=== PATIENT | male | born 1940 | race Caucasian/White ===

== ENCOUNTER 2017-02-03 12:05 | Outpatient (CLI) | payer OTHER, MEDICARE ==
[2017-02-03] MEDS ORDERED: ACETAMINOPHEN 325 MG TAB PO ONE (12:45)
[2017-02-03 13:01] VITALS: BP 142/67; PULSE 83; RESP 16; TEMP 98.6; O2SAT 96
== END 2017-02-03 18:05 | disposition home or self-care (01) ==
LOC: FOBOP 12:05
PROVIDERS: ATTEND Surgery
PROC: 30233N1 Transfusion of Nonautologous Red Blood Cells into Peripheral Vein, Percutaneous Approach (ICD-10-PCS; principal; 2017-02-03)
DX: D50.9 Iron deficiency anemia, unspecified (principal)

== ENCOUNTER → 2017-02-06 | Outpatient (CLI) | payer OTHER, MEDICARE ==
[~2017-02-06] MED LIST: IOPAMIDOL (ISOVUE-300) 100 ML BTL ONE
== END ==
LOC: CIMAGING 07:17
PROVIDERS: ATTEND Internal Medicine Gastroenterology
DX: C18.2 Malignant neoplasm of ascending colon (principal); I70.0 Atherosclerosis of aorta; R91.1 Solitary pulmonary nodule; K57.30 Diverticulosis of large intestine without perforation or abscess without bleeding; R91.8 Other nonspecific abnormal finding of lung field; M48.04 Spinal stenosis, thoracic region
CPT/HCPCS: 71260; 74177; Q9967

== ENCOUNTER 2017-02-07 06:56 | Inpatient (IN) | payer OTHER, MEDICARE ==
--- NOTE | 2017-02-05 15:44 | GHP ---
[f rep st] PREOP HISTORY AND PHYSICAL DATE OF SURGERY: Surgery scheduled 02/07/2017. REASON FOR ADMISSION: Colon cancer. HISTORY OF PRESENT ILLNESS: The patient is a 76-year-old man who presented with anemia. He had a colonoscopy on 01/30/2017, which showed a fungating, infiltrative, and ulcerated partially obstructing mass in the proximal ascending colon. The mass is circumferential. Pathology revealed adenocarcinoma. He is fatigued. He has some pain and discomfort on the right side of his abdomen that does not radiate. He presents at this time for surgical intervention. PAST MEDICAL HISTORY: Anxiety, aortic insufficiency, bacteremia, bundle branch block, cellulitis, history of DVT, bilateral lower extremity edema, hypertension , sleep apnea, spontaneous PE in 1991. PAST SURGICAL HISTORY: Tonsillectomy, appendectomy. ALLERGIES: Ciprofloxacin, sulfa. FAMILY HISTORY: No significant family medical history. SOCIAL HISTORY: He denies alcohol or recreational drug use. He is a former smoker and quit in 1981. He is , with children. His step son-in-law is Dr. Pancho Herrera here at the hospital. REVIEW OF SYSTEMS: Ten-point review of systems negative, aside from HPI. PHYSICAL EXAM: GENERAL: Well-developed, well-nourished man, in no acute distress. HEENT: Normocephalic, atraumatic. No hearing deficits. Pupils equal and round. No scleral icterus. Mucous membranes moist. Pale conjunctiva. NECK: Trachea midline. LUNGS: Clear to auscultation bilaterally. No increased work of breathing. CARDIOVASCULAR: Regular rate. No peripheral edema. ABDOMEN: Bowel sounds present. Soft, mild tenderness to palpation of right lateral abdomen. SKIN: Warm and dry. PSYCH: Mood and affect normal. NEURO: Grossly intact. IMPRESSION AND PLAN: The patient is a 76-year-old man with a new diagnosis of right ascending colon cancer, with anemia, on chronic anticoagulation. He will be taken to the operating room for laparoscopic, possible open right hemicolectomy. He will receive 2 units of blood preop as an outpatient. We will repeat labs on the day prior to surgery and will admit him for another transfusion if needed. We discussed the risks of surgery, including, but not limited to, heart attack, stroke, blood clots or . We discussed infection , bleeding, needing to convert to open procedure, damage to surrounding structures, or anastomotic leak. He understands the risks and would like to proceed. The patient was additionally seen by Dr. Karrie Sepulveda, who agrees with the above impression and plan. /[id number]/MODL MTDD
[2017-02-07] MEDS ORDERED: BUPIVACAINE 0.5% 30 ML SDV ONE (06:59)
[2017-02-07] MEDS ORDERED: LIDOCAINE 1% 2 ML INJ ID PRN (07:20)
[2017-02-07] MEDS ORDERED: LR 1,000 ML IV ONE (07:20)
[2017-02-07] MEDS ORDERED: LIDOCAINE 1% 2 ML INJ ONE (07:24)
--- NOTE | 2017-02-07 08:13 | PDHPUP ---
History & Physical Update H&P update statement: This history and physical update is based on an assessment of the patient which was completed after admission or registration (within 24 hours), but prior to the surgery/procedure. H&P update: H&P reviewed & patient examined H&P changes: received 2 units PRBC and responded appropriately. CT scan with no liver mets. small indeterminate lung nodules
[2017-02-07 08:20] LABS: INR 1.15 (0.83-1.16); PROTIME(PATIENT) 14.6 SEC (12.0-15.0)
[2017-02-07] MEDS ORDERED: fentaNYL 100 MCG/2 ML INJ ONE ×2 (08:38→08:39)
[2017-02-07] MEDS ORDERED: MIDAZOLAM 2 MG/2 ML VIAL ONE (08:39)
[2017-02-07] MEDS ORDERED: PROPOFOL/EMULSION 500 MG/50 ML BOTTLE IV ONE (08:40)
[2017-02-07] MEDS ORDERED: cefOXitin SODIUM 2 GM in D5W 100 ML IV ONE (08:45)
[2017-02-07] MEDS ORDERED: SUCCINYLCHOLINE CHLORIDE*ANESTHESIA ONLY*200 MG/10 ML SYR IVP ONE (09:01)
[2017-02-07] MEDS ORDERED: ROCURONIUM 50 MG/5 ML VIAL ONE ×2 (09:01→10:05)
[2017-02-07] MEDS ORDERED: HYDROmorphONE/DILAUDID 2 MG/ML INJ ONE (09:13)
[2017-02-07] MEDS ORDERED: ONDANSETRON 4 MG/2 ML VIAL ONE (09:14)
[2017-02-07] MEDS ORDERED: NALOXONE HCL 0.4 MG/ML INJ IVP PRN (09:43)
[2017-02-07] MEDS ORDERED: MEPERIDINE 25 MG/ML SYR IVP PRN (09:43)
[2017-02-07] MEDS ORDERED: HYDROmorphONE/DILAUDID 1 MG/ML SYR IVP PRN (09:43)
[2017-02-07] MEDS ORDERED: fentaNYL 100 MCG/2 ML INJ IVP PRN (09:43)
[2017-02-07] MEDS ORDERED: ONDANSETRON 4 MG/2 ML VIAL IVP PRN ×2 (09:43→11:15)
--- NOTE | 2017-02-07 09:53 | PDANEPAE ---
ANE Past Medical History - Cardiovascular History Hx Hypertension: Yes Hx CHF / Valvular Disease: Yes - Pulmonary History Hx Asthma/Reactive Airway Disease: Yes Hx Oxygen in Use at Home: No - Endocrine History Hx Diabetes: No - Cancer History Hx Cancer: Yes - Chronic Pain History Chronic Pain: No ANE Patient History - Allergies Allergies/Adverse Reactions: ciprofloxacin Allergy (Verified 02/06/17 17:49) Sulfa (Sulfonamide Antibiotics) Allergy (Verified 02/05/17 09:34) Rash - Home Medications Home medications: home medication list seen and reviewed Home Medications: Pravastatin Sodium [Pravachol] 40 mg PO HS 09/08/15 [Last Taken 01/26/17] Escitalopram Oxalate [Lexapro] 20 mg PO DAILY 02/05/17 [Last Taken 02/06/17] Warfarin Sodium [Coumadin 2MG (*)] 11 mg PO SUTUWEFRSA@16 02/05/17 [Last Taken 01/26/17] Warfarin Sodium [Coumadin 3MG (*)] 6 mg PO MOTH@02/05/17 [Last Taken 01/26/17 ] - NPO status NPO Since - Liquids (Date): 02/06/17 NPO Since - Liquids (Time): 22:00 NPO Since - Solids (Date): 02/06/17 NPO Since - Solids (Time): 22:00 - Anes Hx Anes Hx: no prior problems - Smoking Hx Smoking Status: Former smoker ANE Labs/Vital Signs - Labs - CBC HCT: 29 - Vital Signs Blood Pressure: 131/71 Heart Rate: 82 Respiratory Rate: 12 O2 Sat (%): 93 Height: 177.8 cm Weight: 93.44 kg ANE Physical Exam - Airway Neck exam: decreased ROM Mallampati Score: Class 2 Mouth exam: normal dental/mouth exam - Pulmonary Pulmonary: no respiratory distress, clear to auscultation - Cardiovascular Cardiovascular: regular rate and rhythym - ASA Status ASA Status: III
--- NOTE | 2017-02-07 11:13 | POSTOPPROG ---
Post Op Note Date of Operation: 02/07/17 Surgeon: Karrie Sepulveda Residence Manager: gail Anesthesiologist: erik Anesthesia: GET(General Endotracheal) Pre-op Diagnosis: right colon cancer Post-op Diagnosis: same Indication: 76 yo with anemia and ascending colon cancer Procedure: lap assisted right hemicolectomy with resection of abdominal wall Findings: tumor adhered to abdominal wall Inf/Abcess present in the surg proc area at time of surgery?: No EBL: Minimal Specimen(s): right colon
[2017-02-07] MEDS ORDERED: NEOSTIGMINE METHYLSULFATE 5 MG/5 ML SYR ONE (11:15)
[2017-02-07] MEDS ORDERED: GLYCOPYRROLATE 0.2 MG/1 ML VIAL ONE (11:15)
--- NOTE | 2017-02-07 11:38 | POSTANESTH ---
Post Anesthetic Evaluation Cardiovascular Status: Normal, Stable Respiratory Status: Normal, Stable Level of Consciousness/Mental Status: Can Participate in Eval Pain Control: Adequate, Prn Tx Ordered Nausea/Vomiting Control: Adequate, Prn Tx Ordered Complications Possibly Related to Anesthesia: None Noted
--- NOTE | 2017-02-07 12:09 | GOP ---
[f rep st] OPERATIVE REPORT DATE OF OPERATION: 02/07/2017 SURGEON: Karrie Sepulveda MD EXECUTIVE COMMUNITY PLANNING: Qian Bennett PA-C ANESTHESIA: General. ANESTHESIOLOGIST: Jess Lam MD PREOPERATIVE DIAGNOSIS: Adenocarcinoma of the ascending colon. POSTOPERATIVE DIAGNOSIS: Adenocarcinoma of the ascending colon. PROCEDURE PERFORMED: Laparoscopic-assisted right hemicolectomy with resection of abdominal wall. FINDINGS: colon adhered to right abdominal sidewall SPECIMENS: Colon with the abdominal wall en bloc and anastomosis. ESTIMATED BLOOD LOSS: 25 cc. INDICATIONS: The patient is a 76-year-old man who had profound anemia. Colonoscopy revealed a colon cancer. DESCRIPTION OF PROCEDURE: The patient was brought into the operating room, placed supine on the table, and general anesthesia was administered. His abdomen was prepped and draped in the usual sterile fashion. I infiltrated all sites with 0.5% Marcaine prior to making incisions. I made an incision at his umbilicus. I elevated it and I inserted the Veress needle. It passed the hanging drop test. I placed a 5 mm trocar with a camera at this site. There were no injuries from Veress needle placement. Under direct vision, I placed a 5 mm trocar in the upper abdomen, as well as in the lower abdomen. I explored his abdomen. There were no liver metastasis, there was no evidence of carcinomatosis. The right colon was affixed to the right abdominal wall. I examined the transverse colon and it appeared soft. I divide the ligament between the liver and the colon. I then identified the terminal ilium and the appendix and I divided these attachments. I continued a [id number] approach and I resected part of the abdominal wall in order to bring the tumor en bloc off the abdominal wall. I was then able to carry my dissection down to the white line of Toldt and meet up with my dissection by the hepatic flexure. The structures of the retroperitoneum were visualized and protected. I elevated the colon and identified the right colic vessels. These were skeletonized. They were doubly clipped and then divided with the Harmonic. I continued my mesenteric dissection. Once the colon was completely mobile, I made an incision in his midline. I inserted the Ned wound protector and I extracorporalized the colon. I had to enlarge the incision in order to get the tumor out of the abdomen. I selected points of transection on the terminal ilium, as well as on the transverse colon. I divided each of the limbs with a DOMINIQUE 75 and I passed the specimen off the field. I aligned the bowel on the antimesenteric border and I sutured it with 3-0 Vicryl. I then made an enterotomy in each limb and inserted a DOMINIQUE 75, creating a [id number] functional end-to-end anastomosis. I closed the enterotomy with a DOMINIQUE 75. I changed gloves and removed the dirty instruments. I reinforced the staple line with 3-0 Vicryl pop-offs. The anastomosis was widely patent. There was no twisting, no torsion, and the bowel was pink. I returned the bowel to the abdominal cavity. I re-insufflated. I marked the area on his lateral wall where the tumor was attached with clips. Hemostasis was achieved. Again, I inspected the anastomosis. It was floppy and there was no compromise. Trocars and Ned wound protector were removed. Fascia closed with 0 Vicryl. Wound irrigated. Skin closed with 3-0 Vicryl, followed by 4-0 Monocryl. Aquacel Ag surgical dressing was applied. Dermabond applied to the inferior incision. He was awakened in the operating room, extubated, transferred to PACU in stable condition. /[id number]/MODL MTDD
[2017-02-07] MEDS: NS 1,000 ML IV SCH (12:41)
[2017-02-07] MEDS: ACETAMINOPHEN 500 MG TAB PO SCH ×2 (14:04→21:31)
[2017-02-07 15:51] LABS: HEMATOCRIT 29.5 % (40.0-51.0); HEMOGLOBIN 8.5 g/dL (13.7-17.5); MEAN CELL HEMOGLOBIN 19.3 pg (27.9-34.1); RED BLOOD CELL COUNT 4.4 10^6/uL (4.40-6.38)
[2017-02-07 15:54] LABS: MEAN CELL HEMOGLOBIN CONCENTR. 28.8 g/dL (32.4-36.7); RED CELL DISTRIBUTION WIDTH 25.6 % (11.5-15.2)
[2017-02-07 16:08] LABS: ANION GAP 8 mEq/L (8-16); CALCIUM 8.5 mg/dL (8.5-10.4); CARBON DIOXIDE 22 mEq/l (22-31); CHLORIDE 102 mEq/L (97-110); CREATININE 0.9 mg/dL (0.7-1.3); GLOMERULAR FILTRATION RATE > 60; GLUCOSE 113 mg/dL (70-100); POTASSIUM 4.7 mEq/L (3.5-5.2); SODIUM 132 mEq/L (134-144)
[2017-02-07] MEDS: WARFARIN SODIUM 2 MG TAB PO SCH (17:27)
[2017-02-07] MEDS: PRAVASTATIN SODIUM 40 MG TAB PO SCH (21:32)
[2017-02-07] MEDS: oxyCODONE IR 5 MG TAB PO PRN (21:32)
[2017-02-08] MEDS: NS 1,000 ML IV SCH ×2 (01:30→16:32)
--- NOTE | 2017-02-08 03:48 | GCON ---
[f rep st] CONSULTATION DATE OF CONSULTATION: 02/07/2017 HISTORY OF PRESENT ILLNESS: The patient is a 76-year-old gentleman with a history of DVT x2 in the , on warfarin, as well as aortic insufficiency, who is postop day 0, following a right hemicole ctomy by Dr. Karrie Sepulveda, for adenocarcinoma of the ascending colon. In discussing the case with he r, she mentioned that the tumor was adherent to the abdominal wall, so it was a bit of an extensive surgery. I am asked to follow along, given his preoperative anemia and medical comorbidities. When I speak with the patient, he complains of abdominal pain, but otherwise feels well. He is not short of breath. He is wearing oxygen, but does not routinely wear it at home. He has really only been out of the postanesthesia care unit for about 2 hours. He has a Rodriguez catheter in place. He i s not having nausea or vomiting, fever, or chills. The patient had anemia prior to coming into the hospital, and an outpatient colonoscopy demonstrated the adenocarcinoma. He received 2 units of packed cells during this surgery. On January 26, his hemo globin was 6.2 with a hematocrit of 22.2. He was transfused and then it was 8.3 and 29.7 on preop d ay 1. REVIEW OF SYSTEMS: Complete 10-point review of systems conducted and negative, except as noted in t he HPI. PAST MEDICAL HISTORY: 1. Aortic insufficiency. 2. 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 3. Hyperlipidemia. 4. Rash. 5. Left lower extremity edema. 6. Obstructive sleep apnea. 7. He had an admission for left lower extremity cellulitis that was streptococcus bacteremia in 201 6. ALLERGIES: Cipro and sulfa. MEDICATIONS: Warfarin, pravastatin, escitalopram. SOCIAL HISTORY: No tobacco. No alcohol. He is Pancho Javier's [id number]. FAMILY HISTORY: Parents . PHYSICAL EXAMINATION: VITAL SIGNS: Blood pressure 160/79, pulse 110, breathing 20 times a minute, 94% on 2 L, temperature 34. At 12:30 p.m. today, so a couple of hours prior, his pulse was 78, and he was afebrile. GENERAL: No acute distress. Sclerae anicteric. Oropharynx clear. Mucous membra shelli are moist. NECK: Supple without lymphadenopathy or JVD. LUNGS: Clear to auscultation bilaterally. HEART: S1, S2. A diastolic murmur is heard. He is tac hycardic. Abdomen is soft. It is tender. There are hypoactive bowel sounds. Midline incision is clean, dry, and intact. Lower extremities show left lower extremity edema that is 1+. Calves are n ontender. SKIN: Without rash. Neurologic exam is nonfocal. LABORATORY DATA: I had mentioned his labs from yesterday. He has a microcytic anemia with an MCV o f 67. Labs at this point in time are pending. INR this morning was 1.15. There is no imaging. I have discussed the case with Dr. Karrie Sepulveda. ASSESSMENT/PLAN: This is a 76-year-old gentleman with multiple comorbidities, postoperative day 0, from a right hemicolectomy for cancer. 1. Fever. This is likely a routine postop fever. I think we will follow it. I think a fever work up is not indicated at this point in time. 2. Preoperative anemia. Labs just returned during the course of this dictation, and his current he moglobin and hematocrit are 8.5 and 29.5, so we will follow. He remains microcytic. 3. Aortic insufficiency. Follow. This is not a contraindication to fluids or volume. 4. Tachycardia. This is secondary to fever. We will follow. He is anemic, but mildly so. 5. Prophylaxis. Pharmacologic prophylaxis is indicated. Dr. Sepulveda plans to restart his warfarin, which I think is a reasonable plan. His last event was almost 20 years ago. 6. Code status. Full. DISPOSITION: Inpatient. Thank you for the consult. [facility] will follow. /[id number]/MODL
[2017-02-08] MEDS: oxyCODONE IR 5 MG TAB PO PRN ×3 (05:58→21:06)
[2017-02-08] MEDS: ACETAMINOPHEN 500 MG TAB PO SCH ×3 (05:58→21:06)
[2017-02-08 06:17] LABS: % IMMATURE GRANULYOCYTES 0.4 % (0.0-1.1); ABSOLUTE IMMATURE GRANULOCYTES 0.05 10^3/uL (0.00-0.10); ADD DIFF? NO; ADD MORPH? YES; ADD SCAN? NO; ATYPICAL LYMPHOCYTE FLAG 0 (0-99); FRAGMENT RBC FLAG 40 (0-99); HEMATOCRIT 29.8 % (40.0-51.0); HEMOGLOBIN 8.3 g/dL (13.7-17.5); LEFT SHIFT FLG 70 (0-99); LIPEMIA HEMOLYSIS FLAG 70 (0-99); MEAN CELL HEMOGLOBIN 19.2 pg (27.9-34.1); MEAN PLATELET VOLUME 9.3 fL (8.7-11.7); PLATELET CLUMPS FLAG 10 (0-99); PLATELET COUNT 304 10^3/uL (150-400); RED BLOOD CELL COUNT 4.32 10^6/uL (4.40-6.38)
[2017-02-08 06:19] LABS: MEAN CELL HEMOGLOBIN CONCENTR. 27.9 g/dL (32.4-36.7); RED CELL DISTRIBUTION WIDTH 25.6 % (11.5-15.2)
[2017-02-08 06:32] LABS: ANION GAP 8 mEq/L (8-16); CALCIUM 8.6 mg/dL (8.5-10.4); CARBON DIOXIDE 25 mEq/l (22-31); CHLORIDE 102 mEq/L (97-110); CREATININE 0.9 mg/dL (0.7-1.3); GLOMERULAR FILTRATION RATE > 60; GLUCOSE 97 mg/dL (70-100); SODIUM 135 mEq/L (134-144)
[2017-02-08 06:49] LABS: HYPOCHROMIA 2+; MACROCYTES 1+; POLYCHROMASIA 1+
[2017-02-08 06:50] LABS: ACANTHOCYTES 1+; PLATELET ESTIMATE ADEQUATE (ADEQ); SCHISTOCYTES 1+; TARGET CELLS 1+
[2017-02-08] MEDS: ENOXAPARIN 40 MG/0.4 ML SYR SC SCH (08:11)
[2017-02-08] MEDS: ESCITALOPRAM OXALATE 10 MG TAB PO SCH (08:11)
[2017-02-08] MEDS ORDERED: NON-FORMULARY NEW DRUG (Escitalopram Oxalate [Lexapro] 20 MG) PO SCH (09:00)
--- NOTE | 2017-02-08 13:18 | SOAPPROG ---
SOAP Progress Note Assessment/Plan: Assessment: POD # 1 s/p lap assisted hemicolectomy with partial resection of abdominal wall due to adenocarcinoma Path pending Appreciate hospitalists Neuro - scheduled tylenol and prn morphine and oxy ir Resp - IS Cards - Home meds including warfarin GI - awaiting bowel function to return - remove larson. Good urine output Heme/ID - monitor WBC Proph - Lovenox FEN - Clears Dispo - MS, continue inpatient S: Feeling well. Pain controlled. Vagal with standing early to day but did better later Plan: 02/08/17 13:13 Objective: Vital Signs Temp Pulse Resp BP Pulse Ox 36.7 C 77 16 125/66 H 92 02/08/17 08:00 02/08/17 09:35 02/08/17 09:35 02/08/17 09:35 02/08/17 09:35 Laboratory Results 02/08/17 06:05 02/08/17 06:05 02/07/17 02/08/17 02/09/17 05:59 05:59 05:59 Intake Total 2754 Output Total 1005 Balance 1749 PT 14.6 SEC (12.0-15.0) 02/07/17 07:17 INR 1.15 (0.83-1.16) 02/07/17 07:17 Physical Exam - Physical Exam General Appearance: WD/WN, alert, no apparent distress, other ( at bedside) Respiratory: lungs clear, normal breath sounds Cardiac/Chest: other (regular rate) Abdomen: normal bowel sounds, non-tender, soft, organomegaly, other (dressing dry) Skin: normal color, warm/dry ICD10 Worksheet Patient Problems: Problems Problem Status Onset Cellulitis of left lower extremity Acute Pneumonia Acute
[2017-02-08] MEDS ORDERED: WARFARIN SODIUM 3 MG TAB PO SCH (16:00)
--- NOTE | 2017-02-08 16:53 | HOSPPROG ---
Hospitalist Progress Note Assessment/Plan: 76-year-old male status post a right hemicolectomy on 02/07. He was noted to have a postop fever which has not reoccurred. Patient is new to me today - fever: Patient has been afebrile postoperatively in the last 24 hours and is without complaints of chest pain shortness of breath or cough. He is using an incentive spirometer and has no history of lung disease. - Anemia: Hemoglobin currently 8.3. He is status post 2 units PRBCs during the right hemicolectomy. Hemoglobin is stable there is no signs of blood loss. - AI: No symptoms of chest pain shortness of breath. He appears euvolemic. - Leukocytosis: Patient is afebrile and this may be reactive. We will simply watch. - Hyponatremia at 132, now normal. NO symptoms Plan: Will follow along with you. Watch fever hemoglobin WBC and bowel function. Subjective: No complaints of chest pain shortness of breath cough nausea or vomiting. Objective: Vital Signs Temp Pulse Resp BP Pulse Ox 36.7 C 93 16 135/67 H 94 02/08/17 15:13 02/08/17 15:13 02/08/17 15:13 02/08/17 15:13 02/08/17 15:13 Laboratory Results 02/08/17 06:05 02/08/17 06:05 02/07/17 02/08/17 02/09/17 05:59 05:59 05:59 Intake Total 2754 Output Total 1005 Balance 1749 PT 14.6 SEC (12.0-15.0) 02/07/17 07:17 INR 1.15 (0.83-1.16) 02/07/17 07:17 - Time Spent With Patient Time Spent with Patient: greater than 35 minutes Time Spent with Patient: Greater than 35 minutes spent on this patients care, greater than 50% of time spent counseling, educating, and coordinating care regarding the above mentioned plan. - Pending Discharge Pending Discharge Within 24 Hours: No Pending Discharge Within 48 Hours: No - Physical Exam Constitutional: no apparent distress Eyes: PERRL, anicteric sclera Ears, Nose, Mouth, Throat: moist mucous membranes, hearing normal Cardiovascular: regular rate and rhythym, no murmur, rub, or gallop Respiratory: no respiratory distress, no rales or rhonchi Gastrointestinal: other ( Hypoactive bowel sounds with tenderness about the surgical wound area without have signs of a palpable mass or rebound.) Genitourinary: no bladder fullness Skin: warm Musculoskeletal: full muscle strength Neurologic: AAOx3, CN II-XII Intact Psychiatric: interacting appropriately ICD10 Worksheet Patient Problems: Problems Problem Status Onset Cellulitis of left lower extremity Acute Pneumonia Acute
[2017-02-08] MEDS ORDERED: NS 1,000 ML IV ONE (18:00)
[2017-02-08] MEDS ORDERED: NS 1,000 ML IV SCH (18:00)
[2017-02-08 20:31] LABS: COLOR YELLOW; LEUKOCYTE ESTERASE,URINE 2+ (NEGATIVE); NITRITE,URINE NEGATIVE (NEGATIVE)
[2017-02-08 20:42] LABS: MUCUS 4+ /lpf (NONE-1+); WBC,URINE 25-50 /hpf (0-3)
[2017-02-08 20:43] LABS: RBC,URINE NONE SEEN /hpf (0-3)
[2017-02-08] MEDS: PRAVASTATIN SODIUM 40 MG TAB PO SCH (21:06)
[2017-02-09 05:34] LABS: % IMMATURE GRANULYOCYTES 0.7 % (0.0-1.1); ABSOLUTE IMMATURE GRANULOCYTES 0.08 10^3/uL (0.00-0.10); ADD DIFF? NO; ADD MORPH? YES; ADD SCAN? YES; ATYPICAL LYMPHOCYTE FLAG 0 (0-99); FRAGMENT RBC FLAG 40 (0-99); HEMATOCRIT 27.3 % (40.0-51.0); HEMOGLOBIN 7.6 g/dL (13.7-17.5); LIPEMIA HEMOLYSIS FLAG 70 (0-99); MEAN CELL HEMOGLOBIN 19.3 pg (27.9-34.1); MEAN PLATELET VOLUME 9.2 fL (8.7-11.7); PLATELET CLUMPS FLAG 0 (0-99); PLATELET COUNT 291 10^3/uL (150-400); RED BLOOD CELL COUNT 3.94 10^6/uL (4.40-6.38)
[2017-02-09 05:37] LABS: LEFT SHIFT FLG 110 (0-99); MEAN CELL HEMOGLOBIN CONCENTR. 27.8 g/dL (32.4-36.7); MEAN CELL VOLUME 69.3 fL (81.5-99.8); RED CELL DISTRIBUTION WIDTH 25.4 % (11.5-15.2)
[2017-02-09 05:47] LABS: ANION GAP 7 mEq/L (8-16); CALCIUM 8.2 mg/dL (8.5-10.4); CARBON DIOXIDE 22 mEq/l (22-31); CHLORIDE 103 mEq/L (97-110); CREATININE 0.8 mg/dL (0.7-1.3); GLOMERULAR FILTRATION RATE > 60; GLUCOSE 97 mg/dL (70-100); POTASSIUM 4.2 mEq/L (3.5-5.2); SODIUM 132 mEq/L (134-144)
[2017-02-09 05:48] LABS: IRON < 10.1 mcg/dL (49-199)
[2017-02-09 05:55] LABS: % SATURATION 4 % (20-55); TOTAL IRON BINDING CAPACITY 266 ug/dL (260-490)
[2017-02-09 06:19] LABS: SCAN NEGATIVE
[2017-02-09 06:24] LABS: SPHEROCYTES 1+
[2017-02-09 06:26] LABS: HYPOCHROMIA 2+; MICROCYTES 2+; POLYCHROMASIA 1+
[2017-02-09 06:27] LABS: ACANTHOCYTES 1+; PLATELET ESTIMATE ADEQUATE (ADEQ)
[2017-02-09] MEDS: ACETAMINOPHEN 500 MG TAB PO SCH ×3 (07:00→23:35)
[2017-02-09] MEDS: oxyCODONE IR 5 MG TAB PO PRN ×3 (07:49→20:21)
[2017-02-09] MEDS: ENOXAPARIN 40 MG/0.4 ML SYR SC SCH (09:33)
[2017-02-09] MEDS: ESCITALOPRAM OXALATE 10 MG TAB PO SCH (09:33)
--- NOTE | 2017-02-09 11:43 | SOAPPROG ---
SOAP Progress Note Assessment/Plan: Assessment: 76yo M POD #2 s/p lap assisted hemicolectomy with partial resection of abdominal wall due to adenocarcinoma Path pending Appreciate hospitalists Neuro - controlled c tylenol, prn morphine and oxy ir Resp - IS Cards - Home meds including warfarin - check INR tomorrow GI - awaiting bowel function to return - voiding spontaneously following larson removal Heme/ID - monitor WBC. afebrile Proph - Lovenox FEN - Clears - await return of bowel function before advancing Dispo - MS, continue inpatient. PT S: tolerating clears without N/V/D. Pain well-controlled. went for a walk this morning O: sitting up in chair, comfortable, NAD No increased WOB Hypoactive BS, softly distended, relatively nontender. Dressing intact Objective: Vital Signs Temp Pulse Resp BP Pulse Ox 37.0 C 98 18 138/63 H 92 02/09/17 08:40 02/09/17 08:40 02/09/17 08:40 02/09/17 08:40 02/09/17 08:40 Laboratory Results 02/09/17 05:28 02/09/17 05:28 02/08/17 02/09/17 02/10/17 05:59 05:59 05:59 Intake Total 2754 1936 Output Total 1005 450 Balance 1749 1486 PT 14.6 SEC (12.0-15.0) 02/07/17 07:17 INR 1.15 (0.83-1.16) 02/07/17 07:17 ICD10 Worksheet Patient Problems: Problems Problem Status Onset Cellulitis of left lower extremity Acute Pneumonia Acute
[2017-02-09] MEDS: WARFARIN SODIUM 2 MG TAB PO SCH (16:52)
[2017-02-09] MEDS: PRAVASTATIN SODIUM 40 MG TAB PO SCH (20:21)
[2017-02-09] MEDS ORDERED: LORazepam 2 MG/ML INJ IV SCH (23:15)
[2017-02-10] MEDS: oxyCODONE IR 5 MG TAB PO PRN (02:14)
--- NOTE | 2017-02-10 03:29 | SOAPPROG ---
SONEISHA Progress Note Assessment/Plan: Assessment: S/p lap assisted hemicolectomy with partial resection of abdominal wall due to adenocarcinoma [id number] Had worsening distension and pain earlier X ray with ileus Abdomen distended but soft. Appears stable from this am. Supportive care for now Plan: 02/08/17 13:13 02/10/17 03:28 Objective: Vital Signs Temp Pulse Resp BP Pulse Ox 36.5 C 104 H 20 178/98 H 93 02/10/17 00:06 02/10/17 00:06 02/10/17 00:06 02/10/17 00:06 02/10/17 00:06 Laboratory Results 02/09/17 05:28 02/09/17 05:28 02/08/17 02/09/17 02/10/17 05:59 05:59 05:59 Intake Total 2754 1936 250 Output Total 1005 450 400 Balance 1749 1486 -150 PT 14.6 SEC (12.0-15.0) 02/07/17 07:17 INR 1.15 (0.83-1.16) 02/07/17 07:17 ICD10 Worksheet Patient Problems: Problems Problem Status Onset Cellulitis of left lower extremity Acute Pneumonia Acute
[2017-02-10] MEDS: D5W 1/2 NS W/ 20 KCl/L 1,000 ML IV SCH ×2 (03:44→20:29)
[2017-02-10 04:34] LABS: HEMATOCRIT 33.2 % (40.0-51.0); HEMOGLOBIN 9.3 g/dL (13.7-17.5); MEAN CELL HEMOGLOBIN 19.3 pg (27.9-34.1); RED BLOOD CELL COUNT 4.82 10^6/uL (4.40-6.38)
[2017-02-10 04:35] LABS: % IMMATURE GRANULYOCYTES 0.4 % (0.0-1.1); ABSOLUTE IMMATURE GRANULOCYTES 0.05 10^3/uL (0.00-0.10); ADD DIFF? NO; ADD MORPH? YES; ADD SCAN? NO; ATYPICAL LYMPHOCYTE FLAG 0 (0-99); FRAGMENT RBC FLAG 60 (0-99); LEFT SHIFT FLG 30 (0-99); LIPEMIA HEMOLYSIS FLAG 70 (0-99); MEAN PLATELET VOLUME 9.2 fL (8.7-11.7); PLATELET CLUMPS FLAG 10 (0-99); PLATELET COUNT 369 10^3/uL (150-400)
[2017-02-10 04:41] LABS: MEAN CELL VOLUME 68.9 fL (81.5-99.8)
[2017-02-10 04:43] LABS: INR 2.1 (0.83-1.16); PROTIME(PATIENT) 23.7 SEC (12.0-15.0)
[2017-02-10 04:48] LABS: ANION GAP 14 mEq/L (8-16); CALCIUM 8.6 mg/dL (8.5-10.4); CARBON DIOXIDE 20 mEq/l (22-31); CHLORIDE 103 mEq/L (97-110); CREATININE 0.8 mg/dL (0.7-1.3); GLOMERULAR FILTRATION RATE > 60; GLUCOSE 129 mg/dL (70-100); POTASSIUM 4.5 mEq/L (3.5-5.2); SODIUM 137 mEq/L (134-144)
[2017-02-10 05:09] LABS: ACANTHOCYTES 1+; HYPOCHROMIA 2+; MICROCYTES 2+; PLATELET ESTIMATE ADEQUATE (ADEQ); POLYCHROMASIA 1+
[2017-02-10] MEDS: ACETAMINOPHEN 500 MG TAB PO SCH (07:31)
[2017-02-10] MEDS: ESCITALOPRAM OXALATE 10 MG TAB PO SCH (10:18)
[2017-02-10] MEDS: ENOXAPARIN 40 MG/0.4 ML SYR SC SCH (10:19)
--- NOTE | 2017-02-10 12:32 | HOSPPROG ---
Hospitalist Progress Note Assessment/Plan: 76-year-old male status post a right hemicolectomy on 02/07. He was noted to have a postop fever which has not reoccurred, likely atelectatic. Patient is new to me today - fever: Patient has been afebrile postoperatively >72 hrs and is without complaints of chest pain shortness of breath or cough. He is using an incentive spirometer and has no history of lung disease. - Anemia: Hemoglobin currently 9.3. He is status post 2 units PRBCs during the right hemicolectomy. Hemoglobin is stable there is no sign of blood loss. - AI: No symptoms of chest pain shortness of breath. He appears euvolemic. - Leukocytosis: Patient is afebrile and this may be reactive. Cont to monitor. - Hyponatremia at 132, now normal. NO symptoms - H/O DVT - on coumadin, INR now therapeutic. - UE swelling - reported by RN. Surgery to evaluate and order u/s if indicated. Dispo - cont inpt Full code Subjective: Pt feels ok. Denies flatus or BM. Still distended. Had increased pain overnight. no more fevers. tolerating clears. No N/V. Objective: Vital Signs Temp Pulse Resp BP Pulse Ox 36.5 C 89 16 158/90 H 95 02/10/17 08:00 02/10/17 08:00 02/10/17 08:00 02/10/17 08:00 02/10/17 08:00 Laboratory Results 02/10/17 04:05 02/10/17 04:05 02/09/17 02/10/17 02/11/17 05:59 05:59 05:59 Intake Total 1936 707 Output Total 450 400 Balance 1486 307 PT 23.7 SEC (12.0-15.0) H D 02/10/17 04:05 INR 2.10 (0.83-1.16) H 02/10/17 04:05 - Physical Exam Constitutional: no apparent distress Eyes: PERRL Ears, Nose, Mouth, Throat: moist mucous membranes Cardiovascular: regular rate and rhythym Respiratory: no respiratory distress, clear to auscultation Gastrointestinal: other (absent bowel tones, mild-moderate distention, no r/r/g) Skin: warm Musculoskeletal: full muscle strength Neurologic: AAOx3 Psychiatric: interacting appropriately ICD10 Worksheet Patient Problems: Problems Problem Status Onset Cellulitis of left lower extremity Acute Pneumonia Acute
--- NOTE | 2017-02-10 16:15 | SOAPPROG ---
SOAP Progress Note Assessment/Plan: Assessment: DISTENDED, SOFT, WOUND OK/ AFEBRILE SOME SWELLING RT ARM IMPR: ILEUS Plan:AMBULATE 02/10/17 16:13 Objective: Vital Signs Temp Pulse Resp BP Pulse Ox 36.4 C 90 18 162/94 H 94 02/10/17 16:00 02/10/17 16:00 02/10/17 16:00 02/10/17 16:00 02/10/17 16:00 Laboratory Results 02/10/17 04:05 02/10/17 04:05 02/09/17 02/10/17 02/11/17 05:59 05:59 05:59 Intake Total 1936 707 Output Total 450 400 Balance 1486 307 PT 23.7 SEC (12.0-15.0) H D 02/10/17 04:05 INR 2.10 (0.83-1.16) H 02/10/17 04:05 ICD10 Worksheet Patient Problems: Problems Problem Status Onset Cellulitis of left lower extremity Acute Pneumonia Acute
[2017-02-10] MEDS: WARFARIN SODIUM 2 MG TAB PO SCH (16:53)
[2017-02-11] MEDS: PRAVASTATIN SODIUM 40 MG TAB PO SCH ×2 (00:42→21:12)
[2017-02-11 04:37] LABS: % IMMATURE GRANULYOCYTES 0.3 % (0.0-1.1); ABSOLUTE IMMATURE GRANULOCYTES 0.03 10^3/uL (0.00-0.10); ADD DIFF? NO; ADD MORPH? YES; ADD SCAN? NO; ATYPICAL LYMPHOCYTE FLAG 0 (0-99); FRAGMENT RBC FLAG 80 (0-99); HEMOGLOBIN 8.4 g/dL (13.7-17.5); LEFT SHIFT FLG 40 (0-99); LIPEMIA HEMOLYSIS FLAG 70 (0-99); MEAN CELL HEMOGLOBIN 19.8 pg (27.9-34.1); MEAN PLATELET VOLUME 9.1 fL (8.7-11.7); PLATELET CLUMPS FLAG 10 (0-99); PLATELET COUNT 398 10^3/uL (150-400); RED BLOOD CELL COUNT 4.25 10^6/uL (4.40-6.38)
[2017-02-11 04:40] LABS: MEAN CELL VOLUME 68.2 fL (81.5-99.8); RED CELL DISTRIBUTION WIDTH 25.4 % (11.5-15.2)
[2017-02-11 04:50] LABS: ANION GAP 7 mEq/L (8-16); CALCIUM 8.4 mg/dL (8.5-10.4); CARBON DIOXIDE 23 mEq/l (22-31); CHLORIDE 105 mEq/L (97-110); CREATININE 0.7 mg/dL (0.7-1.3); GLOMERULAR FILTRATION RATE > 60; GLUCOSE 121 mg/dL (70-100); POTASSIUM 4.6 mEq/L (3.5-5.2); SODIUM 135 mEq/L (134-144)
[2017-02-11 05:00] LABS: MICROCYTES 2+
[2017-02-11 05:01] LABS: HYPOCHROMIA 3+; PLATELET ESTIMATE ADEQUATE (ADEQ)
[2017-02-11] MEDS ORDERED: LISINOPRIL 2.5 MG TAB PO SCH (09:00)
[2017-02-11] MEDS: ESCITALOPRAM OXALATE 10 MG TAB PO SCH (09:11)
--- NOTE | 2017-02-11 11:12 | HOSPPROG ---
Hospitalist Progress Note Assessment/Plan: 76-year-old male status post a right hemicolectomy on 02/07. He was noted to have a postop fever which has not reoccurred, likely atelectatic. - Post-op ileus - persists, now with hiccups, no flatus, managed per surg -encouraged ambulation -he declined thorazine for hiccups -?ng tube, will discuss with surg - Fever: Isolated post-op event, resolved. Afebrile >72 hrs and without complaints of chest pain shortness of breath or cough. He is using an incentive spirometer and has no history of lung disease. - Hypoxemia: likely atelectatic and poor diaphragmatic excursion with ileus and abdominal distention -3 LPM O2, wean as able - Anemia: Hemoglobin stable. He is status post 2 units PRBCs during the right hemicolectomy. No signs of active bleeding. Monitor. - AI: No symptoms of chest pain shortness of breath. He appears euvolemic. - Leukocytosis: Likely post-op stress, resolved - Hyponatremia - Na now normal. No symptoms - Hypertension - poorly controlled, query if post-op pain / stress contributing. He is not on anti-hypertensives as outpt. -improved low dose lisinopril - H/O DVT - on coumadin, INR now therapeutic. - UE swelling - check RUE u/s Dispo - cont inpt Full code Subjective: Pt c/o hiccups. Denies abdominal pain. No flatus or BM. No more fevers. Tolerating clears. Not ambulating much. Objective: Vital Signs Temp Pulse Resp BP Pulse Ox 36.6 C 97 18 160/90 H 94 02/11/17 07:04 02/11/17 07:04 02/11/17 07:04 02/11/17 07:04 02/11/17 07:04 Laboratory Results 02/11/17 04:14 02/11/17 04:14 02/10/17 02/11/17 02/12/17 05:59 05:59 05:59 Intake Total 707 2250 Output Total 400 220 300 Balance 307 2030 -300 PT 23.7 SEC (12.0-15.0) H D 02/10/17 04:05 INR 2.10 (0.83-1.16) H 02/10/17 04:05 - Physical Exam Constitutional: no apparent distress Eyes: PERRL Ears, Nose, Mouth, Throat: moist mucous membranes Cardiovascular: regular rate and rhythym Respiratory: no respiratory distress, reduced air movement Gastrointestinal: other (hypoactive bowel sounds, soft, +moderate distention, no r/r/g) Skin: warm Musculoskeletal: other (RUE swelling) Neurologic: AAOx3 Psychiatric: interacting appropriately ICD10 Worksheet Patient Problems: Problems Problem Status Onset Cellulitis of left lower extremity Acute Pneumonia Acute
[2017-02-11] MEDS ORDERED: BISACODYL 10 MG SUPP PR ONE ×2 (13:45→16:15)
[2017-02-11] MEDS: WARFARIN SODIUM 2 MG TAB PO SCH (16:14)
--- NOTE | 2017-02-11 16:24 | SOAPPROG ---
SOAP Progress Note Assessment/Plan: Assessment: DISTENDED, SOFT, WOUND OK/ AFEBRILE SOME SWELLING RT ARM IMPR: ILEUS Plan:AMBULATE 02/10/17 16:13 02/11/17 16:22 STILL DISTENDED BUT SOFT/ SOME RUMBLINGS BUT NO FLATUS/ 2 WAY PENDING/ WOUNDS OK/ AFEBRILE/ HOPEFULLY ILEUS STARTING TO RESOLVE Objective: Vital Signs Temp Pulse Resp BP Pulse Ox 36.6 C 90 17 163/84 H 94 02/11/17 15:04 02/11/17 15:04 02/11/17 15:04 02/11/17 15:04 02/11/17 15:04 Laboratory Results 02/11/17 04:14 02/11/17 04:14 02/10/17 02/11/17 02/12/17 05:59 05:59 05:59 Intake Total 707 2250 Output Total 400 220 500 Balance 307 2030 -500 PT 23.7 SEC (12.0-15.0) H D 02/10/17 04:05 INR 2.10 (0.83-1.16) H 02/10/17 04:05 ICD10 Worksheet Patient Problems: Problems Problem Status Onset Cellulitis of left lower extremity Acute Pneumonia Acute
[2017-02-11] MEDS: D5W 1/2 NS W/ 20 KCl/L 1,000 ML IV SCH (21:12)
[2017-02-12] MEDS: oxyCODONE IR 5 MG TAB PO PRN (00:10)
[2017-02-12] MEDS ORDERED: LORazepam 2 MG/ML INJ IVP ONE (01:38)
--- NOTE | 2017-02-12 02:10 | CPEKG ---
Heart Rate: 155 RR Interval: 387 P-R Interval: 65 QRSD Interval: 124 QT Interval: 292 QTC Interval: 469 P Kane: 0 QRS Kane: -90 T Wave Kane: 16 EKG Severity - ABNORMAL ECG - EKG Impression: SINUS TACHYCARDIA EKG Impression: RBBB AND LAFB Electronically Signed By: Chauncey Jamison 13-Feb-2017 12:03:36
[2017-02-12] MEDS ORDERED: AMIODARONE HCL 150 MG/100 ML BAG (1.5 MG/ML) IV ONE (03:10)
[2017-02-12] MEDS ORDERED: PROPOFOL/EMULSION 1,000 MG/100 ML BOTTLE IV ONE (03:11)
[2017-02-12] MEDS ORDERED: ADENOSINE 6 MG/2 ML VIAL IVP ONE (03:18)
[2017-02-12] MEDS ORDERED: ADENOSINE 6 MG/2 ML VIAL ONE (03:19)
[2017-02-12] MEDS ORDERED: fentanYL/NACL/100 ML BAG IV ONE (03:20)
[2017-02-12] MEDS ORDERED: NS 1,000 ML IV ONE (03:22)
[2017-02-12 03:30] LABS: ABSOLUTE NRBC COUNT 0.03 10^3/uL (0-0.01); ADD MORPH? YES; ATYPICAL LYMPHOCYTE FLAG 0 (0-99); FRAGMENT RBC FLAG 60 (0-99); HEMOGLOBIN 9.6 g/dL (13.7-17.5); LIPEMIA HEMOLYSIS FLAG 70 (0-99); MEAN CELL HEMOGLOBIN 19.2 pg (27.9-34.1); MEAN PLATELET VOLUME 8.9 fL (8.7-11.7); PLATELET CLUMPS FLAG 10 (0-99); PLATELET COUNT 393 10^3/uL (150-400)
--- NOTE | 2017-02-12 03:32 | EDPHY ---
Inpatient Procedure Narrative: INTUBATION Procedure: Rapid sequence intubation. Indication for the procedure was airway protection for altered mental status and hypoxia. The patient was preoxygenated with 100% oxygen by face mask and high-flow nasal cannula. The patient was given the following IV medications: Etomidate, succinylcholine, . The patient was orally endotracheally intubated using the glide scope with a 8.0 ETT. Tracheal intubation was confirmed with misting on the tube; breath sounds were auscultated equally bilaterally; appropriate color change with [place] CO2 detector. Chest X-ray shows ETT in good position. The procedure was performed by myself.
[2017-02-12 03:33] LABS: ADD DIFF? YES; ADD SCAN? NO; LEFT SHIFT FLG 300 (0-99); MEAN CELL HEMOGLOBIN CONCENTR. 28.2 g/dL (32.4-36.7); RED CELL DISTRIBUTION WIDTH 25.7 % (11.5-15.2)
[2017-02-12] MEDS ORDERED: ETOMIDATE 40 MG/20 ML INJ ONE (03:37)
[2017-02-12] MEDS ORDERED: SUCCINYLCHOLINE CHLORIDE*ANESTHESIA ONLY*200 MG/10 ML SYR IVP ONE (03:37)
[2017-02-12 03:41] LABS: ALANINE AMINOTRANSFERASE 35 IU/L (21-72); ALBUMIN 2.9 g/dL (3.5-5.0); ALKALINE PHOSPHATASE 64 IU/L (38-126); ANION GAP 12 mEq/L (8-16); ASPARTATE AMINOTRANSFERASE 31 IU/L (17-59); BILIRUBIN,TOTAL 0.9 mg/dL (0.1-1.4); CALCIUM 8.1 mg/dL (8.5-10.4); CARBON DIOXIDE 20 mEq/l (22-31); CHLORIDE 106 mEq/L (97-110); CREATININE 1.1 mg/dL (0.7-1.3); GLOMERULAR FILTRATION RATE > 60; GLUCOSE 132 mg/dL (70-100); POTASSIUM 4.2 mEq/L (3.5-5.2); SODIUM 138 mEq/L (134-144); TOTAL PROTEIN 5.4 g/dL (6.3-8.2)
[2017-02-12] MEDS ORDERED: ERTAPENEM 1 GM in NS 100 ML IV SCH (03:43)
[2017-02-12] MEDS ORDERED: ALBUMIN 5% 500 ML IV ONE ×3 (03:45→18:00)
[2017-02-12] MEDS ORDERED: ALBUMIN 5% 500 ML BOTTLE IV ONE ×3 (03:46→17:26)
--- NOTE | 2017-02-12 03:46 | CPEKG ---
Heart Rate: 144 RR Interval: 417 P-R Interval: 372 QRSD Interval: 128 QT Interval: 324 QTC Interval: 502 P [place]: 0 QRS [place]: 145 T Wave [place]: 53 EKG Severity - ABNORMAL ECG - EKG Impression: SINUS TACHYCARDIA EKG Impression: RBBB AND LPFB Electronically Signed By: Chauncey Jamison 13-Feb-2017 12:04:03
[2017-02-12 03:47] LABS: BASE EXCESS -3.1 mEq/L (-2.5-2.5); BICARBONATE 20 mEq/L (22-26); MEASURED OXYGEN SATURATION 91 % (92-95); PCO2 31 mmHg (34-38); PO2 62 mmHg (65-75); TCO2 21 mEq/L (23-27)
[2017-02-12 03:48] LABS: PROTIME(PATIENT) 54.5 SEC (12.0-15.0)
[2017-02-12 03:50] LABS: END TIDAL CO2 30; PATIENT RATE 28; PRESSURE SUPPORT 7
[2017-02-12 03:53] LABS: TROPONIN I 0.149 ng/mL (0-0.034)
[2017-02-12] MEDS ORDERED: DOPamine/DEXTROSE/250 ML BAG IV ONE (03:58)
[2017-02-12 03:59] LABS: INR 5.94 (0.83-1.16)
[2017-02-12] MEDS ORDERED: *PHM DO NOT USE-KCENTRA IV 35 UNITS/KG (INR 4-6) PTD MISC SCH (04:00)
[2017-02-12] MEDS ORDERED: NS 2,800 ML IV ONE (04:07)
[2017-02-12] MEDS ORDERED: HUMAN PROTHROMBIN COMPLX IV ONE (04:30)
--- NOTE | 2017-02-12 04:52 | HOSPPROG ---
Hospitalist Progress Note Assessment/Plan: 105 minutes of total critical care time spent w/ patient, at bedside, addressing the following: - Called by RN around 1:30 a.m. for agitation, anxiety, abdominal discomfort, tachycardia (160s) and tachypnea, fully oriented and not encephalopathic, similar behavior to a prior night when he had been particularly anxious and responded well to ativan PRN - Gave initial trial of ativan 0.5mg IV and ordered EKG - Contacted by RN that patient's o2 requirement increasing to 15L NRB, patient becoming less interactive, and EKG w/ RBBB/LAFB (known) + sinus tach vs. SVT - Evaluated patient, able to give 1-word answers but not consistently following 1-step commands, SpO 79% on 15LPM NRB mask, abdomen very distended w/ guarding and rebound, decision made to transfer to ICU, intubate, and contact Dr. Chamberlain to eval - Stat team called, patient intubated safely in ICU by Dr. Selby, placed on propofol/fentanyl for sedation - He became hypotensive (SBP 70s-90s) w/ ongoing sinus tachycardia on repeat EKG (120-160s) and febrile (39.3) - CXR demonstrated free air under diaphragm w/ hypoventilation, no overt CHF per Dr. Madden, and abdomen x-ray w/ severe distension/ileus from large bowel to stomach - Given 1gm Invanz - Started on septic shock weight-based fluid challenge + 500cc albumin 5% + dopamine, CVL to be placed by Dr. Chamberlain - INR 5.9 so given K-centra for immediate reversal so patient is safe to go to OR - Repeat ABG/lactic and CVP monitoring once central line - Get Echo to ensure normal EF and assess degree of AI, monitor for signs of volume overload/worsening resp status - In summary, Mr. Cordero was suffering from worsening ileus s/p hemicolectomy for Stage II colon adeno, and it is likely that he perforated, potentially causing peritonitis, septic shock, metabolic acidosis, acute encephalopathy, and acute hypoxic respiratory failure. - He will require hemodynamic and hematologic stabilization prior to returning to OR for exploration by Dr. Chamberlain, and he remains high risk for worsening morbidity/mortality. His family has been updated on his condition via Dr. Herrera. Objective: Vital Signs Temp Pulse Resp BP Pulse Ox 36.9 C 155 H 24 H 123/59 H 93 02/12/17 01:30 02/12/17 02:32 02/12/17 02:32 02/12/17 02:32 02/12/17 02:32 Laboratory Results 02/12/17 03:20 02/12/17 03:20 02/10/17 02/11/17 02/12/17 05:59 05:59 05:59 Intake Total 707 2250 1600 Output Total 699 081 1368 Balance 307 2030 350 PT 54.5 SEC (12.0-15.0) H D 02/12/17 03:20 INR 5.94 (0.83-1.16) H* 02/12/17 03:20 ICD10 Worksheet Patient Problems: Problems Problem Status Onset Cellulitis of left lower extremity Acute Pneumonia Acute
[2017-02-12] MEDS: NS 1,000 ML IV SCH (04:56)
[2017-02-12 05:09] LABS: HYPOCHROMIA 2+
[2017-02-12 05:10] LABS: POLYCHROMASIA 1+
[2017-02-12 05:11] LABS: MICROCYTES 2+; PLATELET ESTIMATE ADEQUATE (ADEQ)
[2017-02-12] MEDS ORDERED: SUCCINYLCHOLINE CHLORIDE 200 MG/10 ML VIAL IVP ONE (05:15)
[2017-02-12] MEDS ORDERED: ETOMIDATE 40 MG/20 ML INJ IV ONE (05:15)
[2017-02-12] MEDS ORDERED: PHYTONADIONE 5 MG in NS 50 ML IV ONE (05:30)
[2017-02-12 06:14] LABS: BASE EXCESS -2.3 mEq/L (-2.5-2.5); BICARBONATE 22 mEq/L (22-26); MEASURED OXYGEN SATURATION 96 % (92-95); PCO2 39 mmHg (34-38); PO2 95 mmHg (65-75); TCO2 23 mEq/L (23-27)
[2017-02-12 06:16] LABS: ASSIST CONTROL YES; END TIDAL CO2 31; O2 CONCENTRATIION 100 % (0-100); P/F RATIO 95 RATIO; TOTAL RATE 26
[2017-02-12 06:20] LABS: ABSOLUTE NRBC COUNT 0.03 10^3/uL (0-0.01); ADD MORPH? YES; ATYPICAL LYMPHOCYTE FLAG 0 (0-99); FRAGMENT RBC FLAG 40 (0-99); HEMATOCRIT 25.2 % (40.0-51.0); HEMOGLOBIN 7.2 g/dL (13.7-17.5); LIPEMIA HEMOLYSIS FLAG 70 (0-99); MEAN CELL HEMOGLOBIN 19.5 pg (27.9-34.1); MEAN PLATELET VOLUME 9.4 fL (8.7-11.7); PLATELET CLUMPS FLAG 0 (0-99); PLATELET COUNT 284 10^3/uL (150-400); RED BLOOD CELL COUNT 3.69 10^6/uL (4.40-6.38)
[2017-02-12 06:28] LABS: LEFT SHIFT FLG 300 (0-99); MEAN CELL HEMOGLOBIN CONCENTR. 28.6 g/dL (32.4-36.7); MEAN CELL VOLUME 68.3 fL (81.5-99.8)
[2017-02-12 06:29] LABS: ADD DIFF? YES; ADD SCAN? NO
[2017-02-12 06:30] LABS: INR 1.79 (0.83-1.16); PROTIME(PATIENT) 20.9 SEC (12.0-15.0)
[2017-02-12 06:36] LABS: ANION GAP 6 mEq/L (8-16); CARBON DIOXIDE 17 mEq/l (22-31); CHLORIDE 110 mEq/L (97-110); CREATININE 0.7 mg/dL (0.7-1.3); GLOMERULAR FILTRATION RATE > 60; GLUCOSE 229 mg/dL (70-100); POTASSIUM 3.1 mEq/L (3.5-5.2); SODIUM 133 mEq/L (134-144)
[2017-02-12 06:40] LABS: CALCIUM 5.9 mg/dL (8.5-10.4)
[2017-02-12] MEDS ORDERED: BUPIVACAINE 0.5% 30 ML SDV ONE (06:41)
[2017-02-12] MEDS ORDERED: BACITRACIN 50,000 UNITS/10 ML SYR IRR ONE (06:42)
[2017-02-12] MEDS ORDERED: POLYMYXIN B SULFATE 500,000 UNIT/10 ML SYR IRR ONE (06:42)
[2017-02-12 07:04] LABS: HYPOCHROMIA 3+; MICROCYTES 2+; PLATELET ESTIMATE ADEQUATE (ADEQ); POLYCHROMASIA 1+
[2017-02-12] MEDS ORDERED: ROCURONIUM 100 MG/10 ML VIAL ONE (07:15)
[2017-02-12] MEDS ORDERED: PHENYLEPHRINE 10 MG/ML SDV ONE (07:15)
[2017-02-12] MEDS ORDERED: VASOPRESSIN 20 UNIT/ML VIAL ONE (07:16)
--- NOTE | 2017-02-12 07:16 | SOAPPROG ---
SOAP Progress Note Assessment/Plan: Assessment: DISTENDED, SOFT, WOUND OK/ AFEBRILE SOME SWELLING RT ARM IMPR: ILEUS Plan:AMBULATE 02/10/17 16:13 02/11/17 16:22 STILL DISTENDED BUT SOFT/ SOME RUMBLINGS BUT NO FLATUS/ 2 WAY PENDING/ WOUNDS OK/ AFEBRILE/ HOPEFULLY ILEUS STARTING TO RESOLVE 02/12/17 07:12 PT CRUMPED EARLY THIS AM WITH SEVERE ABD PAIN, PROBABLE INCREASE IN FREE AIR, AND TACHYCARDIA AND MILD HYPOTENSION NEEDS URGENT LAPAROTOMY AFTER 3 HRS OF RESUSCITATION, ABX, PCC FOR COAG REVERSAL {INR >5} RISKS AND OPTIONS FULLY DISCUSSED WITH FAMLY PT INTUBATED/ LACTATE 4 Objective: Vital Signs Temp Pulse Resp BP Pulse Ox 39.3 C H 144 H 25 H 98/52 L 96 02/12/17 06:00 02/12/17 06:00 02/12/17 06:00 02/12/17 06:00 02/12/17 06:00 Laboratory Results 02/12/17 06:10 02/12/17 06:10 02/11/17 02/12/17 02/13/17 05:59 05:59 05:59 Intake Total 2250 2736.7 Output Total 220 1800 Balance 2030 936.7 PT 20.9 SEC (12.0-15.0) H D 02/12/17 06:10 INR 1.79 (0.83-1.16) H 02/12/17 06:10 ICD10 Worksheet Patient Problems: Problems Problem Status Onset Cellulitis of left lower extremity Acute Pneumonia Acute
[2017-02-12] MEDS: PIPERACILLIN/TAZO 4.5 GM/DEX 100 ML IV SCH ×4 (07:27→23:50)
[2017-02-12] MEDS ORDERED: fentaNYL 100 MCG/2 ML INJ ONE ×4 (07:42→08:34)
[2017-02-12] MEDS ORDERED: MIDAZOLAM 2 MG/2 ML VIAL ONE (07:45)
[2017-02-12] MEDS ORDERED: PROTOCOL POTASSIUM 1 DOSE MISC PRN (08:13)
--- NOTE | 2017-02-12 08:22 | HOSPPROG ---
Hospitalist Progress Note Assessment/Plan: 76-year-old male status post a right hemicolectomy on 02/07 for colon cancer. He decompensated overnight with perf'd bowel, emergently intubated, on pressors , atbx and in OR. - Septic shock due to peritonitis secondary to bowel perf s/p iliana-colectomy POD #5. Currently in OR, central line placed. Leukopenic this am. Now with mild leukocytosis and improving bandemia. Problems with hypotension post- operatively. -Change Erta to Zosyn, plus Vanco and Micafungin -ID consulted -Blood cultures sent -Await intra-operative cultures -Wean pressors as able, currently on Levophed, Dopamine, Vasopressin -May require addition of Hydrocortisone if ongoing issues with hypotension, will need to d/w surgery - Acute hypoxemic respiratory failure - secondary to above along with right PTX s/p IJ placement. Intubated, ICU -Fentanyl / Propofol for sedation -PTX improving on f/u CXR this afternoon - Lactic acidosis - post-op ABG shows pH 7.27, metabolic in nature. -1 amp NaHCO3 now and start bicarb drip -repeat ABG 1800 - Anemia: Hemoglobin down to 7.2 this am, s/p 2 units prbc's douglas-operatively and hgb up to 9.2. -Follow closely, transfuse as indicated - Adenocarcinoma of colon - Stage 2. Will need oncology consult once he stabilizes. - Hyponatremia - Na down to 133, follow. - Hypertension - now hypotensive with septic shock, management as above - H/O DVT - on coumadin, INR 5.9 this am, emergently reversed with K-centra prior to surgery. -Will need bridging post-operatively when cleared by surgery - UE swelling - New RUE DVT. This propagated from superficial thrombophlebitis obtained after outpt transfusion last week. - ?AI - No AI noted on echo this am - Elevated troponin - likely demand ischemia issue in setting of septic shock. Echo reviewed, EF 45-50%. -trend trop - PPLX - Holding anti-coagulation until cleared by surgery. SCD's for now. IV PPI. Dispo - cont inpt Full code Subjective: Pt intubated, sedated in ICU Objective: Vital Signs Temp Pulse Resp BP Pulse Ox 39.3 C H 144 H 24 H 76/48 L 96 02/12/17 07:05 02/12/17 07:05 02/12/17 07:05 02/12/17 07:05 02/12/17 07:05 Laboratory Results 02/12/17 06:10 02/12/17 06:10 02/11/17 02/12/17 02/13/17 05:59 05:59 05:59 Intake Total 2250 2736.7 Output Total 220 1800 Balance 2030 936.7 PT 20.9 SEC (12.0-15.0) H D 02/12/17 06:10 INR 1.79 (0.83-1.16) H 02/12/17 06:10 - Physical Exam Cardiovascular: tachycardia Respiratory: no respiratory distress, clear to auscultation Gastrointestinal: other (absent bowel tones, wound vac on, mild distention) Skin: warm ICD10 Worksheet Patient Problems: Problems Problem Status Onset Cellulitis of left lower extremity Acute Pneumonia Acute
[2017-02-12] MEDS ORDERED: CALCIUM CHLORIDE 1 GM/10 ML INJ ONE (08:27)
[2017-02-12] MEDS ORDERED: PHENYLEPHRINE HCL 50 MG in D5W 250 ML IV SCH (08:30)
[2017-02-12] MEDS ORDERED: DOBUTamine/DEXTROSE 250 ML IV SCH (08:30)
[2017-02-12] MEDS ORDERED: ROCURONIUM 50 MG/5 ML VIAL ONE (08:38)
[2017-02-12] MEDS ORDERED: VANCOMYCIN HCL/NORMAL SALINE 250 ML IV ONE ×2 (08:45→11:42)
[2017-02-12] MEDS ORDERED: FLUCONAZOLE/NaCl 100 ML IV ONE (09:00)
[2017-02-12] MEDS ORDERED: MICAFUNGIN NA 100 MG in NS 100 ML IV SCH (09:00)
[2017-02-12] MEDS ORDERED: HYDROmorphONE/DILAUDID 2 MG/ML INJ ONE ×2 (09:07→09:43)
[2017-02-12] MEDS ORDERED: fentaNYL 100 MCG/2 ML INJ IVP PRN ×2 (09:20)
[2017-02-12] MEDS ORDERED: HYDROmorphONE/DILAUDID 1 MG/ML SYR IVP PRN ×2 (09:20)
--- NOTE | 2017-02-12 09:33 | POSTOPPROG ---
Post Op Note Date of Operation: 02/12/17 Surgeon: Baudilio Chamberlain Camp Counselor: Araseli Meade Anesthesiologist: Jakub Jennings Anesthesia: GET(General Endotracheal) Pre-op Diagnosis: peritonitis, septic shock Post-op Diagnosis: same, anastomotic leak Procedure: laparotomy, anastomotic resection and revision, washout Findings: perforation at prior anastomosis with fecal contamination Inf/Abcess present in the surg proc area at time of surgery?: Yes Depth: Organ Space EBL: 50-100 Complications: none Drains: Yonathan Gleason, Wound Vac (abthera)
--- NOTE | 2017-02-12 09:34 | POSTOPPROG ---
Post Op Note Date of Operation: 02/12/17 Surgeon: Baudilio Chamberlain Anesthesiologist: Jakub Hunter Anesthesia: GET(General Endotracheal) Pre-op Diagnosis: peritonitis, septic shock Post-op Diagnosis: same Procedure: R femoral arterial line placement Findings: good position Inf/Abcess present in the surg proc area at time of surgery?: No EBL: Minimal Complications: none
[2017-02-12] MEDS ORDERED: ALBUMIN 25% 50 ML SOLN IV ONE (11:07)
[2017-02-12] MEDS: VASOPRESSIN/DEXTROSE 250 ML IV SCH ×2 (11:14→21:11)
[2017-02-12] MEDS: NOREPINEPHRINE/NS 500 ML IV SCH ×3 (11:14→22:23)
[2017-02-12] MEDS: ESCITALOPRAM OXALATE 10 MG TAB PO SCH (12:02)
[2017-02-12 12:31] LABS: % IMMATURE GRANULYOCYTES 1.7 % (0.0-1.1); ABSOLUTE IMMATURE GRANULOCYTES 0.17 10^3/uL (0.00-0.10); ABSOLUTE NRBC COUNT 0.05 10^3/uL (0-0.01); ADD DIFF? NO; ADD MORPH? YES; ADD SCAN? YES; ATYPICAL LYMPHOCYTE FLAG 0 (0-99); FRAGMENT RBC FLAG 60 (0-99); HEMATOCRIT 31.6 % (40.0-51.0); HEMOGLOBIN 9.2 g/dL (13.7-17.5); LIPEMIA HEMOLYSIS FLAG 70 (0-99); MEAN CELL HEMOGLOBIN CONCENTR. 29.1 g/dL (32.4-36.7); MEAN CELL VOLUME 72.1 fL (81.5-99.8); MEAN PLATELET VOLUME 9.6 fL (8.7-11.7); NRBC-AUTO% 0.5 % (0.0-0.2); PLATELET CLUMPS FLAG 10 (0-99); PLATELET COUNT 294 10^3/uL (150-400); RED BLOOD CELL COUNT 4.38 10^6/uL (4.40-6.38)
[2017-02-12 12:32] LABS: LEFT SHIFT FLG 300 (0-99); RED CELL DISTRIBUTION WIDTH 25.4 % (11.5-15.2)
[2017-02-12] MEDS: POTASSIUM Cl (KCl) 50 ML IV SCH ×2 (13:17→15:09)
[2017-02-12 13:43] LABS: SCAN POSITIVE
[2017-02-12 13:52] LABS: PLATELET ESTIMATE ADEQUATE (ADEQ)
[2017-02-12] MEDS ORDERED: EPINEPHrine 1 MG in NS 250 ML IV ONE (14:03)
[2017-02-12] MEDS ORDERED: PROTOCOL CALCIUM 1 DOSE IV PRN (14:06)
[2017-02-12] MEDS ORDERED: PROTOCOL MAGNESIUM 1 DOSE IV PRN (14:06)
[2017-02-12] MEDS ORDERED: PROTOCOL K PHOSPHATE 1 DOSE IV PRN (14:06)
[2017-02-12 14:09] LABS: HYPOCHROMIA 2+; MACROCYTES 1+; MICROCYTES 1+; POLYCHROMASIA 1+
[2017-02-12 14:10] LABS: ELLIPTOCYTES 1+; GIANT PLATELETS PRESENT
--- NOTE | 2017-02-12 14:25 | ECHO ---
[id number] + + [address] : : [place] [address] : : [phone] + + Adult Echocardiographic Report + -----+ :Name: VINNY SAAB FStudy Date: 02/12/2017 01:10 PM BP: 90/55 mmHg : : Hospital Admission Number: [id number] Location : 246: :: 1940 Gender: Male Height: 70 in : :Age: 76 yrs Race: WH Weight: 206 lb : :Reason For Study: eval EF, AI, RV pressure : : BSA: 2.1 meters2 : :History: septic; post-op surgery : + -----+ MMode/2D Measurements \T\ Calculations IVSd: 0.98 cm RVDd: 3.6 cm FS: 23.2 % Ao root diam: 3.3 cm LVPWd: 1.2 cm LVIDd: 4.0 cm EDV(Teich): 71.8 ml LVIDs: 3.1 cm ESV(Teich): 38.1 ml EF(Teich): 47.0 % Normal Measurement Values: + + :LVIDd (3.5-5.7cm) IVSd (0.6-1.1cm) LVPWd (0.6-1.1cm) Aortic Root (2.0-3.7cm)Left Atrium (1.5-4.0cm): :LV Vol(d) (76-115ml) LV Vol(s) (29-48ml) Ejec Fraction (50-65%)PV Miguel (0.6- 1.2m/s) TV Miguel (0.4-1.0m/s) : :MV E Miguel (0.8-1.0m/s)MV A Miguel (0.3-1.0m/s)LVOT Miguel (0.7-1.2m/s) Asc Ao Miguel ( 0.9-1.8m/s) : + + Doppler Measurements \T\ Calculations MV E max miguel: Ao V2 max: LV V1 max: PA V2 max: 73.1 cm/sec 182.3 cm/sec 83.9 cm/sec 74.7 cm/sec MV A max miguel: Ao max PG: LV V1 max PG: PA max P.5 cm/sec 13.3 mmHg 2.8 mmHg 2.2 mmHg MV E/A: 0.93 MV dec time: 0.12 sec TR max miguel: 271.0 cm/sec TR max P.4 mmHg RAP systole: 5.0 mmHg RVSP(TR): 34.4 mmHg Left Ventricle The left ventricle is normal in size. There is normal left ventricular wall thickness. Left ventricular systolic function is borderline reduced. Ejection Fraction = 45-50%. Abnormal septal motion. Right Ventricle The right ventricle is normal size. There is normal right ventricular wall thickness. The right ventricular systolic function is mildly reduced. Atria The left atrial size is normal. Right atrial size is normal. Mitral Valve The mitral valve is normal in structure and function. There is no mitral valve stenosis. There is no mitral regurgitation noted. Tricuspid Valve The tricuspid valve is normal in structure and function. There is mild tricuspid regurgitation. Right ventricular systolic pressure is 25-30mmHg. Aortic Valve The aortic valve is trileaflet. Mild-Moderate Aortic Valve Calcification. There is no aortic stenosis. There is no aortic insufficiency. Pulmonic Valve The pulmonic valve is not well visualized. Mild pulmonic valvular regurgitation. Great Vessels The aortic root is normal size. Pericardium/Pleural There is no pericardial effusion. Conclusion Patient is tachycardic, supine and post-op abdominal surgery. (1) Left ventricular systolic ejection fraction was mildly reduced (50%) - septal wall motion was dyskinetic (2) No left ventricular hypertrophy (3) Diastoilc dysfunction was present (4) Normal right ventricular size with similar reduction in systolic function noted (5) Normal atrial dimensions (6) Grossly normal mitral valve without appreciable regurgitation (7) Trileaflet aortic valve with mild to moderate sclerosis. No stenosis was noted. No insufficiency (8) Mild tricuspid regurgitation - RVSP was 25-30 mm Hg (9) Poor visualization of the pulmonic valve (10) No comparison echocardiograms Final Reading Physician: Han Narayan signed on 02/12/2017 02:23 PM Ordering Physician: Chauncey Barlow Performed By: Leandra Barragan
[2017-02-12] MEDS ORDERED: EPINEPHrine 1 MG in NS 250 ML IV SCH (14:30)
[2017-02-12 14:59] LABS: BASE EXCESS -7.1 mEq/L (-2.5-2.5); BICARBONATE 19 mEq/L (22-26); IONIZED CALCIUM 1.11 MMOL/L (1.12-1.30); MEASURED OXYGEN SATURATION 94 % (92-95); PCO2 42 mmHg (34-38); PO2 75 mmHg (65-75); TCO2 20 mEq/L (23-27)
--- NOTE | 2017-02-12 15:00 | GCON ---
[f rep st] CONSULTATION DATE OF CONSULTATION: 02/12/2017 HISTORY OF PRESENT ILLNESS: Mr. Cordero is a 76-year-old male, who was admitted on 02/07 after compl aining of generalized fatigue, despite well-treated sleep apnea, and was found to be severely anemic , with a hemoglobin of 6.2. Interestingly, he had been complaining of back pain as far back as Harjit h of this year, and right lower quadrant pain on January 03, 2017. In any case, he underwent colonoscop y, which found a large fungating mass, and underwent laparoscopic-assisted hemicolectomy on 02/07. A t the time, the mass was also adherent to the abdominal wall and that was resected as well, and he h ad an end-to-end anastomosis performed by Dr. Sepulveda at that time. He did receive 2 units of blood d uring that surgery. Postoperatively he seemed to be fairly stable, save for some ileus and abdomina l distention, and on the 1st developed some right upper extremity edema, which was subsequently foun d to be a deep vein thrombosis involving the axillary vein down to the forearm; however, on the late evening of the and bung sewer of the 3rd, he developed increasing abdominal distention and h ad a large change in his hemodynamics, with tachycardia and hypotension, and worsening abdominal dis tention. A chest x-ray revealed free air under the diaphragm. He was urgently intubated and receiv ed K Centra and vitamin K and fresh frozen plasma, for an INR of 5.9, and was taken to the operating room. Dr. Chamberlain was performing the surgery when this occurred, and found that there was spillage o f contents in the right gutter, but not diffuse peritonitis. He found that the anastomosis had dehi sced, with some edema. A portion of colon was again resected and an end-to-end anastomosis was perf ormed again. This was followed by wound VAC placement and he was brought back to the intensive care unit. In the ICU, he was hypotensive, requiring high doses of pressors; including dopamine and Lev ophed to maintain a mean arterial pressure of at least 65. He was making some urine, and his ventil atory status was relatively stable, though he was on 80% FiO2 and 8 of PEEP. REVIEW OF SYSTEMS: Otherwise was not able to be obtained. PAST MEDICAL HISTORY: Includes: 1. Anxiety and depression. 2. Mild aortic insufficiency. 3. Diastolic dysfunction on an echo from 2014. 4. Right bundle branch block. 5. Hyperlipidemia. 6. Benign prostatic hypertrophy. 7. Cellulitis in the past. 8. Hypertension. 9. Obstructive sleep apnea. He is using an ASV device on setting 02/14/10. His sleep study showed a n apnea-hypopnea index of 83, which consisted of both obstructive and central apneas. 10. He had strep bacteremia with cellulitis in 09/13/2015. 11. He has had recurrent venous thromboembolic disease, including a pulmonary embolism in 1991, a d eep vein thrombosis in 1998 and again in June of 2015, and a new DVT diagnosed on this admission . 12. Chronic anticoagulation. PAST SURGICAL HISTORY: Includes: 1. His initial laparoscopic hemicolectomy, followed by today's laparotomy. 2. Remote tonsillectomy. 3. Remote appendectomy. SOCIAL HISTORY: He is a previous smoker, but none recently. No alcohol or recreational drugs. FAMILY HISTORY: Noncontributory at this time. MEDICATIONS: Include: Dopamine, Lexapro, fentanyl, micafungin, norepinephrine, Zofran, Zosyn, prop ofol, vasopressin. I believe he had a single dose of vancomycin. PHYSICAL EXAMINATION: VITAL SIGNS: He is afebrile. Blood pressure is 98/57, with a MAP 70. Heart rate 111, sinus tachycardia. Respirations 18, oxygen saturation 95%. He was sedated, in no appare nt distress, without using accessory muscles for breathing. Pupils are equally round and reactive t o light, nonicteric and noninjected. Mucous membranes appeared to be moist. NECK was supple, witho ut adenopathy. The right internal jugular vein triple lumen catheter was not well sutured, but a si ngle stitch secured it in place. Breath sounds were mildly coarse bilaterally without wheezing. HE ART appeared to have a regular rate and rhythm, without obvious murmur. ABDOMEN: Soft, nondistende d. Wound VAC was in place. There was no erythema or excess drainage. His LOWER EXTREMITIES showed no clubbing, cyanosis, or edema. His right upper extremity was somewhat swollen. Both finger tips were mildly cool but not cyanotic. NEUROLOGIC: Grossly nonfocal. SKIN: Warm and dry, without ev idence of rash. OBJECTIVE DATA: Includes a white count postoperatively of 10.03, hematocrit of 31.6, platelets of 2 94. Preoperative INR was 1.79. Blood gas preoperatively 737, CO2 39, PO2 95, bicarb 23, sat of 96% on the ventilator. Preoperative sodium was 133, potassium 3.1, chloride 110, bicarb 17, BUN 16, cr eatinine 0.7, glucose 229, calcium 5.9. Albumin was 2.9 yesterday, with a BNP of 1800. Troponin is 0.149. Chest x-ray shows endotracheal tube in decent position. His lungs were hypo-expanded, without obvio us infiltrates, and free air under the diaphragm. ASSESSMENT/PLAN: 1. Peritonitis related to anastomotic dehiscence. He is quite unstable right now, hemodynamically speaking, but surgically he appears to be relatively stable. A colostomy was not performed today, b ut Dr. Chamberlain is planning on taking him back to surgery in the morning and will re-explore the wound at that time. He is getting broad-spectrum antibiotics including Zosyn, vancomycin and fluconazole; as it looks like micafungin was just added. Blood cultures are pending at this time. 2. Hypotension. This is presumably due to the peritonitis, his recent surgery, and likely large fl uid losses. He is now on Levophed, vasopressin. Epinephrine may soon be coming. He has gotten candido e albumin so far, with some positive benefit. A NICOM is being set up and we will monitor that very closely. He already received his 30 mL/kg of septic shock. If his blood pressure continues to bec ome a problem, we may need to consider steroids, though I would like to clear that with surgery firs t. 3. Respiratory failure with hypoxemia and requirement for ventilator. His vent seems to be set up reasonably well. A postoperative blood gas should be pending at this time, and a repeat chest x-ray in the morning. 4. Deep vein thrombosis. I would like to anticoagulate this soon as possible, but would certainly need surgical clearance for this in a patient with an active cancer, multiple venous thromboembolic episodes in the past. At the very least, he will have SCDs. 5. Anemia. He has gotten some blood preoperatively, I believe was 2 units today; and his hematocri t is up to 30. We will have to follow this very closely. 6. Hyponatremia, at 132 is not bad. He is getting normal saline infused now. We will follow this closely. 7. Hypocalcemia. We started an electrolyte protocol, which should replace this, which may help hem odynamically with him. A total of 90 minutes at least of critical care time was required at the bedside evaluation of this patient with multiorgan dysfunction. /[id number]/MODL
[2017-02-12] MEDS ORDERED: SODIUM BICARBONATE 150 MEQ in D5W 1,000 ML IV SCH (15:15)
[2017-02-12] MEDS ORDERED: SODIUM BICARBONATE 50 MEQ/50 ML SYR IVP ONE (15:20)
[2017-02-12] MEDS ORDERED: SODIUM BICARBONATE 50 MEQ/50 ML SYR ONE (15:22)
[2017-02-12] MEDS ORDERED: CALCIUM GLUCONATE 50 ML IV ONE (15:49)
[2017-02-12 15:53] LABS: ANION GAP 11 mEq/L (8-16); CALCIUM 7.3 mg/dL (8.5-10.4); CARBON DIOXIDE 22 mEq/l (22-31); CHLORIDE 109 mEq/L (97-110); CREATININE 1.6 mg/dL (0.7-1.3); GLOMERULAR FILTRATION RATE 42; GLUCOSE 89 mg/dL (70-100); SODIUM 142 mEq/L (134-144)
[2017-02-12 16:03] LABS: TROPONIN I 0.134 ng/mL (0-0.034)
[2017-02-12] MEDS: PANTOPRAZOLE SODIUM 40 MG in NS 100 ML IV SCH (16:31)
[2017-02-12 17:35] LABS: BICARBONATE 20 mEq/L (22-26); END TIDAL CO2 35; MEASURED OXYGEN SATURATION 98 % (92-95); O2 CONCENTRATIION 80 % (0-100); P/F RATIO 131 RATIO; PCO2 41 mmHg (34-38); PO2 105 mmHg (65-75); TCO2 21 mEq/L (23-27); TOTAL RATE 24
[2017-02-12] MEDS: HYDROCORTISONE 100 MG/2 ML VIAL IVP SCH (18:24)
[2017-02-12] MEDS: PROPOFOL/EMULSION 100 ML IV SCH (23:15)
[2017-02-13] MEDS: NOREPINEPHRINE/NS 500 ML IV SCH ×5 (01:08→20:50)
[2017-02-13 01:22] LABS: POTASSIUM 5.3 mEq/L (3.5-5.2)
[2017-02-13] MEDS ORDERED: ACETAMINOPHEN 650 MG SUPP PR ONE (02:04)
[2017-02-13] MEDS: ACETAMINOPHEN 650 MG SUPP PR PRN (02:10)
--- NOTE | 2017-02-13 03:39 | SOAPPROG ---
SOAP Progress Note Assessment/Plan: Assessment: DISTENDED, SOFT, WOUND OK/ AFEBRILE SOME SWELLING RT ARM IMPR: ILEUS Plan:AMBULATE 02/10/17 16:13 02/11/17 16:22 STILL DISTENDED BUT SOFT/ SOME RUMBLINGS BUT NO FLATUS/ 2 WAY PENDING/ WOUNDS OK/ AFEBRILE/ HOPEFULLY ILEUS STARTING TO RESOLVE 02/12/17 07:12 PT CRUMPED EARLY THIS AM WITH SEVERE ABD PAIN, PROBABLE INCREASE IN FREE AIR, AND TACHYCARDIA AND MILD HYPOTENSION NEEDS URGENT LAPAROTOMY AFTER 3 HRS OF RESUSCITATION, ABX, PCC FOR COAG REVERSAL {INR >5} RISKS AND OPTIONS FULLY DISCUSSED WITH FAMLY PT INTUBATED/ LACTATE 4 02/13/17 03:36 VITAL SIGNS STABLE BUT STILL ON 3 PRESSORS/URINE OUTPUT IS MARKEDLY IMPROVED/ WOUND VAC DRAINAGE IS PRIMARILY SEROUS/FEBRILE TO 385/ CONSIDER A LAPAROTOMY TODAY WITH WASHOUT AND POSSIBLE WOUND CLOSURE. Objective: Vital Signs Temp Pulse Resp BP Pulse Ox 38.7 C H 124 H 19 111/51 L 93 02/13/17 03:00 02/13/17 03:00 02/13/17 03:00 02/13/17 03:00 02/13/17 03:00 Microbiology 02/12/17 08:38 Gram Stain - Final Peritoneal Fluid - Aspirate 02/12/17 08:38 Mycobacterial Smear (ENMA) - Final Peritoneal Fluid - Aspirate Laboratory Results 02/12/17 12:15 02/13/17 00:10 02/11/17 02/12/17 02/13/17 05:59 05:59 05:59 Intake Total 2250 2736.7 6178 Output Total 220 1800 1275 Balance 2030 936.7 4903 PT 20.9 SEC (12.0-15.0) H D 02/12/17 06:10 INR 1.79 (0.83-1.16) H 02/12/17 06:10 ICD10 Worksheet Patient Problems: Problems Problem Status Onset Cellulitis of left lower extremity Acute Pneumonia Acute
[2017-02-13] MEDS: fentaNYL/NACL 100 ML IV SCH ×2 (03:44→21:34)
[2017-02-13 05:31] LABS: ABSOLUTE NRBC COUNT 0.03 10^3/uL (0-0.01); ADD DIFF? YES; ADD MORPH? YES; ADD SCAN? YES; ATYPICAL LYMPHOCYTE FLAG 0 (0-99); FRAGMENT RBC FLAG 60 (0-99); HEMATOCRIT 31.1 % (40.0-51.0); HEMOGLOBIN 9.2 g/dL (13.7-17.5); LIPEMIA HEMOLYSIS FLAG 70 (0-99); MEAN CELL HEMOGLOBIN CONCENTR. 29.6 g/dL (32.4-36.7); MEAN PLATELET VOLUME 9.2 fL (8.7-11.7); NRBC-AUTO% 0.1 % (0.0-0.2); PLATELET CLUMPS FLAG 10 (0-99); PLATELET COUNT 304 10^3/uL (150-400); RED BLOOD CELL COUNT 4.38 10^6/uL (4.40-6.38)
[2017-02-13 05:32] LABS: BASE EXCESS -3.6 mEq/L (-2.5-2.5); BICARBONATE 23 mEq/L (22-26); IONIZED CALCIUM 1.05 MMOL/L (1.12-1.30); MEASURED OXYGEN SATURATION 96 % (92-95); PCO2 53 mmHg (34-38); PO2 93 mmHg (65-75); TCO2 24 mEq/L (23-27)
[2017-02-13 05:34] LABS: O2 CONCENTRATIION 60 % (0-100); P/F RATIO 155 RATIO; PATIENT RATE 17; PRESSURE SUPPORT 7; SIMV YES
[2017-02-13 05:35] LABS: LEFT SHIFT FLG 300 (0-99); PIP 21.3; RED CELL DISTRIBUTION WIDTH 25.3 % (11.5-15.2)
[2017-02-13 05:42] LABS: INR 1.84 (0.83-1.16); PROTIME(PATIENT) 21.3 SEC (12.0-15.0)
[2017-02-13] MEDS: PIPERACILLIN/TAZO 4.5 GM/DEX 100 ML IV SCH ×3 (05:49→18:19)
[2017-02-13] MEDS: HYDROCORTISONE 100 MG/2 ML VIAL IVP SCH ×2 (05:50→18:21)
[2017-02-13 05:53] LABS: ALANINE AMINOTRANSFERASE 30 IU/L (21-72); ALBUMIN 2.4 g/dL (3.5-5.0); ALKALINE PHOSPHATASE 44 IU/L (38-126); ANION GAP 10 mEq/L (8-16); ASPARTATE AMINOTRANSFERASE 33 IU/L (17-59); BILIRUBIN,TOTAL 1.8 mg/dL (0.1-1.4); CALCIUM 6.9 mg/dL (8.5-10.4); CARBON DIOXIDE 22 mEq/l (22-31); CHLORIDE 109 mEq/L (97-110); CREATININE 1.2 mg/dL (0.7-1.3); GLOMERULAR FILTRATION RATE 59; GLUCOSE 106 mg/dL (70-100); MAGNESIUM 1.5 mg/dL (1.6-2.3); POTASSIUM 4.9 mEq/L (3.5-5.2); SODIUM 141 mEq/L (134-144); TOTAL PROTEIN 4.3 g/dL (6.3-8.2)
[2017-02-13] MEDS ORDERED: MAGNESIUM SULF 1 GM/DEXTROSE 100 ML IV ONE (06:04)
[2017-02-13] MEDS ORDERED: CALCIUM GLUCONATE 50 ML IV ONE (06:04)
[2017-02-13 06:32] LABS: ECHINOCYTES 1+; HYPOCHROMIA 2+; MICROCYTES 2+; POLYCHROMASIA 1+
[2017-02-13 06:33] LABS: PLATELET ESTIMATE ADEQUATE (ADEQ); SCHISTOCYTES 1+
[2017-02-13] MEDS ORDERED: BUPIVACAINE 0.5% 30 ML SDV ONE (07:44)
[2017-02-13] MEDS ORDERED: POLYMYXIN B SULFATE 500,000 UNIT/10 ML SYR IRR ONE (07:44)
[2017-02-13] MEDS: VASOPRESSIN/DEXTROSE 250 ML IV SCH (08:24)
[2017-02-13] MEDS: PANTOPRAZOLE SODIUM 40 MG in NS 100 ML IV SCH (09:12)
[2017-02-13] MEDS: MICAFUNGIN NA 100 MG in NS 100 ML IV SCH (09:32)
[2017-02-13] MEDS ORDERED: fentaNYL 100 MCG/2 ML INJ ONE (09:40)
[2017-02-13] MEDS ORDERED: PROPOFOL 200 MG/20 ML VIAL ONE (09:41)
--- NOTE | 2017-02-13 09:42 | SOAPPROG ---
SOAP Progress Note Assessment/Plan: Assessment: DISTENDED, SOFT, WOUND OK/ AFEBRILE SOME SWELLING RT ARM IMPR: ILEUS Plan:AMBULATE 02/10/17 16:13 02/11/17 16:22 STILL DISTENDED BUT SOFT/ SOME RUMBLINGS BUT NO FLATUS/ 2 WAY PENDING/ WOUNDS OK/ AFEBRILE/ HOPEFULLY ILEUS STARTING TO RESOLVE 02/12/17 07:12 PT CRUMPED EARLY THIS AM WITH SEVERE ABD PAIN, PROBABLE INCREASE IN FREE AIR, AND TACHYCARDIA AND MILD HYPOTENSION NEEDS URGENT LAPAROTOMY AFTER 3 HRS OF RESUSCITATION, ABX, PCC FOR COAG REVERSAL {INR >5} RISKS AND OPTIONS FULLY DISCUSSED WITH FAMLY PT INTUBATED/ LACTATE 4 02/13/17 03:36 VITAL SIGNS STABLE BUT STILL ON 3 PRESSORS/URINE OUTPUT IS MARKEDLY IMPROVED/ WOUND VAC DRAINAGE IS PRIMARILY SEROUS/FEBRILE TO 385/ CONSIDER A LAPAROTOMY TODAY WITH WASHOUT AND POSSIBLE WOUND CLOSURE. 02/13/17 09:40 LOOKS IMPROVED OVERALL/STILL ON PRESSORS BUT WEANING DOWN/CLARE DRAINAGE AND WOUND VAC DRAINAGE SEROUS/TEMP DOWN TO THE OR TODAY FOR WASHOUT AND WOUND CLOSURE HOPEFULLY/CHEST X-RAY WITH TINY PNEUMOTHORAX BUT ENLARGING PLEURAL EFFUSION/WILL PLACE SMALL CHEST TUBE IT SURGERY WELL Objective: Vital Signs Temp Pulse Resp BP Pulse Ox 37.7 C 115 H 20 115/60 96 02/13/17 09:00 02/13/17 09:00 02/13/17 09:00 02/13/17 09:00 02/13/17 09:00 Microbiology 02/12/17 08:38 Gram Stain - Final Peritoneal Fluid - Aspirate 02/12/17 08:38 Mycobacterial Smear (ENMA) - Final Peritoneal Fluid - Aspirate Laboratory Results 02/13/17 05:17 02/13/17 05:17 02/12/17 02/13/17 02/14/17 05:59 05:59 05:59 Intake Total 2736.7 28978 Output Total 1800 2485 125 Balance 936.7 7921 -125 PT 21.3 SEC (12.0-15.0) H 02/13/17 05:17 INR 1.84 (0.83-1.16) H 02/13/17 05:17 ICD10 Worksheet Patient Problems: Problems Problem Status Onset Cellulitis of left lower extremity Acute Pneumonia Acute
--- NOTE | 2017-02-13 11:52 | POSTOPPROG ---
Post Op Note Date of Operation: 02/13/17 Surgeon: Baudilio Chamberlain Anesthesiologist: RACHEL Anesthesia: GET(General Endotracheal) Pre-op Diagnosis: PLEURAL EFFUSION AND PNEUMOTHORAX Post-op Diagnosis: SAME Indication: VENTILATOR DEPENDENT Procedure: RIGHT TUBE THORACOSTOMY Findings: 1 L SEROUS EFFUSION/SMALL PNEUMOTHORAX Inf/Abcess present in the surg proc area at time of surgery?: No Depth: Organ Space EBL: Minimal Complications: NONE Drains: Constavac
--- NOTE | 2017-02-13 11:53 | POSTOPPROG ---
Post Op Note Date of Operation: 02/13/17 Surgeon: Baudilio Chamberlain Anesthesiologist: RACHEL Anesthesia: GET(General Endotracheal) Pre-op Diagnosis: OPEN WOUND AND PERITONITIS Post-op Diagnosis: SAME Indication: PERITONITIS Procedure: LAPAROTOMY WITH PERITONEAL LAVAGE AND FASCIAL CLOSURE Findings: SMALL INTERLOOP POCKETS OF FLUID BUT MINIMAL PERSISTENT CONTAMINATION Inf/Abcess present in the surg proc area at time of surgery?: Yes Depth: Organ Space EBL: Minimal Complications: NONE Drains: Wound Vac
--- NOTE | 2017-02-13 11:53 | PDINTPN ---
Passenger Barge Master Progress Note Assessment/Plan: Assessment/plan: 76 M with recent diagnosis of colon cancer s/p laparoscopic assisted right hemicolectomy on 02/07/17 complicated by postop ileus. He was mostly stable until 02/12 when he developed increased abdominal distention and hypotension, was emergently intubated and taken to the OR for primary anastomotic wound dehiscence. He had additional resection, repeat end-end anastomosis, right IJ CVC placement, and a wound vac placed for overnight. He was later found to have a small right pneumothorax though a chest tube was deferred. Postoperatively he had refractory hypotension despite multiple fluid boluses, RBC and FFP transfusions, and negative NICOM evaluation. He required norepi, dopamine, and vasopressin; but improved overnight slightly. He returned to the OR 02/13 for final washout and potential closure. * Peritonitis- 2/2 wound dehiscence at primary anastomosis. More stable today though re-exploration underway at this moment. Fluid culture with GNR, covered with Zosyn, micafungin, and one dose of vanco. Continue to titrate pressors to MAP >65. UOP has been excellent and creatinine normal (was 1.6). Blood culture negative to date. * Acute respiratory failure 2/2 postoperative complication with ventilator dependency- His ventilation required increased RR but O2 requirements have decreased. His moderate pleural effusion is likely a contributor as well, but will likely get a chest tube placed in the OR today. Repeat ABG after surgery. Not likely to extubate today. * DVT in RUE axillary vein- he will need anticoagulation given his high risk for propagation (multiple previous VTE and active malignancy). Discussed with surgery and will start in AM as long as he remains stable. * Septic shock 2/ peritonitis- hemodynamics as above; he was given hydrocortisone yesterday for refractory shock. If his pressor requirements continue to fall would favor dc to eliminate wound healing compromise. * Anemia- stable Hct and no further blood products required. Follow. * critical care time 45 minutes preoperatively in patient with MOF Objective: Vital Signs Temp Pulse Resp BP Pulse Ox 37.7 C 115 H 20 115/60 96 02/13/17 09:00 02/13/17 09:00 02/13/17 09:00 02/13/17 09:00 02/13/17 09:00 Microbiology 02/12/17 08:38 Gram Stain - Final Peritoneal Fluid - Aspirate 02/12/17 08:38 Mycobacterial Smear (ENMA) - Final Peritoneal Fluid - Aspirate Laboratory Results 02/13/17 05:17 02/13/17 05:17 02/12/17 02/13/17 02/14/17 05:59 05:59 05:59 Intake Total 2736.7 04765 Output Total 1800 2485 125 Balance 936.7 7921 -125 PT 21.3 SEC (12.0-15.0) H 02/13/17 05:17 INR 1.84 (0.83-1.16) H 02/13/17 05:17 Physical Exam - Physical Exam General Appearance: no apparent distress, other (sedated) EENT: PERRL/EOMI Neck: supple Respiratory: rhonchi, No stridor, No wheezing Cardiac/Chest: regular rate, rhythm, No edema Abdomen: guarding, rebound, No normal bowel sounds, No distended Skin: normal color, warm/dry Lymphatic: no adenopathy Extremities: No pedal edema Neuro/Psych: other (sedated) ICD10 Worksheet Patient Problems: Problems Problem Status Onset Cellulitis of left lower extremity Acute Pneumonia Acute
[2017-02-13 12:55] LABS: POTASSIUM 4.6 mEq/L (3.5-5.2)
[2017-02-13] MEDS: VANCOMYCIN 1.5 GM in D5W 250 ML IV SCH (14:24)
--- NOTE | 2017-02-13 14:57 | GCON ---
[f rep st] CONSULTATION DATE OF CONSULTATION: 02/13/2017 REFERRING PHYSICIAN: Dr. Ana Luisa Welsh. CHIEF COMPLAINT: Sepsis. HISTORY OF PRESENT ILLNESS: This is a 76-year-old male with a past medical history significant for right bundle branch block, mild aortic insufficiency, BRIANA, recurrent DVT/pulmonary emboli, recent di agnosis of stage II colon cancer. He underwent a lap assisted right hemicolectomy on February 07. Th e mass was adherent to the abdominal wall which was resected and anastomosis done at that time. Pos toperatively, he developed ileus. Yesterday morning he was found to have a perforation at the anast omotic site, went into septic shock and was taken to the OR urgently. In the OR the area was resect ed, and he had another end-to-end anastomosis. Fecal spillage was noted, and cultures were taken. Two gram negatives are noted on the cultures at present. The patient was given a dose of vancomycin , Invanz and fluconazole at the time of surgery and continued on Zosyn and micafungin thereafter. L ast night, he was febrile most of the night and into this morning. His white blood cell count was 2 8,000. He was taken to the OR again for a washout wherein he was found to have interloop fluid griselda ections but very mild fecal ongoing contamination. He remains in the ICU on the ventilator, partial ly sedated. Family is at bedside. Infectious Disease is now consulted for further evaluation and o bennett regarding the above. REVIEW OF SYSTEMS: Could not be obtained as patient is intubated and partially sedated. PAST MEDICAL HISTORY: Significant for BRIANA, hypertension, BPH, dyslipidemia, right bundle branch blo ck, diastolic dysfunction, mild aortic insufficiency, recurrent PEs and DVTs on chronic anticoagulat ion, history of cellulitis, anxiety and depression. PAST SURGICAL HISTORY: Significant for recent lap assisted right hemicolectomy, tonsillectomy, appe ndectomy. ALLERGIES: To Cipro and sulfa of uncertain reaction. SOCIAL HISTORY: He is a previous smoker. Does not drink alcohol. Does not do illicit drugs. Live s with his here in [place]. His son-in-law is Dr. Pancho Herrera. FAMILY HISTORY: Per the chart is noncontributory. MEDICATIONS: As per OCT. PHYSICAL EXAMINATION: VITAL SIGNS: Temperature current 37.3, pulse is 102, blood pressure 100/51, saturations are 99% on 80% FiO2, respiratory rate is 23. GENERAL: Patient is in the intensive care unit intubated and partially sedated. HEENT: Head is normocephalic, atraumatic. Eyes: Pupils ar e pinpoint. There is no conjunctival injection. Oropharynx is limited exam with ET tube in place. CARDIOVASCULAR: S1, S2. Regular rate and rhythm. No obvious murmurs appreciated. RESPIRATORY: Clear to auscultation anteriorly. Limited exam. ABDOMEN: Bowel sounds are surgical in nature. Ab domen is slightly distended. He has a wound VAC in the anterior abdominal midline position. Drain in place with serosanguineous material noted. EXTREMITIES: He has compression stockings and SCDs i n place. No obvious joint effusions appreciated. He has a Rodriguez catheter in place. He also has a right IJ. LABORATORY DATA: White cell count 28,600, hemoglobin 9.2, platelets are 304. Neutrophil count is 2 2%, bands of 57%. Sodium 141, potassium 4.9, chloride 109, bicarb 22, BUN is 22, creatinine is 1.2. Total bilirubin 1.8, AST 33, ALT 30, alkaline phosphatase 44. Urinalysis with 2+ leuko esterase, 25-58 wbc's, 4+ mucus. Microbiology: Peritoneal fluid with 2 gram negative rods noted, 1 lactose rocket engine component mechanic, 1 nonlactose f ermenter. Gram-negative rods on the Gram stain. Blood cultures x2 sets are pending. Imaging results have all been reviewed by me and are stated. His recent chest x-ray shows right matt st tube without a new pneumothorax. He had a previous small pneumothorax noted. Improved pleural-p arenchymal opacity in the right lung with lower lobe atelectasis. ASSESSMENT: Sepsis secondary to perforation at the anastomosis site and peritonitis with fecal spil reymundo/peritonitis. PLAN: At this point in time, patient remains critical but is improving status post 2 surgeries betw een yesterday and today. Cultures are in progress. Patient is currently on Zosyn and micafungin. Will add back vancomycin for now while cultures still maturing in the event the gram-positive organi sm appears. Expect this to be a polymicrobial process, especially given yesterday's ongoing fevers and bandemia this morning with a white count of 28,000. We will continue to provide broad spectrum antimicrobials for now. Long discussion with the patient's and family at the bedside. Care co ordinated with the nurse. Thank you very much for allowing us for the opportunity to care for your patient in consultation. /[id number]/MODL
--- NOTE | 2017-02-13 14:58 | HOSPPROG ---
Hospitalist Progress Note Assessment/Plan: 76-year-old male status post a right hemicolectomy on 02/07 for colon cancer complicated by anastamotic dehiscence and peritonitis # peritonitis: 2/2 anastamotic breakdown in post op settings, s/p washout and today went back for fascial closure. Started on empiric abx with zosyn, vanc, fluconazole and micafungin. Cultures pending # shock: related both to sepsis and likely HD mediated with open abdomen yesterday, weaning off of pressors today but still on levophed, dopamine, vasopressin. Following NICOM and appears adequately fluid resuscitated. Has been started on hydrocortisone with continued hypotension but will dc given improved bp and recent surgery # acute hypoxic respiratory failure: due largely to intra abdominal process but also noted to have ptx and pleural effusion now s/p chest tube. Still on vent. 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, holding AC given recent surgery # coagulopathy: with INR of nearly 6 prior to surgery, s/p K centra, FFT and vitamin K and trended down # chronic chf: EF of 45-50% as well as diastolic dysfunction, will monitor given need for aggressive resuscitation as above # anemia: 2/2 acute blood loss, tx 2 units, monitoring # hyponatremia: following has resolved # FC # IP status, high risk requiring ICU level care Care plan reviewed with Dr. Dukes and multidisciplinary care team. Patient new to my care. Subjective: patient taken to OR this am for further washout and closure, more stable HD overnight and able to titrate down on pressors Objective: Vital Signs Temp Pulse Resp BP Pulse Ox 37.3 C 103 H 23 H 108/60 98 02/13/17 14:00 02/13/17 14:00 02/13/17 14:00 02/13/17 14:00 02/13/17 14:00 Microbiology 02/12/17 08:38 Gram Stain - Final Peritoneal Fluid - Aspirate 02/12/17 08:38 Mycobacterial Smear (ENMA) - Final Peritoneal Fluid - Aspirate Laboratory Results 02/13/17 05:17 02/13/17 12:35 02/12/17 02/13/17 02/14/17 05:59 05:59 05:59 Intake Total 2736.7 64027 Output Total 1800 2485 550 Balance 936.7 7921 -550 PT 21.3 SEC (12.0-15.0) H 02/13/17 05:17 INR 1.84 (0.83-1.16) H 02/13/17 05:17 intubated sedated rrr systolic murmur coarse bs abdominal incision no cce warm dry well perfused oriented appropriate ICD10 Worksheet Patient Problems: Problems Problem Status Onset Cellulitis of left lower extremity Acute Pneumonia Acute
[2017-02-13] MEDS: PROPOFOL/EMULSION 100 ML IV SCH (16:36)
[2017-02-13] MEDS: NS 1,000 ML IV SCH (18:20)
[2017-02-13 18:57] LABS: POTASSIUM 4.3 mEq/L (3.5-5.2)
[2017-02-14] MEDS: PIPERACILLIN/TAZO 4.5 GM/DEX 100 ML IV SCH ×4 (00:05→17:35)
[2017-02-14 01:19] LABS: POTASSIUM 4.4 mEq/L (3.5-5.2)
[2017-02-14] MEDS: VANCOMYCIN 1.5 GM in D5W 250 ML IV SCH (01:59)
[2017-02-14] MEDS: NOREPINEPHRINE/NS 500 ML IV SCH ×2 (01:59→12:06)
[2017-02-14 05:15] LABS: % IMMATURE GRANULYOCYTES 0.6 % (0.0-1.1); ABSOLUTE IMMATURE GRANULOCYTES 0.18 10^3/uL (0.00-0.10); ABSOLUTE NRBC COUNT 0.03 10^3/uL (0-0.01); ADD DIFF? NO; ADD MORPH? YES; ADD SCAN? YES; ATYPICAL LYMPHOCYTE FLAG 0 (0-99); CPAP YES; FRAGMENT RBC FLAG 60 (0-99); HEMATOCRIT 27.8 % (40.0-51.0); HEMOGLOBIN 8.4 g/dL (13.7-17.5); LIPEMIA HEMOLYSIS FLAG 80 (0-99); MEAN CELL HEMOGLOBIN 21.4 pg (27.9-34.1); MEAN CELL HEMOGLOBIN CONCENTR. 30.2 g/dL (32.4-36.7); MEAN CELL VOLUME 70.7 fL (81.5-99.8); MEAN PLATELET VOLUME 9.1 fL (8.7-11.7); NRBC-AUTO% 0.1 % (0.0-0.2); O2 CONCENTRATIION 40 % (0-100); PATIENT RATE 19; PLATELET CLUMPS FLAG 10 (0-99); PLATELET COUNT 282 10^3/uL (150-400); RED BLOOD CELL COUNT 3.93 10^6/uL (4.40-6.38)
[2017-02-14 05:16] LABS: BASE EXCESS -1.5 mEq/L (-2.5-2.5); BICARBONATE 22 mEq/L (22-26); IONIZED CALCIUM 1.07 MMOL/L (1.12-1.30); MEASURED OXYGEN SATURATION 97 % (92-95); PCO2 35 mmHg (34-38); PO2 88 mmHg (65-75); PRESSURE SUPPORT 7; TCO2 23 mEq/L (23-27)
[2017-02-14 05:17] LABS: P/F RATIO 220 RATIO
[2017-02-14 05:19] LABS: LEFT SHIFT FLG 300 (0-99)
[2017-02-14 05:27] LABS: INR 2.34 (0.83-1.16); PROTIME(PATIENT) 25.9 SEC (12.0-15.0)
[2017-02-14 05:37] LABS: MAGNESIUM 1.9 mg/dL (1.6-2.3); POTASSIUM 4.5 mEq/L (3.5-5.2)
[2017-02-14] MEDS: HYDROCORTISONE 100 MG/2 ML VIAL IVP SCH (06:01)
[2017-02-14] MEDS ORDERED: CALCIUM GLUCONATE 50 ML IV ONE (06:15)
[2017-02-14 06:20] LABS: SCAN POSITIVE
[2017-02-14 06:29] LABS: HYPOCHROMIA 1+; MICROCYTES 1+; POLYCHROMASIA 1+
[2017-02-14 06:34] LABS: PLATELET ESTIMATE ADEQUATE (ADEQ)
[2017-02-14] MEDS: PANTOPRAZOLE SODIUM 40 MG in NS 100 ML IV SCH (08:05)
[2017-02-14 08:21] LABS: ANION GAP 6 mEq/L (8-16); CALCIUM 7.1 mg/dL (8.5-10.4); CARBON DIOXIDE 21 mEq/l (22-31); CHLORIDE 113 mEq/L (97-110); CREATININE 0.9 mg/dL (0.7-1.3); GLOMERULAR FILTRATION RATE > 60; GLUCOSE 113 mg/dL (70-100); POTASSIUM 4.5 mEq/L (3.5-5.2); SODIUM 140 mEq/L (134-144)
[2017-02-14] MEDS ORDERED: AMIODARONE HCL 100 ML IV ONE (08:41)
[2017-02-14] MEDS ORDERED: AMIODARONE HCL 200 ML IV ONE (08:42)
--- NOTE | 2017-02-14 08:50 | CPEKG ---
Heart Rate: 133 RR Interval: 451 QRSD Interval: 126 QT Interval: 352 QTC Interval: 524 QRS [place]: -47 T Wave [place]: 39 EKG Severity - ABNORMAL ECG - EKG Impression: ATRIAL FIBRILLATION EKG Impression: RBBB AND LAFB Electronically Signed By: Suraj Dunham 14-Feb-2017 16:43:40
[2017-02-14] MEDS ORDERED: HYDROCORTISONE 100 MG/2 ML VIAL IVP SCH (09:00)
[2017-02-14] MEDS: MICAFUNGIN NA 100 MG in NS 100 ML IV SCH ×2 (09:14→09:34)
--- NOTE | 2017-02-14 09:15 | PCMIDPN ---
Assessment/Plan: # Sepsis secondary to peritonitis due to postop anastomotic leak s/p washout x2. Now with facial closure. Suspect polymicrobial etiology with peritoneal cultures from the OR are growing lactose fermenting and non lactose fermenting gram-negative rods. Overall improving, down to single low-dose pressor and now mounting an appropriate leukocytosis. Also favorable signs are stable kidney function and good weaning parameters from the vent. -- narrow antibiotics based on cultures, discontinue vancomycin -- continue high-dose Zosyn in light of non lactose fermenting gram-negative bernarda. Renal function stable as above -- due to severity of disease would continue micafungin for empiric therapy for Vikki -- duration of therapy to be determined based on response for therapy medications Zosyn 4.5 g IV Q 6h, #2 Vancomycin 1.5 g IV Q 12, #1 Micafungin 100 mg IV daily, #2 micro 02/12 blood cx (2) pending 02/12 peritoneal cx: lactose fermenting and non lactose fermenting gram- negative rods Subjective: this morning went into atrial fibrillation and is starting on amiodarone patient is complaining of abdominal pain Objective: Vital Signs Temp Pulse Resp BP Pulse Ox 37.2 C 119 H 18 106/67 99 02/14/17 08:00 02/14/17 08:05 02/14/17 08:00 02/14/17 08:00 02/14/17 08:05 Microbiology 02/12/17 08:38 Gram Stain - Final Peritoneal Fluid - Aspirate 02/12/17 08:38 Mycobacterial Smear (ENMA) - Final Peritoneal Fluid - Aspirate Laboratory Results 02/14/17 05:00 02/14/17 05:00 02/13/17 02/14/17 02/15/17 05:59 05:59 05:59 Intake Total 02613 5733 Output Total 2485 2730 Balance 7921 3003 - Physical Exam General Appearance: alert EENT: pale conjunctiva, ET Tube Respiratory: lungs clear, other ( right-sided chest tube with serosanguineous fluid) Neck: supple Cardiac/Chest: tachycardia, irregularly irregular Extremities: pedal edema, other ( massive anasarca) Abdomen: soft, distended, other ( midline wound VAC) Male Genitalia: larson, scrotal edema Skin: pallor, No rash Neuro/Psych: alert, other ( answering questions appropriately) - Line/s other Lines: other (femoral A-line C/ D/ I), No drainage, No erythema ICD10 Worksheet Patient Problems: Problems Problem Status Onset Cellulitis of left lower extremity Acute Pneumonia Acute
--- NOTE | 2017-02-14 09:25 | PDINTPN ---
Licensed Dispensing Optician Progress Note Assessment/Plan: Assessment/plan: 76 M with recent diagnosis of colon cancer s/p laparoscopic assisted right hemicolectomy on 02/07/17 complicated by postop ileus. He was mostly stable until 02/12 when he developed increased abdominal distention and hypotension, was emergently intubated and taken to the OR for primary anastomotic wound dehiscence. He had additional resection, repeat end-end anastomosis, right IJ CVC placement, and a wound vac placed for overnight. He was later found to have a small right pneumothorax though a chest tube was deferred. Postoperatively he had refractory hypotension despite multiple fluid boluses, RBC and FFP transfusions, and negative NICOM evaluation. He required norepi, dopamine, hydrocortisone, and vasopressin; but improved overnight. He returned to the OR for final washout and potential closure. * Peritonitis- 2/2 wound dehiscence at primary anastomosis. Substantial reduction in pressor requirement (levophed down to 3 mcg; DA off). Blood cultures remain negative and fluid cx with GNRs. Remains on Zosyn, vanco, and micafungin. Suspect WBC at least in part related to high dose steroids * Acute respiratory failure 2/2 postoperative complication with ventilator dependency- Weaned this AM on CPAP fairly well with an excellent post-wean ABG; however, repeat wean developed afib so wean held for now. CXR pending and may retry wean later today (with hopeful extubation) if afib gets controlled. Will dc arterial line once weaning completed. * Afib with RVR (about 140's without hypotension, though still on levophed)- this is new onset and likely related to physiologic stress of clinical scenario. Will check troponin to be sure. Another possibility is PE given his history and known DVT. Started amiodarone bolus/drip; will consider cardiology if refractory. * DVT in RUE axillary vein- he will need anticoagulation given his high risk for propagation (multiple previous VTE and active malignancy). INR is therapeutic today, presumably related to previous warfarin dose that was treated with vit K, FFP at time of abdominal catastrophe. * PTX- post line placement in OR, now with chest tube. No residual (todays CXR pending) and pleural effusion resolved. Keep suction while on vent, but expect it will be ready for dc soon. * Septic shock 2/ peritonitis- minimal pressor requirement this am; will dc hydrocortisone * Anemia- stable Hct and no further blood products required. Follow. * critical care time 45 minutes in patient with MOF 02/14/17 09:03 Objective: Vital Signs Temp Pulse Resp BP Pulse Ox 37.2 C 119 H 18 106/67 99 02/14/17 08:00 02/14/17 08:05 02/14/17 08:00 02/14/17 08:00 02/14/17 08:05 Microbiology 02/12/17 08:38 Gram Stain - Final Peritoneal Fluid - Aspirate 02/12/17 08:38 Mycobacterial Smear (ENMA) - Final Peritoneal Fluid - Aspirate Laboratory Results 02/14/17 05:00 02/14/17 05:00 02/13/17 02/14/17 02/15/17 05:59 05:59 05:59 Intake Total 37484 5733 Output Total 2485 2730 Balance 7921 3003 PT 25.9 SEC (12.0-15.0) H 02/14/17 05:00 INR 2.34 (0.83-1.16) H 02/14/17 05:00 Physical Exam - Physical Exam General Appearance: alert, no apparent distress EENT: PERRL/EOMI, ET tube Neck: supple Respiratory: rhonchi, No respiratory distress, No wheezing Cardiac/Chest: irregularly irregular, No systolic murmur Abdomen: normal bowel sounds, soft, guarding, other (diffuse tenderness), No distended Skin: normal color, warm/dry Lymphatic: no adenopathy Extremities: pedal edema Neuro/Psych: cognition abnormalities ICD10 Worksheet Patient Problems: Problems Problem Status Onset Cellulitis of left lower extremity Acute Pneumonia Acute
--- NOTE | 2017-02-14 10:29 | SOAPPROG ---
SOAP Progress Note Assessment/Plan: Assessment: 76yo M s/p lap assisted hemicolectomy with partial resection of abdominal wall due to adenocarcinoma S/p washout with re-anastomosis for anastomotic leak S/p washout with fascial closure and wound vac placement Neuro - much more uncomfortable this morning with propofol turned off Resp - intubated - wean today? R ptx and pleural effusion s/p chest tube placement - keep in place until extubated Cards - went into a. fib this morning. being treated with amiodarone. still requiring pressors. lovenox GI - NG tube. NPO. - larson, monitor I&Os Heme/ID - on zosyn and micafungin. DC vanc today. appreciate ID. H/H stable. RUE axillary DVT - restart therapeutic lovenox Wound - wound vac change sunday FEN - NPO. if no return of bowel function by sunday02/16/17, will initiate TPN Proph - protonix. therapeutic lovenox Dispo - continue ICU S: alert this morning. following commands. wincing and appears uncomfortable O: laying in bed, uncomfortable, eyes open Clear anteriorly, decreased at bases Irregularly irregular rate, tachy Chest tube output serous, dressings intact Hypoactive BS, distended, tender to palpation increased in RLQ. Midline wound vac intact CLAER drain serous Larson clear yellow urine Objective: Vital Signs Temp Pulse Resp BP Pulse Ox 37.2 C 113 H 23 H 98/64 L 98 02/14/17 08:00 02/14/17 10:00 02/14/17 10:00 02/14/17 10:00 02/14/17 10:00 Microbiology 02/12/17 08:38 Gram Stain - Final Peritoneal Fluid - Aspirate 02/12/17 08:38 Mycobacterial Smear (ENMA) - Final Peritoneal Fluid - Aspirate Laboratory Results 02/14/17 05:00 02/14/17 05:00 02/13/17 02/14/17 02/15/17 05:59 05:59 05:59 Intake Total 22772 5733 Output Total 2485 2730 50 Balance 7921 3003 -50 PT 25.9 SEC (12.0-15.0) H 02/14/17 05:00 INR 2.34 (0.83-1.16) H 07/05/17 05:00 ICD10 Worksheet Patient Problems: Problems Problem Status Onset Cellulitis of left lower extremity Acute Pneumonia Acute
[2017-02-14] MEDS: PROPOFOL/EMULSION 100 ML IV SCH (10:38)
[2017-02-14] MEDS: ENOXAPARIN 100 MG/ML SYR SC SCH ×2 (13:06→20:51)
[2017-02-14] MEDS: fentaNYL/NACL 100 ML IV SCH (13:11)
[2017-02-14] MEDS ORDERED: AMIODARONE HCL 540 MG in D5W 300 ML IV ONE (15:00)
--- NOTE | 2017-02-14 17:25 | HOSPPROG ---
Hospitalist Progress Note Assessment/Plan: 76-year-old male status post a right hemicolectomy on 02/07 for colon cancer complicated by anastamotic dehiscence and peritonitis # peritonitis: 2/2 anastamotic breakdown in post op settings, s/p washout and delayed fascial closure. Started on empiric abx with zosyn, vanc, fluconazole and micafungin--have since d/c'ed vanc and fluconazole. Cultures thus far with proteus and e coli # shock: related both to sepsis and likely HD mediated with open abdomen intially, now only on low dose NE and maintaining HD # acute hypoxic respiratory failure: due largely to intra abdominal process but also noted to have ptx and pleural effusion now s/p chest tube. Still on vent. # a fib w/rvr: in setting of above, started on amio gtt with some improvement in rate control but still with rates in low 100s. Does have mild trop bump and recent echo with slightly low EF. Consider cardiology consultation if rates not improving. PE possible given hx of recurrent vte. 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, holding AC given recent surgery # coagulopathy: with INR of nearly 6 prior to surgery, s/p K centra, FFT and vitamin K and trended down # chronic chf: EF of 45-50% as well as diastolic dysfunction, will monitor given need for aggressive resuscitation as above # anemia: 2/2 acute blood loss, tx 2 units, monitoring # hyponatremia: following has resolved # FC # IP status, high risk requiring ICU level care Care plan reviewed with Dr. Dukes and multidisciplinary care team. Subjective: no significant overnight events, weaning off of pressors Objective: Vital Signs Temp Pulse Resp BP Pulse Ox 37.4 C 103 H 14 91/60 L 97 02/14/17 16:00 02/14/17 17:00 02/14/17 17:00 02/14/17 17:00 02/14/17 17:00 Microbiology 02/12/17 08:38 Gram Stain - Final Peritoneal Fluid - Aspirate Laboratory Results 02/14/17 05:00 02/14/17 05:00 02/13/17 02/14/17 02/15/17 05:59 05:59 05:59 Intake Total 73261 5733 912 Output Total 8606 8621 770 Balance 7921 3003 142 PT 25.9 SEC (12.0-15.0) H 02/14/17 05:00 INR 2.34 (0.83-1.16) H 02/14/17 05:00 intubated sedated rrr systolic murmur coarse bs abdominal incision no cce warm dry well perfused oriented appropriate - Time Spent With Patient Time Spent with Patient: greater than 35 minutes Time Spent with Patient: Greater than 35 minutes spent on this patients care, greater than 50% of time spent counseling, educating, and coordinating care regarding the above mentioned plan. ICD10 Worksheet Patient Problems: Problems Problem Status Onset Cellulitis of left lower extremity Acute Pneumonia Acute
[2017-02-15] MEDS: PIPERACILLIN/TAZO 4.5 GM/DEX 100 ML IV SCH ×2 (00:35→05:36)
[2017-02-15] MEDS: fentaNYL/NACL 100 ML IV SCH (01:55)
[2017-02-15 04:54] LABS: ABSOLUTE NRBC COUNT 0.13 10^3/uL (0-0.01); ATYPICAL LYMPHOCYTE FLAG 0 (0-99); FRAGMENT RBC FLAG 80 (0-99); HEMATOCRIT 26.7 % (40.0-51.0); LIPEMIA HEMOLYSIS FLAG 80 (0-99); MEAN CELL VOLUME 70.1 fL (81.5-99.8); MEAN PLATELET VOLUME 9.5 fL (8.7-11.7); NRBC-AUTO% 0.6 % (0.0-0.2); PLATELET CLUMPS FLAG 10 (0-99); PLATELET COUNT 275 10^3/uL (150-400); RED BLOOD CELL COUNT 3.81 10^6/uL (4.40-6.38)
[2017-02-15 05:49] LABS: ANION GAP 9 mEq/L (8-16); CALCIUM 7.4 mg/dL (8.5-10.4); CARBON DIOXIDE 23 mEq/l (22-31); CHLORIDE 110 mEq/L (97-110); CREATININE 1.1 mg/dL (0.7-1.3); GLOMERULAR FILTRATION RATE > 60; GLUCOSE 91 mg/dL (70-100); MAGNESIUM 2.4 mg/dL (1.6-2.3); SODIUM 142 mEq/L (134-144)
[2017-02-15 06:01] LABS: ADD DIFF? YES; ADD MORPH? NO; ADD SCAN? NO; LEFT SHIFT FLG 300 (0-99); RED CELL DISTRIBUTION WIDTH 27.1 % (11.5-15.2)
[2017-02-15 06:17] LABS: PLATELET ESTIMATE ADEQUATE (ADEQ)
[2017-02-15 06:22] LABS: POLYCHROMASIA 1+
[2017-02-15 06:23] LABS: HYPOCHROMIA 1+; MICROCYTES 1+
[2017-02-15] MEDS ORDERED: CALCIUM GLUCONATE 50 ML IV ONE (07:24)
[2017-02-15] MEDS: PANTOPRAZOLE SODIUM 40 MG in NS 100 ML IV SCH (08:09)
[2017-02-15] MEDS: ENOXAPARIN 100 MG/ML SYR SC SCH ×2 (08:09→22:28)
[2017-02-15] MEDS: AMIODARONE HCL 900 MG in D5W 500 ML IV SCH (08:25)
--- NOTE | 2017-02-15 09:17 | SOAPPROG ---
SOAP Progress Note Assessment/Plan: Assessment: DISTENDED, SOFT, WOUND OK/ AFEBRILE SOME SWELLING RT ARM IMPR: ILEUS Plan:AMBULATE 02/10/17 16:13 02/11/17 16:22 STILL DISTENDED BUT SOFT/ SOME RUMBLINGS BUT NO FLATUS/ 2 WAY PENDING/ WOUNDS OK/ AFEBRILE/ HOPEFULLY ILEUS STARTING TO RESOLVE 02/12/17 07:12 PT CRUMPED EARLY THIS AM WITH SEVERE ABD PAIN, PROBABLE INCREASE IN FREE AIR, AND TACHYCARDIA AND MILD HYPOTENSION NEEDS URGENT LAPAROTOMY AFTER 3 HRS OF RESUSCITATION, ABX, PCC FOR COAG REVERSAL {INR >5} RISKS AND OPTIONS FULLY DISCUSSED WITH FAMLY PT INTUBATED/ LACTATE 4 02/13/17 03:36 VITAL SIGNS STABLE BUT STILL ON 3 PRESSORS/URINE OUTPUT IS MARKEDLY IMPROVED/ WOUND VAC DRAINAGE IS PRIMARILY SEROUS/FEBRILE TO 385/ CONSIDER A LAPAROTOMY TODAY WITH WASHOUT AND POSSIBLE WOUND CLOSURE. 02/13/17 09:40 LOOKS IMPROVED OVERALL/STILL ON PRESSORS BUT WEANING DOWN/ZABRINA DRAINAGE AND WOUND VAC DRAINAGE SEROUS/TEMP DOWN TO THE OR TODAY FOR WASHOUT AND WOUND CLOSURE HOPEFULLY/CHEST X-RAY WITH TINY PNEUMOTHORAX BUT ENLARGING PLEURAL EFFUSION/WILL PLACE SMALL CHEST TUBE IT SURGERY WELL 02/15/17 09:16 improving/ afebrile/ wound clean/ zabrina minimal and serous/ off most pressors/ maybe extubate today Objective: Vital Signs Temp Pulse Resp BP Pulse Ox 37.6 C 76 17 109/65 100 02/15/17 08:00 02/15/17 08:41 02/15/17 08:00 02/15/17 08:00 02/15/17 08:41 Microbiology 02/12/17 08:38 Gram Stain - Final Peritoneal Fluid - Aspirate Laboratory Results 02/15/17 04:30 02/15/17 04:30 02/14/17 02/15/17 02/16/17 05:59 05:59 05:59 Intake Total 5733 1918.8 Output Total 2730 1360 150 Balance 3003 558.8 -150 PT 25.9 SEC (12.0-15.0) H 02/14/17 05:00 INR 2.34 (0.83-1.16) H 02/14/17 05:00 ICD10 Worksheet Patient Problems: Problems Problem Status Onset Cellulitis of left lower extremity Acute Pneumonia Acute
--- NOTE | 2017-02-15 09:34 | PCMIDPN ---
Assessment/Plan: # Sepsis secondary to peritonitis due to postop anastomotic leak s/p washout x2 and fascial closure. CLARE drain just with serous fluid. Suspect polymicrobial etiology with peritoneal cultures from the OR are growing E coli/Proteus. Continued clinical improvement, WBC trending down. Expect Extubation today -- no PsA in peritoneal cultures therefore will reduce dose Zosyn to standard dosing + in addition creatinine slightly up today at 1.1 from 0.9 -- continue yeast coverage for now. -- will try to evaluate wound tomorrow with wound VAC change. -- duration of antibiotic therapy to be determined medications Zosyn 4.5 g IV Q 6h, #3 Micafungin 100 mg IV daily, #3 micro 02/12 blood cx (2) NGTD 02/12 peritoneal cx: paiz-S Ecoli and Proteus Subjective: been off pressors for approximately 1 hour been on blow-by with ET tube in place for approximately 15 minutes, planned extubation later Objective: Vital Signs Temp Pulse Resp BP Pulse Ox 37.6 C 78 18 125/71 H 100 02/15/17 09:00 02/15/17 09:00 02/15/17 09:00 02/15/17 09:00 02/15/17 08:41 Microbiology 02/12/17 08:38 Gram Stain - Final Peritoneal Fluid - Aspirate Laboratory Results 02/15/17 04:30 02/15/17 04:30 02/14/17 02/15/17 02/16/17 05:59 05:59 05:59 Intake Total 5733 1918.8 Output Total 2730 1360 150 Balance 3003 558.8 -150 General Appearance: alert EENT: pale conjunctiva, dry mucous membranes Respiratory: coarse breath sounds on blow-by with ET tube in place,right-sided chest tube with serosanguineous fluid Neck: supple Cardiac/Chest: RRR Extremities: pedal edema,massive anasarca Abdomen: soft, distended, midline wound VAC, no bowel sounds, CLARE drain with serosanguineous fluid Male Genitalia: larson, scrotal edema Skin: pallor, No rash Neuro/Psych: alert, answering questions appropriately - Time Spent With Patient Time Spent with Patient: greater than 25 minutes (daughter and at bedside, reviewed microbiologic data, plans for antibiotic changes and measures of improved) Time Spent with Patient: Greater than 25 minutes spent on this patients care, greater than 50% of time spent counseling, educating, and coordinating care regarding the above mentioned plan. ICD10 Worksheet Patient Problems: Problems Problem Status Onset Cellulitis of left lower extremity Acute Pneumonia Acute
--- NOTE | 2017-02-15 09:46 | SOAPPROG ---
SOAP Progress Note Assessment/Plan: Assessment: 76yo M s/p lap assisted hemicolectomy with partial resection of abdominal wall due to adenocarcinoma S/p washout with re-anastomosis for anastomotic leak S/p washout with fascial closure and wound vac placement Neuro - comfortably sedated Resp - intubated - likely extubation today. R ptx and pleural effusion s/p chest tube placement - keep in place until extubated Cards - a fib converted back to NSR, treated with amiodarone. min pressors GI - NG tube. NPO. - larson, monitor I&Os Heme/ID - on zosyn and micafungin. DC vanc yesterday. appreciate ID. H/H stable. RUE axillary DVT - recheck INR to see if he needs lovenox Wound - wound vac change sunday FEN - NPO. if no return of bowel function by sunday02/16/17, will initiate TPN Proph - protonix. Dispo - continue ICU S: resting comfortably. family at bedside O: laying in bed, resting comfortably, sedated Clear anteriorly, decreased at bases R>L RRR Chest tube output serous, dressings intact Hypoactive BS, distended, nontender to palpation. Midline wound vac intact CLARE drain serous Larson clear yellow urine Objective: Vital Signs Temp Pulse Resp BP Pulse Ox 37.6 C 78 18 125/71 H 100 02/15/17 09:00 02/15/17 09:00 02/15/17 09:00 02/15/17 09:00 02/15/17 08:41 Microbiology 02/12/17 08:38 Gram Stain - Final Peritoneal Fluid - Aspirate Laboratory Results 02/15/17 04:30 02/15/17 04:30 02/14/17 02/15/17 02/16/17 05:59 05:59 05:59 Intake Total 5733 1918.8 Output Total 2730 1360 150 Balance 3003 558.8 -150 PT 25.9 SEC (12.0-15.0) H 02/14/17 05:00 INR 2.34 (0.83-1.16) H 02/14/17 05:00 ICD10 Worksheet Patient Problems: Problems Problem Status Onset Cellulitis of left lower extremity Acute Pneumonia Acute
[2017-02-15 10:48] LABS: INR 2.11 (0.83-1.16); PROTIME(PATIENT) 23.8 SEC (12.0-15.0)
[2017-02-15] MEDS: PIPERACILLIN/TAZO 3.375 GM/DEX 50 ML IV SCH ×3 (11:47→23:22)
--- NOTE | 2017-02-15 12:00 | PDINTPN ---
Rad Tech Progress Note Assessment/Plan: Assessment/plan: 76 M with recent diagnosis of colon cancer s/p laparoscopic assisted right hemicolectomy on 02/07/17 complicated by postop ileus. He was mostly stable until 02/12 when he developed increased abdominal distention and hypotension, was emergently intubated and taken to the OR for primary anastomotic wound dehiscence. He had additional resection, repeat end-end anastomosis, right IJ CVC placement, and a wound vac placed for overnight. He was later found to have a small right pneumothorax though a chest tube was deferred. Postoperatively he had refractory hypotension despite multiple fluid boluses, RBC and FFP transfusions, and negative NICOM evaluation. He required norepi, dopamine, hydrocortisone, and vasopressin; but improved overnight. He returned to the OR for final washout and potential closure. * Peritonitis- 2/2 wound dehiscence at primary anastomosis. Much better with reduced WBC, afebrile and off pressors. Cultures with E. Coli and Proteus- should be covered with Zosyn. Vanco dc'd 02/14. Remains on Micafungin. * Acute respiratory failure 2/2 postoperative complication with ventilator dependency- Weaned much better with afib conversion to NSR and likely to extubate today. T-piece trial underway. * Afib with RVR- new onset 02/14 during weaning. Started amiodarone and converted to NSR earlier today. Continue for now. Trop low. * DVT in RUE axillary vein- started LMWH 02/14 * PTX- post line placement in OR, now with chest tube. expect likely dc in AM once extubated * Septic shock 2/2 peritonitis- resolving * Anemia- stable Hct and no further blood products required. Follow. * critical care time 35 minutes in patient with MOF Objective: Vital Signs Temp Pulse Resp BP Pulse Ox 37.9 C 81 20 135/76 H 98 02/15/17 11:00 02/15/17 11:00 02/15/17 11:00 02/15/17 11:00 02/15/17 11:00 Microbiology 02/12/17 08:38 Gram Stain - Final Peritoneal Fluid - Aspirate Laboratory Results 02/15/17 04:30 02/15/17 04:30 02/14/17 02/15/17 02/16/17 05:59 05:59 05:59 Intake Total 5733 1918.8 Output Total 2730 1360 150 Balance 3003 558.8 -150 PT 23.8 SEC (12.0-15.0) H 02/15/17 10:15 INR 2.11 (0.83-1.16) H 02/15/17 10:15 Physical Exam - Physical Exam General Appearance: alert, other (follows commands on vent) EENT: PERRL/EOMI, ET tube Neck: supple Respiratory: lungs clear, normal breath sounds, No respiratory distress Cardiac/Chest: regular rate, rhythm, edema Abdomen: soft, other (wound vac), No distended Skin: normal color, warm/dry Lymphatic: no adenopathy Extremities: pedal edema Neuro/Psych: alert ICD10 Worksheet Patient Problems: Problems Problem Status Onset Cellulitis of left lower extremity Acute Pneumonia Acute
--- NOTE | 2017-02-15 17:23 | HOSPPROG ---
Hospitalist Progress Note Assessment/Plan: DIAGNOSES: # peritonitis: 2/2 anastamotic breakdown in post op settings, s/p washout and delayed fascial closure. Started on empiric abx with zosyn, vanc, fluconazole and micafungin--have since d/c'ed vanc and fluconazole. Cultures thus far with proteus and e coli # shock: related both to sepsis and likely HD mediated with open abdomen intially, now only on low dose NE and maintaining HD # acute hypoxic respiratory failure: Now extubated successfully today # a fib w/rvr: in setting of above, started on amio gtt with some improvement in rate control but still with rates in low 100s. 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 # DVT of upper extremity # coagulopathy: with INR of nearly 6 prior to surgery, s/p K centra, FFT and vitamin K and trended down # chronic chf: EF of 45-50% as well as diastolic dysfunction, will monitor given need for aggressive resuscitation as above # anemia: 2/2 acute blood loss, tx 2 units, monitoring # hyponatremia: following has resolved # FC # IP status, high risk requiring ICU level care PLANS: -continue to monitor respiratory status closely after extubation -continue current antibiotic therapy -continue wound VAC, reassess with wound care tomorrow -cautious pain management -I agree with Dr. Dukes that the patient is not at this time ready for any diuresis and that will likely happen spontaneously when he is ready for -continue physical occupational therapies Case discussed in detail with Dr. Dukes Also seen on multidisciplinary rounds with the ICU team SUBJECTIVE: Patient says he feels comfortable with his breathing now off the ventilator Still some abdominal pain but he is comfortable with the pain control OBJECTIVE Vitals reviewed: Stable off pressors and off the vent, no fever Hospitality Workers, my review: AFib with good rate control Exam: alert oriented skin warm dry color ok resps not labored lungs course BSs heart irregular abd soft fairly distended, diffusely mildly tender, bowel sounds present limbs warm Quite a bit of 3rd spaced fluid at this time iv site ok Objective: Vital Signs Temp Pulse Resp BP Pulse Ox 37.7 C 88 20 128/63 H 99 02/15/17 17:00 02/15/17 17:00 02/15/17 17:00 02/15/17 17:00 02/15/17 17:00 Microbiology 02/12/17 08:38 Gram Stain - Final Peritoneal Fluid - Aspirate Laboratory Results 02/15/17 04:30 02/15/17 04:30 02/14/17 02/15/17 02/16/17 06:59 06:59 06:59 Intake Total 5733 1918.8 Output Total 2730 1360 455 Balance 3003 558.8 -455 PT 23.8 SEC (12.0-15.0) H 02/15/17 10:15 INR 2.11 (0.83-1.16) H 02/15/17 10:15 ICD10 Worksheet Patient Problems: Problems Problem Status Onset Cellulitis of left lower extremity Acute Pneumonia Acute
[2017-02-15 18:59] LABS: POTASSIUM 3.8 mEq/L (3.5-5.2)
[2017-02-15] MEDS: ACETAMINOPHEN 650 MG SUPP PR PRN (19:44)
[2017-02-15] MEDS ORDERED: POTASSIUM Cl (KCl) 50 ML IV ONE (20:35)
[2017-02-16 01:39] LABS: POTASSIUM 3.9 mEq/L (3.5-5.2)
[2017-02-16] MEDS ORDERED: POTASSIUM Cl (KCl) 50 ML IV ONE ×3 (01:52→14:49)
[2017-02-16] MEDS ORDERED: FUROSEMIDE 20 MG/2 ML VIAL IVP ONE (02:02)
--- NOTE | 2017-02-16 02:06 | HOSPPROG ---
Hospitalist Progress Note Assessment/Plan: XC note: Notified by RN of change in status including tachypnea, SOB and wet cough. Pt endorses SOB. Denies CP. +LE edema. He has h/o chronic diastolic HF with slightly reduced EF (50%) on recent echo. He is 12+ L net positive after aggressive volume resuscitation for septic shock in the setting of perf'd bowel / peritonitis after colon resection. Weight 93 kg --> 110 kg. VSS 96% on 4 LPM, extubated today. BP 124/74. RR 26. HR 74. +JVD Lungs reveal faint bibasilar crackles with reduced air movement. 2-3+ b/l LE edema CXR with increased interstitial markings, atelectatic changes. BNP 3500 from 1800. Plan: 20 mg IV Lasix. Monitor I&O's. Will likely require further diuresis as BP tolerates. Objective: Vital Signs Temp Pulse Resp BP Pulse Ox 37.6 C 84 15 124/57 H 96 02/16/17 01:00 02/16/17 01:00 02/16/17 01:00 02/16/17 01:00 02/16/17 01:00 Microbiology 02/12/17 08:38 Gram Stain - Final Peritoneal Fluid - Aspirate Laboratory Results 02/15/17 04:30 02/16/17 01:11 02/14/17 02/15/17 02/16/17 05:59 05:59 05:59 Intake Total 5733 1918.8 367 Output Total 2730 1360 1235 Balance 3003 558.8 -868 PT 23.8 SEC (12.0-15.0) H 02/15/17 10:15 INR 2.11 (0.83-1.16) H 02/15/17 10:15 ICD10 Worksheet Patient Problems: Problems Problem Status Onset Cellulitis of left lower extremity Acute Pneumonia Acute
[2017-02-16 05:31] LABS: IONIZED CALCIUM 1.14 MMOL/L (1.12-1.30)
[2017-02-16] MEDS: PIPERACILLIN/TAZO 3.375 GM/DEX 50 ML IV SCH ×3 (05:47→20:38)
[2017-02-16 06:00] LABS: ANION GAP 8 mEq/L (8-16); CALCIUM 7.5 mg/dL (8.5-10.4); CARBON DIOXIDE 25 mEq/l (22-31); CHLORIDE 112 mEq/L (97-110); GLOMERULAR FILTRATION RATE > 60; GLUCOSE 77 mg/dL (70-100); MAGNESIUM 2.3 mg/dL (1.6-2.3); POTASSIUM 3.8 mEq/L (3.5-5.2); SODIUM 145 mEq/L (134-144)
[2017-02-16 07:56] LABS: % IMMATURE GRANULYOCYTES 1.4 % (0.0-1.1); ABSOLUTE NRBC COUNT 0.09 10^3/uL (0-0.01); ADD DIFF? NO; ADD MORPH? YES; ADD SCAN? YES; ATYPICAL LYMPHOCYTE FLAG 0 (0-99); FRAGMENT RBC FLAG 80 (0-99); HEMATOCRIT 27.9 % (40.0-51.0); HEMOGLOBIN 8.2 g/dL (13.7-17.5); LIPEMIA HEMOLYSIS FLAG 70 (0-99); MEAN CELL HEMOGLOBIN 20.9 pg (27.9-34.1); MEAN CELL HEMOGLOBIN CONCENTR. 29.4 g/dL (32.4-36.7); MEAN PLATELET VOLUME 10.3 fL (8.7-11.7); NRBC-AUTO% 0.6 % (0.0-0.2); PLATELET CLUMPS FLAG 0 (0-99); PLATELET COUNT 322 10^3/uL (150-400); RED BLOOD CELL COUNT 3.93 10^6/uL (4.40-6.38)
[2017-02-16 08:00] LABS: LEFT SHIFT FLG 260 (0-99); RED CELL DISTRIBUTION WIDTH 28.1 % (11.5-15.2)
[2017-02-16 08:01] LABS: INR 2.57 (0.83-1.16); PROTIME(PATIENT) 27.9 SEC (12.0-15.0)
--- NOTE | 2017-02-16 08:51 | SOAPPROG ---
SOAP Progress Note Assessment/Plan: Assessment: DISTENDED, SOFT, WOUND OK/ AFEBRILE SOME SWELLING RT ARM IMPR: ILEUS Plan:AMBULATE 02/10/17 16:13 02/11/17 16:22 STILL DISTENDED BUT SOFT/ SOME RUMBLINGS BUT NO FLATUS/ 2 WAY PENDING/ WOUNDS OK/ AFEBRILE/ HOPEFULLY ILEUS STARTING TO RESOLVE 02/12/17 07:12 PT CRUMPED EARLY THIS AM WITH SEVERE ABD PAIN, PROBABLE INCREASE IN FREE AIR, AND TACHYCARDIA AND MILD HYPOTENSION NEEDS URGENT LAPAROTOMY AFTER 3 HRS OF RESUSCITATION, ABX, PCC FOR COAG REVERSAL {INR >5} RISKS AND OPTIONS FULLY DISCUSSED WITH FAMLY PT INTUBATED/ LACTATE 4 02/13/17 03:36 VITAL SIGNS STABLE BUT STILL ON 3 PRESSORS/URINE OUTPUT IS MARKEDLY IMPROVED/ WOUND VAC DRAINAGE IS PRIMARILY SEROUS/FEBRILE TO 385/ CONSIDER A LAPAROTOMY TODAY WITH WASHOUT AND POSSIBLE WOUND CLOSURE. 02/13/17 09:40 LOOKS IMPROVED OVERALL/STILL ON PRESSORS BUT WEANING DOWN/ZABRINA DRAINAGE AND WOUND VAC DRAINAGE SEROUS/TEMP DOWN TO THE OR TODAY FOR WASHOUT AND WOUND CLOSURE HOPEFULLY/CHEST X-RAY WITH TINY PNEUMOTHORAX BUT ENLARGING PLEURAL EFFUSION/WILL PLACE SMALL CHEST TUBE IT SURGERY WELL 02/15/17 09:16 improving/ afebrile/ wound clean/ zabrina minimal and serous/ off most pressors/ maybe extubate today 02/16/17 08:49 EXTUBATED/ AFEBRILE/ WEAK BUT RESPONSIVE/ UO OK/ BNP HIGH/ HCT DOWN TO 27/ SEROUS CHEST TUBE AND ZABRINA DRAINS/ CHEST TUBE OUT THIS WEEKEND/ IMPROVING Objective: Vital Signs Temp Pulse Resp BP Pulse Ox 37.5 C 83 25 H 122/64 H 95 02/16/17 08:00 02/16/17 08:00 02/16/17 08:00 02/16/17 08:00 02/16/17 08:00 Microbiology 02/12/17 08:38 Gram Stain - Final Peritoneal Fluid - Aspirate Laboratory Results 02/16/17 05:20 02/15/17 02/16/17 02/17/17 05:59 05:59 05:59 Intake Total 1918.8 866 Output Total 1360 2955 100 Balance 558.8 -2089 -100 PT 27.9 SEC (12.0-15.0) H 02/16/17 07:40 INR 2.57 (0.83-1.16) H 02/16/17 07:40 ICD10 Worksheet Patient Problems: Problems Problem Status Onset Cellulitis of left lower extremity Acute Pneumonia Acute
[2017-02-16 08:55] LABS: SCAN NEGATIVE
[2017-02-16 08:57] LABS: HYPOCHROMIA 2+; MICROCYTES 2+; PLATELET ESTIMATE ADEQUATE (ADEQ); POLYCHROMASIA 1+; TARGET CELLS 1+
--- NOTE | 2017-02-16 09:15 | PCMIDPN ---
Assessment/Plan: # Sepsis secondary to peritonitis due to postop anastomotic leak s/p washout x2 and fascial closure. CLARE drain continued serous fluid. Peritoneal cultures from the OR are growing E coli/Proteus. Continued clinical improvement, WBC continues to trend down. Extubated yesterday -- continue Zosyn, Cr stable 1.0 -- continue yeast coverage for now, if no growth at 1 week will dc micafungin -- will try to evaluate wound today with wound VAC change. -- duration of antibiotic therapy to be determined medications Zosyn 3.375 g IV Q 6h, #4 Micafungin 100 mg IV daily, #4 micro 02/12 blood cx (2) NGTD 02/12 peritoneal cx: paiz-S Ecoli and Proteus Subjective: some coughing/SOB overnight that improved with lasix getting up to chair today still with diffuse abdominal pain Objective: Vital Signs Temp Pulse Resp BP Pulse Ox 37.5 C 83 25 H 122/64 H 95 02/16/17 08:00 02/16/17 08:00 02/16/17 08:00 02/16/17 08:00 02/16/17 08:00 Microbiology 02/12/17 08:38 Gram Stain - Final Peritoneal Fluid - Aspirate Laboratory Results 02/16/17 05:20 02/16/17 05:20 02/15/17 02/16/17 02/17/17 05:59 05:59 05:59 Intake Total 1918.8 866 Output Total 1360 2955 100 Balance 558.8 -2089 -100 - Physical Exam General Appearance: no apparent distress, obese, other (ill appearing) EENT: NG Tube Neck: other (R TLC c/d/i) Cardiac/Chest: regular rate, rhythm Extremities: pedal edema Abdomen: soft, distended, other (midline wound vac; CLARE drain with serosang fluid ; diffuse discomfort to palpatio) Male Genitalia: larson, scrotal edema Skin: No rash Neuro/Psych: alert, oriented x 3 ICD10 Worksheet Patient Problems: Problems Problem Status Onset Cellulitis of left lower extremity Acute Pneumonia Acute
[2017-02-16] MEDS: PANTOPRAZOLE SODIUM 40 MG in NS 100 ML IV SCH (09:21)
[2017-02-16] MEDS: MICAFUNGIN NA 100 MG in NS 100 ML IV SCH (09:21)
[2017-02-16] MEDS: ENOXAPARIN 100 MG/ML SYR SC SCH (09:21)
--- NOTE | 2017-02-16 09:59 | HOSPPROG ---
Hospitalist Progress Note Assessment/Plan: DIAGNOSES: # peritonitis: 2/2 anastamotic breakdown in post op settings, s/p washout and delayed fascial closure. Cultures thus far with proteus and e coli # septic shock, left # acute hypoxic respiratory failure: Now extubated successfully but remains with need for oxygen # a fib w/rvr: Now in sinus rhythm on amiodarone # colon adenocarcinoma: s/p hemicolectomy as above, will need onc consult when acute issues stabilized # acute RUE DVT; prior history of DVTs # coagulopathy: with INR of nearly 6 prior to surgery, s/p K centra, FFT and vitamin K # chronic chf: EF of 45-50% as well as diastolic dysfunction # multifactorial anemia: 2/2 acute blood loss, status post transfusion of 2 units, monitoring # malnutrition due to cancer and loss of oral intake with acute illness # Full Cor # IP status, high risk requiring ICU level care PLANS: -I will discuss with Dr. Dukes and Dr. Chamberlain but at this point I think TPN will be important as I do not see him able to eat for some time yet -continue to monitor respiratory status closely -continue current antibiotic and antifungal therapy -continue wound VAC, reassess with wound care nurse when they arrive today -cautious pain management -anticoagulation for DVT -continue amiodarone for AFib -continue physical occupational therapies Case discussed in detail with Dr. Dukes Also seen on multidisciplinary rounds with the ICU team SUBJECTIVE: Currently too somnolent to assess respiratory symptoms He does still have some abdominal pain but seems to be satisfied with pain control, no nausea or vomiting During the night he did have some acute dyspnea and tachycardia, and rales on exam. He was given some diuretic which was effective and his breathing has improved somewhat since then OBJECTIVE Vitals reviewed: Some tachycardia during the night associated with hypoxia and dyspnea, improved now, otherwise stable: Temperature max 38.3 overnight Transportation Security Screener, my review: Sinus rhythm Exam: Quite somnolent and hard to arouse at the moment skin warm dry color ok resps not labored lungs course BSs heart regular abd soft fairly distended, diffusely mildly tender, bowel sounds present limbs warm Quite a bit of 3rd spaced fluid at this time iv site ok Laboratory data stable CBC and chemistry: white count has improved at 14,000 today, otherwise Chest x-ray was done last night, my review of the images: Inspiratory lung volumes very poor and there is significant atelectasis, hard to assess whether there is actually pulmonary edema associated Objective: Vital Signs Temp Pulse Resp BP Pulse Ox 37.5 C 84 23 H 132/65 H 97 02/16/17 08:00 02/16/17 09:00 02/16/17 09:00 02/16/17 09:00 02/16/17 09:00 Microbiology 02/12/17 08:38 Gram Stain - Final Peritoneal Fluid - Aspirate Laboratory Results 02/16/17 05:20 02/16/17 05:20 02/15/17 02/16/17 02/17/17 06:59 06:59 06:59 Intake Total 1918.8 866 Output Total 1360 3055 Balance 558.8 -2189 PT 27.9 SEC (12.0-15.0) H 02/16/17 07:40 INR 2.57 (0.83-1.16) H 02/16/17 07:40 ICD10 Worksheet Patient Problems: Problems Problem Status Onset Cellulitis of left lower extremity Acute Pneumonia Acute
[2017-02-16] MEDS: AMIODARONE HCL 900 MG in D5W 500 ML IV SCH (11:00)
[2017-02-16] MEDS ORDERED: D10W 1,000 ML IV PRN (11:37)
[2017-02-16 13:51] LABS: ALANINE AMINOTRANSFERASE 83 IU/L (21-72); ALKALINE PHOSPHATASE 149 IU/L (38-126); ANION GAP 8 mEq/L (8-16); ASPARTATE AMINOTRANSFERASE 91 IU/L (17-59); BILIRUBIN,TOTAL 1.6 mg/dL (0.1-1.4); CALCIUM 7.6 mg/dL (8.5-10.4); CARBON DIOXIDE 24 mEq/l (22-31); CHLORIDE 111 mEq/L (97-110); GLUCOSE 76 mg/dL (70-100); MAGNESIUM 2.3 mg/dL (1.6-2.3); POTASSIUM 3.9 mEq/L (3.5-5.2); SODIUM 143 mEq/L (134-144); TOTAL PROTEIN 4.3 g/dL (6.3-8.2); TRIGLYCERIDE 168 mg/dL (40-150)
[2017-02-16 13:58] LABS: GLOMERULAR FILTRATION RATE > 60
--- NOTE | 2017-02-16 14:36 | PDINTPN ---
Muffler Tender Progress Note Assessment/Plan: Assessment/plan: 76 M with recent diagnosis of colon cancer s/p laparoscopic assisted right hemicolectomy on 02/07/17 complicated by postop ileus. He was mostly stable until 02/12 when he developed increased abdominal distention and hypotension, was emergently intubated and taken to the OR for primary anastomotic wound dehiscence. He had additional resection, repeat end-end anastomosis, right IJ CVC placement, and a wound vac placed for overnight. He was later found to have a small right pneumothorax though a chest tube was deferred. Postoperatively he had refractory hypotension despite multiple fluid boluses, RBC and FFP transfusions, and negative NICOM evaluation. He required norepi, dopamine, hydrocortisone, and vasopressin; but improved overnight. He returned to the OR for final washout and potential closure. * Peritonitis- 2/2 wound dehiscence at primary anastomosis. WBC continues to fall. Cultures with E. Coli and Proteus- should be covered with Zosyn. Vanco dc 'd 02/14. Remains on Micafungin. Abx per ID. * Acute respiratory failure 2/2 postoperative complication with ventilator dependency- Successful extubation 02/15. Hoarse voice, but follows commands and seems to understand concepts (reviewed course of events). Continue with pulmonary toilet (OOB, IS, secretion management). Titrate O2 as tolerated to sat >90. * Afib with RVR- new onset 02/14 during weaning. Started amiodarone and converted to NSR <24 hours. Continue for now, but may dc soon. * DVT in RUE axillary vein- started LMWH 02/14 * PTX- post line placement in OR, now with chest tube. Still with marginal output. Discussed with Dr. Chamberlain and likely out in next 1-2 days. * Septic shock 2/2 peritonitis- resolved * FEN- has not had nutrition for up to 9 days, and bowel function slow to return. Particularly given his recent episode, would favor TPN for now and transition to enteral feeding when appropriate. * Anemia- stable * Colon Ca- s/p resection. Await eventual oncology recs 02/16/17 14:25 Objective: Vital Signs Temp Pulse Resp BP Pulse Ox 38 C 92 24 H 123/58 H 93 02/16/17 12:00 02/16/17 12:00 02/16/17 12:00 02/16/17 12:00 02/16/17 12:00 Microbiology 02/12/17 08:38 Gram Stain - Final Peritoneal Fluid - Aspirate Laboratory Results 02/16/17 05:20 02/16/17 12:50 02/15/17 02/16/17 02/17/17 05:59 05:59 05:59 Intake Total 1918.8 866 Output Total 1360 2955 100 Balance 558.8 -2089 -100 PT 27.9 SEC (12.0-15.0) H 02/16/17 07:40 INR 2.57 (0.83-1.16) H 02/16/17 07:40 Physical Exam - Physical Exam General Appearance: alert, mild distress EENT: PERRL/EOMI, other (hoarse) Neck: supple Respiratory: rhonchi (few) Cardiac/Chest: regular rate, rhythm, edema Abdomen: guarding, rebound, other (wound vac), No distended Skin: normal color, warm/dry, No cyanosis Lymphatic: no adenopathy Extremities: pedal edema Neuro/Psych: alert, cognition abnormalities ICD10 Worksheet Patient Problems: Problems Problem Status Onset Cellulitis of left lower extremity Acute Pneumonia Acute
[2017-02-16 15:16] LABS: % IMMATURE GRANULYOCYTES 1.5 % (0.0-1.1); ABSOLUTE IMMATURE GRANULOCYTES 0.23 10^3/uL (0.00-0.10); ABSOLUTE NRBC COUNT 0.14 10^3/uL (0-0.01); ADD DIFF? NO; ADD MORPH? YES; ADD SCAN? YES; ATYPICAL LYMPHOCYTE FLAG 0 (0-99); FRAGMENT RBC FLAG 90 (0-99); HEMATOCRIT 28.8 % (40.0-51.0); HEMOGLOBIN 8.2 g/dL (13.7-17.5); LIPEMIA HEMOLYSIS FLAG 70 (0-99); MEAN CELL HEMOGLOBIN 20.6 pg (27.9-34.1); MEAN CELL VOLUME 72.2 fL (81.5-99.8); MEAN PLATELET VOLUME 10.4 fL (8.7-11.7); NRBC-AUTO% 0.9 % (0.0-0.2); PLATELET CLUMPS FLAG 0 (0-99); PLATELET COUNT 335 10^3/uL (150-400); RED BLOOD CELL COUNT 3.99 10^6/uL (4.40-6.38)
[2017-02-16 15:18] LABS: LEFT SHIFT FLG 280 (0-99); MEAN CELL HEMOGLOBIN CONCENTR. 28.5 g/dL (32.4-36.7); RED CELL DISTRIBUTION WIDTH 28.5 % (11.5-15.2)
[2017-02-16 15:53] LABS: SCAN POSITIVE
[2017-02-16 16:01] LABS: ACANTHOCYTES 1+; HYPOCHROMIA 2+; MICROCYTES 2+; PLATELET ESTIMATE ADEQUATE (ADEQ); TOXIC GRANULATION PRESENT
[2017-02-16 18:07] LABS: APTT 47.1 SEC (23.0-38.0); INR 2.94 (0.83-1.16)
--- NOTE | 2017-02-16 18:17 | SOAPPROG ---
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 chest tube likely out tomorrow Cards - a fib converted back to NSR, treated with amiodarone. off pressors GI - NG tube. NPO. - larson, monitor I&Os Heme/ID - on zosyn and micafungin. appreciate ID. H/H stable. RUE axillary DVT - hold lovenox for now Wound - wound vac change today FEN - NPO. Start TPN today Proph - protonix. Dispo - continue ICU. Seen by Dr. Sepulveda S: resting comfortably. family at bedside O: laying in bed, resting comfortably Clear anteriorly, decreased at bases RRR Chest tube output serous, dressings intact Hypoactive BS, distended, min tender. Midline wound vac intact CLARE drain serous Larson clear yellow urine Edematous 02/16/17 18:14 02/16/17 18:18 Objective: Vital Signs Temp Pulse Resp BP Pulse Ox 38.4 C H 89 24 H 142/67 H 96 02/16/17 17:57 02/16/17 17:57 02/16/17 17:57 02/16/17 17:57 02/16/17 17:57 Microbiology 02/12/17 08:38 Gram Stain - Final Peritoneal Fluid - Aspirate Laboratory Results 02/16/17 Unknown 02/15/17 02/16/17 02/17/17 05:59 05:59 05:59 Intake Total 1918.8 866 592 Output Total 1360 2955 1080 Balance 558.8 -2089 -488 PT 31.0 SEC (12.0-15.0) H 02/16/17 17:30 INR 2.94 (0.83-1.16) H 02/16/17 17:30 ICD10 Worksheet Patient Problems: Problems Problem Status Onset Cellulitis of left lower extremity Acute Pneumonia Acute
[2017-02-16 21:02] LABS: POTASSIUM 4.1 mEq/L (3.5-5.2)
[2017-02-16] MEDS: TPN W/ FAMOTIDINE 1 EA BAG IV SCH (22:49)
[2017-02-17] MEDS ORDERED: ALTEPLASE 2 MG VIAL IVP PRN (01:20)
[2017-02-17] MEDS: PIPERACILLIN/TAZO 3.375 GM/DEX 50 ML IV SCH ×4 (01:21→18:09)
[2017-02-17 04:34] LABS: IONIZED CALCIUM 1.14 MMOL/L (1.12-1.30)
[2017-02-17 04:38] LABS: ABSOLUTE NRBC COUNT 0.06 10^3/uL (0-0.01); ADD DIFF? YES; ATYPICAL LYMPHOCYTE FLAG 0 (0-99); FRAGMENT RBC FLAG 80 (0-99); HEMATOCRIT 28.8 % (40.0-51.0); HEMOGLOBIN 8.5 g/dL (13.7-17.5); LIPEMIA HEMOLYSIS FLAG 70 (0-99); MEAN CELL HEMOGLOBIN 20.9 pg (27.9-34.1); MEAN CELL HEMOGLOBIN CONCENTR. 29.5 g/dL (32.4-36.7); MEAN CELL VOLUME 70.9 fL (81.5-99.8); MEAN PLATELET VOLUME 9.6 fL (8.7-11.7); NRBC-AUTO% 0.4 % (0.0-0.2); PLATELET CLUMPS FLAG 0 (0-99); PLATELET COUNT 330 10^3/uL (150-400); RED BLOOD CELL COUNT 4.06 10^6/uL (4.40-6.38)
[2017-02-17 04:51] LABS: ADD MORPH? NO; ADD SCAN? NO; LEFT SHIFT FLG 170 (0-99); RED CELL DISTRIBUTION WIDTH 28.2 % (11.5-15.2)
[2017-02-17 04:56] LABS: INR 2.76 (0.83-1.16); PROTIME(PATIENT) 29.5 SEC (12.0-15.0)
[2017-02-17 04:57] LABS: APTT 40.6 SEC (23.0-38.0)
[2017-02-17 05:22] LABS: ALANINE AMINOTRANSFERASE 71 IU/L (21-72); ALKALINE PHOSPHATASE 137 IU/L (38-126); ANION GAP 6 mEq/L (8-16); ASPARTATE AMINOTRANSFERASE 75 IU/L (17-59); BILIRUBIN,TOTAL 1.5 mg/dL (0.1-1.4); CALCIUM 7.5 mg/dL (8.5-10.4); CARBON DIOXIDE 26 mEq/l (22-31); CHLORIDE 113 mEq/L (97-110); CREATININE 0.9 mg/dL (0.7-1.3); GLOMERULAR FILTRATION RATE > 60; GLUCOSE 93 mg/dL (70-100); MAGNESIUM 2.2 mg/dL (1.6-2.3); POTASSIUM 3.8 mEq/L (3.5-5.2); SODIUM 145 mEq/L (134-144); TOTAL PROTEIN 4.3 g/dL (6.3-8.2)
[2017-02-17 05:36] LABS: ACANTHOCYTES 1+; HYPOCHROMIA 2+; MICROCYTES 2+; PLATELET ESTIMATE ADEQUATE (ADEQ); POLYCHROMASIA 1+
[2017-02-17] MEDS ORDERED: POTASSIUM Cl (KCl) 50 ML IV ONE (07:21)
[2017-02-17] MEDS: MICAFUNGIN NA 100 MG in NS 100 ML IV SCH (09:15)
[2017-02-17] MEDS: AMIODARONE HCL 900 MG in D5W 500 ML IV SCH (09:15)
--- NOTE | 2017-02-17 09:20 | PCMIDPN ---
Assessment/Plan: # Sepsis secondary to peritonitis due to postop anastomotic leak s/p washout x2 and fascial closure. Concern today because abdomen remains very tender and now febrile. WBC not up but patient known to have inappropriate response. creatinine remains stable today at 0.9 and slight elevation in LFTs yesterday is improved today. No bm, no bowel sounds. CLARE drain continued serous fluid. DDX ongoing intra-abd process, line infection, HAP (RR up but only requiring 3L O2 supplementation), drug fever -- blood cx -- CT c/a/p -- continue zosyn/micafungin medications Zosyn 3.375 g IV Q 6h, #5 Micafungin 100 mg IV daily, #5 micro 02/12 blood cx (2) NGTD 02/12 peritoneal cx: paiz-S Ecoli and Proteus Subjective: increasing fever overnight c/o of abdominal pain Objective: Vital Signs Temp Pulse Resp BP Pulse Ox 38.3 C 84 23 H 120/55 L 95 02/17/17 06:00 02/17/17 07:00 02/17/17 07:00 02/17/17 07:00 02/17/17 07:00 Microbiology 02/12/17 08:38 Gram Stain - Final Peritoneal Fluid - Aspirate Laboratory Results 02/17/17 04:26 02/17/17 04:26 02/16/17 02/17/17 02/18/17 05:59 05:59 05:59 Intake Total 866 942 Output Total 2955 2350 Balance -2089 -1408 - Physical Exam General Appearance: alert, apparent distress (mild with increased RRR) EENT: NG Tube (bilious fluid), dry mucous membranes, No scleral icterus Respiratory: coarse breath sounds Neck: supple, other (R IJ c/d/i) Cardiac/Chest: regular rate, rhythm Extremities: pedal edema Abdomen: peritoneal signs, tender, other (CLARE drain with serosang fluid), No normal bowel sounds Male Genitalia: larson, scrotal edema Skin: No rash Neuro/Psych: alert, other (interacting appropriately) ICD10 Worksheet Patient Problems: Problems Problem Status Onset Cellulitis of left lower extremity Acute Pneumonia Acute
[2017-02-17] MEDS ORDERED: IOPAMIDOL (ISOVUE-300) 100 ML BTL ONE (09:46)
--- NOTE | 2017-02-17 12:12 | SOAPPROG ---
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 S/p resection and wash out Sepsis resolving Neuro - Pain controlled with Morphine Resp - Bilateral lower lobe infiltrates and some atelectasis. Still with Right pneumothorax. Put chest tube back to suction. cough, deep breath, IS Cards - Stable GI - Awaiting bowel function to return. Some free fluid in abdomen. No drainable collection. - Keep larson and monitor Is and Os FEN - Continue TPN Heme/ID -Zosyn and Micafungin. Watching INR. Hold lovenox for now. When drops below 2 will need BID therapuetic lovenox. Will restart Warfarin with return of bowel function Dispo - continue ICU Case discussed with family, Dr. Dukes, Dr. Michelle and Dr. Conklin S: Follows commands O: Brow furrowed. Coarse upper airway sounds. No obvious air leak on chest tube with serous drainage Regular rate Bowel sounds hypoactive. Wound vac to suction. CLARE with serosanguinous fluid SCDs in place No erythema by IJ Plan: 02/08/17 13:13 02/10/17 03:28 02/17/17 12:06 Objective: Vital Signs Temp Pulse Resp BP Pulse Ox 36.9 C 79 22 H 124/63 H 97 02/17/17 08:00 02/17/17 11:00 02/17/17 11:00 02/17/17 11:00 02/17/17 11:00 Microbiology 02/12/17 08:38 Gram Stain - Final Peritoneal Fluid - Aspirate Laboratory Results 02/17/17 04:26 02/17/17 04:26 02/16/17 02/17/17 02/18/17 05:59 05:59 05:59 Intake Total 866 942 Output Total 2955 8320 Balance -2089 -1408 PT 29.5 SEC (12.0-15.0) H 02/17/17 04:26 INR 2.76 (0.83-1.16) H 02/17/17 04:26 ICD10 Worksheet Patient Problems: Problems Problem Status Onset Cellulitis of left lower extremity Acute Pneumonia Acute
--- NOTE | 2017-02-17 12:26 | HOSPPROG ---
Hospitalist Progress Note Assessment/Plan: DIAGNOSES: # fever past two nights - possibly due to atelectasis, but other sources possible; doubt CT represents pneumonia but will review w Dr Dukes; has central line and larson in, clear yellow urine # peritonitis: 2/2 anastamotic breakdown in post op settings, s/p washout and delayed fascial closure. Cultures thus far with proteus and e coli # septic shock, resolved # acute hypoxic respiratory failure: Now extubated successfully but remains with need for oxygen # a fib w/rvr: Now in sinus rhythm on amiodarone # colon adenocarcinoma: s/p hemicolectomy as above, will need onc consult when acute issues stabilized # acute RUE DVT; prior history of DVTs - on anticoagulant therapy, coumadin currently held with INR at 2.5 # coagulopathy: with INR of nearly 6 prior to surgery, s/p K centra, FFT and vitamin K # chronic chf, syst and diastolic dysfunction; stable at present # multifactorial anemia: 2/2 acute blood loss, status post transfusion of 2 units, monitoring # malnutrition due to cancer and loss of oral intake with acute illness # Full Cor # IP status, high risk requiring ICU level care PLANS: -continue current antibiotic and antifungal therapy -continue wound VAC, reassess with wound care nurse when they arrive today -continue TPN -cautious pain management -anticoagulation for DVT -continue amiodarone for AFib -continue physical occupational therapies -will review CT results w Dr Dukes Case discussed in detail with Dr. 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 rhythm Exam: more alert today skin warm dry color ok resps not labored lungs course BSs heart regular abd soft fairly distended, diffusely mildly tender, bowel sounds present limbs warm Quite a bit of 3rd spaced fluid at this time iv site ok Laboratory data stable CBC and chemistry: lab data reviewed, wbc continues to improve, Na a bit high at 145 CT scan of chest and abdomen are done today due to fever and 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 These are small collections with no adjacent free air or other specific signs of abscess per se. In the chest there is some is bibasilar consolidation and surrounding atelectasis with very small pleural effusions, chest tube in good position with a tiny pneumothorax on the right. Objective: Vital Signs Temp Pulse Resp BP Pulse Ox 36.9 C 79 22 H 124/63 H 97 02/17/17 08:00 02/17/17 11:00 02/17/17 11:00 02/17/17 11:00 02/17/17 11:00 Microbiology 02/12/17 08:38 Gram Stain - Final Peritoneal Fluid - Aspirate Laboratory Results 02/17/17 04:26 02/17/17 04:26 02/16/17 02/17/17 02/18/17 06:59 06:59 06:59 Intake Total 866 942 Output Total 3055 2250 Balance -2189 -1308 PT 29.5 SEC (12.0-15.0) H 02/17/17 04:26 INR 2.76 (0.83-1.16) H 02/17/17 04:26 - Time Spent With Patient Time Spent with Patient: greater than 35 minutes Time Spent with Patient: Greater than 35 minutes spent on this patients care, greater than 50% of time spent counseling, educating, and coordinating care regarding the above mentioned plan. ICD10 Worksheet Patient Problems: Problems Problem Status Onset Cellulitis of left lower extremity Acute Pneumonia Acute
--- NOTE | 2017-02-17 13:25 | PDINTPN ---
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 He was mostly stable until 02/12 when he developed increased abdominal distention and hypotension, was emergently intubated and taken to the OR for primary anastomotic wound dehiscence. He had additional resection, repeat end-end anastomosis, right IJ CVC placement, and a wound vac placed for overnight. He was later found to have a small right pneumothorax though a chest tube was deferred. Postoperatively he had refractory hypotension despite multiple fluid boluses, RBC and FFP transfusions, and negative NICOM evaluation. He required norepi, dopamine, hydrocortisone, and vasopressin; but improved overnight. He returned to the OR for final washout and potential closure. * Peritonitis- 2/2 wound dehiscence at primary anastomosis. WBC continues to fall. Cultures with E. Coli and Proteus- should be covered with Zosyn. Vanco dc 'd 02/14. Remains on Micafungin. Abx per ID. No change today, though had Tm last pm. Abdominal CT unremarkable * Acute respiratory failure 2/2 postoperative complication with ventilator dependency- Successful extubation 02/15. Hoarse voice, but follows commands and seems to understand concepts (reviewed course of events). Chest CT hypovent and small residual PTX and atelectasis. Minimal fluid and low O2 requirement despite mild labored breathing. * Afib with RVR- new onset 02/14 during weaning. Started amiodarone and converted to NSR <24 hours. Continue for now, but may dc soon. * DVT in RUE axillary vein- started LMWH 02/14, but held with therapeutic INR. Clot may be driving both low grade temp and previous afib. * PTX- post line placement in OR, now with chest tube. Still with marginal output. Agree with return to suction. * Septic shock 2/2 peritonitis- resolved * FEN- has not had nutrition for up to 9 days, and bowel function slow to return. Particularly given his recent episode, would favor TPN for now and transition to enteral feeding when appropriate. * Anemia- stable * Colon Ca- s/p resection. Await eventual oncology recs Objective: Vital Signs Temp Pulse Resp BP Pulse Ox 37.1 C 80 21 H 138/65 H 99 02/17/17 12:00 02/17/17 13:00 02/17/17 13:00 02/17/17 13:00 02/17/17 13:00 Microbiology 02/12/17 12:15 Blood Culture - Final Blood 02/12/17 12:15 Blood Culture - Final Blood 02/12/17 08:38 Gram Stain - Final Peritoneal Fluid - Aspirate Laboratory Results 02/17/17 04:26 02/16/17 02/17/17 02/18/17 05:59 05:59 05:59 Intake Total 866 942 Output Total 2955 6070 Balance -2089 -1408 PT 29.5 SEC (12.0-15.0) H 02/17/17 04:26 INR 2.76 (0.83-1.16) H 02/17/17 04:26 Physical Exam - Physical Exam General Appearance: mild distress EENT: PERRL/EOMI Neck: supple Respiratory: decreased breath sounds, rhonchi (few), No accessory muscle use Cardiac/Chest: regular rate, rhythm, edema Abdomen: soft, guarding, No normal bowel sounds, No distended Skin: normal color, warm/dry Lymphatic: no adenopathy Extremities: pedal edema Neuro/Psych: cognition abnormalities, No abnormal crop ranch hand II-XII ICD10 Worksheet Patient Problems: Problems Problem Status Onset Cellulitis of left lower extremity Acute Pneumonia Acute
[2017-02-17 13:30] LABS: POTASSIUM 4.1 mEq/L (3.5-5.2)
[2017-02-17 18:36] LABS: POTASSIUM 4.1 mEq/L (3.5-5.2)
[2017-02-17] MEDS: TPN W/ FAMOTIDINE 1 EA BAG IV SCH (20:53)
[2017-02-18] MEDS: PIPERACILLIN/TAZO 3.375 GM/DEX 50 ML IV SCH ×4 (00:04→17:41)
[2017-02-18 04:46] LABS: INR 1.59 (0.83-1.16)
[2017-02-18 04:47] LABS: APTT 32.2 SEC (23.0-38.0)
[2017-02-18 05:10] LABS: ALANINE AMINOTRANSFERASE 54 IU/L (21-72); ALBUMIN 2.2 g/dL (3.5-5.0); ALKALINE PHOSPHATASE 99 IU/L (38-126); ANION GAP 9 mEq/L (8-16); ASPARTATE AMINOTRANSFERASE 47 IU/L (17-59); BILIRUBIN,TOTAL 1.1 mg/dL (0.1-1.4); CALCIUM 7.5 mg/dL (8.5-10.4); CARBON DIOXIDE 25 mEq/l (22-31); CHLORIDE 112 mEq/L (97-110); CREATININE 0.8 mg/dL (0.7-1.3); GLOMERULAR FILTRATION RATE > 60; GLUCOSE 128 mg/dL (70-100); MAGNESIUM 2.3 mg/dL (1.6-2.3); POTASSIUM 4.4 mEq/L (3.5-5.2); SODIUM 146 mEq/L (134-144); TOTAL PROTEIN 4.5 g/dL (6.3-8.2)
[2017-02-18] MEDS: MICAFUNGIN NA 100 MG in NS 100 ML IV SCH (09:17)
--- NOTE | 2017-02-18 09:47 | PCMIDPN ---
Assessment/Plan: # Sepsis secondary to peritonitis due to postop anastomotic leak s/p washout x2 and fascial closure. Overall stable today, AF, not tachy, no hypotension. off pressors. WBC slightly up today. Abdominal exam is stable today, no bowel sounds detected on exam and still distended. Unclear etiology of prior fever other than continuum of intra-abdominal process. CT yesterday showed multiple fluid collections, but none drainable - CLARE still with serous fluid --continue zosyn and micafungin -- continue to increase activity per ICU protocol -- could consider DC antifungal coverage if fungal cultures remain negative tomorrow -- unfortunately only 1 set of blood cultures were collected yesterday, will continue to monitor medications Zosyn 3.375 g IV Q 6h, #6 Micafungin 100 mg IV daily, #6 micro 02/12 blood cx (2) NGTD 02/12 peritoneal cx: paiz-S Ecoli and Proteus 02/17 blood cx (1) pending case discussed with Dr. Karrie Sepulveda and Dr. Dionisio Dukes. Updated patient's daughter and Subjective: patient talkative today, some directed - other statements a bit confused endorses ongoing abdominal pain Objective: Vital Signs Temp Pulse Resp BP Pulse Ox 36.8 C 77 22 H 160/61 H 95 02/18/17 01:56 02/18/17 07:00 02/18/17 07:00 02/18/17 07:00 02/18/17 07:00 Microbiology 02/12/17 12:15 Blood Culture - Final Blood 02/12/17 12:15 Blood Culture - Final Blood 02/12/17 08:38 Gram Stain - Final Peritoneal Fluid - Aspirate Laboratory Results 02/17/17 04:26 02/18/17 04:15 02/17/17 02/18/17 02/19/17 05:59 05:59 05:59 Intake Total 942 1807 Output Total 2350 2277 Balance -1408 -470 - Physical Exam General Appearance: alert, no apparent distress EENT: NG Tube Respiratory: coarse breath sounds, No accessory muscle use Neck: supple, other (R IJ C/D/I) Cardiac/Chest: regular rate, rhythm Extremities: pedal edema Abdomen: soft, distended, tender, other ( midline incision with wound VAC in place ; CLARE drain with serous fluid) Male Genitalia: larson, scrotal edema Skin: pallor, No jaundice, No rash Neuro/Psych: alert, oriented x 3 ( with some coaching prior), confused ( Conversational but somewhat tangential and occasionally nonsensical), other (a little aggitated) ICD10 Worksheet Patient Problems: Problems Problem Status Onset Cellulitis of left lower extremity Acute Pneumonia Acute
--- NOTE | 2017-02-18 10:03 | SOAPPROG ---
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 S/p resection and wash out Sepsis resolving Neuro - Pain controlled with Morphine Resp - Bilateral lower lobe infiltrates and some atelectasis. Right pneumothorax on CT. Put chest tube back to suction. cough, deep breath, IS Cards - Stable GI - Awaiting bowel function to return. Some free fluid in abdomen. No drainable collection. DC NG only 100 cc out. Ice chips for comfort - Keep larson and monitor Is and Os FEN - Continue TPN Heme/ID -Zosyn and Micafungin. INR 1.5. Restarted Lovenox. Will restart Warfarin with return of bowel function Dispo - continue ICU Case discussed with family, Dr. Dukes, Dr. Michelle and Dr. Conklin S: Follows commands. Sitting up in chair. Standed briefly O: Brow furrowed. Lungs improved today. No obvious air leak on chest tube with serous drainage Regular rate Bowel sounds hypoactive. Wound vac to suction. CLARE with serosanguinous fluid SCDs in place No erythema by IJ Plan: 02/08/17 13:13 02/10/17 03:28 02/17/17 12:06 02/18/17 09:59 Objective: Vital Signs Temp Pulse Resp BP Pulse Ox 36.8 C 81 26 H 146/63 H 94 02/18/17 08:00 02/18/17 09:00 02/18/17 09:00 02/18/17 09:00 02/18/17 09:00 Microbiology 02/12/17 12:15 Blood Culture - Final Blood 02/12/17 12:15 Blood Culture - Final Blood 02/12/17 08:38 Gram Stain - Final Peritoneal Fluid - Aspirate Laboratory Results 02/17/17 04:26 02/18/17 04:15 02/17/17 02/18/17 02/19/17 05:59 05:59 05:59 Intake Total 942 1807 Output Total 2350 3647 Balance -1408 -470 PT 19.0 SEC (12.0-15.0) H D 02/18/17 04:15 INR 1.59 (0.83-1.16) H 02/18/17 04:15 ICD10 Worksheet Patient Problems: Problems Problem Status Onset Cellulitis of left lower extremity Acute Pneumonia Acute
[2017-02-18] MEDS: ENOXAPARIN 100 MG/ML SYR SC SCH ×2 (10:43→21:00)
[2017-02-18 10:45] LABS: % IMMATURE GRANULYOCYTES 1.4 % (0.0-1.1); ABSOLUTE IMMATURE GRANULOCYTES 0.22 10^3/uL (0.00-0.10); ABSOLUTE NRBC COUNT 0.04 10^3/uL (0-0.01); ADD DIFF? NO; ADD MORPH? YES; ADD SCAN? YES; FRAGMENT RBC FLAG 80 (0-99); HEMATOCRIT 30.3 % (40.0-51.0); HEMOGLOBIN 8.8 g/dL (13.7-17.5); LIPEMIA HEMOLYSIS FLAG 70 (0-99); MEAN CELL HEMOGLOBIN 20.9 pg (27.9-34.1); MEAN CELL VOLUME 71.8 fL (81.5-99.8); MEAN PLATELET VOLUME 9.9 fL (8.7-11.7); NRBC-AUTO% 0.3 % (0.0-0.2); PLATELET CLUMPS FLAG 0 (0-99); PLATELET COUNT 405 10^3/uL (150-400); RED BLOOD CELL COUNT 4.22 10^6/uL (4.40-6.38)
[2017-02-18 10:46] LABS: ATYPICAL LYMPHOCYTE FLAG 110 (0-99); LEFT SHIFT FLG 150 (0-99); RED CELL DISTRIBUTION WIDTH 28.9 % (11.5-15.2)
[2017-02-18 11:14] LABS: PLATELET ESTIMATE INCREASED (ADEQ); SCAN NEGATIVE
[2017-02-18 11:15] LABS: HYPOCHROMIA 2+; MICROCYTES 2+; POLYCHROMASIA 2+
--- NOTE | 2017-02-18 11:51 | HOSPPROG ---
Hospitalist Progress Note Assessment/Plan: DIAGNOSES: # recurrent fever appears to have resolved, unknown cause # peritonitis: due to colon anastamotic breakdown in post op setting, s/p washout and delayed fascial closure. Cultures thus far with proteus and e coli # septic shock, resolved # acute hypoxic respiratory failure: Now extubated successfully but remains with need for oxygen # a fib w/rvr: Now in sinus rhythm on amiodarone # colon adenocarcinoma: s/p hemicolectomy and R side abdominal wall resection # acute RUE DVT; prior history of DVTs - on anticoagulant therapy, currently on lovenox, will eventually need oral treatment # coagulopathy: with INR of nearly 6 prior to surgery, s/p K centra, FFT and vitamin K # chronic chf, syst and diastolic dysfunction; stable at present # multifactorial anemia: 2/2 acute blood loss, status post transfusion of 2 units, monitoring # malnutrition due to cancer and loss of oral intake with acute illness - on TPN # Full Cor # IP status, high risk requiring ICU level care Overall stable today, with some mild improvement in strength. The fever seen for the previous two nights was absent last night and today, unclear what etiology of that was. PLANS: -continue current antibiotic and antifungal therapy -continue wound VAC, reassess with wound care nurse when they arrive today -continue TPN -cautious pain management -anticoagulation for DVT -continue amiodarone for AFib -continue physical occupational therapies Case discussed in detail with Dr. 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: Sinus rhythm Exam: very alert today, talkative, very mildly disoriented skin warm dry color ok resps not labored lungs course BSs heart regular abd soft remains distended, diffusely mildly tender, bowel sounds present limbs warm remains with much diffuse edema from resuscitation iv site ok Laboratory data: wbc higher at 15.9 today INR down to 1.59 sodium up a bit at 146 Objective: Vital Signs Temp Pulse Resp BP Pulse Ox 36.8 C 77 23 H 147/63 H 97 02/18/17 08:00 02/18/17 11:00 02/18/17 11:00 02/18/17 11:00 02/18/17 11:00 Microbiology 02/12/17 12:15 Blood Culture - Final Blood 02/12/17 12:15 Blood Culture - Final Blood 02/12/17 08:38 Gram Stain - Final Peritoneal Fluid - Aspirate Laboratory Results 02/18/17 10:40 02/18/17 04:15 02/17/17 02/18/17 02/19/17 06:59 06:59 06:59 Intake Total 942 1807 Output Total 2250 6007 Balance -1308 -470 PT 19.0 SEC (12.0-15.0) H D 02/18/17 04:15 INR 1.59 (0.83-1.16) H 02/18/17 04:15 ICD10 Worksheet Patient Problems: Problems Problem Status Onset Cellulitis of left lower extremity Acute Pneumonia Acute
--- NOTE | 2017-02-18 13:57 | PDINTPN ---
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 He was mostly stable until 02/12 when he developed increased abdominal distention and hypotension, was emergently intubated and taken to the OR for primary anastomotic wound dehiscence. He had additional resection, repeat end-end anastomosis, right IJ CVC placement, and a wound vac placed for overnight. He was later found to have a small right pneumothorax though a chest tube was deferred. Postoperatively he had refractory hypotension despite multiple fluid boluses, RBC and FFP transfusions, and negative NICOM evaluation. He required norepi, dopamine, hydrocortisone, and vasopressin; but improved overnight. He returned to the OR for final washout and potential closure. * Peritonitis- 2/2 wound dehiscence at primary anastomosis. Cultures with E. Coli and Proteus- Well- covered with Zosyn. Vanco dc'd 02/14. Remains on Micafungin. Abx per ID. Stable and resolving * Acute respiratory failure 2/2 postoperative complication with ventilator- Successful extubation 02/15. Chest CT hypovent and small residual PTX and atelectasis. Minimal fluid and low O2 requirement despite mild labored breathing. * Afib with RVR- new onset 02/14 during weaning. Started amiodarone and converted to NSR <24 hours. Trial off amiodarone today, if recurs may need cardiology * DVT in RUE axillary vein- started LMWH 02/14, but held with therapeutic INR. Clot may be driving both low grade temp and previous afib. * PTX- post line placement in OR, now with chest tube. Now with 400 output and small residual PTX on CT * Septic shock 2/2 peritonitis- resolved * FEN- started TPN for now and transition to enteral feeding when appropriate. * Anemia- stable * Colon Ca- s/p resection. Await eventual oncology recs 02/18/17 13:54 Objective: Vital Signs Temp Pulse Resp BP Pulse Ox 36.9 C 78 24 H 143/86 H 96 02/18/17 13:00 02/18/17 13:00 02/18/17 12:00 02/18/17 13:00 02/18/17 12:00 Microbiology 02/12/17 08:38 Gram Stain - Final Peritoneal Fluid - Aspirate 02/12/17 12:15 Blood Culture - Final Blood 02/12/17 12:15 Blood Culture - Final Blood Laboratory Results 02/18/17 10:40 02/18/17 04:15 02/17/17 02/18/17 02/19/17 05:59 05:59 05:59 Intake Total 942 1807 Output Total 2350 2277 Balance -1408 -470 PT 19.0 SEC (12.0-15.0) H D 02/18/17 04:15 INR 1.59 (0.83-1.16) H 02/18/17 04:15 Physical Exam - Physical Exam General Appearance: no apparent distress EENT: PERRL/EOMI Neck: supple Respiratory: lungs clear, decreased breath sounds Cardiac/Chest: regular rate, rhythm, edema Abdomen: No normal bowel sounds, No distended Skin: normal color, warm/dry Lymphatic: no adenopathy Extremities: normal range of motion, pedal edema Neuro/Psych: alert, cognition abnormalities ICD10 Worksheet Patient Problems: Problems Problem Status Onset Cellulitis of left lower extremity Acute Pneumonia Acute
[2017-02-18] MEDS ORDERED: FUROSEMIDE 20 MG/2 ML VIAL ONE (15:42)
[2017-02-18] MEDS ORDERED: FUROSEMIDE 20 MG/2 ML VIAL IVP ONE (17:45)
[2017-02-18] MEDS: TPN W/ FAMOTIDINE 1 EA BAG IV SCH (21:00)
[2017-02-19] MEDS: PIPERACILLIN/TAZO 3.375 GM/DEX 50 ML IV SCH ×5 (00:37→23:28)
[2017-02-19 05:33] LABS: APTT 34.1 SEC (23.0-38.0); INR 1.31 (0.83-1.16); PROTIME(PATIENT) 16.3 SEC (12.0-15.0)
[2017-02-19 05:39] LABS: ALANINE AMINOTRANSFERASE 58 IU/L (21-72); ALBUMIN 2.3 g/dL (3.5-5.0); ALKALINE PHOSPHATASE 111 IU/L (38-126); ANION GAP 6 mEq/L (8-16); ASPARTATE AMINOTRANSFERASE 59 IU/L (17-59); BILIRUBIN,TOTAL 1.6 mg/dL (0.1-1.4); CALCIUM 7.5 mg/dL (8.5-10.4); CARBON DIOXIDE 24 mEq/l (22-31); CHLORIDE 112 mEq/L (97-110); CREATININE 0.8 mg/dL (0.7-1.3); GLOMERULAR FILTRATION RATE > 60; GLUCOSE 111 mg/dL (70-100); POTASSIUM 4.4 mEq/L (3.5-5.2); SODIUM 142 mEq/L (134-144); TOTAL PROTEIN 4.8 g/dL (6.3-8.2); TRIGLYCERIDE 99 mg/dL (40-150)
[2017-02-19 05:49] LABS: % IMMATURE GRANULYOCYTES 1.4 % (0.0-1.1); ABSOLUTE IMMATURE GRANULOCYTES 0.24 10^3/uL (0.00-0.10); ABSOLUTE NRBC COUNT 0.02 10^3/uL (0-0.01); ADD DIFF? NO; ADD MORPH? YES; ADD SCAN? YES; ATYPICAL LYMPHOCYTE FLAG 90 (0-99); FRAGMENT RBC FLAG 90 (0-99); HEMATOCRIT 28.7 % (40.0-51.0); HEMOGLOBIN 8.4 g/dL (13.7-17.5); LIPEMIA HEMOLYSIS FLAG 70 (0-99); MEAN CELL HEMOGLOBIN 20.7 pg (27.9-34.1); MEAN CELL HEMOGLOBIN CONCENTR. 29.3 g/dL (32.4-36.7); MEAN CELL VOLUME 70.9 fL (81.5-99.8); NRBC-AUTO% 0.1 % (0.0-0.2); PLATELET CLUMPS FLAG 0 (0-99); PLATELET COUNT 419 10^3/uL (150-400); RED BLOOD CELL COUNT 4.05 10^6/uL (4.40-6.38)
[2017-02-19 05:51] LABS: LEFT SHIFT FLG 210 (0-99); RED CELL DISTRIBUTION WIDTH 29.3 % (11.5-15.2)
[2017-02-19 06:17] LABS: SCAN NEGATIVE
[2017-02-19 06:18] LABS: MACROCYTES 1+; MICROCYTES 1+
[2017-02-19 06:19] LABS: HYPOCHROMIA 2+; POLYCHROMASIA 2+
[2017-02-19 06:20] LABS: PLATELET ESTIMATE ADEQUATE (ADEQ); TARGET CELLS 1+
--- NOTE | 2017-02-19 08:17 | PDINTPN ---
Freezer Assistant Progress Note Assessment/Plan: Assessment/Plan: * Peritonitis- 2/2 wound dehiscence at primary anastomosis. Cultures with E. Coli and Proteus- Well- covered with Zosyn. Vanco dc'd 02/14. Remains on Micafungin. Abx per ID. Stable and resolving * Acute respiratory failure -stable. Breathing easily. Still with cough. * Afib with RVR- new onset 02/14 during weaning. Started amiodarone and converted to NSR <24 hours. Trial off amiodarone today, if recurs may need cardiology * DVT in RUE axillary vein- started LMWH 02/14, but held with therapeutic INR. Clot may be driving both low grade temp and previous afib. * PTX- post line placement in OR, now with chest tube. Output down -follow * Septic shock 2/2 peritonitis- resolved * FEN- started TPN for now and transition to enteral feeding when appropriate. * Anemia- stable * Colon Ca- s/p resection. Await eventual oncology recs * Edema-more lasix today * PT/OT * OOB Overall, much improved. Subjective: Up in chair. Comfortable. Pain okay Objective: Vital Signs Temp Pulse Resp BP Pulse Ox 36.7 C 79 27 H 147/72 H 93 02/19/17 07:00 02/19/17 07:00 02/19/17 07:00 02/19/17 07:00 02/19/17 07:00 Microbiology 02/12/17 08:38 Gram Stain - Final Peritoneal Fluid - Aspirate Laboratory Results 02/19/17 05:00 02/19/17 05:00 02/18/17 02/19/17 02/20/17 05:59 05:59 05:59 Intake Total 1807 2412 Output Total 2277 3500 Balance -470 -1088 PT 16.3 SEC (12.0-15.0) H 02/19/17 05:00 INR 1.31 (0.83-1.16) H 02/19/17 05:00 Physical Exam - Physical Exam General Appearance: alert, no apparent distress EENT: PERRL/EOMI, normal ENT inspection Neck: non-tender, full range of motion Respiratory: crackles (few basilar), No respiratory distress, No stridor, No wheezing Cardiac/Chest: normal peripheral pulses Peripheral Pulses: 2+: carotid (R), carotid (L), femoral (R), femoral (L), dorsalis-pedis (R), dorsalis-pedis (L) Abdomen: normal bowel sounds, non-tender, soft Male Genitalia: deferred Rectal: deferred Skin: normal color, warm/dry Extremities: normal range of motion, non-tender, normal inspection, normal capillary refill, swelling Neuro/Psych: alert ICD10 Worksheet Patient Problems: Problems Problem Status Onset Cellulitis of left lower extremity Acute Pneumonia Acute
[2017-02-19] MEDS ORDERED: FUROSEMIDE 20 MG/2 ML VIAL IVP ONE (08:20)
[2017-02-19] MEDS: MICAFUNGIN NA 100 MG in NS 100 ML IV SCH (08:42)
[2017-02-19] MEDS: ENOXAPARIN 100 MG/ML SYR SC SCH ×2 (08:46→20:45)
[2017-02-19 08:56] LABS: MLBRF BRAF ANALYSIS Not Performed; MLBRF HYPERMETHYLATION ANALY Not Performed; MLBRF MLH1 RESULTS See Comments; MLBRF TISSUE 17S-2153-A6
--- NOTE | 2017-02-19 09:15 | WOCRNPDOC ---
WOCRN Advanced Assessment Note - Skin Integrity Problem, Advanced Assess Abdomen Surgical Wound/Incision Dressing Type: Black Vac Foam, Wound Vac Dressing Description: Intact Exudate Amount: Minimal Exudate Characteristic(s): Serosanguinous Integumentary Issue Intervention: Dressing Reinforced (trac pad changed) Fang Wound Tissue: Intact Skin Integrity Problem Comment: Received request fro social media job titles Nikki to troubleshoot wound vac, which was alarming a "blockage alert." After determining that all connections were secure, clamps were open, and wound vac was lower than the wound, existing trac pad on the dressing was cut out the and replaced with a new one. Upon removal, existing trac pad was noted to have thick, mucous exudated, which was most likely the reason the suction became blocked. NPWT reinitiated at 100mmhg per order. social media job titles Nikki present and assisting.
[2017-02-19 11:35] LABS: BILIRUBIN,TOTAL 1.5 mg/dL (0.1-1.4); BILIRUBIN-UNCONJUGATED 0.5 mg/dL (0.0-1.1)
--- NOTE | 2017-02-19 11:47 | PCMIDPN ---
Assessment/Plan: Assessment/Plan: * Sepsis due to peritonitis associated with anastomotic leak status post incision and drainage x2: Slow clinical improvement. No further fever. Persistent leukocytosis but relatively unchanged versus yesterday. Wound VAC changed earlier today with healthy-appearing granulation noted. Continue Zosyn. Will discontinue micafungin given no isolation of fungi after 7 days. Continue to monitor clinically over time. 02/19/17 11:43 02/19/17 12:00 Subjective: Overall feels better. Noted to have bowel movement. Persistent pain in right lower quadrant. Objective: Vital Signs Temp Pulse Resp BP Pulse Ox 36.7 C 86 28 H 126/60 H 96 02/19/17 08:00 02/19/17 11:00 02/19/17 11:00 02/19/17 11:00 02/19/17 11:00 Microbiology 02/12/17 08:38 Gram Stain - Final Peritoneal Fluid - Aspirate Laboratory Results 02/19/17 05:00 02/19/17 05:00 02/18/17 02/19/17 02/20/17 05:59 05:59 05:59 Intake Total 1807 2412 Output Total 2277 3500 Balance -470 1085 Zosyn # 7 Micafungin # 7 Fungal culture no growth to date Blood cultures 02/17/2017 x1 no growth Laboratory Tests 02/19/17 05:00 Total Bilirubin 1.6 H AST 59 ALT 58 Alkaline Phosphatase 111 - Physical Exam General Appearance: alert, no apparent distress, non-toxic EENT: No scleral icterus Respiratory: lungs clear (Anterolaterally) Cardiac/Chest: regular rate, rhythm Extremities: pedal edema (3+ bilaterally) Abdomen: tender (Right lower quadrant; wound VAC in place without surrounding erythema) ICD10 Worksheet Patient Problems: Problems Problem Status Onset Cellulitis of left lower extremity Acute Pneumonia Acute
--- NOTE | 2017-02-19 11:51 | SOAPPROG ---
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 chest tube out when <100/d Cards - stable GI - NPO. Elevated bili - check fractionated - larson, monitor I&Os Heme/ID - on zosyn and micafungin. appreciate ID. H/H stable. RUE axillary DVT - hold lovenox for now Wound - wound bed very healthy with vac change today . May consider secondary closure later this week FEN - TPN Proph - protonix. Dispo - continue ICU. Seen with Dr. Chamberlain S: sitting up in chair. family at bedside. very uncomfortable with vac change O: Sitting up in chair, resting comfortably Clear anteriorly, decreased at bases RRR Chest tube output serous, dressings intact Hypoactive BS, distended, min tender. Midline wound vac removed - 100% healthy granulation tissue in base. Pain with vac change. No e/o infection CLARE drain serosanguinous Larson clear yellow urine Objective: Vital Signs Temp Pulse Resp BP Pulse Ox 36.7 C 86 28 H 126/60 H 96 02/19/17 08:00 02/19/17 11:00 02/19/17 11:00 02/19/17 11:00 02/19/17 11:00 Microbiology 02/12/17 08:38 Gram Stain - Final Peritoneal Fluid - Aspirate Laboratory Results 02/19/17 05:00 02/19/17 05:00 02/18/17 02/19/17 02/20/17 05:59 05:59 05:59 Intake Total 1807 2412 Output Total 2277 3500 Balance -470 -1088 PT 16.3 SEC (12.0-15.0) H 02/19/17 05:00 INR 1.31 (0.83-1.16) H 02/19/17 05:00 ICD10 Worksheet Patient Problems: Problems Problem Status Onset Cellulitis of left lower extremity Acute Pneumonia Acute
[2017-02-19 12:56] LABS: IHC TISSUE ID 17S-2153-A6; IHCO INTERPRETATION See Comments; IHCO RESULT See Comments
--- NOTE | 2017-02-19 16:10 | HOSPPROG ---
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% * Iatrogenic PTX s/p chest tube -per pulmonary Subjective: Still very swollen but better Objective: Vital Signs Temp Pulse Resp BP Pulse Ox 36.7 C 89 18 124/61 H 99 02/19/17 08:00 02/19/17 15:00 02/19/17 15:00 02/19/17 15:00 02/19/17 15:00 Microbiology 02/12/17 08:38 Gram Stain - Final Peritoneal Fluid - Aspirate Anaerobic Culture - Final Escherichia Coli Proteus Mirabilis Laboratory Results 02/19/17 05:00 02/19/17 05:00 02/18/17 02/19/17 02/20/17 05:59 05:59 05:59 Intake Total 1807 2412 Output Total 2277 3500 Balance -470 -1088 PT 16.3 SEC (12.0-15.0) H 02/19/17 05:00 INR 1.31 (0.83-1.16) H 02/19/17 05:00 CXR - mild CHF d/w Dr. Clifton - ICU rounds regarding care plan - Physical Exam Constitutional: no apparent distress, appears nourished, not in pain Cardiovascular: regular rate and rhythym, no murmur, rub, or gallop, edema (3+) Respiratory: no respiratory distress, no rales or rhonchi, clear to auscultation Gastrointestinal: normoactive bowel sounds, soft, non-tender abdomen, no palpable masses Skin: no rashes or abrasions, no fluctuance, no induration Neurologic: AAOx3, sensation intact bilaterally Psychiatric: interacting appropriately, not anxious, not encephalopathic, thought process linear ICD10 Worksheet Patient Problems: Problems Problem Status Onset Cellulitis of left lower extremity Acute Pneumonia Acute
[2017-02-19] MEDS ORDERED: FUROSEMIDE 40 MG/4 ML VIAL IVP ONE (16:12)
[2017-02-19] MEDS: TPN W/ FAMOTIDINE 1 EA BAG IV SCH (20:46)
[2017-02-20 05:33] LABS: ANION GAP 8 mEq/L (8-16); CALCIUM 7.6 mg/dL (8.5-10.4); CARBON DIOXIDE 25 mEq/l (22-31); CHLORIDE 110 mEq/L (97-110); CREATININE 0.9 mg/dL (0.7-1.3); GLOMERULAR FILTRATION RATE > 60; GLUCOSE 111 mg/dL (70-100); POTASSIUM 4.4 mEq/L (3.5-5.2); SODIUM 143 mEq/L (134-144)
[2017-02-20] MEDS: PIPERACILLIN/TAZO 3.375 GM/DEX 50 ML IV SCH ×4 (06:29→23:31)
[2017-02-20 06:43] LABS: ATYPICAL LYMPHOCYTE FLAG 0 (0-99); FRAGMENT RBC FLAG 90 (0-99); HEMATOCRIT 28.9 % (40.0-51.0); HEMOGLOBIN 8.5 g/dL (13.7-17.5); LIPEMIA HEMOLYSIS FLAG 70 (0-99); MEAN CELL HEMOGLOBIN 21.1 pg (27.9-34.1); MEAN CELL HEMOGLOBIN CONCENTR. 29.4 g/dL (32.4-36.7); MEAN CELL VOLUME 71.7 fL (81.5-99.8); MEAN PLATELET VOLUME 10.4 fL (8.7-11.7); PLATELET CLUMPS FLAG 0 (0-99); PLATELET COUNT 471 10^3/uL (150-400); RED BLOOD CELL COUNT 4.03 10^6/uL (4.40-6.38)
[2017-02-20 06:45] LABS: RED CELL DISTRIBUTION WIDTH 29.9 % (11.5-15.2)
[2017-02-20 06:46] LABS: ADD DIFF? YES; ADD MORPH? NO; ADD SCAN? NO; LEFT SHIFT FLG 250 (0-99)
[2017-02-20 06:59] LABS: PLATELET ESTIMATE INCREASED (ADEQ)
[2017-02-20 07:00] LABS: MACROCYTES 1+; MICROCYTES 1+
[2017-02-20 07:01] LABS: TARGET CELLS 1+
[2017-02-20] MEDS: FUROSEMIDE 40 MG/4 ML VIAL IVP SCH ×2 (08:51→14:28)
[2017-02-20] MEDS: ENOXAPARIN 100 MG/ML SYR SC SCH ×2 (08:52→21:03)
[2017-02-20] MEDS: MICAFUNGIN NA 100 MG in NS 100 ML IV SCH (08:52)
--- NOTE | 2017-02-20 11:08 | PCMIDPN ---
Assessment/Plan: Assessment/Plan: 1. Sepsis due to peritonitis associated with anastomotic leak status post incision and drainage: - s/p wash out on 02/12 and 02/13/17 - CX with pansensitive E. coli, proteus, plus yeast now -blood cx ngtd on 02/12 and 02/17 -Currenlty on Zosyn and micafungin - WBc noted. - Reviewed labs, cultures with , daughter at bedside. -Discussed with surgery meds zosyn 3.375gm q6- (has been on zosyn since 02/12/17 with varying dosing) micafungin 100mg daily- 02/13/17 Subjective: afebrile. awake. some abdominal discomfort but tolerable. Chest tube present. wound vac over abdominal wound.Alex sob. Objective: Vital Signs Temp Pulse Resp BP Pulse Ox 36.7 C 84 32 H 125/46 H 93 02/20/17 08:19 02/20/17 08:19 02/20/17 08:19 02/20/17 08:19 02/20/17 08:19 Microbiology 02/12/17 08:38 Gram Stain - Final Peritoneal Fluid - Aspirate Anaerobic Culture - Final Escherichia Coli Proteus Mirabilis Laboratory Results 02/20/17 04:50 02/20/17 04:50 02/19/17 02/20/17 02/21/17 05:59 05:59 05:59 Intake Total 2412 2125 Output Total 3500 3971 Balance -8912 -7669 - Physical Exam General Appearance: alert, no apparent distress Respiratory: coarse breath sounds Cardiac/Chest: regular rate, rhythm, other (chest tube) Extremities: No swelling Abdomen: normal bowel sounds, soft, distended (mild.), other (zabrina drain with serosanguinous drainage) Skin: No erythema ICD10 Worksheet Patient Problems: Problems Problem Status Onset Cellulitis of left lower extremity Acute Pneumonia Acute
--- NOTE | 2017-02-20 11:20 | SOAPPROG ---
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 cxr this am without ptx - will remove chest tube today and recheck cxr Cards - stable GI - start on clears. +BMs - larson, monitor I&Os Heme/ID - on zosyn and micafungin. appreciate ID. H/H stable. RUE axillary DVT - lovenox Wound - vac change MWF FEN - TPN until taking in more PO Proph - protonix. Dispo - improving. continue inpatient. Seen c Dr. Sepulveda. S: laying in bed. very worried about "mishaps" of incontinence of stool. mildly confused O: laying in bed, resting comfortably Clear anteriorly, decreased at bases RRR Chest tube output serous, dressings intact +BS, less distended, abd soft, min tender. Vac intact CLARE drain serosanguinous Larson clear yellow urine 02/20/17 11:20 Objective: Vital Signs Temp Pulse Resp BP Pulse Ox 36.7 C 84 32 H 125/46 H 93 02/20/17 08:19 02/20/17 08:19 02/20/17 08:19 02/20/17 08:19 02/20/17 08:19 Microbiology 02/12/17 08:38 Gram Stain - Final Peritoneal Fluid - Aspirate Anaerobic Culture - Final Escherichia Coli Proteus Mirabilis Laboratory Results 02/20/17 04:50 02/20/17 04:50 02/19/17 02/20/17 02/21/17 05:59 05:59 05:59 Intake Total 2412 2125 Output Total 3500 3971 Balance -1088 -1846 PT 16.3 SEC (12.0-15.0) H 02/19/17 05:00 INR 1.31 (0.83-1.16) H 02/19/17 05:00 ICD10 Worksheet Patient Problems: Problems Problem Status Onset Cellulitis of left lower extremity Acute Pneumonia Acute
[2017-02-20] MEDS ORDERED: LOPERAMIDE HCL 2 MG CAP PO PRN (14:58)
[2017-02-20] MEDS: WARFARIN SODIUM 7.5 MG TAB PO SCH (15:38)
--- NOTE | 2017-02-20 15:54 | HOSPPROG ---
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 Objective: Vital Signs Temp Pulse Resp BP Pulse Ox 36.7 C 89 37 H 125/64 H 92 02/20/17 08:19 02/20/17 12:00 02/20/17 12:00 02/20/17 12:00 02/20/17 12:00 Microbiology 02/12/17 08:38 Mycobacterial Smear (ENMA) - Final Peritoneal Fluid - Aspirate 02/12/17 08:38 Gram Stain - Final Peritoneal Fluid - Aspirate Anaerobic Culture - Final Escherichia Coli Proteus Mirabilis Laboratory Results 02/20/17 04:50 02/20/17 04:50 02/19/17 02/20/17 02/21/17 05:59 05:59 05:59 Intake Total 2412 2125 Output Total 3500 3971 Balance -1088 -1846 PT 16.3 SEC (12.0-15.0) H 02/19/17 05:00 INR 1.31 (0.83-1.16) H 02/19/17 05:00 - Physical Exam Constitutional: no apparent distress, appears nourished, not in pain Cardiovascular: regular rate and rhythym, no murmur, rub, or gallop Respiratory: no respiratory distress, no rales or rhonchi, clear to auscultation Gastrointestinal: normoactive bowel sounds, soft, non-tender abdomen, no palpable masses Skin: no rashes or abrasions, no fluctuance, no induration Neurologic: No AAOx3 Psychiatric: encephalopathic, agitated, poor insight, poor judgement ICD10 Worksheet Patient Problems: Problems Problem Status Onset Cellulitis of left lower extremity Acute Pneumonia Acute
[2017-02-20] MEDS: TPN W/ FAMOTIDINE 1 EA BAG IV SCH (21:03)
[2017-02-21 05:03] LABS: ADD MORPH? YES; ATYPICAL LYMPHOCYTE FLAG 60 (0-99); FRAGMENT RBC FLAG 90 (0-99); HEMATOCRIT 28.1 % (40.0-51.0); HEMOGLOBIN 8.4 g/dL (13.7-17.5); LIPEMIA HEMOLYSIS FLAG 70 (0-99); MEAN CELL HEMOGLOBIN 21.2 pg (27.9-34.1); MEAN CELL HEMOGLOBIN CONCENTR. 29.9 g/dL (32.4-36.7); MEAN PLATELET VOLUME 10.1 fL (8.7-11.7); PLATELET CLUMPS FLAG 20 (0-99); PLATELET COUNT 530 10^3/uL (150-400); RED BLOOD CELL COUNT 3.96 10^6/uL (4.40-6.38)
[2017-02-21 05:14] LABS: INR 1.31 (0.83-1.16); PROTIME(PATIENT) 16.3 SEC (12.0-15.0)
[2017-02-21 05:15] LABS: APTT 34.8 SEC (23.0-38.0)
[2017-02-21 05:23] LABS: ANION GAP 9 mEq/L (8-16); CALCIUM 7.9 mg/dL (8.5-10.4); CARBON DIOXIDE 25 mEq/l (22-31); CHLORIDE 109 mEq/L (97-110); CREATININE 1.1 mg/dL (0.7-1.3); GLOMERULAR FILTRATION RATE > 60; GLUCOSE 101 mg/dL (70-100); MAGNESIUM 2.1 mg/dL (1.6-2.3); POTASSIUM 4.1 mEq/L (3.5-5.2); SODIUM 143 mEq/L (134-144)
[2017-02-21] MEDS: PIPERACILLIN/TAZO 3.375 GM/DEX 50 ML IV SCH ×4 (05:48→23:49)
[2017-02-21 06:00] LABS: ADD DIFF? YES; ADD SCAN? NO; LEFT SHIFT FLG 100 (0-99)
[2017-02-21 06:07] LABS: HYPOCHROMIA 2+; MACROCYTES 1+; MICROCYTES 1+; PLATELET ESTIMATE INCREASED (ADEQ); POLYCHROMASIA 2+; TARGET CELLS 1+
--- NOTE | 2017-02-21 08:11 | PCMIDPN ---
Assessment/Plan: # Sepsis secondary to peritonitis due to postop anastomotic leak s/p washout x2 and fascial closure, improved abdominal exam with less distension and pain. Cr slightly up --continue zosyn and micafungin based on culture results --duration of antibiotic not clear, likely need imaging at some point # Fever and bandemia but improving abdominal exam, normal HR, BP - look for other sources of fever. Cdiff neg 02/20; remove TLC and place PICC; remove larson if possible --DC TLC, cx tip + obtain blood cultures --DC larson medications Zosyn 3.375 g IV Q 6h, #9 Micafungin 100 mg IV daily, #9 micro 02/12 blood cx (2) NGTD 02/12 peritoneal cx: paiz-S Ecoli and Proteus 02/17 blood cx (1) pending case discussed with Dr. Karrie Sepulveda Subjective: CT pulled yesterday voluminous diarrhea yesterday started on Lomotil yesterday Objective: Vital Signs Temp Pulse Resp BP Pulse Ox 38.4 C H 83 25 H 141/63 H 95 02/21/17 04:00 02/21/17 04:00 02/21/17 04:00 02/21/17 04:00 02/21/17 04:00 Microbiology 02/12/17 08:38 Mycobacterial Smear (ENMA) - Final Peritoneal Fluid - Aspirate Laboratory Results 02/21/17 04:50 02/21/17 04:50 02/20/17 02/21/17 02/22/17 05:59 05:59 05:59 Intake Total 2125 1544 Output Total 3971 4200 Balance -1846 -2656 Tm 38.4 Gen: more interactive than 2 days ago; HEENT: very dry MM CV: RRR Chest course BS - bilateraly Abd: very mild distension, decreased bowel sounds but present. Mild tenderness LLQ; CLARE drain serosang fluid Ext: LE edema but improved Larson in place R IJ C/D/I Skin no rash ICD10 Worksheet Patient Problems: Problems Problem Status Onset Cellulitis of left lower extremity Acute Pneumonia Acute
[2017-02-21] MEDS ORDERED: ALTEPLASE 2 MG VIAL IVP PRN (08:16)
--- NOTE | 2017-02-21 10:00 | POSTOPPROG ---
Post Op Note Date of Operation: 02/21/17 Surgeon: Mahendra Ray Pre-op Diagnosis: Colon ca s/p resection, peritonitis, sepsis Post-op Diagnosis: Same Indication: Febrile, needs IV abx, team would like to remove indwelling CVC Procedure: LUE PICC Findings: See report Inf/Abcess present in the surg proc area at time of surgery?: No Complications: No immediate
[2017-02-21] MEDS: ENOXAPARIN 100 MG/ML SYR SC SCH ×2 (11:16→21:22)
[2017-02-21] MEDS: MICAFUNGIN NA 100 MG in NS 100 ML IV SCH (11:48)
--- NOTE | 2017-02-21 12:20 | SOAPPROG ---
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 chest tube removed - no ptx Cards - stable GI - clear liquids. +BMs - dc imodium d/t cramping - larson, monitor I&Os Heme/ID - on zosyn and micafungin. appreciate ID. H/H stable. RUE axillary DVT - lovenox Wound - vac change twice weekly - mon and thurs FEN - TPN until taking in more PO Proph - protonix. Dispo - improving. continue inpatient. Seen c Dr. Sepulveda. S: O: laying in bed, resting comfortably Clear anteriorly, decreased at bases RRR Chest tube output serous, dressings intact +BS, less distended, abd soft, min tender. Vac intact CLARE drain serosanguinous Larson clear yellow urine 02/20/17 11:20 02/21/17 12:18 Objective: Vital Signs Temp Pulse Resp BP Pulse Ox 36.7 C 87 22 H 129/58 H 93 02/21/17 11:57 02/21/17 11:57 02/21/17 11:57 02/21/17 11:57 02/21/17 11:57 Microbiology 02/12/17 08:38 Mycobacterial Smear (ENMA) - Final Peritoneal Fluid - Aspirate Laboratory Results 02/21/17 04:50 02/21/17 04:50 02/20/17 02/21/17 02/22/17 05:59 05:59 05:59 Intake Total 2125 1544 Output Total 3971 4200 Balance -1846 -1911 PT 16.3 SEC (12.0-15.0) H 02/21/17 04:50 INR 1.31 (0.83-1.16) H 02/21/17 04:50 ICD10 Worksheet Patient Problems: Problems Problem Status Onset Cellulitis of left lower extremity Acute Pneumonia Acute
--- NOTE | 2017-02-21 15:44 | HOSPPROG ---
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 Objective: Vital Signs Temp Pulse Resp BP Pulse Ox 36.7 C 87 22 H 129/58 H 93 02/21/17 11:57 02/21/17 11:57 02/21/17 11:57 02/21/17 11:57 02/21/17 11:57 Microbiology 02/12/17 08:38 Mycobacterial Smear (ENMA) - Final Peritoneal Fluid - Aspirate Laboratory Results 02/21/17 04:50 02/21/17 04:50 02/20/17 02/21/17 02/22/17 05:59 05:59 05:59 Intake Total 2125 1544 Output Total 3971 4200 550 Balance -1846 -2656 -550 PT 16.3 SEC (12.0-15.0) H 02/21/17 04:50 INR 1.31 (0.83-1.16) H 02/21/17 04:50 - Physical Exam Constitutional: no apparent distress, appears nourished, not in pain Cardiovascular: regular rate and rhythym, no murmur, rub, or gallop Respiratory: no respiratory distress, no rales or rhonchi, clear to auscultation Gastrointestinal: normoactive bowel sounds, soft, non-tender abdomen, no palpable masses Skin: no rashes or abrasions, no fluctuance, no induration Neurologic: sensation intact bilaterally Psychiatric: interacting appropriately, not anxious, encephalopathic, No agitated ICD10 Worksheet Patient Problems: Problems Problem Status Onset Cellulitis of left lower extremity Acute Pneumonia Acute
[2017-02-21] MEDS: WARFARIN SODIUM 7.5 MG TAB PO SCH (17:24)
--- NOTE | 2017-02-21 18:32 | WOCRNPDOC ---
WOCRN Advanced Assessment Note - Skin Integrity Problem, Advanced Assess Abdomen Surgical Wound/Incision Dressing Type: Black Vac Foam (x1), Wound Vac Dressing Description: Not Intact (audible leak from trac pad when patient was assessed) Integumentary Issue Intervention: Dressing Changed Douglas Wound Swelling: Mild Wound Bed Constitution: Granulation Tissue (70%), Smooth Tissue (20%), Loose Slough (10%) Wound Edges: Well Defined Site Odor: None Site Measurement - Head-to-Toe Length X Width X Depth (cm): 17.5x3.4x2.3 Skin Integrity Problem Comment: Flushed wound bed with ns and cleaned with gauze. Skin prep douglas wound and drape. One piece of black small foam to wound bed and a second piece for trac pad placed. Vac restarted at -125 mm Hg continuous suction with no leaks. Patient tolerated proceedure well. Tiki updated. Questions answered. Frank JANG in room for care. Reported to findings to Dr. Sepulveda.
[2017-02-21] MEDS: TPN W/ FAMOTIDINE 1 EA BAG IV SCH (21:22)
[2017-02-22] MEDS: PIPERACILLIN/TAZO 3.375 GM/DEX 50 ML IV SCH ×3 (06:02→17:49)
--- NOTE | 2017-02-22 07:06 | GOP ---
[f rep st] OPERATIVE REPORT DATE OF OPERATION: 02/12/2017 SURGEON: Baudilio Chamberlain MD TRANSPORTATION BROKER: MIRI Fernandez. ANESTHESIOLOGIST: Dr. Hunter. PREOPERATIVE DIAGNOSIS: Peritonitis and septic shock. POSTOPERATIVE DIAGNOSIS: Peritonitis and septic shock, anastomotic leak. PROCEDURE PERFORMED: Laparotomy with anastomotic resection and revision, peritoneal washout, and drainage. FINDINGS: Patient was found to have a colonic perforation at the previous anastomosis with fecal contamination of the right upper quadrant and right gutter. The remainder of the abdomen was fairly free from contamination. The anastomosis appeared to be mildly ischemic. There was no significant tension. DESCRIPTION OF PROCEDURE: The patient was taken to the operating room where he received satisfactory general endotracheal anesthesia by Dr. Hunter, placed in supine position, prepped and draped in the usual sterile fashion. His previous midline incision was opened up and carried through the linea alba. The abdomen was entered. Some significant contamination was encountered. The incision was then enlarged significantly and the abdomen was irrigated and washed out. Most of the contamination was in the right upper quadrant, along the right gutter. This was all irrigated profusely and washed out. The small bowel and colon were freed up and the previous anastomosis was seen in the right upper quadrant and appeared to be leaking stool. This was controlled with Irina clamps. The small bowel was divided with a DOMINIQUE stapler, approximately 3 inches proximal to the anastomotic site where there appeared to be a better blood supply in the mesentery. The transverse colon was divided also with the DOMINIQUE stapler and the specimen was essentially removed with minimal dissection of any mesentery. [id number] anastomosis was then made with a DOMINIQUE stapler and a cross application of the stapler to close the insertion site. The suture line was reinforced with 3-0 silk interrupted sutures and the ends of the bowel were imbricated with a running 3-0 Vicryl suture and covered with omentum. The abdomen was then again further irrigated. A 15 round CLARE drain was brought out through a separate stab incision and placed along the right gutter in the right upper quadrant. An ABThera was then used for the abdomen and this was covered with wound VAC sponges and connected to a wound VAC system. He tolerated the procedure amazingly well and was taken to the recovery room still on pressors and still hypertensive, but much improved. Blood loss from the procedure was less than 50 cc. There were no complications. /[id number]/MODL MTDD
--- NOTE | 2017-02-22 07:06 | GOP ---
[f rep st] OPERATIVE REPORT DATE OF OPERATION: 02/13/2017 SURGEON: Baudilio Chamberlain MD PREOPERATIVE DIAGNOSIS: Right pneumothorax and right pleural effusion. POSTOPERATIVE DIAGNOSIS: Right pneumothorax and right pleural effusion. PROCEDURE PERFORMED: Right tube thoracostomy with drainage of pleural effusion and resolution of pneumothorax. FINDINGS: The patient was found to have nearly a liter of serous fluid in the right chest. DESCRIPTION OF PROCEDURE: The patient was in the operating room under general endotracheal anesthesia with Dr. Chamberlain. The right chest was exposed. It was prepped and draped in the usual sterile fashion. A short incision was made in the anterior axillary line in the 6th intercostal space. Dissection extended up over the rib and the intercostal muscles were divided with blunt dissection. The chest was entered and evacuation of a large amount of serous fluid and a small amount of air. A #28-Tanzanian chest tube was brought in through this incision and placed in the apex of the lung. Position was confirmed with fluoroscopy. A #28-Tanzanian chest tube was passed through this incision into the apex of the chest and connected to a Pleur-Evac drainage system and secured in place with 2-0 silk sutures. Again, the chest was drained for nearly a liter of serous fluid. Chest x-ray reveals resolution of the pneumothorax and pleural effusion. Wounds were dressed. He tolerated the procedure well, taken to the recovery room in good condition. There were no complications. /[id number]/MODL MTDD
--- NOTE | 2017-02-22 07:21 | GOP ---
[f rep st] OPERATIVE REPORT DATE OF OPERATION: 02/12/2017 SURGEON: Baudilio Chamberlain MD PREOPERATIVE DIAGNOSIS: Peritonitis and septic shock. POSTOPERATIVE DIAGNOSIS: Peritonitis and septic shock. PROCEDURE PERFORMED: Right femoral arterial line placement. FINDINGS: Good arterial tracing DESCRIPTION OF PROCEDURE: Patient was in extremis in the OR. The right groin was prepped and draped in the usual sterile fashion. The artery was palpated and a direct stick was made with the arterial line needle. Guidewire was introduced and the arterial line catheter was passed over the guidewire into the right common femoral artery. Good tracing was created and was connected to arterial monitor. It was secured to the exit site with interrupted 3-0 Prolene sutures and dressed. He tolerated procedure well. There were no complications. /[id number]/MODL MTDD
--- NOTE | 2017-02-22 07:36 | GCON ---
[f rep st] CONSULTATION DATE OF CONSULTATION: 02/12/2017 HISTORY OF PRESENT ILLNESS: Patient is a 76-year-old male who has been in the hospital with an ileus after a lap assisted right colectomy for a large tumor. He suddenly decompensated early this morning with complaints of severe abdominal pain. X-ray shows an increase in the free air in his abdomen. He is tachycardic and mildly hypotensive. Presently, he is also afebrile and his ProTime is quite prolonged with an INR greater than 5. Patient has been intubated and his lactic acid is 4. PAST MEDICAL HISTORY: Includes an appendectomy and tonsillectomy. He has a history of anxiety, aortic insufficiency, DVT, cellulitis, hypertension, sleep apnea, lower leg chronic edema, and a bundle branch block. ALLERGIES: Cipro and sulfa. FAMILY HISTORY: Noncontributory. REVIEW OF SYSTEMS: Negative for any new problems. He is a nonsmoker, although he did smoke in the past. PHYSICAL EXAMINATION: GENERAL: Reveals a well-developed 76-year-old male in some acute distress. He is presently afebrile. HEAD and NECK: Reveals no icterus. No adenopathy. He has no oral lesions. His pupils are normal. CHEST : Clear. CARDIAC: Regular tachycardia. ABDOMEN: Distended, diffusely tender , tympanitic, normal. EXTREMITIES: Benign. Full pulses. NEUROLOGIC: Physiologic. IMPRESSION: Probable anastomotic leak with increasing free abdominal air and peritonitis. Would recommend urgent laparotomy as soon as we can stabilize the patient and reverse his INR. Condition, risks, and options were fully discussed with the family and the patient who wished to proceed, and in his quite serious situation, the possibility of was discussed. PLAN: Urgent laparotomy. /[id number]/MODL MTDD
--- NOTE | 2017-02-22 07:46 | SOAPPROG ---
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 S/p resection and wash out Sepsis resolving Neuro - Pain controlled with Morphine Resp - Cough IS. Chest tube removed 02/20. Cards - Stable GI - Return of bowel function. C diff negative. Immodium prn. DC CLARE FEN - Continue TPN and regular diet Will wean tpn as increases po intake Heme/ID -Zosyn and Micafungin. Removed central line. No obvious source. Abdominal wound healthy. Lovenox and pharmacy to dose warfarin. Dispo - continue inpatient S: More alert - still with some confusion. Ate two bowls of soup O: Bowel sounds present. Wound vac to suction. CLARE with serosanguinous fluid SCDs in place Plan: 02/08/17 13:13 02/10/17 03:28 02/17/17 12:06 02/18/17 09:59 02/22/17 07:40 02/22/17 20:14 02/22/17 20:16 Objective: Vital Signs Temp Pulse Resp BP Pulse Ox 36.9 C 88 20 160/80 H 92 02/22/17 04:00 02/22/17 04:00 02/22/17 04:00 02/22/17 04:00 02/22/17 04:00 Microbiology 02/12/17 08:38 Gram Stain - Final Peritoneal Fluid - Aspirate Anaerobic Culture - Final Escherichia Coli Proteus Mirabilis 02/12/17 08:38 Mycobacterial Smear (ENMA) - Final Peritoneal Fluid - Aspirate Laboratory Results 02/21/17 04:50 02/21/17 04:50 02/21/17 02/22/17 02/23/17 05:59 05:59 05:59 Intake Total 1544 300 Output Total 4200 1650 Balance -2656 -1350 PT 16.3 SEC (12.0-15.0) H 02/21/17 04:50 INR 1.31 (0.83-1.16) H 02/21/17 04:50 ICD10 Worksheet Patient Problems: Problems Problem Status Onset Cellulitis of left lower extremity Acute Pneumonia Acute
[2017-02-22 07:49] LABS: % IMMATURE GRANULYOCYTES 0.6 % (0.0-1.1); ABSOLUTE IMMATURE GRANULOCYTES 0.07 10^3/uL (0.00-0.10); ADD DIFF? NO; ADD MORPH? YES; ADD SCAN? NO; ATYPICAL LYMPHOCYTE FLAG 60 (0-99); FRAGMENT RBC FLAG 90 (0-99); HEMATOCRIT 29.4 % (40.0-51.0); HEMOGLOBIN 8.4 g/dL (13.7-17.5); LEFT SHIFT FLG 90 (0-99); LIPEMIA HEMOLYSIS FLAG 70 (0-99); MEAN CELL HEMOGLOBIN 21.8 pg (27.9-34.1); MEAN CELL VOLUME 76.4 fL (81.5-99.8); MEAN PLATELET VOLUME 11.2 fL (8.7-11.7); PLATELET CLUMPS FLAG 30 (0-99); PLATELET COUNT 574 10^3/uL (150-400); RED BLOOD CELL COUNT 3.85 10^6/uL (4.40-6.38)
[2017-02-22 07:52] LABS: INR 1.39 (0.83-1.16)
[2017-02-22 07:53] LABS: APTT 31.3 SEC (23.0-38.0); MEAN CELL HEMOGLOBIN CONCENTR. 28.6 g/dL (32.4-36.7); RED CELL DISTRIBUTION WIDTH 30.9 % (11.5-15.2)
--- NOTE | 2017-02-22 08:01 | GOP ---
[f rep st] OPERATIVE REPORT DATE OF OPERATION: 02/13/2017 SURGEON: Baudilio Chamberlain MD DECATOR OPERATOR: There was no speech language pathology assistant. ANESTHESIOLOGIST: Juli Pichardo MD PREOPERATIVE DIAGNOSIS: Open abdominal wound. POSTOPERATIVE DIAGNOSIS: Open abdominal wound and peritonitis. PROCEDURE PERFORMED: Laparotomy with peritoneal lavage and fascial closure. FINDINGS: Patient was found to have small interloop pockets of fluid, but minimal persistent contamination and no true abscess. His second anastomosis appeared to be healing well with no particular problems. DESCRIPTION OF PROCEDURE: Patient was taken to the operating room and received satisfactory general endotracheal anesthesia by Dr. Pichardo, was placed in supine position, prepped and draped in usual sterile fashion after the wound VAC was removed. The ABThera was removed. The abdomen was thoroughly explored. All pockets were broken down and lavaged and suctioned clear and CLARE drain was still in place and had been draining clear fluid. After thorough search through the abdomen and irrigation with over 6 L of fluid, it was elected to go ahead and close the abdomen. Drain was left in place. The linea alba was approximated with interrupted #1 PDS [id number] sutures. The entire fascia was closed in that way. The subcu and skin were then left open and a wound VAC was placed in the incision and connected to the suction at 125. The wound VAC worked quite well. He tolerated the procedure well. He was taken to the recovery room in satisfactory condition. There were no complications. /[id number]/MODL MTDD
[2017-02-22] MEDS: MICAFUNGIN NA 100 MG in NS 100 ML IV SCH (08:31)
[2017-02-22] MEDS: ENOXAPARIN 100 MG/ML SYR SC SCH ×2 (08:32→22:14)
[2017-02-22 08:36] LABS: PLATELET ESTIMATE ADEQUATE (ADEQ)
[2017-02-22 08:39] LABS: HYPOCHROMIA 2+; POLYCHROMASIA 1+
[2017-02-22 09:01] LABS: ANION GAP 8 mEq/L (8-16); CALCIUM 7.9 mg/dL (8.5-10.4); CARBON DIOXIDE 21 mEq/l (22-31); CHLORIDE 111 mEq/L (97-110); GLOMERULAR FILTRATION RATE > 60; GLUCOSE 92 mg/dL (70-100); POTASSIUM 4.5 mEq/L (3.5-5.2); SODIUM 140 mEq/L (134-144)
--- NOTE | 2017-02-22 09:03 | PCMIDPN ---
Assessment/Plan: # Sepsis secondary to peritonitis due to postop anastomotic leak s/p washout x2 and fascial closure, continued improvement abdominal exam with less distension and pain. creatinine down to 1.0 today. Patient is now hypertensive --continue zosyn and micafungin based on culture results --duration of antibiotic not clear, likely need imaging at some point # Fever and bandemia : Both resolved today. Leukocytosis is significantly improved with a white count of 12 today -- blood cultures obtained yesterday and are pending -- cath tip was unable to be cultured as it was accidentally dropped on the floor -- reassess Rodriguez removal today medications Zosyn 3.375 g IV Q 6h, #10 Micafungin 100 mg IV daily, #10 micro 02/12 blood cx (2) NGTD 02/12 peritoneal cx: paiz-S Ecoli and Proteus 02/17 blood cx (1) pending 02/21 blood cx(2) NGTD Subjective: Patient was transferred to the PCU yesterday last fever was 4:00 a.m. on 02/21/2017 Objective: Vital Signs Temp Pulse Resp BP Pulse Ox 36.8 C 83 17 175/73 H 93 02/22/17 08:00 02/22/17 08:00 02/22/17 08:00 02/22/17 08:00 02/22/17 08:00 Microbiology 02/12/17 08:38 Gram Stain - Final Peritoneal Fluid - Aspirate Anaerobic Culture - Final Escherichia Coli Proteus Mirabilis 02/12/17 08:38 Mycobacterial Smear (ENMA) - Final Peritoneal Fluid - Aspirate Laboratory Results 02/22/17 06:00 02/21/17 02/22/17 02/23/17 05:59 05:59 05:59 Intake Total 1544 300 Output Total 4200 1650 Balance -2656 -1350 Gen: lying in bed in no acute distress HEENT: very dry MM CV: RRR Chest course BS - bilaterally Abd: very mild distension, decreased bowel sounds but present. Mild tenderness LLQ; CLARE drain small amount of bloody fluid Ext: continued improvement in edema, minimal lower extremity edema remains Rodriguez in place left upper extremity PICC C/ D/I Skin no rash ICD10 Worksheet Patient Problems: Problems Problem Status Onset Cellulitis of left lower extremity Acute Pneumonia Acute
[2017-02-22] MEDS: WARFARIN SODIUM 7.5 MG TAB PO SCH (15:53)
--- NOTE | 2017-02-22 17:16 | HOSPPROG ---
Hospitalist Progress Note Assessment/Plan: * Colon cancer s/p hemicolectomy and right abdominal wall resection -wound vac - Dr. 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 PO slightly better. Objective: Vital Signs Temp Pulse Resp BP Pulse Ox 36.7 C 99 18 149/75 H 94 02/22/17 12:00 02/22/17 12:00 02/22/17 12:00 02/22/17 12:00 02/22/17 12:00 Microbiology 02/17/17 09:42 Blood Culture - Final Blood 02/12/17 08:38 Gram Stain - Final Peritoneal Fluid - Aspirate Anaerobic Culture - Final Escherichia Coli Proteus Mirabilis 02/12/17 08:38 Mycobacterial Smear (ENMA) - Final Peritoneal Fluid - Aspirate Laboratory Results 02/22/17 06:00 02/22/17 08:30 02/21/17 02/22/17 02/23/17 05:59 05:59 05:59 Intake Total 1544 300 Output Total 4200 1650 1 Balance -2656 -1350 -1 PT 17.0 SEC (12.0-15.0) H 02/22/17 06:00 INR 1.39 (0.83-1.16) H 02/22/17 06:00 - Physical Exam Constitutional: no apparent distress, appears nourished, not in pain Cardiovascular: regular rate and rhythym, no murmur, rub, or gallop Respiratory: no respiratory distress, no rales or rhonchi, clear to auscultation Gastrointestinal: normoactive bowel sounds, soft, non-tender abdomen, no palpable masses Skin: no rashes or abrasions, no fluctuance, no induration Neurologic: AAOx3, sensation intact bilaterally Psychiatric: interacting appropriately, not anxious, not encephalopathic, thought process linear ICD10 Worksheet Patient Problems: Problems Problem Status Onset Cellulitis of left lower extremity Acute Pneumonia Acute
[2017-02-22] MEDS ORDERED: LOPERAMIDE HCL 1 MG/5 ML UDCUP PO PRN (20:14)
[2017-02-22] MEDS: TPN W/ FAMOTIDINE 1 EA BAG IV SCH (22:14)
[2017-02-23] MEDS: PIPERACILLIN/TAZO 3.375 GM/DEX 50 ML IV SCH ×5 (00:10→23:08)
[2017-02-23 06:07] LABS: % IMMATURE GRANULYOCYTES 0.8 % (0.0-1.1); ABSOLUTE IMMATURE GRANULOCYTES 0.09 10^3/uL (0.00-0.10); ADD DIFF? NO; ADD MORPH? YES; ADD SCAN? YES; ATYPICAL LYMPHOCYTE FLAG 70 (0-99); FRAGMENT RBC FLAG 90 (0-99); HEMATOCRIT 29.8 % (40.0-51.0); HEMOGLOBIN 8.7 g/dL (13.7-17.5); LIPEMIA HEMOLYSIS FLAG 70 (0-99); MEAN CELL HEMOGLOBIN 21.1 pg (27.9-34.1); MEAN CELL HEMOGLOBIN CONCENTR. 29.2 g/dL (32.4-36.7); MEAN CELL VOLUME 72.2 fL (81.5-99.8); MEAN PLATELET VOLUME 10.1 fL (8.7-11.7); PLATELET CLUMPS FLAG 0 (0-99); PLATELET COUNT 592 10^3/uL (150-400); RED BLOOD CELL COUNT 4.13 10^6/uL (4.40-6.38)
[2017-02-23 06:19] LABS: LEFT SHIFT FLG 100 (0-99); RED CELL DISTRIBUTION WIDTH 30.4 % (11.5-15.2)
[2017-02-23 06:22] LABS: INR 1.43 (0.83-1.16); PROTIME(PATIENT) 17.4 SEC (12.0-15.0)
[2017-02-23 06:23] LABS: APTT 35.4 SEC (23.0-38.0)
[2017-02-23 06:37] LABS: ANION GAP 10 mEq/L (8-16); CALCIUM 7.9 mg/dL (8.5-10.4); CARBON DIOXIDE 20 mEq/l (22-31); CHLORIDE 111 mEq/L (97-110); CREATININE 0.9 mg/dL (0.7-1.3); GLOMERULAR FILTRATION RATE > 60; GLUCOSE 100 mg/dL (70-100); MAGNESIUM 2.4 mg/dL (1.6-2.3); POTASSIUM 4.9 mEq/L (3.5-5.2); SODIUM 141 mEq/L (134-144)
[2017-02-23 07:18] LABS: SCAN POSITIVE
[2017-02-23 07:30] LABS: HYPOCHROMIA 2+; PLATELET ESTIMATE ADEQUATE (ADEQ); POLYCHROMASIA 2+
[2017-02-23] MEDS: ENOXAPARIN 100 MG/ML SYR SC SCH ×2 (07:45→21:20)
[2017-02-23] MEDS: MICAFUNGIN NA 100 MG in NS 100 ML IV SCH (09:18)
--- NOTE | 2017-02-23 12:04 | PCMIDPN ---
Assessment/Plan: Assessment/Plan: * Sepsis due to peritonitis associated with anastomotic leak status post incision and drainage x2: Continued slow clinical improvement. No further fever since 02/21/2017. Blood cultures obtained that day are no growth. Continue Zosyn and micafungin. 02/23/17 12:02 Subjective: Patient without abdominal pain. Has started on diet and up ambulating with assistance. Objective: Vital Signs Temp Pulse Resp BP Pulse Ox 37.2 C 91 22 H 162/67 H 94 02/23/17 11:11 02/23/17 11:11 02/23/17 11:11 02/23/17 11:11 02/23/17 11:11 Microbiology 02/17/17 09:42 Blood Culture - Final Blood Laboratory Results 02/23/17 05:45 02/23/17 05:45 02/22/17 02/23/17 02/24/17 05:59 05:59 05:59 Intake Total 300 1944 Output Total 1650 1451 Balance -1350 493 Zosyn # 11 Micafungin # 11 Blood cultures 02/21/2017 no growth - Physical Exam General Appearance: alert, no apparent distress EENT: No scleral icterus, No thrush Cardiac/Chest: regular rate, rhythm Abdomen: non-tender, other (Wound VAC in place without surrounding erythema), No distended - Line/s LUE PICC Lines: No drainage, No erythema ICD10 Worksheet Patient Problems: Problems Problem Status Onset Cellulitis of left lower extremity Acute Pneumonia Acute
--- NOTE | 2017-02-23 13:14 | WOCRNPDOC ---
WOCRN Advanced Assessment Note - Skin Integrity Problem, Advanced Assess Abdomen Surgical Wound/Incision Dressing Type: Black Vac Foam, Wound Vac Dressing Description: Intact Exudate Amount: Scant Exudate Color: Reddish/Yellow Exudate Characteristic(s): Serosanguinous Integumentary Issue Intervention: Dressing Changed Fang Wound Tissue: Intact Fang Wound Swelling: None Wound Bed Color: Red, Yellow Wound Bed Constitution: Granulation Tissue (98%), Adhered Slough (2% ) Wound Edges: Epithelizing Site Odor: None Site Measurement - Head-to-Toe Length X Width X Depth (cm): [id number] Skin Integrity Problem Comment: Midline abdominal wound w/ copious granulation tissue, and trace (<2%) adhered slough in base medially. Epithelialization along wound margins. Fang-wound skin is intact w/ no erythema or associated swelling. Fang-wound skin prepped and draped, and one piece of black granulofoam cut to fit wound and placed in wound bed. Vac set at 125mmHg, low continuous with no leaks. Continue w/ NPWT, and re-assess on Monday 02/26. Report given to body designerLAINE Huizar and Dr. Sepulveda.
--- NOTE | 2017-02-23 16:04 | SOAPPROG ---
SOAP Progress Note Assessment/Plan: Assessment: DISTENDED, SOFT, WOUND OK/ AFEBRILE SOME SWELLING RT ARM IMPR: ILEUS Plan:AMBULATE 02/10/17 16:13 02/11/17 16:22 STILL DISTENDED BUT SOFT/ SOME RUMBLINGS BUT NO FLATUS/ 2 WAY PENDING/ WOUNDS OK/ AFEBRILE/ HOPEFULLY ILEUS STARTING TO RESOLVE 02/12/17 07:12 PT CRUMPED EARLY THIS AM WITH SEVERE ABD PAIN, PROBABLE INCREASE IN FREE AIR, AND TACHYCARDIA AND MILD HYPOTENSION NEEDS URGENT LAPAROTOMY AFTER 3 HRS OF RESUSCITATION, ABX, PCC FOR COAG REVERSAL {INR >5} RISKS AND OPTIONS FULLY DISCUSSED WITH FAMLY PT INTUBATED/ LACTATE 4 02/13/17 03:36 VITAL SIGNS STABLE BUT STILL ON 3 PRESSORS/URINE OUTPUT IS MARKEDLY IMPROVED/ WOUND VAC DRAINAGE IS PRIMARILY SEROUS/FEBRILE TO 385/ CONSIDER A LAPAROTOMY TODAY WITH WASHOUT AND POSSIBLE WOUND CLOSURE. 02/13/17 09:40 LOOKS IMPROVED OVERALL/STILL ON PRESSORS BUT WEANING DOWN/ZABRINA DRAINAGE AND WOUND VAC DRAINAGE SEROUS/TEMP DOWN TO THE OR TODAY FOR WASHOUT AND WOUND CLOSURE HOPEFULLY/CHEST X-RAY WITH TINY PNEUMOTHORAX BUT ENLARGING PLEURAL EFFUSION/WILL PLACE SMALL CHEST TUBE IT SURGERY WELL 02/15/17 09:16 improving/ afebrile/ wound clean/ zabrina minimal and serous/ off most pressors/ maybe extubate today 02/16/17 08:49 EXTUBATED/ AFEBRILE/ WEAK BUT RESPONSIVE/ UO OK/ BNP HIGH/ HCT DOWN TO 27/ SEROUS CHEST TUBE AND ZABRINA DRAINS/ CHEST TUBE OUT THIS WEEKEND/ IMPROVING 02/23/17 16:03 Much stronger/feeling better/wound improving/afebrile/tolerating p.o. Objective: Vital Signs Temp Pulse Resp BP Pulse Ox 37.5 C 87 32 H 157/76 H 91 L 02/23/17 15:52 02/23/17 15:52 02/23/17 15:52 02/23/17 15:52 02/23/17 15:52 Microbiology 02/17/17 09:42 Blood Culture - Final Blood Laboratory Results 02/23/17 05:45 02/23/17 05:45 02/22/17 02/23/17 02/24/17 05:59 05:59 05:59 Intake Total 300 1944 Output Total 1650 1451 Balance -1350 493 PT 17.4 SEC (12.0-15.0) H 02/23/17 05:45 INR 1.43 (0.83-1.16) H 02/23/17 05:45 ICD10 Worksheet Patient Problems: Problems Problem Status Onset Cellulitis of left lower extremity Acute Pneumonia Acute
[2017-02-23] MEDS: WARFARIN SODIUM 7.5 MG TAB PO SCH (16:59)
--- NOTE | 2017-02-23 17:09 | SOAPPROG ---
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 chest tube removed - no ptx Cards - stable GI - regular diet. return of bowel function - larson, monitor I&Os Heme/ID - on zosyn and micafungin. appreciate ID. H/H stable. RUE axillary DVT - lovenox Wound - vac change MWF Neuro - confusion improving Proph - protonix. Dispo - improving. continue inpatient. Seen c Dr. Sepulveda. S: feeling well this morning, pain controlled. less confused O: Sitting upright in chair, comfortable, accompanied by Clear anteriorly RRR +BS, softly distended, nontender. Vac in place CLARE drain serosanguinous Larson clear yellow urine Objective: Vital Signs Temp Pulse Resp BP Pulse Ox 37.5 C 87 32 H 157/76 H 91 L 02/23/17 15:52 02/23/17 15:52 02/23/17 15:52 02/23/17 15:52 02/23/17 15:52 Microbiology 02/17/17 09:42 Blood Culture - Final Blood Laboratory Results 02/23/17 05:45 02/23/17 05:45 02/22/17 02/23/17 02/24/17 05:59 05:59 05:59 Intake Total 300 1944 Output Total 1650 1451 Balance -1350 493 PT 17.4 SEC (12.0-15.0) H 02/23/17 05:45 INR 1.43 (0.83-1.16) H 02/23/17 05:45 ICD10 Worksheet Patient Problems: Problems Problem Status Onset Cellulitis of left lower extremity Acute Pneumonia Acute
--- NOTE | 2017-02-23 18:53 | HOSPPROG ---
Hospitalist Progress Note Assessment/Plan: # Colon cancer s/p hemicolectomy and right abdominal wall resection Wound vac - Dr. 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% * Iatrogenic PTX s/p chest tube -chest tube removed * Metabolic encephalopathy- resolved * Fever - resolved * BRIANA - CPAP qhs # proph - lovenox # diet - advancing # dispo - > 2MN as requiring IV abx and ongoing monitoring I have discussed the case with ID - will continue zosyn and micafungin Subjective: diarrhea Objective: Vital Signs Temp Pulse Resp BP Pulse Ox 37.5 C 87 32 H 157/76 H 91 L 02/23/17 15:52 02/23/17 15:52 02/23/17 15:52 02/23/17 15:52 02/23/17 15:52 Microbiology 02/17/17 09:42 Blood Culture - Final Blood Laboratory Results 02/23/17 05:45 02/23/17 05:45 02/22/17 02/23/17 02/24/17 05:59 05:59 05:59 Intake Total 300 1944 750 Output Total 1650 1451 Balance -1350 493 750 PT 17.4 SEC (12.0-15.0) H 02/23/17 05:45 INR 1.43 (0.83-1.16) H 02/23/17 05:45 - Physical Exam Constitutional: appears nourished Eyes: anicteric sclera Ears, Nose, Mouth, Throat: moist mucous membranes Cardiovascular: regular rate and rhythym Respiratory: no respiratory distress Gastrointestinal: normoactive bowel sounds, No tenderness Genitourinary: no bladder fullness Skin: warm, normal color Musculoskeletal: No asymmetric calves Neurologic: AAOx3 Psychiatric: interacting appropriately Lymph, Heme, Immunologic: no cervical LAD ICD10 Worksheet Patient Problems: Problems Problem Status Onset Cellulitis of left lower extremity Acute Pneumonia Acute
[2017-02-23] MEDS: TPN W/ FAMOTIDINE 1 EA BAG IV SCH (21:20)
[2017-02-24] MEDS: PIPERACILLIN/TAZO 3.375 GM/DEX 50 ML IV SCH ×4 (05:01→22:59)
[2017-02-24 05:21] LABS: INR 1.51 (0.83-1.16); PROTIME(PATIENT) 18.2 SEC (12.0-15.0)
[2017-02-24 05:22] LABS: APTT 38.3 SEC (23.0-38.0)
[2017-02-24] MEDS: ENOXAPARIN 100 MG/ML SYR SC SCH ×2 (09:08→21:06)
[2017-02-24] MEDS: MICAFUNGIN NA 100 MG in NS 100 ML IV SCH (09:11)
--- NOTE | 2017-02-24 10:07 | PCMIDPN ---
Assessment/Plan: Assessment/Plan: * Sepsis due to peritonitis associated with anastomotic leak status post incision and drainage x2: Continued slow clinical improvement. Remains without fever. Repeat blood cultures are no growth. Continue Zosyn and micafungin. Anticipate likely will need 4 weeks of antibiotic therapy. If improved p.o. intake, may be able to complete therapy with oral quinolone and fluconazole. Will discontinue Rodriguez given improving mobility. * Diarrhea: Continue to monitor as appears to be decreasing. May be related to return of bowel function. Hold off on C difficile testing unless becomes more prominent. 02/24/17 10:05 02/24/17 10:06 Subjective: Patient feels better. Mild pain around VAC site. 3 episodes of diarrhea yesterday. Only 1 this a.m.. Objective: Vital Signs Temp Pulse Resp BP Pulse Ox 37.3 C 82 16 175/88 H 95 02/24/17 04:00 02/24/17 07:13 02/24/17 07:13 02/24/17 07:13 02/24/17 07:13 Laboratory Results 02/23/17 05:45 02/23/17 05:45 02/23/17 02/24/17 02/25/17 05:59 05:59 05:59 Intake Total 1944 1507 Output Total 1451 500 Balance 493 1007 Zosyn #12 Micafungin #12 Blood cultures 02/21/2017 no growth - Physical Exam General Appearance: alert, no apparent distress EENT: No scleral icterus, No thrush Respiratory: lungs clear, No respiratory distress Cardiac/Chest: regular rate, rhythm Extremities: No inflammation Abdomen: non-tender, other (Wound VAC in place without surrounding erythema), No distended - Line/s LUE PICC Lines: No drainage, No erythema ICD10 Worksheet Patient Problems: Problems Problem Status Onset Cellulitis of left lower extremity Acute Pneumonia Acute
--- NOTE | 2017-02-24 11:33 | SOAPPROG ---
SOAP Progress Note Assessment/Plan: Assessment/Plan: Assessment: 76yo M s/p lap assisted hemicolectomy with partial resection of abdominal wall due to adenocarcinoma S/p washout with re-anastomosis for anastomotic leak S/p washout with fascial closure and wound vac placement Seen with Dr. Chamberalin this am. Neuro - pain controlled Resp - extubated. chest tube removed - no ptx Cards - stable GI - regular diet. return of bowel function. low appetite. d/w'ed pharmacy-- will change to cyclical TPN - larson is out, void trial Heme/ID - on zosyn and micafungin. appreciate ID. H/H stable. RUE axillary DVT - lovenox Wound - vac change MWF--possible closure in OR next week Neuro - confusion improving Proph - protonix. Dispo - improving. continue inpatient. Seen c Dr. Chamberlain. S: up in chair. not very hungry. +BMs. pain controlled. No SOB O: Sitting upright in chair, comfortable Clear anteriorly, no wob RRR +BS, softly distended, nontender. Vac in place 02/24/17 11:31 Objective: Vital Signs Temp Pulse Resp BP Pulse Ox 37.2 C 88 18 135/71 H 94 02/24/17 11:26 02/24/17 11:26 02/24/17 11:26 02/24/17 11:26 02/24/17 11:26 Laboratory Results 02/23/17 05:45 02/23/17 05:45 02/23/17 02/24/17 02/25/17 05:59 05:59 05:59 Intake Total 1944 1507 Output Total 1451 500 Balance 493 1007 PT 18.2 SEC (12.0-15.0) H 02/24/17 05:00 INR 1.51 (0.83-1.16) H 02/24/17 05:00 ICD10 Worksheet Patient Problems: Problems Problem Status Onset Cellulitis of left lower extremity Acute Pneumonia Acute
--- NOTE | 2017-02-24 12:00 | HOSPPROG ---
Hospitalist Progress Note Assessment/Plan: # Colon cancer s/p hemicolectomy and right abdominal wall resection Wound vac in place- Dr. Chamberlain plans to close wound before discharge- continues having diarrhea explosions overnight - advancing diet - pt not interested in food - will discuss DC TPN soon with surgery - outpatient oncology consult # Anastomotic leak with peritonitis- no abdominal pain -continue IV Zosyn, micafungin- will require extended treatment -will need repeat abdominal imaging # s/p septic shock # Acute respiratory failure s/p extubation- no SOB oxygen saturations 94% on RA - encouraging mobilization # Afib - now NSR - amiodarone off # Volume overload - s/p IV lasix- improved # RUE DVT- INR 1.53 -Lovenox 100 BID -continue warfarin * 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% * Iatrogenic PTX s/p chest tube-CXR (personally reviewed and interpreted) no pneumothorax -chest tube removed * Metabolic encephalopathy- resolved * Fever - resolved * BRIANA - CPAP qhs # proph - lovenox # diet - advancing # dispo - > 2MN as requiring IV abx and ongoing monitoring I have discussed the case with ID - will continue zosyn and micafungin for several more weeks Subjective: explosive diarrhea overnight Objective: Vital Signs Temp Pulse Resp BP Pulse Ox 37.2 C 88 18 135/71 H 94 02/24/17 11:26 02/24/17 11:26 02/24/17 11:26 02/24/17 11:26 02/24/17 11:26 Laboratory Results 02/23/17 05:45 02/23/17 05:45 02/23/17 02/24/17 02/25/17 05:59 05:59 05:59 Intake Total 1944 1507 Output Total 1451 500 Balance 493 1007 PT 18.2 SEC (12.0-15.0) H 02/24/17 05:00 INR 1.51 (0.83-1.16) H 02/24/17 05:00 - Physical Exam Constitutional: chronically ill appearing Eyes: anicteric sclera Ears, Nose, Mouth, Throat: dry mucous membranes Cardiovascular: regular rate and rhythym Respiratory: no respiratory distress Gastrointestinal: normoactive bowel sounds Genitourinary: no bladder fullness Skin: warm, normal color Musculoskeletal: No asymmetric calves Neurologic: AAOx3 Psychiatric: interacting appropriately, not anxious Lymph, Heme, Immunologic: no cervical LAD ICD10 Worksheet Patient Problems: Problems Problem Status Onset Cellulitis of left lower extremity Acute Pneumonia Acute
[2017-02-24] MEDS ORDERED: WARFARIN SODIUM 2.5 MG TAB PO ONE (16:00)
[2017-02-24] MEDS: WARFARIN SODIUM 7.5 MG TAB PO SCH (17:01)
[2017-02-24] MEDS: TPN W/ FAMOTIDINE 1 EA BAG IV SCH (21:06)
[2017-02-25 04:47] LABS: % IMMATURE GRANULYOCYTES 0.8 % (0.0-1.1); ABSOLUTE IMMATURE GRANULOCYTES 0.07 10^3/uL (0.00-0.10); ADD DIFF? NO; ADD MORPH? YES; ADD SCAN? NO; ATYPICAL LYMPHOCYTE FLAG 80 (0-99); FRAGMENT RBC FLAG 90 (0-99); HEMATOCRIT 28.7 % (40.0-51.0); HEMOGLOBIN 8.3 g/dL (13.7-17.5); LEFT SHIFT FLG 60 (0-99); LIPEMIA HEMOLYSIS FLAG 70 (0-99); MEAN CELL VOLUME 72.5 fL (81.5-99.8); MEAN PLATELET VOLUME 10.3 fL (8.7-11.7); PLATELET CLUMPS FLAG 10 (0-99); PLATELET COUNT 650 10^3/uL (150-400); RED BLOOD CELL COUNT 3.96 10^6/uL (4.40-6.38)
[2017-02-25 04:53] LABS: MEAN CELL HEMOGLOBIN CONCENTR. 28.9 g/dL (32.4-36.7); RED CELL DISTRIBUTION WIDTH 30.5 % (11.5-15.2)
[2017-02-25 04:55] LABS: INR 1.53 (0.83-1.16); PROTIME(PATIENT) 18.4 SEC (12.0-15.0)
[2017-02-25 05:09] LABS: ALANINE AMINOTRANSFERASE 47 IU/L (21-72); ALBUMIN 2.4 g/dL (3.5-5.0); ALKALINE PHOSPHATASE 124 IU/L (38-126); ANION GAP 9 mEq/L (8-16); ASPARTATE AMINOTRANSFERASE 36 IU/L (17-59); BILIRUBIN,TOTAL 0.8 mg/dL (0.1-1.4); CALCIUM 8.1 mg/dL (8.5-10.4); CARBON DIOXIDE 20 mEq/l (22-31); CHLORIDE 111 mEq/L (97-110); CREATININE 0.9 mg/dL (0.7-1.3); GLOMERULAR FILTRATION RATE > 60; GLUCOSE 110 mg/dL (70-100); POTASSIUM 4.7 mEq/L (3.5-5.2); SODIUM 140 mEq/L (134-144); TOTAL PROTEIN 5.5 g/dL (6.3-8.2)
[2017-02-25] MEDS: PIPERACILLIN/TAZO 3.375 GM/DEX 50 ML IV SCH ×3 (05:22→18:25)
[2017-02-25 05:29] LABS: HYPOCHROMIA 2+; PLATELET ESTIMATE INCREASED (ADEQ); POLYCHROMASIA 1+
--- NOTE | 2017-02-25 09:18 | SOAPPROG ---
SOAP Progress Note Assessment/Plan: Assessment/Plan: Assessment: 76yo M s/p lap assisted hemicolectomy with partial resection of abdominal wall due to adenocarcinoma S/p washout with re-anastomosis for anastomotic leak S/p washout with fascial closure and wound vac placement Vac change tomorrow. Consider delayed closure in OR vs continued wound vac until healed based on tomorrow's findings. Low appetite--d/w medicine plan for continued cyclical TPN and also decrease by half. Neuro - pain controlled Resp - extubated. chest tube removed - no ptx Cards - stable GI - regular diet. return of bowel function. low appetite. See above. - larson is out, void trial Heme/ID - on zosyn and micafungin. appreciate ID. H/H stable. RUE axillary DVT - lovenox Wound - vac change MWF--see above Neuro - confusion seems resolved on my exam Proph - protonix. Dispo - improving. continue inpatient. S: in bed. not very hungry. +BMs. pain controlled. No SOB O: alert, nad, comfortable Clear anteriorly, no wob RRR +BS, softly distended, nontender. Vac in place 02/25/17 09:15 Objective: Vital Signs Temp Pulse Resp BP Pulse Ox 36.9 C 85 25 H 133/75 H 93 02/25/17 07:32 02/25/17 07:32 02/25/17 07:32 02/25/17 07:32 02/25/17 07:32 Laboratory Results 02/25/17 04:40 02/25/17 04:40 02/24/17 02/25/17 02/26/17 05:59 05:59 05:59 Intake Total 1507 1562 Output Total 500 875 Balance 1007 687 PT 18.4 SEC (12.0-15.0) H 02/25/17 04:40 INR 1.53 (0.83-1.16) H 02/25/17 04:40 ICD10 Worksheet Patient Problems: Problems Problem Status Onset Cellulitis of left lower extremity Acute Pneumonia Acute
[2017-02-25] MEDS: ENOXAPARIN 100 MG/ML SYR SC SCH ×2 (09:26→20:28)
[2017-02-25] MEDS: MICAFUNGIN NA 100 MG in NS 100 ML IV SCH (09:26)
--- NOTE | 2017-02-25 12:12 | PCMIDPN ---
Assessment/Plan: Assessment/Plan: * Sepsis due to peritonitis associated with anastomotic leak status post incision and drainage x2: No further fever. Blood cultures obtained at the time of fever are no growth. Overall slow clinical improvement continues although still with limited oral intake. White blood cell count has normalized with reactive thrombocytosis present. Continue Zosyn and micafungin. Will need repeat imaging prior to discontinuation of antibiotic therapy. Anticipate likely 4 week course of therapy based on clinical findings. * Diarrhea: Continue to monitor as appears to be decreasing. C difficile testing negative on 02/20/2017. 02/25/17 12:09 Subjective: Patient without significant abdominal pain. Continues with poor appetite. 2-4 loose bowel movements daily. Objective: Vital Signs Temp Pulse Resp BP Pulse Ox 36.8 C 88 26 H 149/65 H 95 02/25/17 11:04 02/25/17 11:04 02/25/17 11:04 02/25/17 11:04 02/25/17 11:04 Laboratory Results 02/25/17 04:40 02/25/17 04:40 02/24/17 02/25/17 02/26/17 05:59 05:59 05:59 Intake Total 1507 1562 Output Total 500 875 400 Balance 1007 687 -400 Zosyn # 13 Micafungin # 13 Blood cultures x2 02/22/2017 no growth C difficile toxin negative 02/20/2017 Laboratory Tests 02/25/17 04:40 Total Bilirubin 0.8 AST 36 ALT 47 Alkaline Phosphatase 124 Albumin 2.4 L - Physical Exam General Appearance: alert, no apparent distress EENT: No scleral icterus, No thrush Cardiac/Chest: regular rate, rhythm Abdomen: non-tender, distended (Mild), other (Wound VAC in place centrally without erythema) - Line/s LUE PICC Lines: No drainage, No erythema ICD10 Worksheet Patient Problems: Problems Problem Status Onset Cellulitis of left lower extremity Acute Pneumonia Acute
--- NOTE | 2017-02-25 13:18 | HOSPPROG ---
Hospitalist Progress Note Assessment/Plan: # Colon cancer s/p hemicolectomy and right abdominal wall resection Wound vac in place- Dr. Chamberlain plans to close wound before discharge- continues having diarrhea explosions overnight - advancing diet - pt not interested in food - will keep TPN cyclical but decrease dose to encourage appetite - outpatient oncology consult # Anastomotic leak with peritonitis- no abdominal pain -continue IV Zosyn, micafungin- will require extended treatment -will need repeat abdominal imaging # s/p septic shock # Acute respiratory failure s/p extubation- patient describing SOB oxygen saturations 94% on RA - encouraging mobilization - check CXR # Afib - now NSR - amiodarone off # Volume overload - s/p IV lasix- improved # RUE DVT- INR remains 1.5 -Lovenox 100 BID -continue warfarin * 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% * Iatrogenic PTX s/p chest tube- last CXR -no pneumothorax -chest tube removed * Metabolic encephalopathy- resolved * Fever - resolved * BRIANA - CPAP qhs # proph - lovenox # diet - advancing # dispo - > 2MN as requiring IV abx and ongoing monitoring I have discussed the case with surgery - will titrate TPN to encourage appetite Subjective: tolerating PO Objective: Vital Signs Temp Pulse Resp BP Pulse Ox 36.8 C 88 26 H 149/65 H 95 02/25/17 11:04 02/25/17 11:04 02/25/17 11:04 02/25/17 11:04 02/25/17 11:04 Laboratory Results 02/25/17 04:40 02/25/17 04:40 02/24/17 02/25/17 02/26/17 05:59 05:59 05:59 Intake Total 1507 1562 Output Total 500 875 400 Balance 1007 687 -400 PT 18.4 SEC (12.0-15.0) H 02/25/17 04:40 INR 1.53 (0.83-1.16) H 02/25/17 04:40 - Physical Exam Constitutional: chronically ill appearing Eyes: anicteric sclera Ears, Nose, Mouth, Throat: moist mucous membranes Cardiovascular: regular rate and rhythym Respiratory: no respiratory distress, no rales or rhonchi Gastrointestinal: normoactive bowel sounds, soft, non-tender abdomen Genitourinary: no bladder fullness Skin: warm, normal color Musculoskeletal: No asymmetric calves Neurologic: AAOx3 Psychiatric: interacting appropriately, not anxious Lymph, Heme, Immunologic: no cervical LAD ICD10 Worksheet Patient Problems: Problems Problem Status Onset Cellulitis of left lower extremity Acute Pneumonia Acute
--- NOTE | 2017-02-25 14:48 | SOAPPROG ---
SOAP Progress Note Assessment/Plan: Assessment: DISTENDED, SOFT, WOUND OK/ AFEBRILE SOME SWELLING RT ARM IMPR: ILEUS Plan:AMBULATE 02/10/17 16:13 02/11/17 16:22 STILL DISTENDED BUT SOFT/ SOME RUMBLINGS BUT NO FLATUS/ 2 WAY PENDING/ WOUNDS OK/ AFEBRILE/ HOPEFULLY ILEUS STARTING TO RESOLVE 02/12/17 07:12 PT CRUMPED EARLY THIS AM WITH SEVERE ABD PAIN, PROBABLE INCREASE IN FREE AIR, AND TACHYCARDIA AND MILD HYPOTENSION NEEDS URGENT LAPAROTOMY AFTER 3 HRS OF RESUSCITATION, ABX, PCC FOR COAG REVERSAL {INR >5} RISKS AND OPTIONS FULLY DISCUSSED WITH CHIKISLY PT INTUBATED/ LACTATE 4 02/13/17 03:36 VITAL SIGNS STABLE BUT STILL ON 3 PRESSORS/URINE OUTPUT IS MARKEDLY IMPROVED/ WOUND VAC DRAINAGE IS PRIMARILY SEROUS/FEBRILE TO 385/ CONSIDER A LAPAROTOMY TODAY WITH WASHOUT AND POSSIBLE WOUND CLOSURE. 02/13/17 09:40 LOOKS IMPROVED OVERALL/STILL ON PRESSORS BUT WEANING DOWN/ZABRINA DRAINAGE AND WOUND VAC DRAINAGE SEROUS/TEMP DOWN TO THE OR TODAY FOR WASHOUT AND WOUND CLOSURE HOPEFULLY/CHEST X-RAY WITH TINY PNEUMOTHORAX BUT ENLARGING PLEURAL EFFUSION/WILL PLACE SMALL CHEST TUBE IT SURGERY WELL 02/15/17 09:16 improving/ afebrile/ wound clean/ zabrina minimal and serous/ off most pressors/ maybe extubate today 02/16/17 08:49 EXTUBATED/ AFEBRILE/ WEAK BUT RESPONSIVE/ UO OK/ BNP HIGH/ HCT DOWN TO 27/ SEROUS CHEST TUBE AND ZABRINA DRAINS/ CHEST TUBE OUT THIS WEEKEND/ IMPROVING 02/23/17 16:03 Much stronger/feeling better/wound improving/afebrile/tolerating p.o. 02/25/17 14:47 A STEADY SLOW IMPROVEMENT/AFEBRILE/TOLERATING SOME LIQUIDS/ABDOMEN SOFT/WOUND VAC WORKING WELL WHICH CHANGED BACK IN THE A.M. AND CONSIDER DPC VERSUS CONTINUED VAC TREATMENT Objective: Vital Signs Temp Pulse Resp BP Pulse Ox 36.8 C 88 26 H 149/65 H 95 02/25/17 11:04 02/25/17 11:04 02/25/17 11:04 02/25/17 11:04 02/25/17 11:04 Laboratory Results 02/25/17 04:40 02/25/17 04:40 0702/25/17 02/26/17 05:59 05:59 05:59 Intake Total 1507 1562 430 Output Total 500 875 500 Balance 1007 687 -70 PT 18.4 SEC (12.0-15.0) H 02/25/17 04:40 INR 1.53 (0.83-1.16) H 02/25/17 04:40 ICD10 Worksheet Patient Problems: Problems Problem Status Onset Cellulitis of left lower extremity Acute Pneumonia Acute
[2017-02-25] MEDS: WARFARIN SODIUM 7.5 MG TAB PO SCH (15:47)
[2017-02-25] MEDS ORDERED: WARFARIN SODIUM 2.5 MG TAB PO ONE (16:00)
[2017-02-25] MEDS: TPN W/ FAMOTIDINE 1 EA BAG IV SCH (20:27)
[2017-02-26] MEDS: PIPERACILLIN/TAZO 3.375 GM/DEX 50 ML IV SCH ×5 (01:31→23:37)
[2017-02-26 06:19] LABS: % IMMATURE GRANULYOCYTES 0.7 % (0.0-1.1); ABSOLUTE IMMATURE GRANULOCYTES 0.05 10^3/uL (0.00-0.10); ADD DIFF? NO; ADD MORPH? YES; ADD SCAN? NO; ATYPICAL LYMPHOCYTE FLAG 90 (0-99); FRAGMENT RBC FLAG 90 (0-99); HEMATOCRIT 26.8 % (40.0-51.0); HEMOGLOBIN 7.9 g/dL (13.7-17.5); LEFT SHIFT FLG 50 (0-99); LIPEMIA HEMOLYSIS FLAG 70 (0-99); MEAN CELL HEMOGLOBIN 21.8 pg (27.9-34.1); MEAN CELL HEMOGLOBIN CONCENTR. 29.5 g/dL (32.4-36.7); MEAN CELL VOLUME 73.8 fL (81.5-99.8); MEAN PLATELET VOLUME 10.5 fL (8.7-11.7); PLATELET CLUMPS FLAG 0 (0-99); PLATELET COUNT 608 10^3/uL (150-400); RED BLOOD CELL COUNT 3.63 10^6/uL (4.40-6.38)
[2017-02-26 06:29] LABS: INR 1.85 (0.83-1.16); PROTIME(PATIENT) 21.4 SEC (12.0-15.0)
[2017-02-26 06:30] LABS: APTT 36.3 SEC (23.0-38.0)
[2017-02-26 06:40] LABS: HYPOCHROMIA 1+; MACROCYTES 1+; MICROCYTES 1+; PLATELET ESTIMATE INCREASED (ADEQ); POLYCHROMASIA 1+
[2017-02-26 06:41] LABS: ALANINE AMINOTRANSFERASE 46 IU/L (21-72); ALBUMIN 2.5 g/dL (3.5-5.0); ALKALINE PHOSPHATASE 113 IU/L (38-126); ANION GAP 9 mEq/L (8-16); ASPARTATE AMINOTRANSFERASE 31 IU/L (17-59); BILIRUBIN,TOTAL 0.6 mg/dL (0.1-1.4); CALCIUM 7.8 mg/dL (8.5-10.4); CARBON DIOXIDE 20 mEq/l (22-31); CHLORIDE 111 mEq/L (97-110); CREATININE 0.8 mg/dL (0.7-1.3); GLOMERULAR FILTRATION RATE > 60; GLUCOSE 109 mg/dL (70-100); MAGNESIUM 2.2 mg/dL (1.6-2.3); POTASSIUM 4.8 mEq/L (3.5-5.2); SODIUM 140 mEq/L (134-144); TOTAL PROTEIN 5.3 g/dL (6.3-8.2); TRIGLYCERIDE 146 mg/dL (40-150)
[2017-02-26] MEDS: ENOXAPARIN 100 MG/ML SYR SC SCH ×2 (09:20→21:03)
[2017-02-26] MEDS: MICAFUNGIN NA 100 MG in NS 100 ML IV SCH (09:25)
--- NOTE | 2017-02-26 11:03 | SOAPPROG ---
SOAP Progress Note Assessment/Plan: Assessment/Plan: 76yo M s/p lap assisted hemicolectomy with partial resection of abdominal wall due to adenocarcinoma S/p washout with re-anastomosis for anastomotic leak S/p washout with fascial closure and wound vac placement Midline wound looks great. Healing well with [place] therapy. Consider DPC but fully anticoagulated. will discuss c Dr. Chamberlain Wean TPN to off - may stimulate appetite Neuro - pain controlled Resp - extubated. chest tube removed - no ptx Cards - stable GI - regular diet. return of bowel function. low appetite. - voiding spontaneously after larson removal Heme/ID - on zosyn and micafungin. appreciate ID. H/H stable. RUE axillary DVT - lovenox to coumadin Wound - vac change MWF Neuro - confusion resolved Proph - protonix. Dispo - improving. may return to OR tomorrow or weds for delayed primary closure of midline wound. also seen by Dr. Chamberlain S: Still with decreased appetite. +BMs. pain controlled. No SOB O: sitting up in chair, comfortable, NAD Clear anteriorly, no wob RRR +BS, softly distended, nontender. Vac dressing removed - wound with 100% granulation tissue. Healing very well Objective: Vital Signs Temp Pulse Resp BP Pulse Ox 37.2 C 86 27 H 158/90 H 96 02/26/17 07:13 02/26/17 07:13 02/26/17 07:13 02/26/17 07:13 02/26/17 07:13 Laboratory Results 02/26/17 06:00 02/26/17 06:00 02/25/17 02/26/17 02/27/17 05:59 05:59 05:59 Intake Total 1562 1830 Output Total 875 1100 120 Balance 687 730 -120 PT 21.4 SEC (12.0-15.0) H 02/26/17 06:00 INR 1.85 (0.83-1.16) H 02/26/17 06:00 ICD10 Worksheet Patient Problems: Problems Problem Status Onset Cellulitis of left lower extremity Acute Pneumonia Acute
--- NOTE | 2017-02-26 12:45 | WOCRNPDOC ---
WOCRN Advanced Assessment Note - Skin Integrity Problem, Advanced Assess Abdomen Surgical Wound/Incision Dressing Type: Gauze (previous vac dressing removed by PA, replaced w/ temp gauze dressing) Exudate Amount: Scant Exudate Color: Reddish/Yellow Exudate Characteristic(s): Serosanguinous Integumentary Issue Intervention: Dressing Applied Fang Wound Tissue: Intact Fang Wound Swelling: None Wound Bed Color: Red Wound Bed Constitution: Granulation Tissue Wound Edges: Epithelizing Site Odor: None Site Measurement - Head-to-Toe Length X Width X Depth (cm): 16.8cmx2.5cmx0.9cm Skin Integrity Problem Comment: Well-granulated tissue noted in midline abdominal wound, no apparent necrosis observed. Fang-wound skin intact w/ no erythema or swelling. Fang-wound skin prepped and draped, and one piece of black granulofoam was cut to fit the wound. Vac settings continue at 125mmhg, low, continuous suction. Patient tolerated dressing change w/out c/o pain. Discussed case w/ Qian CHERY, and tentative plan is for surgical team to do a possible closure this week.
--- NOTE | 2017-02-26 14:45 | HOSPPROG ---
Hospitalist Progress Note Assessment/Plan: # Colon cancer s/p hemicolectomy and right abdominal wall resection Wound vac in place- Dr. Chamberlain plans to close wound before discharge- continues having diarrhea explosions overnight - advancing diet - pt working to take more PO - dc TPN today - outpatient oncology consult - wound vac exchanged today- possible closure this week # Anastomotic leak with peritonitis- no abdominal pain -continue IV Zosyn, micafungin- will require extended treatment -will need repeat abdominal imaging # s/p septic shock # Acute respiratory failure s/p extubation- denies SOB today oxygen saturations 94% on RA - CXR (personally reviewed and interpreted) small bilateral effusions no infiltrates - encouraging mobilization # Afib - now NSR - amiodarone off # Volume overload - s/p IV lasix- improved # RUE DVT- INR up to 1.85 -Lovenox 100 BID -continue warfarin * 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% * Iatrogenic PTX s/p chest tube- last CXR -no pneumothorax -chest tube removed * Metabolic encephalopathy- resolved * Fever - resolved * BRIANA - CPAP qhs # proph - lovenox # diet - advancing # dispo - > 2MN as requiring IV abx and ongoing monitoring I have discussed the case with surgery - will dc TPN today Subjective: ate a bit more yesterday Objective: Vital Signs Temp Pulse Resp BP Pulse Ox 36.7 C 95 15 151/92 H 94 02/26/17 11:45 02/26/17 13:20 02/26/17 11:45 02/26/17 11:45 02/26/17 13:20 Laboratory Results 02/26/17 06:00 02/26/17 06:00 02/25/17 02/26/17 02/27/17 05:59 05:59 05:59 Intake Total 1562 1830 Output Total 875 1100 120 Balance 687 730 -120 PT 21.4 SEC (12.0-15.0) H 02/26/17 06:00 INR 1.85 (0.83-1.16) H 02/26/17 06:00 - Physical Exam Constitutional: chronically ill appearing Eyes: anicteric sclera Ears, Nose, Mouth, Throat: moist mucous membranes Cardiovascular: regular rate and rhythym Respiratory: no respiratory distress, no rales or rhonchi Gastrointestinal: normoactive bowel sounds, tenderness Genitourinary: no bladder fullness Skin: warm Musculoskeletal: No asymmetric calves Neurologic: AAOx3 Psychiatric: interacting appropriately, not anxious Lymph, Heme, Immunologic: no cervical LAD ICD10 Worksheet Patient Problems: Problems Problem Status Onset Cellulitis of left lower extremity Acute Pneumonia Acute
--- NOTE | 2017-02-26 18:05 | PCMIDPN ---
Assessment/Plan: Assessment/Plan: * Sepsis due to peritonitis associated with anastomotic leak status post incision and drainage x2: Continues to slowly improve. No further fever and blood cultures remain negative. Plan to continue Zosyn and micafungin with likely 4 week course of antibiotic therapy in total. May be able to complete with oral fluoroquinolone and fluconazole once has improved oral intake. * Diarrhea: Continue to monitor as appears to be decreasing. C difficile testing negative on 02/20/2017. 02/26/17 18:03 Subjective: Patient feels better. Patient's notes that cognitive function improving. No abdominal pain. Still with poor appetite and decreased oral intake. Objective: Vital Signs Temp Pulse Resp BP Pulse Ox 36.8 C 91 20 156/72 H 88 L 02/26/17 16:00 02/26/17 16:00 02/26/17 16:00 02/26/17 16:00 02/26/17 16:00 Laboratory Results 02/26/17 06:00 02/26/17 06:00 02/25/17 02/26/17 02/27/17 05:59 05:59 05:59 Intake Total 1562 1830 260 Output Total 875 1100 320 Balance 687 730 -60 Zosyn # 14 Micafungin # 14 - Physical Exam General Appearance: alert, no apparent distress EENT: No scleral icterus, No thrush Abdomen: non-tender, other (Wound VAC in place without surrounding erythema), No distended - Line/s LUE PICC Lines: No drainage, No erythema ICD10 Worksheet Patient Problems: Problems Problem Status Onset Cellulitis of left lower extremity Acute Pneumonia Acute
[2017-02-27] MEDS: PIPERACILLIN/TAZO 3.375 GM/DEX 50 ML IV SCH ×3 (05:28→18:13)
[2017-02-27 05:45] LABS: INR 1.85 (0.83-1.16); PROTIME(PATIENT) 21.4 SEC (12.0-15.0)
[2017-02-27] MEDS: MICAFUNGIN NA 100 MG in NS 100 ML IV SCH (09:31)
[2017-02-27] MEDS: ENOXAPARIN 100 MG/ML SYR SC SCH ×2 (09:31→20:52)
--- NOTE | 2017-02-27 09:54 | PCMIDPN ---
Assessment/Plan: Assessment/Plan: 1. Sepsis due to peritonitis associated with anastomotic leak status post incision and drainage: - s/p wash out on 02/12 and 02/13/17 - CX with pansensitive E. coli, proteus, C. albicans -blood cx ngtd on 02/12 and 02/17, 02/21/17 -Currently on Zosyn and micafungin -For wound vac removal and closure of wound possibly tomorrow. -Labs from yesterday noted, creatinine/LFT stable, wbc improved, plt improving. -Care coordinated with Rn. -Continue current treatment for now. meds zosyn 3.375gm q6- (has been on zosyn since 02/12/17 with varying dosing) micafungin 100mg daily- 02/13/17 Subjective: Afebrile. Sitting up in chair. Feeling better. Less aBd pain. Wound vac in place. Denies sob. Does have dry cough. No appetite.loose bm's 3-4x/day Objective: Vital Signs Temp Pulse Resp BP Pulse Ox 37.1 C 82 18 146/76 H 96 02/27/17 08:00 02/27/17 08:00 02/27/17 08:00 02/27/17 08:00 02/27/17 08:00 Microbiology 02/21/17 19:00 Blood Culture - Final Blood 02/21/17 16:25 Blood Culture - Final Blood Laboratory Results 02/26/17 06:00 02/26/17 06:00 02/26/17 02/27/17 02/28/17 05:59 05:59 05:59 Intake Total 1830 750 Output Total 1100 445 225 Balance 730 305 -225 - Physical Exam General Appearance: alert, no apparent distress, other (weak) Respiratory: lungs clear Cardiac/Chest: regular rate, rhythm Extremities: No swelling Abdomen: normal bowel sounds, non-tender, soft, other (midline wound vac noted.) Skin: No erythema ICD10 Worksheet Patient Problems: Problems Problem Status Onset Cellulitis of left lower extremity Acute Pneumonia Acute
--- NOTE | 2017-02-27 12:15 | SOAPPROG ---
SOAP Progress Note Assessment/Plan: Assessment/Plan: 76yo M s/p lap assisted hemicolectomy with partial resection of abdominal wall due to adenocarcinoma S/p washout with re-anastomosis for anastomotic leak S/p washout with fascial closure and wound vac placement To OR tomorrow for midline wound closure. Hold coumadin. NPO after midnight Neuro - pain controlled Resp - extubated. chest tube removed - no ptx Cards - stable GI - regular diet. return of bowel function. low appetite. - voiding spontaneously after larson removal Heme/ID - on zosyn and micafungin. appreciate ID. H/H stable. RUE axillary DVT - lovenox to coumadin Wound - OR tomorrow Neuro - confusion resolved Proph - protonix. Dispo - to OR tomorrow. hopefully to SNF later this week as meeting other discharge criteria. Stronger S: No new complaints today. Appetite still decreased but slightly improved. + BMs. pain controlled O: sitting up in chair, comfortable, NAD No increased WOB +BS, softly distended, nontender. Vac dressing intact to suction Objective: Vital Signs Temp Pulse Resp BP Pulse Ox 37.1 C 82 18 146/76 H 96 02/27/17 08:00 02/27/17 08:00 02/27/17 08:00 02/27/17 08:00 02/27/17 08:00 Microbiology 02/12/17 08:38 Mycobacterial Smear (ENMA) - Final Peritoneal Fluid - Aspirate 02/21/17 19:00 Blood Culture - Final Blood 02/21/17 16:25 Blood Culture - Final Blood Laboratory Results 02/26/17 06:00 02/26/17 06:00 02/26/17 02/27/17 02/28/17 05:59 05:59 05:59 Intake Total 1830 750 300 Output Total 1100 445 225 Balance 730 305 75 PT 21.4 SEC (12.0-15.0) H 02/27/17 05:25 INR 1.85 (0.83-1.16) H 02/27/17 05:25 ICD10 Worksheet Patient Problems: Problems Problem Status Onset Cellulitis of left lower extremity Acute Pneumonia Acute
--- NOTE | 2017-02-27 20:02 | HOSPPROG ---
Hospitalist Progress Note Assessment/Plan: # Colon cancer s/p hemicolectomy and right abdominal wall resection Wound vac in place- wound healing well - taking more PO in past 24 hours - tolerating more PO - dc'd TPN - wound closure in OR tomorrow # Anastomotic leak with peritonitis- no abdominal pain -continue IV Zosyn, micafungin- will require extended treatment -will need repeat abdominal imaging in 3-4 weeks per ID # s/p septic shock # Acute respiratory failure s/p extubation- denies SOB today oxygen saturations 92% on RA - CXR (personally reviewed and interpreted) small bilateral effusions no infiltrates - encouraging mobilization # Afib - now NSR - amiodarone off # Volume overload - s/p IV lasix- improved # RUE DVT- INR remains 1.85 -Lovenox 90 BID -hold warfarin for OR * 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% * Iatrogenic PTX s/p chest tube- last CXR -no pneumothorax -chest tube removed * Metabolic encephalopathy- resolved * Fever - resolved * BRIANA - CPAP qhs # proph - lovenox # diet - advancing # dispo - > 2MN as requiring IV abx and ongoing monitoring I have discussed the case with surgery - to OR tomorrow for wound closure Subjective: no nausea Objective: Vital Signs Temp Pulse Resp BP Pulse Ox 37.8 C 89 22 H 162/93 H 92 02/27/17 17:00 02/27/17 17:00 02/27/17 17:00 02/27/17 17:00 02/27/17 17:00 Microbiology 02/12/17 08:38 Mycobacterial Smear (ENMA) - Final Peritoneal Fluid - Aspirate 02/21/17 19:00 Blood Culture - Final Blood 02/21/17 16:25 Blood Culture - Final Blood Laboratory Results 02/26/17 06:00 02/26/17 06:00 02/26/17 02/27/17 02/28/17 05:59 05:59 05:59 Intake Total 1830 750 350 Output Total 1100 445 225 Balance 730 305 125 PT 21.4 SEC (12.0-15.0) H 02/27/17 05:25 INR 1.85 (0.83-1.16) H 02/27/17 05:25 - Physical Exam Constitutional: chronically ill appearing Eyes: anicteric sclera Ears, Nose, Mouth, Throat: moist mucous membranes Cardiovascular: regular rate and rhythym Respiratory: no respiratory distress Gastrointestinal: normoactive bowel sounds, No distension Genitourinary: no bladder fullness Skin: warm Musculoskeletal: No asymmetric calves Neurologic: AAOx3 Psychiatric: interacting appropriately Lymph, Heme, Immunologic: no cervical LAD ICD10 Worksheet Patient Problems: Problems Problem Status Onset Cellulitis of left lower extremity Acute Pneumonia Acute
[2017-02-28] MEDS: PIPERACILLIN/TAZO 3.375 GM/DEX 50 ML IV SCH ×5 (00:27→23:36)
[2017-02-28 05:44] LABS: INR 1.98 (0.83-1.16); PROTIME(PATIENT) 22.6 SEC (12.0-15.0)
[2017-02-28] MEDS: MICAFUNGIN NA 100 MG in NS 100 ML IV SCH (08:30)
--- NOTE | 2017-02-28 09:03 | SOAPPROG ---
SOAP Progress Note Assessment/Plan: Assessment: DISTENDED, SOFT, WOUND OK/ AFEBRILE SOME SWELLING RT ARM IMPR: ILEUS Plan:AMBULATE 02/10/17 16:13 02/11/17 16:22 STILL DISTENDED BUT SOFT/ SOME RUMBLINGS BUT NO FLATUS/ 2 WAY PENDING/ WOUNDS OK/ AFEBRILE/ HOPEFULLY ILEUS STARTING TO RESOLVE 02/12/17 07:12 PT CRUMPED EARLY THIS AM WITH SEVERE ABD PAIN, PROBABLE INCREASE IN FREE AIR, AND TACHYCARDIA AND MILD HYPOTENSION NEEDS URGENT LAPAROTOMY AFTER 3 HRS OF RESUSCITATION, ABX, PCC FOR COAG REVERSAL {INR >5} RISKS AND OPTIONS FULLY DISCUSSED WITH BROCK PT INTUBATED/ LACTATE 4 02/13/17 03:36 VITAL SIGNS STABLE BUT STILL ON 3 PRESSORS/URINE OUTPUT IS MARKEDLY IMPROVED/ WOUND VAC DRAINAGE IS PRIMARILY SEROUS/FEBRILE TO 385/ CONSIDER A LAPAROTOMY TODAY WITH WASHOUT AND POSSIBLE WOUND CLOSURE. 02/13/17 09:40 LOOKS IMPROVED OVERALL/STILL ON PRESSORS BUT WEANING DOWN/ZABRINA DRAINAGE AND WOUND VAC DRAINAGE SEROUS/TEMP DOWN TO THE OR TODAY FOR WASHOUT AND WOUND CLOSURE HOPEFULLY/CHEST X-RAY WITH TINY PNEUMOTHORAX BUT ENLARGING PLEURAL EFFUSION/WILL PLACE SMALL CHEST TUBE IT SURGERY WELL 02/15/17 09:16 improving/ afebrile/ wound clean/ zabrina minimal and serous/ off most pressors/ maybe extubate today 02/16/17 08:49 EXTUBATED/ AFEBRILE/ WEAK BUT RESPONSIVE/ UO OK/ BNP HIGH/ HCT DOWN TO 27/ SEROUS CHEST TUBE AND ZABRINA DRAINS/ CHEST TUBE OUT THIS WEEKEND/ IMPROVING 02/23/17 16:03 Much stronger/feeling better/wound improving/afebrile/tolerating p.o. 02/25/17 14:47 A STEADY SLOW IMPROVEMENT/AFEBRILE/TOLERATING SOME LIQUIDS/ABDOMEN SOFT/WOUND VAC WORKING WELL WHICH CHANGED BACK IN THE A.M. AND CONSIDER DPC VERSUS CONTINUED VAC TREATMENT 02/28/17 09:02 WOUND OK, VAC IN PLACE/ PLAN CLOSURE TODAY/ RISKS AND OPTIONS FULLY DISCUSSED Objective: Vital Signs Temp Pulse Resp BP Pulse Ox 36.8 C 98 17 154/81 H 92 02/28/17 07:16 02/28/17 07:16 02/28/17 07:16 02/28/17 07:16 07/19/17 07:16 Microbiology 02/12/17 08:38 Mycobacterial Smear (ENMA) - Final Peritoneal Fluid - Aspirate 02/21/17 19:00 Blood Culture - Final Blood 02/21/17 16:25 Blood Culture - Final Blood Laboratory Results 02/26/17 06:00 02/26/17 06:00 02/27/17 02/28/17 03/01/17 05:59 05:59 05:59 Intake Total 750 490 Output Total 445 225 Balance 305 265 PT 22.6 SEC (12.0-15.0) H 02/28/17 05:30 INR 1.98 (0.83-1.16) H 02/28/17 05:30 ICD10 Worksheet Patient Problems: Problems Problem Status Onset Cellulitis of left lower extremity Acute Pneumonia Acute
[2017-02-28] MEDS ORDERED: BUPIVACAINE 0.5% 30 ML SDV ONE (10:52)
[2017-02-28] MEDS ORDERED: MIDAZOLAM 2 MG/2 ML VIAL IVP ONE (13:21)
[2017-02-28] MEDS ORDERED: MIDAZOLAM 2 MG/2 ML VIAL ONE (13:23)
--- NOTE | 2017-02-28 13:23 | PDANEPAE ---
ANE History of Present Illness closure abd wound ANE Past Medical History - Cardiovascular History Hx Hypertension: Yes Hx CHF / Valvular Disease: Yes - Pulmonary History Hx Asthma/Reactive Airway Disease: Yes Hx Oxygen in Use at Home: No Hx Sleep Apnea: Yes Sleep Apnea Screening Result - Last Documented: Positive - Endocrine History Hx Diabetes: No - Cancer History Hx Cancer: Yes - Chronic Pain History Chronic Pain: No ANE Review of Systems - Exercise capacity METS (RN): 3 METS ANE Patient History - Allergies Allergies/Adverse Reactions: ciprofloxacin Allergy (Verified 02/06/17 17:49) Sulfa (Sulfonamide Antibiotics) Allergy (Verified 02/05/17 09:34) Rash - Home Medications Home Medications: Pravastatin Sodium [Pravachol] 40 mg PO HS 09/08/15 [Last Taken 01/26/17] Escitalopram Oxalate [Lexapro] 20 mg PO DAILY 02/05/17 [Last Taken 02/06/17] Warfarin Sodium [Coumadin 2MG (*)] 11 mg PO SUTUWEFRSA@02/05/17 [Last Taken 01/26/17] Warfarin Sodium [Coumadin 3MG (*)] 6 mg PO MOTH@16 02/05/17 [Last Taken 01/26/17 ] - NPO status NPO Since - Liquids (Date): 02/27/17 NPO Since - Liquids (Time): 17:30 NPO Since - Solids (Date): 02/27/17 NPO Since - Solids (Time): 17:30 - Smoking Hx Smoking Status: Former smoker ANE Labs/Vital Signs - Labs Result Diagrams: 02/26/17 06:00 02/26/17 06:00 - Vital Signs Blood Pressure: 175/100 Heart Rate: 93 Respiratory Rate: 15 O2 Sat (%): 92 Height: 177.8 cm Weight: 86 kg ANE Physical Exam - Airway Mallampati Score: Class 2 Mouth exam: normal dental/mouth exam - Pulmonary Pulmonary: no respiratory distress - Cardiovascular Cardiovascular: regular rate and rhythym - ASA Status ASA Status: III ANE Anesthesia Plan Anesthesia Plan: GA w LMA
[2017-02-28] MEDS ORDERED: LIDOCAINE 2% 5 ML SDV ONE (13:31)
[2017-02-28] MEDS ORDERED: DEXAMETHASONE 4 MG/ML VIAL ONE (13:31)
[2017-02-28] MEDS ORDERED: PROPOFOL 200 MG/20 ML VIAL ONE (13:32)
[2017-02-28] MEDS ORDERED: fentaNYL 100 MCG/2 ML INJ ONE (13:32)
[2017-02-28] MEDS ORDERED: HYDROmorphONE/DILAUDID 1 MG/ML SYR IVP PRN (14:19)
[2017-02-28] MEDS ORDERED: fentaNYL 100 MCG/2 ML INJ IVP PRN (14:19)
[2017-02-28] MEDS ORDERED: MEPERIDINE 25 MG/ML SYR IVP PRN (14:19)
[2017-02-28] MEDS ORDERED: NALOXONE HCL 0.4 MG/ML INJ IVP PRN (14:19)
--- NOTE | 2017-02-28 16:34 | POSTOPPROG ---
Post Op Note Date of Operation: 02/28/17 Surgeon: Baudilio Chamberlain Wigs Salesperson: none Anesthesia: GET(General Endotracheal) Pre-op Diagnosis: open abdominal wound Procedure: debridement with delayed primary closure of abdominal wound Inf/Abcess present in the surg proc area at time of surgery?: No EBL: Minimal Complications: none Drains: Yonathan Gleason
--- NOTE | 2017-02-28 16:50 | PCMIDPN ---
Assessment/Plan: Assessment/Plan: * Sepsis due to peritonitis associated with anastomotic leak status post incision and drainage x2: Continues to slowly improve. Wound closed surgically today. Plan 4 weeks of Zosyn and micafungin ( day # ). If oral intake improves, may be able to complete antibiotic therapy with moxifloxacin and fluconazole. Plan of care from Infectious Disease standpoint reviewed with patient and . 02/28/17 16:48 Subjective: Patient status post wound closure earlier today. No specific complaints. Objective: Vital Signs Temp Pulse Resp BP Pulse Ox 37.3 C 94 28 H 162/89 H 92 02/28/17 15:29 02/28/17 15:29 02/28/17 15:29 02/28/17 15:29 02/28/17 15:29 Microbiology 02/12/17 08:38 Mycobacterial Smear (ENMA) - Final Peritoneal Fluid - Aspirate Laboratory Results 02/26/17 06:00 02/26/17 06:00 02/27/17 02/28/17 03/01/17 05:59 05:59 05:59 Intake Total 429 059 6518 Output Total 445 225 205 Balance 776 609 0717 Zosyn # 16 Micafungin # 16 - Physical Exam General Appearance: alert, no apparent distress EENT: No scleral icterus, No thrush Cardiac/Chest: regular rate, rhythm Abdomen: non-tender, other (Dressed postoperatively with scant bloody output via CLARE bulb), No distended - Line/s LUE PICC Lines: No drainage, No erythema ICD10 Worksheet Patient Problems: Problems Problem Status Onset Cellulitis of left lower extremity Acute Pneumonia Acute
--- NOTE | 2017-02-28 17:56 | HOSPPROG ---
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 Mental status improving Objective: Vital Signs Temp Pulse Resp BP Pulse Ox 37.3 C 94 28 H 162/89 H 84 L 02/28/17 15:29 02/28/17 15:29 02/28/17 15:29 02/28/17 15:29 02/28/17 17:38 Microbiology 02/12/17 08:38 Mycobacterial Smear (ENMA) - Final Peritoneal Fluid - Aspirate Laboratory Results 02/26/17 06:00 02/26/17 06:00 02/27/17 02/28/17 03/01/17 05:59 05:59 05:59 Intake Total 749 375 8049 Output Total 445 225 210 Balance 247 465 1980 PT 22.6 SEC (12.0-15.0) H 02/28/17 05:30 INR 1.98 (0.83-1.16) H 02/28/17 05:30 - Physical Exam Constitutional: no apparent distress, appears nourished, not in pain Cardiovascular: regular rate and rhythym, no murmur, rub, or gallop Respiratory: no respiratory distress, no rales or rhonchi, clear to auscultation Gastrointestinal: normoactive bowel sounds, soft, non-tender abdomen, no palpable masses Skin: no rashes or abrasions, no fluctuance, no induration Neurologic: AAOx3, sensation intact bilaterally Psychiatric: interacting appropriately, not anxious, not encephalopathic, thought process linear ICD10 Worksheet Patient Problems: Problems Problem Status Onset Cellulitis of left lower extremity Acute Pneumonia Acute
[2017-03-01] MEDS: PIPERACILLIN/TAZO 3.375 GM/DEX 50 ML IV SCH (05:54)
[2017-03-01 06:31] LABS: % IMMATURE GRANULYOCYTES 0.4 % (0.0-1.1); ABSOLUTE IMMATURE GRANULOCYTES 0.03 10^3/uL (0.00-0.10); ADD DIFF? NO; ADD MORPH? YES; ADD SCAN? YES; ATYPICAL LYMPHOCYTE FLAG 40 (0-99); FRAGMENT RBC FLAG 90 (0-99); HEMATOCRIT 27.5 % (40.0-51.0); HEMOGLOBIN 7.9 g/dL (13.7-17.5); LIPEMIA HEMOLYSIS FLAG 70 (0-99); MEAN CELL HEMOGLOBIN 21.6 pg (27.9-34.1); MEAN CELL VOLUME 75.1 fL (81.5-99.8); MEAN PLATELET VOLUME 9.8 fL (8.7-11.7); PLATELET CLUMPS FLAG 0 (0-99); PLATELET COUNT 524 10^3/uL (150-400); RED BLOOD CELL COUNT 3.66 10^6/uL (4.40-6.38)
[2017-03-01 06:33] LABS: INR 2.49 (0.83-1.16); PROTIME(PATIENT) 27.2 SEC (12.0-15.0)
[2017-03-01 06:36] LABS: ANION GAP 10 mEq/L (8-16); CALCIUM 8.3 mg/dL (8.5-10.4); CARBON DIOXIDE 20 mEq/l (22-31); CHLORIDE 110 mEq/L (97-110); CREATININE 0.9 mg/dL (0.7-1.3); GLOMERULAR FILTRATION RATE > 60; GLUCOSE 89 mg/dL (70-100); POTASSIUM 4.5 mEq/L (3.5-5.2); SODIUM 140 mEq/L (134-144)
[2017-03-01 06:49] LABS: LEFT SHIFT FLG 120 (0-99); MEAN CELL HEMOGLOBIN CONCENTR. 28.7 g/dL (32.4-36.7); RED CELL DISTRIBUTION WIDTH 29.6 % (11.5-15.2)
[2017-03-01 07:33] LABS: SCAN POSITIVE
[2017-03-01 07:38] LABS: PLATELET ESTIMATE INCREASED (ADEQ)
[2017-03-01 07:41] LABS: HYPOCHROMIA 1+; MACROCYTES 1+; MICROCYTES 1+; POLYCHROMASIA 1+
[2017-03-01] MEDS: MICAFUNGIN NA 100 MG in NS 100 ML IV SCH (09:03)
[2017-03-01] MEDS ORDERED: ACETAMINOPHEN 325 MG TAB PO PRN (10:24)
[2017-03-01] MEDS ORDERED: LOPERAMIDE HCL 2 MG CAP PO PRN (10:25)
[2017-03-01] MEDS ORDERED: ESCITALOPRAM OXALATE 10 MG TAB PO SCH (10:30)
[2017-03-01] MEDS ORDERED: MOXIFLOXACIN 400 MG TAB PO SCH (10:45)
--- NOTE | 2017-03-01 11:49 | SOAPPROG ---
PORFIRIO Progress Note Assessment/Plan: Assessment: 76-year-old male status post laparoscopic assisted hemicolectomy for adenocarcinoma, status post washout for anastomotic leak status post washout with fascial fascial closure and wound VAC placement, status post delayed primary closure abdominal wall. Patient reports he is tolerating regular diet, he is having soft stools, pain is well controlled, he is looking forward to possibly going home tomorrow ( Sunday). Physical exam Pleasant male in no apparent distress, alert Chest CTA bilaterally Abdomen stapled and sutured midline incision with Yonathan-Gleason drain with small amount of serosanguineous drainage, abdomen is soft nontender palpation, incision is clean with small amount of serosanguineous discharge inferiorly. Plan: Likely discharge home tomorrow (Sunday), switching over to oral antibiotics/ antifungal today. Will likely go home with a Yonathan-Gleason drain in place with follow up in our office next week. Obviously will still need anticoagulation given right upper extremity DVT, INR therapeutic. Antibiotics per Infectious Disease, to be outlined in note today for discharge tomorrow. 03/01/17 11:45 03/01/17 11:53 Objective: Vital Signs Temp Pulse Resp BP Pulse Ox 37.1 C 77 17 141/78 H 92 03/01/17 08:00 03/01/17 08:00 03/01/17 08:00 03/01/17 08:00 03/01/17 08:00 Laboratory Results 03/01/17 05:50 03/01/17 05:50 02/28/17 03/01/17 03/02/17 05:59 05:59 05:59 Intake Total 490 2620 Output Total 225 220 Balance 265 2400 PT 27.2 SEC (12.0-15.0) H 03/01/17 05:50 INR 2.49 (0.83-1.16) H 03/01/17 05:50 ICD10 Worksheet Patient Problems: Problems Problem Status Onset Cellulitis of left lower extremity Acute Pneumonia Acute
[2017-03-01] MEDS: MOXIFLOXACIN 400 MG TAB PO SCH (11:59)
--- NOTE | 2017-03-01 12:03 | PCMIDPN ---
Assessment/Plan: Assessment/Plan: * Sepsis due to peritonitis associated with anastomotic leak status post incision and drainage x2: Significant clinical improvement and tolerating p.o. intake today. Will discontinue Zosyn and micafungin with transition to oral moxifloxacin and fluconazole. Plan to complete 28 days total of antibiotic therapy (day # ). Discussed with patient ciprofloxacin allergy which he believes he does not have. Will remove this from his allergy history. Side effects of moxifloxacin including risk of tendinopathy discussed with patient. Will need to monitor INR with concomitant moxifloxacin, fluconazole and warfarin. Will arrange for follow-up in my office next week. Plan removal of PICC line prior to discharge. 03/01/17 12:01 03/01/17 12:03 Subjective: Patient feels significantly improved. Discharge planning underway for transition to rehab facility. No abdominal pain. Objective: Vital Signs Temp Pulse Resp BP Pulse Ox 37.1 C 77 17 141/78 H 92 03/01/17 08:00 03/01/17 08:00 03/01/17 08:00 03/01/17 08:00 03/01/17 08:00 Laboratory Results 03/01/17 05:50 03/01/17 05:50 02/28/17 03/01/17 03/02/17 05:59 05:59 05:59 Intake Total 490 2620 Output Total 225 220 Balance 265 2400 Zosyn # 17 Micafungin # 17 - Physical Exam General Appearance: alert, no apparent distress EENT: No scleral icterus, No thrush Respiratory: lungs clear (Anterolaterally) Cardiac/Chest: regular rate, rhythm Abdomen: non-tender, No distended - Line/s LUE PICC Lines: No drainage, No erythema ICD10 Worksheet Patient Problems: Problems Problem Status Onset Cellulitis of left lower extremity Acute Pneumonia Acute
--- NOTE | 2017-03-01 12:06 | PDIAF ---
- Diagnosis Diagnosis: Peritonitis Code Status: Full Code - Medication Management Discharge Medications: Medications to Continue on Transfer Pravastatin Sodium [Pravachol] 40 mg PO HS 09/08/15 [Last Taken 01/26/17] Escitalopram Oxalate [Lexapro] 20 mg PO DAILY 02/05/17 [Last Taken 02/06/17] Warfarin Sodium [Coumadin 2MG (*)] 11 mg PO SUTUWEFRSA@02/05/17 [Last Taken 01/26/17] Warfarin Sodium [Coumadin 3MG (*)] 6 mg PO MOTH@02/05/17 [Last Taken 01/26/17 ] [employer] Antibiotics: Moxifloxacin 400 mg p.o. daily, fluconazole 200 mg p.o. daily [employer] Antibiotic Stop Date: 03/12/17 Discharge Medications: Refer to the Discharge Home Medication list for PRN reason. PICC Care - Routine: N/A - Orders Diet Texture: Regular Texture Diet, Thin Liquids - Labs/Radiology CBC Date: 03/05/17 (Weekly Q Sunday) CMP Date: 03/05/17 (Weekly Q Sunday) PT/INR Date: 03/05/17 (03/08/2017, 03/12/2017) Call or Fax Lab and Imaging Results to: Dr. Tolbert [phone] - Follow Up Care Current Providers and Referrals: Herb Peng MD [Primary Care Provider] - Baudilio Chamberlain MD [Medical Doctor] - Eduardo Tolbert MD [Medical Doctor] - 03/07/17 2:30 pm
--- NOTE | 2017-03-01 15:41 | HOSPPROG ---
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% * Iatrogenic PTX s/p chest tube -chest tube removed * Metabolic encephalopathy - improving * BRIANA - CPAP qhs Subjective: Doing well Objective: Vital Signs Temp Pulse Resp BP Pulse Ox 36.5 C 89 17 149/80 H 93 03/01/17 12:00 03/01/17 12:00 03/01/17 12:00 03/01/17 12:00 03/01/17 12:00 Laboratory Results 03/01/17 05:50 03/01/17 05:50 02/28/17 03/01/17 03/02/17 05:59 05:59 05:59 Intake Total 490 2620 Output Total 225 220 Balance 265 2400 PT 27.2 SEC (12.0-15.0) H 03/01/17 05:50 INR 2.49 (0.83-1.16) H 03/01/17 05:50 - Physical Exam Constitutional: no apparent distress, appears nourished, not in pain, No uncomfortable, No cachectic Respiratory: no respiratory distress Skin: normal color, No erythema, No rash Neurologic: AAOx3 Psychiatric: interacting appropriately, thought process linear, No anxious, No agitated ICD10 Worksheet Patient Problems: Problems Problem Status Onset Cellulitis of left lower extremity Acute Pneumonia Acute
[2017-03-01] MEDS ORDERED: WARFARIN SODIUM 5 MG TAB PO ONE (16:00)
[2017-03-01] MEDS ORDERED: WARFARIN SODIUM 7.5 MG TAB PO SCH (16:00)
[2017-03-01] MEDS ORDERED: WARFARIN SODIUM 1 MG TAB PO ONE (16:00)
[2017-03-01] MEDS ORDERED: WARFARIN SODIUM 2.5 MG TAB PO ONE (16:00)
[2017-03-02 06:24] LABS: INR 2.24 (0.83-1.16)
[2017-03-02] MEDS ORDERED: FLUCONAZOLE 100 MG TAB PO SCH (09:00)
[2017-03-02] MEDS: MOXIFLOXACIN 400 MG TAB PO SCH (09:08)
--- NOTE | 2017-03-02 10:23 | PDIAF ---
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 daily, fluconazole 200 mg p.o. daily Half[facility]Way Antibiotic Stop Date: 03/12/17 Discharge Medications: Refer to the Discharge Home Medication list for PRN reason. PICC Care - Routine: N/A - Orders Services needed: Physical Therapy, Occupational Therapy Diet Recommendation: no restrictions on diet Diet Texture: Regular Texture Diet, Thin Liquids Additional: Resume lexapro when off antibiotics - Labs/Radiology CBC Date: 03/05/17 (Weekly Q Sunday) CMP Date: 03/05/17 (Weekly Q Sunday) PT/INR Date: 03/05/17 (03/08/2017, 03/12/2017) Call or Fax Lab and Imaging Results to: Dr. Tolbert [phone] - Follow Up Care Current Providers and Referrals: Herb Peng MD [Primary Care Provider] - Baudilio Chamberlain MD [Medical Doctor] - Eduardo Tolbert MD [Medical Doctor] - 03/07/17 2:30 pm
--- NOTE | 2017-03-02 10:26 | PDIAF ---
- Diagnosis Diagnosis: Peritonitis Code Status: Full Code - Medication Management Discharge Medications: Medications to Continue on Transfer Pravastatin Sodium [Pravachol] 40 mg PO HS 09/08/15 [Last Taken 01/26/17] Fluconazole [Diflucan (*)] 200 mg PO DAILY #10 tab 03/02/17 [Last Taken Unknown] Moxifloxacin [Avelox 400 mg (*)] 400 mg PO DAILY #10 tab 03/02/17 [Last Taken Unknown] Warfarin Sodium [Coumadin 7.5MG (*)] 7.5 mg PO DAILY16 #30 tab 03/02/17 [Last Taken Unknown] [facility] Antibiotics: Moxifloxacin 400 mg p.o. daily, fluconazole 200 mg p.o. daily [facility] Antibiotic Stop Date: 03/12/17 Discharge Medications: Refer to the Discharge Home Medication list for PRN reason. PICC Care - Routine: N/A - Orders Services needed: Physical Therapy, Occupational Therapy Diet Recommendation: no restrictions on diet Diet Texture: Regular Texture Diet, Thin Liquids Additional: Resume lexapro when off antibiotics - Labs/Radiology CBC Date: 03/05/17 (Weekly Q Sunday) CMP Date: 03/05/17 (Weekly Q Sunday) PT/INR Date: 03/05/17 (03/08/2017, 03/12/2017) Call or Fax Lab and Imaging Results to: Dr. Tolbert [phone] - Follow Up Care Current Providers and Referrals: Herb Peng MD [Primary Care Provider] - Baudilio Chamberlain MD [Medical Doctor] - Eduardo Tolbert MD [Medical Doctor] - 03/07/17 2:30 pm
[2017-03-02 11:15] VITALS: BP 141/75; PULSE 95; RESP 17; TEMP 98.2; O2SAT 92
--- NOTE | 2017-03-02 12:48 | PDIAF ---
- Diagnosis Diagnosis: Peritonitis Code Status: Full Code - Medication Management Discharge Medications: Medications to Continue on Transfer Pravastatin Sodium [Pravachol] 40 mg PO HS 09/08/15 [Last Taken 01/26/17] Fluconazole [Diflucan (*)] 200 mg PO DAILY #10 tab 03/02/17 [Last Taken Unknown] Moxifloxacin [Avelox 400 mg (*)] 400 mg PO DAILY #10 tab 03/02/17 [Last Taken Unknown] Warfarin Sodium [Coumadin 7.5MG (*)] 7.5 mg PO DAILY16 #30 tab 03/02/17 [Last Taken Unknown] [facility] Antibiotics: Moxifloxacin 400 mg p.o. daily, fluconazole 200 mg p.o. daily [facility] Antibiotic Stop Date: 03/12/17 Discharge Medications: Refer to the Discharge Home Medication list for PRN reason. PICC Care - Routine: N/A - Orders Services needed: Physical Therapy, Occupational Therapy Diet Recommendation: no restrictions on diet Diet Texture: Regular Texture Diet, Thin Liquids Wound Care Instructions: empty and record zabrina drain output. will be removed by Dr. Sepulveda or Dr. Chamberlain at office visit in 1 week Additional: Resume lexapro when off antibiotics - Labs/Radiology CBC Date: 03/05/17 (Weekly Q Sunday) CMP Date: 03/05/17 (Weekly Q Sunday) PT/INR Date: 03/05/17 (03/08/2017, 03/12/2017) Call or Fax Lab and Imaging Results to: Dr. Tolbert [phone] - Follow Up Care Current Providers and Referrals: Herb Peng MD [Primary Care Provider] - Baudilio Chamberlain MD [Medical Doctor] - Eduardo Tolbert MD [Medical Doctor] - 03/07/17 2:30 pm
--- NOTE | 2017-03-02 12:53 | SOAPPROG ---
SOAP Progress Note Assessment/Plan: Assessment/Plan: 76yo M s/p lap assisted hemicolectomy with partial resection of abdominal wall due to adenocarcinoma S/p washout with re-anastomosis for anastomotic leak S/p washout with fascial closure and wound vac placement Pain well controlled Return of bowel function. Regular diet Transition to PO antibiotics Midline wound closed, subQ CLARE drain Dispo: to SNF today. getting stronger. F/u 1 week for drain removal S: Feeling well. Happy to be leaving hospital. Eating well. Pain controlled. No new complaints O: sitting up in chair, comfortable, NAD No increased WOB +BS, soft, min distended, nontender. Incision CDI CLARE min serosang Objective: Vital Signs Temp Pulse Resp BP Pulse Ox 36.8 C 95 17 141/75 H 92 03/02/17 11:14 03/02/17 11:14 03/02/17 11:14 03/02/17 11:14 03/02/17 11:14 Laboratory Results 03/01/17 05:50 03/01/17 05:50 03/01/17 03/02/17 03/03/17 05:59 05:59 05:59 Intake Total 2620 400 Output Total 220 Balance 2400 400 PT 25.0 SEC (12.0-15.0) H 03/02/17 06:00 INR 2.24 (0.83-1.16) H 03/02/17 06:00 ICD10 Worksheet Patient Problems: Problems Problem Status Onset Cellulitis of left lower extremity Acute Pneumonia Acute
[2017-03-02] MEDS ORDERED: WARFARIN SODIUM 1 MG TAB PO ONE (14:30)
--- NOTE | 2017-03-02 15:07 | SOAPPROG ---
SOAP Progress Note Assessment/Plan: Assessment: DISTENDED, SOFT, WOUND OK/ AFEBRILE SOME SWELLING RT ARM IMPR: ILEUS Plan:AMBULATE 02/10/17 16:13 02/11/17 16:22 STILL DISTENDED BUT SOFT/ SOME RUMBLINGS BUT NO FLATUS/ 2 WAY PENDING/ WOUNDS OK/ AFEBRILE/ HOPEFULLY ILEUS STARTING TO RESOLVE 02/12/17 07:12 PT CRUMPED EARLY THIS AM WITH SEVERE ABD PAIN, PROBABLE INCREASE IN FREE AIR, AND TACHYCARDIA AND MILD HYPOTENSION NEEDS URGENT LAPAROTOMY AFTER 3 HRS OF RESUSCITATION, ABX, PCC FOR COAG REVERSAL {INR >5} RISKS AND OPTIONS FULLY DISCUSSED WITH BROCK PT INTUBATED/ LACTATE 4 02/13/17 03:36 VITAL SIGNS STABLE BUT STILL ON 3 PRESSORS/URINE OUTPUT IS MARKEDLY IMPROVED/ WOUND VAC DRAINAGE IS PRIMARILY SEROUS/FEBRILE TO 385/ CONSIDER A LAPAROTOMY TODAY WITH WASHOUT AND POSSIBLE WOUND CLOSURE. 02/13/17 09:40 LOOKS IMPROVED OVERALL/STILL ON PRESSORS BUT WEANING DOWN/ZABRINA DRAINAGE AND WOUND VAC DRAINAGE SEROUS/TEMP DOWN TO THE OR TODAY FOR WASHOUT AND WOUND CLOSURE HOPEFULLY/CHEST X-RAY WITH TINY PNEUMOTHORAX BUT ENLARGING PLEURAL EFFUSION/WILL PLACE SMALL CHEST TUBE IT SURGERY WELL 02/15/17 09:16 improving/ afebrile/ wound clean/ zabrina minimal and serous/ off most pressors/ maybe extubate today 02/16/17 08:49 EXTUBATED/ AFEBRILE/ WEAK BUT RESPONSIVE/ UO OK/ BNP HIGH/ HCT DOWN TO 27/ SEROUS CHEST TUBE AND ZABRINA DRAINS/ CHEST TUBE OUT THIS WEEKEND/ IMPROVING 02/23/17 16:03 Much stronger/feeling better/wound improving/afebrile/tolerating p.o. 02/25/17 14:47 A STEADY SLOW IMPROVEMENT/AFEBRILE/TOLERATING SOME LIQUIDS/ABDOMEN SOFT/WOUND VAC WORKING WELL WHICH CHANGED BACK IN THE A.M. AND CONSIDER DPC VERSUS CONTINUED VAC TREATMENT 02/28/17 09:02 WOUND OK, VAC IN PLACE/ PLAN CLOSURE TODAY/ RISKS AND OPTIONS FULLY DISCUSSED 03/02/17 15:03 DOING VERY WELL TODAY/AFEBRILE/WOUND OKAY/MINIMAL ZABRINA DRAINAGE/HOME TODAY/FOLLOW- UP NEXT WEEK IN THE OFFICE FOR DRAIN REMOVAL/LIFTING RESTRICTIONS DISCUSSED Objective: Vital Signs Temp Pulse Resp BP Pulse Ox 36.8 C 95 17 141/75 H 92 07/21/17 11:14 03/02/17 11:14 03/02/17 11:14 03/02/17 11:14 03/02/17 11:14 Laboratory Results 03/01/17 05:50 03/01/17 05:50 03/01/17 03/02/17 03/03/17 05:59 05:59 05:59 Intake Total 2620 400 Output Total 220 Balance 2400 400 PT 25.0 SEC (12.0-15.0) H 03/02/17 06:00 INR 2.24 (0.83-1.16) H 03/02/17 06:00 ICD10 Worksheet Patient Problems: Problems Problem Status Onset Cellulitis of left lower extremity Acute Pneumonia Acute
--- NOTE | 2017-03-03 05:38 | GDS ---
[f rep st] DISCHARGE SUMMARY DISCHARGE DIAGNOSES: 1. Colon cancer, status post hemicolectomy and right abdominal wall resection. 2. Anastomotic leak with peritonitis. 3. Septic shock. 4. Acute respiratory failure requiring intubation. 5. Atrial fibrillation. 6. Right upper extremity deep vein thrombosis. 7. Acute on chronic systolic and diastolic congestive heart failure, ejection fraction of 50%. 8. Iatrogenic pneumothorax, status post chest tube. 9. Metabolic encephalopathy. 10. Obstructive sleep apnea, on CPAP. HISTORY: The patient is a 76-year-old male who was diagnosed with a colon cancer and came in for surgery with Dr. Sepulveda. He underwent hemicolectomy and also required a right abdominal wall resection. He had a prolonged hospital course due to development of an anastomotic leak with peritonitis and subsequent septic shock and acute respiratory failure. He is now stabilized and going to rehabilitation. His wound was closed prior to discharge by Dr. Chamberlain, and the wound VAC is now discontinued. He will see Oncology as an outpatient. Regarding his peritonitis, Infectious Disease would like a 4-week course of moxifloxacin and fluconazole. He did have brief atrial fibrillation while critically ill, which required IV amiodarone, but that has now been discontinued. He is chronically anticoagulated on warfarin. He did develop a right upper extremity DVT during this hospitalization but had spent some time off his chronic warfarin in preparation for surgery. His INR is now again therapeutic at the time of hospital discharge. His previous Coumadin dose was very high requiring 11 mg p.o. daily 5 days a week and 6 mg 2 days a week. Here he has not required that much warfarin to maintain a therapeutic INR. I do anticipate, however, as he returns to his previous diet he will again require higher warfarin doses. I will discharge him on 5 mg p.o. daily with very close outpatient INR monitoring while at senior care facility. DISCHARGE MEDICATIONS: Please see computer record for full detailed list. New medications: 1. Diflucan 200 mg p.o. daily, moxifloxacin 400 mg p.o. daily. Both of these antibiotics to continue through March 12. 2. Warfarin dose changed to 5 mg p.o. daily. 3. Hold Lexapro until he is off antibiotics due to interaction. ADDITIONAL DISCHARGE INSTRUCTIONS: 1. Follow up in [address] Sepulveda or Dr. Chamberlain for drain removal. Avoid heavy lifting, pushing, or pulling greater than 15 pounds for 4 weeks. 2. Next INR check March 05 and twice weekly thereafter. 3. Weekly laboratory studies ordered by Dr. Tolbert with results faxed to him. Greater than 30 minutes' time was spent arranging this discharge. Patient was seen and examined by me on the day of discharge. /[id number]/MODL MTDD
== END 2017-03-02 15:16 | DRG 329 ==
LOC: F3E 06:56 → F2N 12:25 → F1N 02-09 15:24 → F2N 02-12 03:06 → F2W 02-21 14:44 → UNDODISIN 03-02 12:13
PROVIDERS: ADMIT Surgery; ATTEND Surgery
PROC: 0DTF4ZZ Resection of Right Large Intestine, Percutaneous Endoscopic Approach (ICD-10-PCS; principal; 2017-02-07 08:45)
PROC: 0BH17EZ Insertion of Endotracheal Airway into Trachea, Via Natural or Artificial Opening (ICD-10-PCS; 2017-02-12)
PROC: 5A1945Z Respiratory Ventilation, 24-96 Consecutive Hours (ICD-10-PCS; 2017-02-12)
PROC: 30233K1 Transfusion of Nonautologous Frozen Plasma into Peripheral Vein, Percutaneous Approach (ICD-10-PCS; 2017-02-12)
PROC: 30233N1 Transfusion of Nonautologous Red Blood Cells into Peripheral Vein, Percutaneous Approach (ICD-10-PCS; 2017-02-12)
PROC: 0DT80ZZ Resection of Small Intestine, Open Approach (ICD-10-PCS; 2017-02-12 11:15)
PROC: 0W9930Z Drainage of Right Pleural Cavity with Drainage Device, Percutaneous Approach (ICD-10-PCS; 2017-02-13)
PROC: 0W9G00Z Drainage of Peritoneal Cavity with Drainage Device, Open Approach (ICD-10-PCS; 2017-02-13 09:30)
PROC: 04HK33Z Insertion of Infusion Device into Right Femoral Artery, Percutaneous Approach (ICD-10-PCS; 2017-02-21)
PROC: 02HV33Z Insertion of Infusion Device into Superior Vena Cava, Percutaneous Approach (ICD-10-PCS; 2017-02-21)
DX: C18.2 Malignant neoplasm of ascending colon (principal); K65.9 Peritonitis, unspecified; A41.9 Sepsis, unspecified organism; R65.21 Severe sepsis with septic shock; J96.00 Acute respiratory failure, unspecified whether with hypoxia or hypercapnia; I50.43 Acute on chronic combined systolic (congestive) and diastolic (congestive) heart failure; G93.41 Metabolic encephalopathy; K91.89 Other postprocedural complications and disorders of digestive system; I82.890 Acute embolism and thrombosis of other specified veins; J95.811 Postprocedural pneumothorax; D64.9 Anemia, unspecified; I48.91 Unspecified atrial fibrillation; G47.33 Obstructive sleep apnea (adult) (pediatric); Z79.01 Long term (current) use of anticoagulants
CPT/HCPCS: 71260-PO; 74177-PO; 82565-PO; 84520-PO; 85025-PO; 87188-90; 87556-90; 88342; 92507-GN; 92523-GN; 92526-GN; 92610-GN; 97116-GP; 97161-GP; 97164-GP; 97166-GO; 97530-GO; 97530-GP; 97535-GO; C1751; C9132; G8978-GP-CJ; G8978-GP-CK; G8978-GP-CM; G8979-GP-CI; G8979-GP-CJ; G8979-GP-CK; G8987-GO-CK; G8988-GO-CI; G8996-GN-CJ; G8997-GN-CH; G8998-GN-CH; J0153; J0282; J0330; J0610; J0694; J1100; J1170; J1265; J1335; J1450; J1650; J1940; J2060; J2248; J2250; J2370; J2405; J2543; J2704; J2710; J3010; J3370; J3430; J3475; P9016; P9017; P9041; P9047; Q9967

== ENCOUNTER → 2017-03-14 | Outpatient (CLI) | payer OTHER, MEDICARE | LOC: FIMAGING 11:02 | PROVIDERS: ATTEND Internal Medicine Infectious Disease | DX: J98.11 Atelectasis (principal); K57.90 Diverticulosis of intestine, part unspecified, without perforation or abscess without bleeding | CPT/HCPCS: 71260; 74177; Q9967 ==

== ENCOUNTER 2017-08-13 19:33 | Inpatient (IN) | payer OTHER, MEDICARE ==
--- NOTE | 2017-08-13 19:34 | EDPHY ---
H & P HPI/ROS: HPI CHIEF COMPLAINT: Fever, tachycardia, generalized fatigue HISTORY OF PRESENT ILLNESS: This patient is 76-year-old male, extensive medical history including septic shock colon cancer peritonitis acute respiratory failure atrial fib, presents emergency room with sudden onset chills , generalized weakness, muscle aches, joint pain, generalized fatigue, cough with some productive sputum, and fever at home of 102.7. Upon arrival to the emergency room is noted to be tachycardic and hypoxic to 88% . He appears ill. His accompanies him. He denies any chest pain or significant shortness of breath. Denies any vomiting but does endorse nausea. Denies abdominal pain or diarrhea. Past Medical History: History of septic shock, colon cancer, intra-abdominal peritonitis, acute respiratory failure, atrial fib, diastolic heart failure, obstructive sleep apnea, pneumothorax. Past Surgical History: Abdominal surgery including colon cancer sent surgery, hemicolectomy, abdominal wall surgery, appendectomy, tonsillectomy Social History: Denies daily use of drugs alcohol tobacco products. Family History: Noncontributory. ROS REVIEW OF SYSTEMS: A comprehensive 10 point review of systems is otherwise negative aside from elements mentioned in the history of present illness. Exam Constitutional appears ill nontoxic triage nursing summary reviewed, vital signs reviewed, awake/alert. Vital signs noted to be tachycardic, febrile, hypoxic 88%. Eyes normal conjunctivae and sclera, EOMI, PERRLA. HENT normal inspection, atraumatic, moist mucus membranes, no epistaxis, neck supple/ no meningismus, no raccoon eyes. Respiratory clear to auscultation bilaterally, normal breath sounds, no respiratory distress, no wheezing. Cardiovascular tachycardic, regular rhythm, no murmur, no edema, distal pulses normal. Gastrointestinal soft, non-tender, no rebound, no guarding, normal bowel sounds, no distension, no pulsatile mass. Genitourinary no CVA tenderness. Musculoskeletal no midline vertebral tenderness, full range of motion, no calf swelling, no tenderness of extremities, no meningismus, good pulses, neurovascularly intact. Skin pink, warm, & dry, no rash, skin atraumatic. Neurologic awake, alert and oriented x 3, AAOx3, moves all 4 extremities equally, motor intact, sensory intact, CN II-XII intact, normal cerebellar, normal vision, normal speech. Psychiatric normal mood/affect. Heme/Lymph/Immune no lymphadenopathy. Differential Diagnosis: Includes but is not limited to in a particular order acute sepsis, severe sepsis, septic shock, dehydration, electrolyte disturbance , pneumonia, influenza, bacteremia, urinary tract infection Medical Decision Making: Plan for this patient IV establishment with blood cultures, lactic acid, influenza, IV fluid bolus 2 L normal saline, check UA, chest x-ray grade 2 view, Tylneol for fever. Close monitoring, re-eval. Re-evaluation: EKG interpretation by me on record in [facility] system. Impression time of EKG 1945, sinus tachycardia at: Rate of 121. Right bundle-branch block and lifting to receive blood present. Otherwise no acute ischemia. Similar morphology from previous EKG however previous EKG on 02/14/2017 shows AFib. I do appreciate P waves on this EKG. 2156: Blood work, chest x-ray, influenza a reviewed. I do not appreciate a focal pneumonia on his chest x-ray. However patient has a low O2 sat of 88% and additionally has a cough with productive sputum yellow/ green. No blood. Will cover with antibiotics and which includes 1 g Rocephin, and azithromycin for community-acquired coverage. Additionally patient be well-hydrated. Does have a leukocytosis noted. Blood cultures are pending. Rapid flu is negative however for the PCR fluids pending. Will admit to the hospitalist service overnight for dehydration, tachycardia, acute febrile illness possible pneumonia. 2108: Spoke with Dr. Houston who agrees to admit. Patient fine with Transfer. Reason for transfer and admission observation overnight for acute febrile illness, dehydration, tachycardia possible early pneumonia possible early flu. Source: Patient - Medical/Surgical History Hx Asthma: No Hx Chronic Respiratory Disease: No Hx Diabetes: No Hx Cardiac Disease: No Hx Renal Disease: No Hx Cirrhosis: No Hx Alcoholism: No Hx HIV/AIDS: No Hx Splenectomy or Spleen Trauma: No Other PMH: blood clots in 90s, sepsis 2016 Aug, anxiety, colon CA, HTN, BRIANA - Social History Smoking Status: Former smoker Constitutional: Initial Vital Signs O2 Sat (%) 94 08/13/17 19:40 O2 Delivery Mode Nasal Cannula O2 (L/minute) 3 Allergies/Adverse Reactions: Sulfa (Sulfonamide Antibiotics) Allergy (Verified 08/13/17 19:53) Rash Home Medications: Medication Instructions Recorded Pravastatin Sodium [Pravachol] 40 mg PO HS 09/08/15 Escitalopram Oxalate [Lexapro] 20 mg PO DAILY 08/14/17 Warfarin Sodium [Coumadin] 10 mg PO DAILY@16 08/14/17 Medical Decision Making - Data Points Laboratory Results: Laboratory Results 08/14/17 04:04 08/14/17 04:04 Medications Given: Enoxaparin Sodium (Lovenox) 100 mg SC BID [facility] Stop: 02/11/18 09:44 Last Admin: 08/17/17 21:36 Dose: 100 mg Escitalopram Oxalate (Lexapro) 20 mg PO DAILY [facility] Stop: 02/11/18 08:59 Last Admin: 08/17/17 09:13 Dose: 20 mg Cefazolin Sodium/Dextrose (Ancef 2 Gm (Premix)) 100 mls @ 200 mls/hr IV Q8HRS [facility] PRN Reason: Protocol Stop: 09/14/17 13:59 Last Admin: 08/17/17 21:36 Dose: 100 mls Loperamide HCl (Imodium) 2 mg PO QID PRN PRN Reason: Diarrhea/Loose Stools Stop: 02/12/18 12:39 Last Admin: 08/16/17 16:28 Dose: 2 mg Nystatin (Mycostatin Powder) 1 erlin TP TID [facility] Stop: 09/13/17 15:59 Last Admin: 08/17/17 21:36 Dose: 1 erlin Nystatin (Mycostatin Cream 15gm) 1 erlin TP BID [facility] Stop: 09/15/17 20:59 Last Admin: 08/17/17 21:36 Dose: 1 erlin Pravastatin Sodium (Pravachol) 40 mg PO HS [facility] Stop: 02/10/18 20:59 Last Admin: 08/16/17 21:45 Dose: 40 mg Psyllium Hydrophilic Mucilloid (Metamucil/Konsyl) 1 each PO DAILY [facility] Stop: 02/10/18 12:44 Last Admin: 08/17/17 09:13 Dose: 1 each Warfarin Sodium (Message-Coumadin Daily Order) 1 ea MISC DAILY@1500 [facility] Stop: 02/13/18 14:59 Last Admin: 08/17/17 17:18 Dose: Not Given Discontinued Medications Acetaminophen (Tylenol) 1,000 mg PO EDNOW ONE Stop: 08/13/17 19:43 Last Admin: 08/13/17 20:03 Dose: 1,000 mg Sodium Chloride (Ns) 1,000 mls @ 0 mls/hr IV EDNOW ONE; Wide Open PRN Reason: Protocol Stop: 08/13/17 19:36 Last Admin: 08/13/17 19:59 Dose: 1,000 mls Sodium Chloride (Ns) 1,000 mls @ 0 mls/hr IV ONCE ONE PRN Reason: Wide Open Stop: 08/13/17 19:44 Last Admin: 08/13/17 20:02 Dose: 1,000 mls Azithromycin 500 mg/ Dextrose 255 mls @ 255 mls/hr IV ONCE ONE PRN Reason: Protocol Stop: 08/13/17 21:56 Last Admin: 08/13/17 21:44 Dose: 255 mls Ceftriaxone Sodium/Dextrose (Rocephin 1 Gm (Premix)) 50 mls @ 100 mls/hr IV EDNOW ONE PRN Reason: Protocol Stop: 08/13/17 21:26 Last Admin: 08/13/17 21:15 Dose: 50 mls Sodium Chloride (Ns) 500 mls @ 0 mls/hr IV ONCE ONE PRN Reason: Wide Open Stop: 08/13/17 21:35 Last Admin: 08/13/17 21:50 Dose: 500 mls Sodium Chloride (Ns) 1,000 mls @ 100 mls/hr IV CONT [facility] Stop: 02/09/18 23:14 Last Admin: 08/13/17 23:39 Dose: 1,000 mls Ceftriaxone Sodium/Dextrose (Rocephin 1 Gm (Premix)) 50 mls @ 100 mls/hr IV DAILY [facility] PRN Reason: Protocol Stop: 09/13/17 12:59 Last Admin: 08/15/17 10:00 Dose: Not Given Azithromycin 500 mg/ Dextrose 255 mls @ 255 mls/hr IV DAILY [facility] PRN Reason: Protocol Stop: 09/13/17 12:59 Last Admin: 08/15/17 09:55 Dose: Not Given Promethazine HCl (Phenergan) 6.25 mg IVP ONCE ONE Stop: 08/13/17 21:35 Last Admin: 08/13/17 21:41 Dose: 6.25 mg Warfarin Sodium (Coumadin) 10 mg PO ONCE ONE Stop: 08/14/17 00:46 Last Admin: 08/14/17 00:52 Dose: 10 mg Warfarin Sodium (Coumadin) 12.5 mg PO ONCE@1600 ONE Stop: 08/14/17 16:01 Last Admin: 08/14/17 17:32 Dose: 12.5 mg Warfarin Sodium (Coumadin) 10 mg PO DAILY16 [facility] Stop: 02/11/18 15:59 Last Admin: 08/16/17 16:28 Dose: 10 mg Warfarin Sodium (Message-Coumadin Daily Order) 1 ea MISC DAILY@1500 [facility] Stop: 02/10/18 14:59 Last Admin: 08/14/17 17:25 Dose: Not Given Warfarin Sodium (Coumadin) 2.5 mg PO ONCE ONE Stop: 08/16/17 16:01 Last Admin: 08/16/17 16:28 Dose: 2.5 mg Warfarin Sodium (Coumadin) 10 mg PO ONCE@1600 ONE Stop: 08/17/17 16:01 Last Admin: 08/17/17 17:17 Dose: 10 mg Warfarin Sodium (Coumadin) 2.5 mg PO ONCE@1600 ONE Stop: 08/17/17 16:01 Last Admin: 08/17/17 17:17 Dose: 2.5 mg Departure - Departure Disposition: [facility]patient Acute Clinical Impression: Dehydration, Bronchitis, Tachycardia Fever Qualifiers: Fever type: unspecified Qualified Code(s): R50.9 - Fever, unspecified Condition: Fair
[2017-08-13] MEDS ORDERED: NS 1,000 ML IV ONE ×2 (19:35→19:43)
[2017-08-13] MEDS ORDERED: ACETAMINOPHEN 500 MG TAB PO ONE (19:42)
--- NOTE | 2017-08-13 19:49 | CPEKG ---
Heart Rate: 121 RR Interval: 496 P-R Interval: 144 QRSD Interval: 126 QT Interval: 324 QTC Interval: 460 P [place]: 13 QRS [place]: -74 T Wave [place]: 45 EKG Severity - ABNORMAL ECG - EKG Impression: SINUS TACHYCARDIA EKG Impression: RBBB AND LAFB Electronically Signed By: Baudilio Britton 17-Aug-2017 12:07:55
[2017-08-13 20:02] LABS: PLATELET COUNT 242 10^3/uL (150-400)
[2017-08-13 20:12] LABS: INR 1.82 (0.83-1.16); PROTIME(PATIENT) 20.7 SEC (12.0-15.0)
[2017-08-13] MEDS ORDERED: AZITHROMYCIN IV 500 MG in D5W 250 ML IV ONE (20:57)
[2017-08-13] MEDS ORDERED: AZITHROMYCIN 500 MG/5 ML VIAL IV ONE (21:03)
[2017-08-13] MEDS ORDERED: PROMETHAZINE HCL 25 MG/ML INJ IVP ONE (21:34)
[2017-08-13] MEDS ORDERED: NS 500 ML IV ONE (21:34)
[2017-08-13] MEDS ORDERED: PROMETHAZINE HCL 25 MG/ML INJ ONE (21:36)
[2017-08-13] MEDS ORDERED: ACETAMINOPHEN 325 MG TAB PO PRN (23:00)
[2017-08-13] MEDS ORDERED: HYDROCODONE/APAP 5/325 TAB PO PRN (23:00)
[2017-08-13] MEDS ORDERED: ONDANSETRON 4 MG/2 ML VIAL IVP PRN (23:00)
[2017-08-13] MEDS ORDERED: NS 1,000 ML IV SCH (23:15)
[2017-08-14] MEDS ORDERED: WARFARIN SODIUM 5 MG TAB PO ONE ×2 (00:45→16:00)
[2017-08-14 04:18] LABS: PLATELET COUNT 195 10^3/uL (150-400)
[2017-08-14 04:28] LABS: INR 1.71 (0.83-1.16); PROTIME(PATIENT) 20.2 SEC (12.0-15.0)
--- NOTE | 2017-08-14 08:53 | PDGENHP ---
History and Physical - Chief Complaint fever, tachycardia - History of Present Illness DOS - 08/13/2017. Patient seen prior to midnight. Late entry note. Source - Patient provides history and appears reliable. EMR reviewed and case discussed with accepting provider. HPI - [id number] yo M with pmhx significant for atrial fibrillation, diastolic CHF, BRIANA,hx of colon CA complicated by a hospitalization 2016 for septic shock 2 /2 perforation/peritonitis and acute respiratory failure. Patient [place] [facility] [place] with complaints of fever measured at home to 102.7F, tachycardia and fatigue. Patient also has noted cough with SOA. Patient reports congestion with occasional production of sputum. He denies any chest pain/palpitations. Patient has had some nausea without any vomiting/diarrhea. Patient has been able to tolerate oral intake but slightly decreased appetite. Additionally patient has notes a persistent diffuse rash particularly around his left arm chest and on his legs that has been persistent for the last several months without improvement. Patient denies any new medications or allergies except to sulfa antibiotics. At [facility], patient was noted to be hypoxic on room air at 88% with improvement with supplemental oxygen. He had a cough tachycardia, tachypnea and fever with normal lactate. Evaluation including chest x-ray UA was negative for evidence of bacterial infection. Patient was started on azithromycin and Rocephin prophylactically for possible developing pneumonia. History Information - Allergies/Home Medication List Allergies/Adverse Reactions: Sulfa (Sulfonamide Antibiotics) Allergy (Verified 08/13/17 19:53) Rash Home Medications: Pravastatin Sodium [Pravachol] 40 mg PO HS 09/08/15 [Last Taken 08/13/17] Escitalopram Oxalate [Lexapro] 20 mg PO DAILY 08/14/17 [Last Taken 08/13/17] Warfarin Sodium [Coumadin] 10 mg PO DAILY@16 08/14/17 [Last Taken 08/13/17] I have personally reviewed and updated: family history, medical history, social history, surgical history - Past Medical History Additional medical history: afib, diastolic CHF, HLD, BRIANA, pneumothorax, colonca s/p resection with complications spetic shock d/t peritonitis and acute respiratory failure - Surgical History Additional surgical history: hemicolectomy, appy, T/A - Family History Additional family history: cancer mother and MGM - Social History Smoking Status: Former smoker Tobacco Use: Cigarettes Alcohol Use: None Drug Use: None Additional social history: . lives with . COR - FULL. patient desires Tiki Castano to be MDPOA. Review of Systems Review of Systems: ROS: 10pt was reviewed & negative except for what was stated in HPI & below Constitutional: Reports: chills, fever, malaise, other (sweats) EENMT: Reports: no symptoms. Denies: sore throat Cardiac: Denies: lightheadedness, palpitations Respiratory: Reports: cough, shortness of breath Gastrointestinal: Reports: nausea. Denies: vomitting, abdominal pain, diarrhea Genitourinary: Denies: burning, dysuria, hematuria Muscolosketal: Reports: muscle pain (right arm, chronic). Denies: joint pain Skin: Reports: rash (chronic diffuse rash mostly flaky, itchy on left arm, chest , legs. ) Neurological: Reports: headache. Denies: numbness, tingling, weakness Hematologic/Lymphatic: Denies: easy bleeding, easy bruising Physical Exam Physical Exam: Selected Entries 08/13/17 08/13/17 19:54 22:17 Blood Pressure Automatic Method Heart Rate 116 H 116 H Respiratory 20 23 H Rate O2 Sat (%) 93 Temperature (C) 37.5 C 38.9 C H Blood Pressure 156/101 H 124/76 H Mean Arterial 119 H 92 Pressure (MAP) O2 (L/minute) 2 O2 Delivery Room Air Mode Temperature Oral Oral Source Constitutional: no apparent distress, other (NAD. patient sleeping in bed. wakes easily to name. appears acutely ill and fatigued but nontoxic. ), No uncomfortable Eyes: PERRL, anicteric sclera, EOMI Ears, Nose, Mouth, Throat: dry mucous membranes, other (no nasal discharge), No poor dentition Cardiovascular: regular rate and rhythym, no murmur, rub, or gallop, pulses symmetric bilaterally, No edema Peripheral Pulses: 2+: dorsalis-pedis (R), dorsalis-pedis (L) Respiratory: no respiratory distress, reduced air movement (decreased bases), No expiratory wheeze, No rhonchi Gastrointestinal: normoactive bowel sounds, soft, non-tender abdomen, no palpable masses, No tenderness Genitourinary: no bladder tenderness, No larson in urethra Skin: warm, rash (maculopapular with flaking. minimal erythema. diffuse left arm , extension chest/neck/leg. no areas of cellulitis), No mottled Musculoskeletal: full muscle strength, No pain with ROM, No generalized weakness Neurologic: AAOx3, sensation intact bilaterally, CN II-XII Intact, No facial droop Psychiatric: not anxious, flat affect, No depressed Lab Data & Imaging Review 08/14/17 04:04 08/14/17 04:04 Microbiology Laboratory Tests 08/13/17 08/13/17 08/13/17 18:55 19:55 19:55 WBC 15.16 H RBC 5.26 Hgb 14.6 Hct 43.5 MCV 82.7 MCH 27.8 L MCHC 33.6 RDW 16.8 H Plt Count 242 MPV 9.5 Neut % (Auto) 65.1 Lymph % (Auto) 22.8 Park % (Auto) 9.7 Eos % (Auto) 1.5 Baso % (Auto) 0.6 Nucleat RBC Rel Count 0.0 Absolute Neuts (auto) 9.88 H Absolute Lymphs (auto) 3.45 H Absolute Monos (auto) 1.47 H Absolute Eos (auto) 0.23 Absolute Basos (auto) 0.09 Absolute Nucleated RBC 0.00 Immature Gran % 0.3 Immature Gran # 0.04 ESR 10 PT INR APTT VBG Lactic Acid 1.9 Sodium Potassium Chloride Carbon Dioxide Anion Gap BUN Creatinine Estimated GFR Glucose Calcium Total Bilirubin Conjugated Bilirubin Unconjugated Bilirubin AST ALT Alkaline Phosphatase Troponin I C-Reactive Protein Total Protein Albumin Lipase Procalcitonin Nasal Influenza A PCR NEGATIVE FOR FLU A Nasal Influenza B PCR NEGATIVE FOR FLU B Influenza A,B Rapid 08/13/17 08/13/17 08/13/17 19:55 19:55 20:35 WBC RBC Hgb Hct MCV MCH MCHC RDW Plt Count MPV Neut % (Auto) Lymph % (Auto) Park % (Auto) Eos % (Auto) Baso % (Auto) Nucleat RBC Rel Count Absolute Neuts (auto) Absolute Lymphs (auto) Absolute Monos (auto) Absolute Eos (auto) Absolute Basos (auto) Absolute Nucleated RBC Immature Gran % Immature Gran # ESR PT 20.7 H INR 1.82 H APTT 29.8 VBG Lactic Acid Sodium 139 Potassium 4.5 Chloride 100 Carbon Dioxide 23 Anion Gap 16 BUN 21 Creatinine 1.0 Estimated GFR > 60 Glucose 116 H Calcium 9.5 Total Bilirubin 0.4 Conjugated Bilirubin 0.1 Unconjugated Bilirubin 0.3 AST 30 ALT 56 Alkaline Phosphatase 59 Troponin I 0.015 C-Reactive Protein 7.6 Total Protein 7.4 Albumin 4.0 Lipase 105 Procalcitonin 0.07 Nasal Influenza A PCR Nasal Influenza B PCR Influenza A,B Rapid NEGATIVE FOR FLU WBC 16.21 10^3/uL (3.80-9.50) H 08/14/17 04:04 RBC 5.15 10^6/uL (4.40-6.38) 08/14/17 04:04 Hgb 14.8 g/dL (13.7-17.5) 08/14/17 04:04 Hct 43.0 % (40.0-51.0) 08/14/17 04:04 MCV 83.5 fL (81.5-99.8) 08/14/17 04:04 MCH 28.7 pg (27.9-34.1) 08/14/17 04:04 MCHC 34.4 g/dL (32.4-36.7) 08/14/17 04:04 RDW 17.0 % (11.5-15.2) H 08/14/17 04:04 Plt Count 195 10^3/uL (150-400) 08/14/17 04:04 MPV 9.8 fL (8.7-11.7) 08/14/17 04:04 Neut % (Auto) 70.9 % (39.3-74.2) 08/14/17 04:04 Lymph % (Auto) 16.7 % (15.0-45.0) 08/14/17 04:04 Park % (Auto) 11.5 % (4.5-13.0) 08/14/17 04:04 Eos % (Auto) 0.1 % (0.6-7.6) L 08/14/17 04:04 Baso % (Auto) 0.4 % (0.3-1.7) 08/14/17 04:04 Nucleat RBC Rel Count 0.0 % (0.0-0.2) 08/14/17 04:04 Absolute Neuts (auto) 11.50 10^3/uL (1.70-6.50) H 08/14/17 04:04 Absolute Lymphs (auto) 2.71 10^3/uL (1.00-3.00) 08/14/17 04:04 Absolute Monos (auto) 1.86 10^3/uL (0.30-0.80) H 08/14/17 04:04 Absolute Eos (auto) 0.02 10^3/uL (0.03-0.40) L 08/14/17 04:04 Absolute Basos (auto) 0.06 10^3/uL (0.02-0.10) 08/14/17 04:04 Absolute Nucleated RBC 0.00 10^3/uL (0-0.01) 08/14/17 04:04 Immature Gran % 0.4 % (0.0-1.1) 08/14/17 04:04 Immature Gran # 0.06 10^3/uL (0.00-0.10) 08/14/17 04:04 ESR 10 MM/HR (0-20) 08/13/17 19:55 PT 20.2 SEC (12.0-15.0) H 08/14/17 04:04 INR 1.71 (0.83-1.16) H 08/14/17 04:04 APTT 32.3 SEC (23.0-38.0) 08/14/17 04:04 VBG Lactic Acid 1.9 mmol/L (0.7-2.1) 08/13/17 19:55 Sodium 141 mEq/L (134-144) 08/14/17 04:04 Potassium 4.8 mEq/L (3.5-5.2) 08/14/17 04:04 Chloride 106 mEq/L (97-110) 08/14/17 04:04 Carbon Dioxide 23 mEq/l (22-31) 08/14/17 04:04 Anion Gap 12 mEq/L (8-16) 08/14/17 04:04 BUN 18 mg/dL (7-23) 08/14/17 04:04 Creatinine 0.9 mg/dL (0.7-1.3) 08/14/17 04:04 Estimated GFR > 60 08/14/17 04:04 Glucose 101 mg/dL (70-100) H 08/14/17 04:04 Calcium 8.7 mg/dL (8.5-10.4) 08/14/17 04:04 Total Bilirubin 0.4 mg/dL (0.1-1.4) 08/13/17 19:55 Conjugated Bilirubin 0.1 mg/dL (0.0-0.5) 08/13/17 19:55 Unconjugated Bilirubin 0.3 mg/dL (0.0-1.1) 08/13/17 19:55 AST 30 IU/L (17-59) 08/13/17 19:55 ALT 56 IU/L (21-72) 08/13/17 19:55 Alkaline Phosphatase 59 IU/L (38-126) 08/13/17 19:55 Troponin I 0.015 ng/mL (0.000-0.034) 08/13/17 19:55 C-Reactive Protein 7.6 mg/L (<10.0) 08/13/17 19:55 Total Protein 7.4 g/dL (6.3-8.2) 08/13/17 19:55 Albumin 4.0 g/dL (3.5-5.0) 08/13/17 19:55 Lipase 105 IU/L (23-300) 08/13/17 19:55 Procalcitonin 0.07 ng/mL (0.02-0.10) 08/13/17 19:55 Urine Color YELLOW 08/14/17 00:50 Urine Appearance CLEAR 08/14/17 00:50 Urine pH 5.0 (5.0-7.5) 08/14/17 00:50 Ur Specific Drift 1.020 (1.002-1.030) 08/14/17 00:50 Urine Protein NEGATIVE (NEGATIVE) 08/14/17 00:50 Urine Ketones NEGATIVE (NEGATIVE) 08/14/17 00:50 Urine Blood NEGATIVE (NEGATIVE) 08/14/17 00:50 Urine Nitrate NEGATIVE (NEGATIVE) 08/14/17 00:50 Urine Bilirubin NEGATIVE (NEGATIVE) 08/14/17 00:50 Urine Urobilinogen NEGATIVE EU (0.2-1.0) 08/14/17 00:50 Ur Leukocyte Esterase NEGATIVE (NEGATIVE) 08/14/17 00:50 Urine Glucose NEGATIVE (NEGATIVE) 08/14/17 00:50 Nasal Influenza A PCR NEGATIVE FOR FLU A (NEGATIVE) 08/13/17 18:55 Nasal Influenza B PCR NEGATIVE FOR FLU B (NEGATIVE) 08/13/17 18:55 Influenza A,B Rapid NEGATIVE FOR FLU (NEGATIVE) 08/13/17 20:35 Imaging Review: Chest, PA and Lateral Views, at 8:01 PM Clinical History: 76-year-old male with a cough, fever, and lightheadedness, on warfarin. Comparison Study: Chest, dated 02/25/2017. Findings: Oxygen tubing and telemetry monitoring lead lines are noted. The left -sided PICC line has been removed since the previous exam. The cardiac and mediastinal silhouette is normal in size. There is chronic elevation of the right hemidiaphragm, with some minimal compressive subsegmental atelectasis in the right lower lobe. The appearance of the right lung base has improved from the previous study. There is some minimal diskoid subsegmental atelectasis versus scar at the left lung base. There is no pleural effusion. There is no peripheral interstitial edema or pneumothorax. The osseous structures are age-appropriate. Impression: 1. Unchanged chronic elevation of the right hemidiaphragm with some minimal compressive subsegmental atelectasis; the pleural-parenchymal features involving the right lung base have improved from 02/25/2017. 2. Minimal linear diskoid subsegmental atelectasis at the left lung base ( versus scar). Visualized and Interpreted Chest x-ray results: Yes Chest X-Ray results: no infiltrate, other EKG additional interpertation: Sinus tach 120s. no acute ST changes. RBBB. LAFB. [id number] Assessment & Plan Assessment: #Bronchitis (Acute) - suspect viral etiology with negative cxr for infiltrate. sputum culture. s/p [place]ith[place]cephin [place] [facility] good for 24 hours will defer additional antibiotics to day team and pending blood cultures. #hypoxia - supplemental oxygen. no wheezing on exam. no infiltrates on cxr. titrate down as tolerated. exertional pulse ox prior to discharge. #SIRS - patient with fever, tachycardia, tachypnea, leukocytosis. lactate is WNL and mentation appropriate. s/p blood cultures. patient received azithro/ rocephin empirically for respiratory cause. suspect viral illness and a respiratory panel was ordered. flu a/b pcr was negative both. #Dehydration (Acute) - continue IVF hydration. encourage oral intake when nausea controlled. chronic medical problems atrial fibrillation - patient's rate is elevated but he is in normal sinus rhythm will monitor on telemetry. Currently available med rec does not indicate any rate control. Patient is on Coumadin an subtherapeutic. Pharmacy consult to assist with dosing diastolic chf - patient appear dry at this time. monitor fluid status with IVF. HLD - resume statin at discharge. BRIANA - supplemental oxygen hx colon ca s/p resection FEN - IV fluid overnight for supplementation. Encourage oral intake as tolerated. Electrolyte monitoring and replacement if needed. Diet as tolerated. PPX - SCDs patient is on Coumadin subtherapeutic in pharmacy assisting with dosing. No bridging COR - FULL . patient desires Tiki Castano to be MDPOA. Dispo - patient will be admitted to the medical floor for observation.
[2017-08-14] MEDS: AZITHROMYCIN IV 500 MG in D5W 250 ML IV SCH (14:17)
[2017-08-14] MEDS: PSYLLIUM METAMUCIL 1 PKT PO SCH (14:27)
--- NOTE | 2017-08-14 14:59 | ASMTCMCOM ---
CM Note CM Note Notes: 08/14/2017 Case Management Note Met w/pt and Tiki [phone]. Pt is independent in all ADL's and able to drive prior to admission. Pt lives in one floor dwelling. Both pt and attend [employer] on Fridays and have acupuncture on Mondays at the [facility]. Pt has recent stay over the summer at [facility]. Case Management d/c poc: to be determined pending PT evals. Anticipating independent with family support with follow up as directed. Case Management to follow. Date Signed: 08/14/2017 02:58 PM Electronically Signed By:Desire Salguero RN
--- NOTE | 2017-08-14 16:32 | HOSPPROG ---
Hospitalist Progress Note Assessment/Plan: * Sepsis - fever, leukocytosis, tachycardia -source unclear - PNA vs. cellulitis vs. viral -d/w Dr. Tolbert - continue IV ceftriaxone -repeat CXR in am to see if infiltrate blossoms -unclear significance of normal procalcitonin -doubt PE - on chronic anticoagulation * Intertriginous larry of groin -nystatin powder * Colon cancer s/p resection -fecal urgency a problem - wearing Depends -try bulking agent - psyllium * Afib -chronic warfarin (subtherapeutic) * Obesity BMI 30 Subjective: No new complaints. Objective: Vital Signs Temp Pulse Resp BP Pulse Ox 36.8 C 79 16 139/70 H 93 08/14/17 16:00 08/14/17 16:00 08/14/17 16:00 08/14/17 16:00 08/14/17 16:00 PT 20.2 SEC (12.0-15.0) H 08/14/17 04:04 INR 1.71 (0.83-1.16) H 08/14/17 04:04 CXR viewed, my personal interpretation is - negative for infiltrate - Physical Exam Constitutional: no apparent distress, appears nourished, not in pain Cardiovascular: regular rate and rhythym, no murmur, rub, or gallop Respiratory: no respiratory distress, no rales or rhonchi, clear to auscultation Gastrointestinal: normoactive bowel sounds, soft, non-tender abdomen, no palpable masses Skin: warm, erythema (groin with sattelite lesions), No induration, No rash Neurologic: AAOx3, sensation intact bilaterally Psychiatric: interacting appropriately, not anxious, not encephalopathic, thought process linear ICD10 Worksheet Patient Problems: Problems Problem Status Onset Bronchitis Acute Dehydration Acute Fever Acute Tachycardia Acute Cellulitis of left lower extremity Acute Pneumonia Acute
[2017-08-14] MEDS: NYSTATIN POWDER 15 GM BTL TP SCH ×2 (17:33→22:02)
--- NOTE | 2017-08-14 17:42 | PCMIDPN ---
Assessment/Plan: Assessment/Plan: * Fever/rigors with leukocytosis: Suspect this is most likely due to right lower extremity cellulitis / lymphangitis which is now apparent over dorsal aspect of foot and lower extremity. Patient had not noted any foot symptoms previously other than significant cracking in his callus over the heel. Most likely this will be due to beta-hemolytic streptococci with Staphylococcus aureus also a consideration. Pulmonary etiology remains consideration given his hypoxia although no focal infiltrate on chest x-ray. Procalcitonin is normal although clinical findings suggest active infection is present. Will continue ceftriaxone as this will provide activity for both cellulitis and pneumonia. Will discontinue azithromycin given absence of pulmonary infiltrates and possible alternative etiology. Follow up blood cultures as he may have concomitant bacteremia with rigors. Elevate right lower extremity. Time spent, 35 min, of which greater than half was spent in education/ counseling /coordination of care related to fever, rigors, and probable right lower extremity cellulitis. 08/14/17 17:37 Subjective: Patient known to Infectious Disease service from care in preceding year related to postoperative intra-abdominal infection after resection of colon cancer. Patient notes that he has had progressive fatigue over last 3 months. This is described as fatigue rather than dyspnea. He does note episodes of cough during the same time frame with sputum production. Yesterday, he developed the abrupt onset of fever and shaking chills with temperature greater than 102. evaluation at [facility] revealed a prominent leukocytosis. Chest x-ray was obtained which did not show evidence of focal infiltrate. He was started empirically on ceftriaxone and azithromycin with concerns for possible early pneumonia given presentation despite absence of chest x-ray findings. Given above findings and complex past history, we are now asked to assist in his ongoing management. No recent travel. No ill contacts. Pet dogs at home. Past medical/ past surgical/ medications / allergies all reviewed with notation that has prior history of right lower extremity DVT. Review of systems remarkable for cracking of skin over heels and rash in both inguinal regions. Objective: Vital Signs Temp Pulse Resp BP Pulse Ox 36.8 C 79 16 139/70 H 93 08/14/17 16:00 08/14/17 16:00 08/14/17 16:00 08/14/17 16:00 08/14/17 16:00 ESR 10 MM/HR (0-20) 08/13/17 19:55 C-Reactive Protein 7.6 mg/L (<10.0) 08/13/17 19:55 Flu testing by PCR and respiratory panel by PCR negative blood cultures x2 pending Laboratory Tests 08/13/17 08/14/17 08/14/17 19:55 04:04 04:04 WBC 16.21 H Hct 43.0 Plt Count 195 Neut % (Auto) 70.9 Creatinine 0.9 Total Bilirubin 0.4 AST 30 ALT 56 Alkaline Phosphatase 59 Procalcitonin 0.07 - Physical Exam General Appearance: alert, no apparent distress, non-toxic EENT: No scleral icterus, No thrush, No conjunctival petechiae Respiratory: lungs clear, No respiratory distress Neck: supple, No lymphadenopathy (L), No lymphadenopathy (R) Cardiac/Chest: regular rate, rhythm, systolic murmur (2/6 throughout) Extremities: inflammation ( dorsal aspect of right foot with edema and erythema with associated warmth with some extension of erythema over anterior winslow; no palpable fluctuance) Abdomen: non-tender, No distended Skin: rash ( significant intertrigo in bilateral inguinal regions), other ( extensive dry skin and cracking over the heels and plantar surfaces of the foot with mild skin breakdown between 1st and 2nd toe on right) Lymphatic: other ( lymphangitis extends over right lower extremity and medial thigh) ICD10 Worksheet Patient Problems: Problems Problem Status Onset Bronchitis Acute Dehydration Acute Fever Acute Tachycardia Acute Cellulitis of left lower extremity Acute Pneumonia Acute
[2017-08-14] MEDS: PRAVASTATIN SODIUM 40 MG TAB PO SCH (21:11)
[2017-08-15 04:27] LABS: PLATELET COUNT 173 10^3/uL (150-400)
[2017-08-15 04:44] LABS: INR 1.45 (0.83-1.16); PROTIME(PATIENT) 17.8 SEC (12.0-15.0)
[2017-08-15] MEDS ORDERED: ENOXAPARIN 80 MG/0.8 ML SYR SC SCH (09:30)
--- NOTE | 2017-08-15 09:39 | PCMIDPN ---
Assessment/Plan: Assessment/Plan: * Fever/rigors with leukocytosis: Likely related to right lower extremity cellulitis with lymphangitis. Lymphangitis now receding with residual cellulitis over dorsal aspect of foot. Chest x-ray does not show evidence of pneumonia and no progressive respiratory symptoms - do not think pneumonia contributing to presentation. Will therefore discontinue ceftriaxone and change to cefazolin for targeted therapy of skin and soft tissue infection. Elevate right lower extremity. Blood cultures remain negative. If shows continued ankle improvement, anticipate transition to oral antibiotic therapy over next 24-48 hours. 08/15/17 09:36 Subjective: Patient feels overall improved except for pain in right foot. 1 episode of loose stool overnight but non subsequently. Patient notes sputum production has gone down. No significant cough or shortness of breath. Objective: Vital Signs Temp Pulse Resp BP Pulse Ox 36.6 C 70 14 124/70 H 95 08/15/17 07:49 08/15/17 07:49 08/15/17 07:49 08/15/17 07:49 08/15/17 07:49 Laboratory Results 08/15/17 04:03 08/15/17 04:03 08/14/17 08/15/17 08/16/17 05:59 05:59 05:59 Intake Total 350 Output Total 300 Balance 50 ESR 10 MM/HR (0-20) 08/13/17 19:55 C-Reactive Protein 7.6 mg/L (<10.0) 08/13/17 19:55 Ceftriaxone # 2 Blood cultures x2 no growth Chest x-ray without focal infiltrate - Physical Exam General Appearance: alert, no apparent distress EENT: No thrush Respiratory: lungs clear, No respiratory distress Cardiac/Chest: regular rate, rhythm Extremities: inflammation (Dorsal aspect of right foot with residual erythema, edema and mild tenderness with warmth; no fluctuance or bulla; erythema over anterior winslow largely room) Skin: rash (Intertrigo bilateral) Lymphatic: adenopathy (Right femoral node palpable), other (Lymphangitis mild residual in lower extremity) ICD10 Worksheet Patient Problems: Problems Problem Status Onset Bronchitis Acute Dehydration Acute Fever Acute Tachycardia Acute Cellulitis of left lower extremity Acute Pneumonia Acute
[2017-08-15] MEDS: AZITHROMYCIN IV 500 MG in D5W 250 ML IV SCH (09:55)
[2017-08-15] MEDS: PSYLLIUM METAMUCIL 1 PKT PO SCH (09:56)
[2017-08-15] MEDS: ESCITALOPRAM OXALATE 10 MG TAB PO SCH (09:56)
[2017-08-15] MEDS: NYSTATIN POWDER 15 GM BTL TP SCH ×3 (09:57→20:49)
[2017-08-15] MEDS: ENOXAPARIN 100 MG/ML SYR SC SCH ×2 (10:34→20:52)
[2017-08-15] MEDS: ceFAZolin 2 GM/DEXTROSE 100 ML IV SCH ×2 (14:50→21:42)
--- NOTE | 2017-08-15 15:23 | WOCRNPDOC ---
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 Wound care was unaware that had written orders for nystatin and discussed interdry sheets with patient. They are in room Advised patient and RN not to use with any powders or creams as it will clog up the interdry. Heels dry and hyperkeratotic. Atractain to heels BID. wound care will sign off.
[2017-08-15] MEDS ORDERED: WARFARIN SODIUM 5 MG TAB PO SCH (16:00)
[2017-08-15] MEDS: WARFARIN SODIUM 5 MG TAB PO SCH (17:46)
--- NOTE | 2017-08-15 17:46 | HOSPPROG ---
Hospitalist Progress Note Assessment/Plan: * Sepsis due to RLE cellulitis -IV ancef * Intertriginous larry of groin -nystatin powder * Colon cancer s/p resection -fecal urgency a problem - wearing Depends -try bulking agent - psyllium * Afib -chronic warfarin (subtherapeutic) -Lovenox until INR increased * Obesity BMI 30 Subjective: Doing better overall Objective: Vital Signs Temp Pulse Resp BP Pulse Ox 36.9 C 89 17 144/85 H 93 08/15/17 15:36 08/15/17 15:36 08/15/17 15:36 08/15/17 15:36 08/15/17 15:36 Laboratory Results 08/15/17 04:03 08/15/17 04:03 08/14/17 08/15/17 08/16/17 05:59 05:59 05:59 Intake Total 350 Output Total 300 Balance 50 PT 17.8 SEC (12.0-15.0) H 08/15/17 04:03 INR 1.45 (0.83-1.16) H 08/15/17 04:03 CXR viewed, my personal interpretation is - negative d/w Dr. Tolbert - ELIANA george alone - Physical Exam Constitutional: no apparent distress, appears nourished, not in pain Cardiovascular: regular rate and rhythym, no murmur, rub, or gallop Respiratory: no respiratory distress, no rales or rhonchi, clear to auscultation Gastrointestinal: normoactive bowel sounds, soft, non-tender abdomen, no palpable masses Skin: warm, erythema (RLE), No mottled, No fluctuance Neurologic: AAOx3, sensation intact bilaterally Psychiatric: interacting appropriately, not anxious, not encephalopathic, thought process linear ICD10 Worksheet Patient Problems: Problems Problem Status Onset Bronchitis Acute Dehydration Acute Fever Acute Tachycardia Acute Cellulitis of left lower extremity Acute Pneumonia Acute
[2017-08-15] MEDS: PRAVASTATIN SODIUM 40 MG TAB PO SCH (20:52)
[2017-08-16 04:36] LABS: PLATELET COUNT 190 10^3/uL (150-400)
[2017-08-16 04:46] LABS: INR 1.5 (0.83-1.16); PROTIME(PATIENT) 18.3 SEC (12.0-15.0)
[2017-08-16] MEDS: ceFAZolin 2 GM/DEXTROSE 100 ML IV SCH ×3 (06:09→21:45)
[2017-08-16] MEDS: PSYLLIUM METAMUCIL 1 PKT PO SCH (09:28)
[2017-08-16] MEDS: ESCITALOPRAM OXALATE 10 MG TAB PO SCH (09:28)
[2017-08-16] MEDS: ENOXAPARIN 100 MG/ML SYR SC SCH ×2 (09:28→21:45)
[2017-08-16] MEDS: NYSTATIN POWDER 15 GM BTL TP SCH ×3 (11:00→21:55)
[2017-08-16] MEDS ORDERED: LOPERAMIDE HCL 2 MG CAP PO PRN (12:40)
[2017-08-16] MEDS ORDERED: WARFARIN SODIUM 2.5 MG TAB PO ONE (16:00)
[2017-08-16] MEDS: WARFARIN SODIUM 5 MG TAB PO SCH (16:28)
--- NOTE | 2017-08-16 18:36 | HOSPPROG ---
Hospitalist Progress Note Assessment/Plan: * Sepsis due to RLE cellulitis -IV ancef - change to PO 1-2 days * Intertriginous larry of groin -nystatin powder * Colon cancer s/p resection -fecal urgency a problem - wearing Depends -try bulking agent - psyllium * Afib -chronic warfarin (subtherapeutic) -Lovenox until INR increased * Obesity BMI 30 Subjective: No complaints Objective: Vital Signs Temp Pulse Resp BP Pulse Ox 36.6 C 80 16 134/73 H 94 08/16/17 15:50 08/16/17 15:50 08/16/17 15:50 08/16/17 15:50 08/16/17 15:50 Laboratory Results 08/16/17 04:11 08/15/17 04:03 08/15/17 08/16/17 08/17/17 05:59 05:59 05:59 Intake Total 350 1000 1000 Output Total 300 Balance 50 1000 1000 PT 18.3 SEC (12.0-15.0) H 08/16/17 04:11 INR 1.50 (0.83-1.16) H 08/16/17 04:11 - Physical Exam Constitutional: no apparent distress, appears nourished, not in pain Cardiovascular: regular rate and rhythym, no murmur, rub, or gallop Respiratory: no respiratory distress, no rales or rhonchi, clear to auscultation Gastrointestinal: normoactive bowel sounds, soft, non-tender abdomen, no palpable masses Skin: no fluctuance, no induration, erythema (foot - maybe a little better), rash Neurologic: AAOx3, sensation intact bilaterally ICD10 Worksheet Patient Problems: Problems Problem Status Onset Bronchitis Acute Dehydration Acute Fever Acute Tachycardia Acute Cellulitis of left lower extremity Acute Pneumonia Acute
--- NOTE | 2017-08-16 18:44 | PCMIDPN ---
Assessment/Plan: Assessment/Plan: * Right lower extremity cellulitis: Lymphangitis fully resolved. Residual erythema localized to dorsal aspect of foot. Continue Ancef and elevation. Not ready to transition to oral therapy yet. Expect this will be feasible over next 24-48 hours. * Bilateral inguinal intertrigo: Marked improvement with decreased maceration. 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 08/16/17 18:42 Subjective: Patient feels significantly improved. Limited cough and shortness of breath. Complains of tenderness over dorsal aspect of right foot. Objective: Vital Signs Temp Pulse Resp BP Pulse Ox 36.6 C 80 16 134/73 H 94 08/16/17 15:50 08/16/17 15:50 08/16/17 15:50 08/16/17 15:50 08/16/17 15:50 Laboratory Results 08/16/17 04:11 08/15/17 04:03 08/15/17 08/16/17 08/17/17 05:59 05:59 05:59 Intake Total 350 1000 1000 Output Total 300 Balance 50 1000 1000 ESR 10 MM/HR (0-20) 08/13/17 19:55 C-Reactive Protein 7.6 mg/L (<10.0) 08/13/17 19:55 Cefazolin # 1 Antibiotics # 3 Blood cultures x2 no growth - Physical Exam General Appearance: alert, apparent distress, non-toxic EENT: No scleral icterus, No thrush Respiratory: crackles (Right base that clear with deep inspiration) Cardiac/Chest: regular rate, rhythm Extremities: inflammation (Dorsal aspect of right foot with edema, erythema, warmth and tenderness. 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
[2017-08-16] MEDS: PRAVASTATIN SODIUM 40 MG TAB PO SCH (21:45)
[2017-08-16] MEDS: NYSTATIN 15 GM CR TUBE TP SCH (22:13)
[2017-08-17] MEDS: ceFAZolin 2 GM/DEXTROSE 100 ML IV SCH ×3 (05:45→21:36)
[2017-08-17 06:10] LABS: INR 1.5 (0.83-1.16); PROTIME(PATIENT) 18.3 SEC (12.0-15.0)
[2017-08-17] MEDS: PSYLLIUM METAMUCIL 1 PKT PO SCH (09:13)
[2017-08-17] MEDS: ENOXAPARIN 100 MG/ML SYR SC SCH ×2 (09:13→21:36)
[2017-08-17] MEDS: ESCITALOPRAM OXALATE 10 MG TAB PO SCH (09:13)
[2017-08-17] MEDS: NYSTATIN POWDER 15 GM BTL TP SCH ×3 (09:14→21:36)
[2017-08-17] MEDS: NYSTATIN 15 GM CR TUBE TP SCH ×2 (09:14→21:36)
[2017-08-17] MEDS ORDERED: WARFARIN SODIUM 2.5 MG TAB PO ONE (16:00)
[2017-08-17] MEDS ORDERED: WARFARIN SODIUM 5 MG TAB PO ONE (16:00)
--- NOTE | 2017-08-17 17:17 | HOSPPROG ---
Hospitalist Progress Note Assessment/Plan: Assessment: 76-year-old male presents with sepsis in the setting of right lower extremity cellulitis Plan: 1. Sepsis. Evidenced by autonomic dysregulation in the setting of infection with clinical indicators consisting of leukocytosis, tachycardia, tachypnea, fever, clear source of infection notably right lower extremity cellulitis, meeting all ICS-2 criteria -status post IV fluids, empiric IV antibiotics -continue to monitor white blood cell count, vital signs 2. Right lower extremity cellulitis. Ongoing blanchable erythema dorsum of right foot -discussed with Dr. Eduardo Tolbert, he recommends to continuing IV Ancef today and adjusting to oral Keflex 500 mg 3 times daily tomorrow, monitor affect -patient will have outpatient follow-up through the Infectious Disease office 3. 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 Colon cancer. Chronic, status post resection, has ongoing fecal urgency and requires depends -trialing psyllium 5. Atrial fibrillation. Paroxysmal, Lovenox bridge with Coumadin -daily INR 6. Suspected psoriasis. Patient reports long history of intermittent recurrent psoriatic appearing plaques on the bilateral upper extremities, torso , neck -the patient reports that he has had dermatologic workup for this several years ago, no clear diagnosis identified -I suspect this is not a contact dermatitis, as this has occurred in numerous geographic low cows and I suspect an inflammatory component, albeit it does not appear to be particularly virulent as the ESR/CRP are wnl -counseled the patient and his that I would recommend outpatient dermatologic evaluation, the patient reports to me that he and his primary care provider have discussed this and the primary care provider has also recommended a specific outpatient dumper Diet. Regular Prophylaxis. Lovenox Code. Full Disposition. Anticipated discharge is 08/18/2017, pending clinical improvement of cellulitis as outlined above. Subjective: Patient reports that the pain on the dorsum of the foot is substantially improved Objective: Vital Signs Temp Pulse Resp BP Pulse Ox 36.5 C 75 15 147/86 H 96 08/17/17 15:31 08/17/17 15:31 08/17/17 15:31 08/17/17 15:31 08/17/17 15:31 Laboratory Results 08/16/17 04:11 08/15/17 04:03 08/16/17 08/17/17 08/18/17 05:59 05:59 05:59 Intake Total 1000 1420 480 Balance 1000 1420 480 PT 18.3 SEC (12.0-15.0) H 08/17/17 05:50 INR 1.50 (0.83-1.16) H 08/17/17 05:50 - Time Spent With Patient Time Spent with Patient: greater than 35 minutes Time Spent with Patient: Greater than 35 minutes spent on this patients care, greater than 50% of time spent counseling, educating, and coordinating care regarding the above mentioned plan. - Pending Discharge Pending Discharge Within 24 Hours: Yes Pending Discharge Date: 08/18/17 Pending Discharge Time: 11:00 - Physical Exam Constitutional: no apparent distress, appears nourished, not in pain, No uncomfortable Cardiovascular: regular rate and rhythym, no murmur, rub, or gallop, systolic murmur (1/6 right sternal border), edema (Slight dorsum right foot), No tachycardia Respiratory: no respiratory distress, no rales or rhonchi, clear to auscultation Gastrointestinal: normoactive bowel sounds, soft, non-tender abdomen, no palpable masses Skin: other (Blanchable erythema with soft tissue edema dorsum right foot, very small bleeding laceration dorsum of left 5th digit without any surrounding erythema, numerous red plaques on bilateral upper extremities, neck, torso) Neurologic: AAOx3, sensation intact bilaterally Psychiatric: interacting appropriately, not anxious, not encephalopathic, thought process linear ICD10 Worksheet Patient Problems: Problems Problem Status Onset Bronchitis Acute Dehydration Acute Fever Acute Tachycardia Acute Cellulitis of left lower extremity Acute Pneumonia Acute
--- NOTE | 2017-08-17 17:48 | PCMIDPN ---
Assessment/Plan: Assessment/Plan: * Right lower extremity cellulitis: Lymphangitis fully resolved. Overall marked clinical improvement with mild residual erythema and edema over dorsal aspect of right foot. Continue cefazolin through today with transition to oral cephalexin 500 mg 3 times per day tomorrow to complete 1 additional week of therapy. Anticipate discharge home tomorrow. * Bilateral inguinal intertrigo: Marked improvement with decreased maceration. Continue nystatin powder. 08/16/17 18:42 08/17/17 17:46 Subjective: Feels significantly improved. Erythema and tenderness over foot decreasing but not resolved. Notes rash adjacent to left eye which is pruritic and occurred in past. Objective: Vital Signs Temp Pulse Resp BP Pulse Ox 36.5 C 75 15 147/86 H 96 08/17/17 15:31 08/17/17 15:31 08/17/17 15:31 08/17/17 15:31 08/17/17 15:31 Laboratory Results 08/16/17 04:11 08/15/17 04:03 08/16/17 08/17/17 08/18/17 05:59 05:59 05:59 Intake Total 1000 1420 480 Balance 1000 1420 480 ESR 10 MM/HR (0-20) 08/13/17 19:55 C-Reactive Protein 7.6 mg/L (<10.0) 08/13/17 19:55 Cefazolin # 2, antibiotics # for Blood cultures x2 no growth - Physical Exam Extremities: inflammation (Mild residual erythema with edema over dorsal aspect of right foot which is mildly tender; no extension past foot) Skin: other (Bilateral inguinal intertrigo less prominent.) ICD10 Worksheet Patient Problems: Problems Problem Status Onset Bronchitis Acute Dehydration Acute Fever Acute Tachycardia Acute Cellulitis of left lower extremity Acute Pneumonia Acute
[2017-08-17] MEDS: PRAVASTATIN SODIUM 40 MG TAB PO SCH (21:10)
[2017-08-17 23:41] VITALS: RESP 16
[2017-08-18 04:09] LABS: PLATELET COUNT 232 10^3/uL (150-400)
[2017-08-18 04:14] LABS: INR 1.78 (0.83-1.16); PROTIME(PATIENT) 20.8 SEC (12.0-15.0)
[2017-08-18] MEDS: ceFAZolin 2 GM/DEXTROSE 100 ML IV SCH ×2 (06:02→15:50)
[2017-08-18] MEDS: PSYLLIUM METAMUCIL 1 PKT PO SCH (10:00)
[2017-08-18] MEDS: ENOXAPARIN 100 MG/ML SYR SC SCH (10:01)
[2017-08-18] MEDS: NYSTATIN 15 GM CR TUBE TP SCH (10:01)
[2017-08-18] MEDS: NYSTATIN POWDER 15 GM BTL TP SCH ×2 (10:01→16:24)
[2017-08-18] MEDS: ESCITALOPRAM OXALATE 10 MG TAB PO SCH (10:01)
[2017-08-18 13:49] VITALS: BP 121/81; PULSE 70; TEMP 98.1; O2SAT 93
[2017-08-18] MEDS ORDERED: CEPHALEXIN 500 MG CAP PO ONE (14:36)
--- NOTE | 2017-08-18 16:42 | PDDCSUM ---
Discharge Summary Discharge Summary: DISCHARGE SUMMARY FOLLOW-UP ITEMS: Follow-up PT and INR on Sunday DATE OF ADMISSION: 08/13/2017 DATE OF DISCHARGE: 08/18/2017 DISCHARGE DIAGNOSES: 1. Sepsis 2. Right lower extremity cellulitis 3. Intrigenous Vikki 4. Chronic colon cancer 5. Paroxysmal atrial fibrillation 6. History of deep venous thrombosis and pulmonary embolism 7. Suspected psoriasis CONSULTATIONS: Infectious Disease PROCEDURES / IMAGING: None CHIEF COMPLAINT: Acute right foot pain SUBJECTIVE: Patient is feeling well at time discharge, the erythema and swelling has improved his right lower extremity PHYSICAL EXAM ON DISCHARGE: Systolic blood pressure is 130-140, heart rate 80, afebrile overnight, satting well on room air, very mild blanchable erythema on the dorsum of the right foot , nontender, full range of motion right ankle, full range of motion of the toes on the right, very small cut on the dorsum of the left 5th toe without any surrounding erythema LABS ON DISCHARGE: INR 1.8, white blood cell count 6100, hemoglobin 14.7 HOSPITAL COURSE BY PROBLEM: The patient presented with sepsis in the setting of right lower extremity cellulitis, evidenced by autonomic dysregulation in the setting of infection with clinical indicators consisting leukocytosis, tachycardia, tachypnea, fever , meeting all ICDS-2 criteria. He received empiric IV fluids and IV antibiotics. His leukocytosis improved and his vital signs stabilized. His IV antibiotics were narrowed to Ancef and he demonstrated clinical improvement in his right lower extremity, notably improvement in erythema, swelling, tenderness. Dr. Eduardo Tolbert has determined that the patient should be discharged on Keflex 500 mg 3 times daily for 1 subsequent week, and he will follow up in the Infectious Disease office. He was also noted during patient's hospitalization that his INR was subtherapeutic, and he is on Coumadin for a history of deep venous thrombosis, pulmonary embolism, atrial fibrillation. Consequently, he did receive bridging therapy and he will be discharged with a Lovenox bridge, with repeat PT and INR on Sunday. If his INR remains subtherapeutic, he should have Coumadin dose adjustments through the Coumadin Clinic as well as ongoing use of Lovenox. It was noted on the patient's exam that he does have a significant recurring rash, possibly psoriasis. The patient has been evaluated by a eclectic doctor in the past, but does not have 1 locally. I recommended that the patient scheduled outpatient consultation, and he will do this through his primary care provider office. We also recommended that the patient utilize ongoing nystatin powder for excoriations in his intrigenous areas, most likely Vikki. DISCHARGE MEDICATIONS: Please see official discharge medication reconciliation sheet in chart , continue home medications with the addition of Lovenox 100 mg twice daily x4 doses, nystatin powder, Keflex 500 mg 3 times daily x7 days. DISCHARGE INSTRUCTIONS: Please follow up with Dr. Eduardo Tolbert, Dr. Herb Peng, get outpatient dermatology consultation. TIME SPENT: Greater than 30 minutes were spent on direct patient care, as well as discharge planning and preparation.
--- NOTE | 2017-08-18 17:33 | ASDISCHSUM ---
Discharge Information Plan Status:Home with No Needs Medically Cleared to Leave:08/17/2017 Discharge Date:08/18/2017 04:55 PM CM D/C Disposition:Home, Routine, Self-Care ADT D/C Disposition:Home, Routine, Self-Care Projected Discharge Date:08/18/2017 04:55 PM Transportation at D/C:Family Discharge Delay Reason: Follow-Up Date:08/18/2017 04:55 PM Discharge Slot:2 - 12:01 pm - 18:00 pm Final Diagnosis:Sepsis, R lower extremity cellulitis, intrigenous larry, chronic colon cancer, par oxysmal afib, hx of DVT/PE, suspected psoriasis Placement Information Patient Contact Information Contact Name:BROOKE Relationship: Address:[address] Work Phone: City:[facility] Phone: [facility]/Zip Code:[place] [address] Email: Financial Information Financial Class: Primary Plan Desc:MEDICARE INPATIENT Primary Plan Number:[id number] Secondary Plan Desc:[employer]/MDR SUPPLEMENT Secondary Plan Number:[id number] Assessment Information [facility] CM Progress Note CM Note CM Note Notes: 08/14/2017 Case Management Note Met w/pt and Tiki [phone]. Pt is independent in all ADL's and able to drive prior to admission. Pt lives in one floor dwelling. Both pt and attend [facility] on Fridays and have acupuncture on Mondays at the [facility]. Pt has recent stay over the summer at [facility]. Case Management d/c poc: to be determined pending PT evals. Anticipating independent with family support with follow up as directed. Case Management to follow. Date Signed: 08/14/2017 02:58 PM Electronically Signed By:Desire Salguero RN Case Management Discharge Plan Note Case Management Discharge Discharge Order Complete? Answers: Yes Patient to Obtain Answers: via Family Medications Transportation Arranged Answers: Family/Friends Transport will Pick (Date 08/18/2017 04:00 PM & Time) ANUEL Complete Answers: No Notes: N/A Case Management Transport Answers: No Notes: N/A Form Complete Faxed Final Orders Answers: No Notes: N/A Agency/Facility Transfer Answers: No Notes: N/A Report Printed & Faxed to Receiving Agency Family Notified Answers: Yes Discharge Comments Notes: Reviewed chart regarding discharge plan, pt's progress. Per MD notes, pt to discharge home independently w/ family support and no identified needs. Pt to follow up as directed. IM not signed, pt left prior to signing. CM avail for any further issues or concerns. Discharge Plan: Home independently Date Signed: 08/18/2017 05:33 PM Electronically Signed By:Amanda Barajas RN Intervention Information Intervention Type:MAGED-Signed Date of Service:08/14/2017 10:35 AM Patient Type:Observation Staff Member:Cherelle Dalal Hours: Discipline: Severity: Comment:
== END 2017-08-18 16:55 | disposition home or self-care (01) | DRG 872 ==
LOC: CED 19:33 → CEDHOLD 21:09 → F2W 22:50 → OBSVTOIN 08-14 12:45
PROVIDERS: ADMIT Student in an Organized Health Care Education/Training Program; ATTEND Internal Medicine
DX: A41.9 Sepsis, unspecified organism (principal); L03.115 Cellulitis of right lower limb; I10 Essential (primary) hypertension; G47.33 Obstructive sleep apnea (adult) (pediatric); I50.30 Unspecified diastolic (congestive) heart failure; B37.2 Candidiasis of skin and nail; I48.0 Paroxysmal atrial fibrillation; E66.9 Obesity, unspecified; Z68.30 Body mass index [BMI] 30.0-30.9, adult; Z85.038 Personal history of other malignant neoplasm of large intestine; Z86.718 Personal history of other venous thrombosis and embolism; Z86.711 Personal history of pulmonary embolism; Z79.01 Long term (current) use of anticoagulants
CPT/HCPCS: 71046-PO; 80048-PO; 80076-PO; 83605-PO; 83690-PO; 84484-PO; 85025-PO; 85610-PO; 85652-PO; 85730-PO; 87400-PO; 96365; 97112-GP; 97116-GP; 97161-GP; 97165-GO; 97535-GO; G0378; G8978-GP-CH; G8978-GP-CI; G8979-GP-CH; G8980-GP-CH; G8987-GO-CI; G8988-GO-CI; G8989-GO-CI; J0456; J0690; J0696; J1650; J2550

== ENCOUNTER 2017-10-12 10:05 | Day surgery (SDC) | payer OTHER, MEDICARE ==
[2017-10-12] MEDS ORDERED: ceFAZolin 2 GM/SWFI 2 GM/20 ML SYR IVP ONE (10:20)
[2017-10-12] MEDS ORDERED: LR 1,000 ML IV ONE (10:21)
[2017-10-12] MEDS ORDERED: LIDOCAINE 1% 300 MG/30 ML SDV ONE (10:32)
[2017-10-12] MEDS ORDERED: BACITRACIN ZINC 14.2 GM OINTTUBE TP ONE (10:34)
[2017-10-12] MEDS ORDERED: BUPIVACAINE 0.5% 10 ML SDV ONE (10:34)
[2017-10-12] MEDS ORDERED: SODIUM BICARBONATE 10 MEQ/10 ML SYR IVP ONE (10:35)
[2017-10-12 11:12] LABS: INR 1.02 (0.83-1.16); PROTIME(PATIENT) 13.6 SEC (12.0-15.0)
[2017-10-12] MEDS ORDERED: MIDAZOLAM 2 MG/2 ML VIAL IVP ONE (11:35)
--- NOTE | 2017-10-12 11:35 | PDANEPAE ---
ANE Past Medical History - Cardiovascular History Hx Hypertension: No Hx Arrhythmias: No Hx Chest Pain: No Hx Coronary Artery / Peripheral Vascular Disease: No Hx CHF / Valvular Disease: No Hx Palpitations: No Cardiovascular History Comment: A FIB IN 80s & 90s - RECURRED DURING HOSP FOR POST OP SEPSIS IN 02/2017. DVT - Pulmonary History Hx COPD: No Hx Asthma/Reactive Airway Disease: No Hx Recent Upper Respiratory Infection: No Hx Oxygen in Use at Home: No Hx Sleep Apnea: Yes Sleep Apnea Screening Result - Last Documented: Positive Pulmonary History Comment: HX - OCCAS INACTIVE ASTHMA. PE - . POS SLEEP APNEA - Neurologic History Hx Cerebrovascular Accident: No Hx Seizures: No Hx Dementia: No - Endocrine History Hx Diabetes: No - Renal History Hx Renal Disorders: Yes Renal History Comment: FREQUENCY - Liver History Hx Hepatic Disorders: No - Neurological & Psychiatric Hx Hx Neurological and Psychiatric Disorders: No - Cancer History Hx Cancer: Yes Cancer History Comment: COLON CA W/RECENT POSS METASTASIS - Congenital Disorder History Hx Congenital Disorders: No - GI History Hx Gastrointestinal Disorders: No Gastrointestinal History Comment: PERSISTENT DIARRHEA - Other Health History Other Health History: ANEMIA - Chronic Pain History Chronic Pain: No - Surgical History Prior Surgeries: ABDOMINAL COLECTOMY (02/07/17) - POST OP LEAKAGE AND INF/ PERITONITIS. PERITONEAL LAVAGE. TONSILLECTOMY. HERNIA ANE Review of Systems Review of Systems: - Exercise capacity METS (RN): 4 METS ANE Patient History - Allergies Allergies/Adverse Reactions: Sulfa (Sulfonamide Antibiotics) Allergy (Verified 08/13/17 19:53) Rash - Home Medications Home Medications: Pravastatin Sodium [Pravachol] 40 mg PO HS 09/08/15 [Last Taken 10/11/17] Escitalopram Oxalate [Lexapro] 20 mg PO DAILY 08/14/17 [Last Taken 10/11/17] Warfarin Sodium [Coumadin] 10 mg PO DAILY@16 08/14/17 [Last Taken 10/07/17] - NPO status NPO Since - Liquids (Date): 10/12/17 NPO Since - Liquids (Time): 08:00 NPO Since - Solids (Date): 10/11/17 NPO Since - Solids (Time): 21:00 - Anes Hx Anes Hx: no prior problems - Smoking Hx Smoking Status: Former smoker - Family Anes Hx Family Hx Anesthesia Complications: NEG ANE Labs/Vital Signs - Vital Signs Blood Pressure: 147/74 Heart Rate: 73 Respiratory Rate: 14 O2 Sat (%): 94 Height: 179.07 cm Weight: 95.254 kg ANE Physical Exam - Airway Neck exam: FROM Mallampati Score: Class 2 Mouth exam: normal dental/mouth exam - Pulmonary Pulmonary: no respiratory distress, no rales or rhonchi, clear to auscultation - Cardiovascular Cardiovascular: regular rate and rhythym, no murmur, rub, or gallop - ASA Status ASA Status: III ANE Anesthesia Plan Anesthesia Plan: GA with mask
[2017-10-12] MEDS ORDERED: MIDAZOLAM 2 MG/2 ML VIAL ONE (11:45)
[2017-10-12] MEDS ORDERED: NALOXONE HCL 0.4 MG/ML INJ IVP PRN (11:54)
[2017-10-12] MEDS ORDERED: fentaNYL 100 MCG/2 ML INJ ONE (11:56)
[2017-10-12] MEDS ORDERED: PROPOFOL 200 MG/20 ML VIAL ONE (11:56)
[2017-10-12] MEDS ORDERED: HYDROCODONE/APAP 5/325 TAB PO PRN (12:12)
[2017-10-12] MEDS ORDERED: fentaNYL 100 MCG/2 ML INJ IVP PRN (12:12)
[2017-10-12] MEDS ORDERED: PROMETHAZINE HCL 25 MG/ML INJ IVP PRN (12:12)
[2017-10-12] MEDS ORDERED: LR 500 ML IV PRN (12:12)
[2017-10-12] MEDS ORDERED: ONDANSETRON 4 MG/2 ML VIAL IVP PRN (12:12)
--- NOTE | 2017-10-12 12:58 | POSTANESTH ---
Post Anesthetic Evaluation Cardiovascular Status: Normal, Stable, Similar to Pre-Op Cond Respiratory Status: Normal, Stable, Similar to Pre-op Cond. Level of Consciousness/Mental Status: Can Participate in Eval, Alert and Oriented Pain Control: Adequate, Prn Tx Ordered Nausea/Vomiting Control: Adequate, Prn Tx Ordered Complications Possibly Related to Anesthesia: None Noted
[2017-10-12 14:15] VITALS: PULSE 68; RESP 17; TEMP 97.5; O2SAT 90
--- NOTE | 2017-10-12 14:18 | GOP ---
[f rep st] OPERATIVE REPORT DATE OF OPERATION: SURGEON: Baudilio Chamberlain MD PREOPERATIVE DIAGNOSIS: Metastatic colon cancer. POSTOPERATIVE DIAGNOSIS: Metastatic colon cancer. PROCEDURE PERFORMED: Left subclavian port placement with fluoroscopic guidance. FINDINGS: The patient was found to have good position and good flow of the port catheter, although i t was somewhat difficult to get in places, it kept trying to go out the azygos vein. DESCRIPTION OF PROCEDURE: Patient taken to the operating room where he received satisfactory IV mesfin tion, monitored anesthesia care by Dr. Parry. He was placed in the supine position, prepped and drap ed in usual sterile fashion. He was then placed in Trendelenburg. A single stick was made in the le ft subclavian vein. Guidewire was introduced and passed with some difficulty into the right atrium. Subcu pocket was made in the 2nd intercostal space, port tubing was passed from that pocket to the s ubclavian insertion site. It was then introduced through the introducer sheath and dilator system. The catheter was positioned finally in the right atrium. Good backflow was achieved. The catheter w as flushed with heparin saline. Port was secured to the fascia with 3-0 Vicryl. Pocket was closed w ith 3-0 Vicryl for the subcu, 4-0 Prolene subcuticular stitch for the skin. The entrance site was cl osed with Prolene mattress suture. Wounds were dressed. He tolerated procedure well. This was all been done with 0.5% Marcaine local infiltration in both in cision sites. He was taken to recovery room in good condition. There were no complications. Blood loss was negligible. Postop chest x-ray shows good position of the catheter with no evidence of pneu mothorax. /[id number]/MODL
[2017-10-12 14:52] VITALS: BP 131/76
== END 2017-10-12 15:05 | disposition home or self-care (01) ==
LOC: FSGY 10:05
PROVIDERS: ATTEND Surgery
PROC: 0JH60XZ Insertion of Tunneled Vascular Access Device into Chest Subcutaneous Tissue and Fascia, Open Approach (ICD-10-PCS; principal; 2017-10-12 11:30)
PROC: 02HV33Z Insertion of Infusion Device into Superior Vena Cava, Percutaneous Approach (ICD-10-PCS; principal; 2017-10-12 11:30)
PROC: B5171ZA Fluoroscopy of Left Subclavian Vein using Low Osmolar Contrast, Guidance (ICD-10-PCS; principal; 2017-10-12 11:30)
DX: C78.5 Secondary malignant neoplasm of large intestine and rectum (principal); F41.8 Other specified anxiety disorders; I45.4 Nonspecific intraventricular block; Z86.718 Personal history of other venous thrombosis and embolism; Z86.711 Personal history of pulmonary embolism; Z79.01 Long term (current) use of anticoagulants
CPT/HCPCS: C1788; J0690; J1642; J2250; J2704; J3010

== ENCOUNTER 2018-02-11 00:59 | Observation (INO) | payer OTHER, MEDICARE ==
[2018-02-11] MEDS ORDERED: NS 1,000 ML IV ONE (01:09)
--- NOTE | 2018-02-11 01:09 | EDPHY ---
H & P Stated Complaint: hx colon ca now fever tired all day Time Seen by Provider: 02/11/18 01:09 HPI/ROS: HPI CHIEF COMPLAINT: Fever at home. 100.5 Tmax HISTORY OF PRESENT ILLNESS: This 77-year-old male, undergoing treatment for colon cancer, reports to me colon cancer stage IV and currently getting chemotherapy, he presents emergency room with a fever tonight around 11:00 p.m. At night he developed a fever to 100.5. He states that he did not feel well he laid in bed most of the day sleeping. He reports no vomiting but does have chronic diarrhea. He also reports a cough productive in sputum. Unsure of the color. Denies any chest pain or pleuritic pain or shortness of breath. Does complain of generalized weakness and fatigue. Additionally T-max at home was 100.5 tonight. He denies any vomiting, denies urinary symptoms. Denies any skin changes. He does report some pain and some mild redness to the right great toe. 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 Social History: Denies drugs alcohol tobacco. Family History: Noncontributory ROS REVIEW OF SYSTEMS: A comprehensive 10 point review of systems is otherwise negative aside from elements mentioned in the history of present illness. Exam Constitutional nontoxic appearing in no acute distress, triage nursing summary reviewed, vital signs reviewed, awake/alert. Eyes normal conjunctivae and sclera, EOMI, PERRLA. HENT normal inspection, atraumatic, moist mucus membranes, no epistaxis, neck supple/ no meningismus, no raccoon eyes. Respiratory clear to auscultation bilaterally, normal breath sounds, no respiratory distress, no wheezing. Cardiovascular rate normal, regular rhythm, no murmur, no edema, distal pulses normal. Gastrointestinal soft, non-tender, no rebound, no guarding, normal bowel sounds, no distension, no pulsatile mass. Genitourinary no CVA tenderness. Musculoskeletal no midline vertebral tenderness, full range of motion, no calf swelling, no tenderness of extremities, no meningismus, good pulses, neurovascularly intact. Skin right great toe: Medial aspect there is some erythema present. But no significant infection no pus, no streaking up the leg. Otherwise no skin changes. Neurologic awake, alert and oriented x 3, AAOx3, moves all 4 extremities equally, motor intact, sensory intact, CN II-XII intact, normal cerebellar, normal vision, normal speech. Psychiatric normal mood/affect. Heme/Lymph/Immune no lymphadenopathy. Differential Diagnosis: Includes but is not limited to in a particular: Sepsis , acute febrile illness, dehydration, bacteremia, soft tissue infection. Medical Decision Making: Patient here in the emergency room with a T-max at home 100.5 and fatigued today. He is a cancer patient getting chemotherapy use immunosuppressed. Concern is for fever. Will obtain blood cultures, lactic acid, blood work, most likely give broad-spectrum antibiotics, IV fluids and admit overnight. Will consult Oncology. Re-evaluation: 0310AM: Spoke with Oncology, Dr. Eduardo Webb, discussed the case in detail. Does recommend the patient gets admitted for observation overnight follow-up blood cultures and give a dose of IV Levaquin. I will consult the hospitalist for admission. I did review the patient's blood work, chest x-ray. Urinalysis still pending. Plan for hospitalization for observation for fever in a cancer patient getting chemotherapy. Here in emergency room he appears well nontoxic no acute distress, is afebrile. Blood cultures pending Lactic acid 2 Some mild erythema to the right great toe. Otherwise no significant finding on exam. 0316: Spoke with the hospitalist service they agree to admit. Blood cultures are pending. IV Levaquin started at the request of oncology. Source: Patient - Personal History Current Tetanus/Diphtheria Vaccine: Yes Current Tetanus Diphtheria and Acellular Pertussis (TDAP): Yes - Medical/Surgical History Hx Asthma: No Hx Chronic Respiratory Disease: No Hx Diabetes: No Hx Cardiac Disease: No Hx Renal Disease: No Hx Cirrhosis: No Hx Alcoholism: No Hx HIV/AIDS: No Hx Splenectomy or Spleen Trauma: No Other PMH: blood clots in 90s, sepsis 2016 Aug, anxiety, colon CA, HTN, BRIANA - Social History Smoking Status: Former smoker Constitutional: Initial Vital Signs Temperature (C) 36.7 C 02/11/18 01:02 Heart Rate 105 H 02/11/18 01:02 Respiratory Rate 14 02/11/18 01:02 Blood Pressure 137/87 H 02/11/18 01:02 O2 Sat (%) 93 02/11/18 01:02 O2 Delivery Mode Room Air Allergies/Adverse Reactions: Sulfa (Sulfonamide Antibiotics) Allergy (Verified 08/13/17 19:53) Rash Home Medications: Medication Instructions Recorded Pravastatin Sodium [Pravachol] 40 mg PO HS 09/08/15 Escitalopram Oxalate [Lexapro] 20 mg PO DAILY 08/14/17 Warfarin Sodium [Coumadin] 10 mg PO DAILY@16 08/14/17 Medical Decision Making - Data Points Laboratory Results: Laboratory Results 02/11/18 01:37 02/11/18 01:37 02/11/18 02/11/18 02/11/18 01:37 01:37 01:37 WBC 4.56 10^3/uL 10^3/uL (3.80-9.50) RBC 4.16 10^6/uL L 10^6/uL (4.40-6.38) Hgb 13.2 g/dL L g/dL (13.7-17.5) Hct 38.7 % L % (40.0-51.0) MCV 93.0 fL fL (81.5-99.8) MCH 31.7 pg pg (27.9-34.1) MCHC 34.1 g/dL g/dL (32.4-36.7) RDW 16.5 % H % (11.5-15.2) Plt Count 139 10^3/uL L 10^3/uL (150-400) MPV 10.5 fL fL (8.7-11.7) Neut % (Auto) 42.4 % % (39.3-74.2) Lymph % (Auto) 48.2 % H % (15.0-45.0) Stanton % (Auto) 6.6 % % (4.5-13.0) Eos % (Auto) 1.5 % % (0.6-7.6) Baso % (Auto) 0.9 % % (0.3-1.7) Nucleat RBC Rel Count 0.0 % % (0.0-0.2) Absolute Neuts (auto) 1.93 10^3/uL 10^3/uL (1.70-6.50) Absolute Lymphs (auto) 2.20 10^3/uL 10^3/uL (1.00-3.00) Absolute Monos (auto) 0.30 10^3/uL 10^3/uL (0.30-0.80) Absolute Eos (auto) 0.07 10^3/uL 10^3/uL (0.03-0.40) Absolute Basos (auto) 0.04 10^3/uL 10^3/uL (0.02-0.10) Absolute Nucleated RBC 0.00 10^3/uL 10^3/uL (0-0.01) Immature Gran % 0.4 % % (0.0-1.1) Immature Gran # 0.02 10^3/uL 10^3/uL (0.00-0.10) PT 17.9 SEC H SEC (12.0-15.0) INR 1.46 H (0.83-1.16) APTT 29.0 SEC SEC (23.0-38.0) VBG Lactic Acid Sodium 141 mEq/L mEq/L (135-145) Potassium 4.2 mEq/L mEq/L (3.3-5.0) Chloride 107 mEq/L mEq/L (97-110) Carbon Dioxide 25 mEq/l mEq/l (22-31) Anion Gap 9 mEq/L mEq/L (8-16) BUN 27 mg/dL H mg/dL (7-23) Creatinine 0.9 mg/dL mg/dL (0.7-1.3) Estimated GFR > 60 Glucose 102 mg/dL H mg/dL (70-100) Calcium 9.1 mg/dL mg/dL (8.5-10.4) Total Bilirubin 0.7 mg/dL mg/dL (0.1-1.4) Conjugated Bilirubin 0.3 mg/dL mg/dL (0.0-0.5) Unconjugated Bilirubin 0.4 mg/dL mg/dL (0.0-1.1) AST 35 IU/L IU/L (17-59) ALT 58 IU/L IU/L (21-72) Alkaline Phosphatase 79 IU/L IU/L (38-126) Total Protein 6.6 g/dL g/dL (6.3-8.2) Albumin 3.7 g/dL g/dL (3.5-5.0) Lipase 123 IU/L IU/L (23-300) 02/11/18 01:37 WBC RBC Hgb Hct MCV MCH MCHC RDW Plt Count MPV Neut % (Auto) Lymph % (Auto) Stanton % (Auto) Eos % (Auto) Baso % (Auto) Nucleat RBC Rel Count Absolute Neuts (auto) Absolute Lymphs (auto) Absolute Monos (auto) Absolute Eos (auto) Absolute Basos (auto) Absolute Nucleated RBC Immature Gran % Immature Gran # PT INR APTT VBG Lactic Acid 2.0 mmol/L mmol/L (0.7-2.1) Sodium Potassium Chloride Carbon Dioxide Anion Gap BUN Creatinine Estimated GFR Glucose Calcium Total Bilirubin Conjugated Bilirubin Unconjugated Bilirubin AST ALT Alkaline Phosphatase Total Protein Albumin Lipase Medications Given: Levofloxacin/Dextrose (Levaquin 750 Mg (Premix)) 150 mls @ 100 mls/hr IV EDNOW ONE PRN Reason: Protocol Stop: 02/11/18 04:29 Last Admin: 02/11/18 03:13 Dose: 150 mls Discontinued Medications Sodium Chloride (Ns) 1,000 mls @ 0 mls/hr IV EDNOW ONE; Wide Open PRN Reason: Protocol Stop: 02/11/18 01:10 Last Admin: 02/11/18 01:44 Dose: 1,000 mls Departure - Departure Disposition: [facility] Inpatient Acute Clinical Impression: Fever Qualifiers: Fever type: unspecified Qualified Code(s): R50.9 - Fever, unspecified Condition: Fair Referrals: Herb Peng MD [Primary Care Provider] - As per Instructions
[2018-02-11 01:59] LABS: INR 1.46 (0.83-1.16); PROTIME(PATIENT) 17.9 SEC (12.0-15.0)
[2018-02-11 02:03] LABS: PLATELET COUNT 139 10^3/uL (150-400)
[2018-02-11] MEDS ORDERED: ACETAMINOPHEN 325 MG TAB PO PRN (03:16)
[2018-02-11] MEDS ORDERED: ONDANSETRON 4 MG/2 ML VIAL IVP PRN (03:16)
[2018-02-11] MEDS ORDERED: ONDANSETRON DISINTEGRATING 4 MG TAB PO PRN (03:16)
--- NOTE | 2018-02-11 03:44 | PDGENHP ---
History and Physical - Chief Complaint Fever - History of Present Illness 77 yo M w/ hx of colon CA and DVT p/w fever. Patient reports he has felt fatigued for 2 days after finishing his latest chemotherapy infusion. He denies new localizing symptoms of infection. He has occasional sore throat and diarrhea , but these are common symptoms for him while he has been on chemotherapy. Upon arrival in the ED he has been afebrile and his laboratory work-up has been reassuring. His oncologist was contacted who recommended admission for observation. Case discussed with ED physician Dr. Montilla, previous records reviewed. History Information - Allergies/Home Medication List Allergies/Adverse Reactions: Sulfa (Sulfonamide Antibiotics) Allergy (Verified 08/13/17 19:53) Rash Home Medications: Pravastatin Sodium [Pravachol] 40 mg PO HS 09/08/15 [Last Taken 10/11/17] Escitalopram Oxalate [Lexapro] 20 mg PO DAILY 08/14/17 [Last Taken 10/11/17] Warfarin Sodium [Coumadin] 10 mg PO DAILY@16 08/14/17 [Last Taken 10/07/17] I have personally reviewed and updated: family history, medical history - Past Medical History Additional medical history: afib, diastolic CHF, HLD, BRIANA, pneumothorax, colonca s/p resection with complications septic shock d/t peritonitis and acute respiratory failure - Surgical History Additional surgical history: hemicolectomy, appy, T/A - Family History Additional family history: cancer mother and MGM - Social History Smoking Status: Former smoker Additional social history: . lives with . COR - FULL. patient desires Tiki Castano to be MDPOA. Review of Systems Review of Systems: ROS: 10pt was reviewed & negative except for what was stated in HPI & below Physical Exam Physical Exam: Temp Pulse Resp BP Pulse Ox 36.7 C 82 16 130/75 H 93 02/11/18 03:04 02/11/18 03:04 02/11/18 03:04 02/11/18 03:04 02/11/18 03:04 Constitutional: no apparent distress, not in pain Eyes: PERRL, EOMI Ears, Nose, Mouth, Throat: moist mucous membranes, no oral mucosal ulcers Cardiovascular: regular rate and rhythym, no murmur, rub, or gallop Respiratory: no respiratory distress, no rales or rhonchi Gastrointestinal: normoactive bowel sounds, soft, non-tender abdomen, other ( [place]-prince surgical scar, midline) Skin: warm, normal color Musculoskeletal: full muscle strength, no muscle tenderness Neurologic: AAOx3, CN II-XII Intact Psychiatric: interacting appropriately, not anxious Lab Data & Imaging Review 02/11/18 01:37 02/11/18 01:37 WBC 4.56 10^3/uL (3.80-9.50) 02/11/18 01:37 RBC 4.16 10^6/uL (4.40-6.38) L 02/11/18 01:37 Hgb 13.2 g/dL (13.7-17.5) L 02/11/18 01:37 Hct 38.7 % (40.0-51.0) L 02/11/18 01:37 MCV 93.0 fL (81.5-99.8) 02/11/18 01:37 MCH 31.7 pg (27.9-34.1) 02/11/18 01:37 MCHC 34.1 g/dL (32.4-36.7) 02/11/18 01:37 RDW 16.5 % (11.5-15.2) H 02/11/18 01:37 Plt Count 139 10^3/uL (150-400) L 02/11/18 01:37 MPV 10.5 fL (8.7-11.7) 02/11/18 01:37 Neut % (Auto) 42.4 % (39.3-74.2) 02/11/18 01:37 Lymph % (Auto) 48.2 % (15.0-45.0) H 02/11/18 01:37 [place] % (Auto) 6.6 % (4.5-13.0) 02/11/18 01:37 Eos % (Auto) 1.5 % (0.6-7.6) 02/11/18 01:37 Baso % (Auto) 0.9 % (0.3-1.7) 02/11/18 01:37 Nucleat RBC Rel Count 0.0 % (0.0-0.2) 02/11/18 01:37 Absolute Neuts (auto) 1.93 10^3/uL (1.70-6.50) 02/11/18 01:37 Absolute Lymphs (auto) 2.20 10^3/uL (1.00-3.00) 02/11/18 01:37 Absolute Monos (auto) 0.30 10^3/uL (0.30-0.80) 02/11/18 01:37 Absolute Eos (auto) 0.07 10^3/uL (0.03-0.40) 02/11/18 01:37 Absolute Basos (auto) 0.04 10^3/uL (0.02-0.10) 02/11/18 01:37 Absolute Nucleated RBC 0.00 10^3/uL (0-0.01) 02/11/18 01:37 Immature Gran % 0.4 % (0.0-1.1) 02/11/18 01:37 Immature Gran # 0.02 10^3/uL (0.00-0.10) 02/11/18 01:37 PT 17.9 SEC (12.0-15.0) H 02/11/18 01:37 INR 1.46 (0.83-1.16) H 02/11/18 01:37 APTT 29.0 SEC (23.0-38.0) 02/11/18 01:37 VBG Lactic Acid 2.0 mmol/L (0.7-2.1) 02/11/18 01:37 Sodium 141 mEq/L (135-145) 02/11/18 01:37 Potassium 4.2 mEq/L (3.3-5.0) 02/11/18 01:37 Chloride 107 mEq/L (97-110) 02/11/18 01:37 Carbon Dioxide 25 mEq/l (22-31) 02/11/18 01:37 Anion Gap 9 mEq/L (8-16) 02/11/18 01:37 BUN 27 mg/dL (7-23) H 02/11/18 01:37 Creatinine 0.9 mg/dL (0.7-1.3) 02/11/18 01:37 Estimated GFR > 60 02/11/18 01:37 Glucose 102 mg/dL (70-100) H 02/11/18 01:37 Calcium 9.1 mg/dL (8.5-10.4) 02/11/18 01:37 Total Bilirubin 0.7 mg/dL (0.1-1.4) 02/11/18 01:37 Conjugated Bilirubin 0.3 mg/dL (0.0-0.5) 02/11/18 01:37 Unconjugated Bilirubin 0.4 mg/dL (0.0-1.1) 02/11/18 01:37 AST 35 IU/L (17-59) 02/11/18 01:37 ALT 58 IU/L (21-72) 02/11/18 01:37 Alkaline Phosphatase 79 IU/L (38-126) 02/11/18 01:37 Total Protein 6.6 g/dL (6.3-8.2) 02/11/18 01:37 Albumin 3.7 g/dL (3.5-5.0) 02/11/18 01:37 Lipase 123 IU/L (23-300) 02/11/18 01:37 Visualized and Interpreted Chest x-ray results: Yes Chest X-Ray results: no infiltrate Assessment & Plan Assessment: 77 yo M w/ colon CA currently undergoing treatment p/w fever. Plan: 1. Fever - Patient reports T of 100.5 at home without localizing symptoms. He has been afebrile while here and displays no SIRS criteria currently. - Admit for observation - Blood cultures, CXR, UA for basic infectious work-up - Will also order respiratory PCR and procalcitonin - Oncology consulted, requested Levofloxacin x1; will observe off of further antibiotics for now 2. Colon CA - S/p surgical resection, now on chemotherapy. - Oncology will see patient in the morning 3. Hx DVT/PE - Patient reports multiple prior clotting events; he is on anticoagulation with warfarin. - Monitor daily INR Diet - Regular Code - Full Ppx - warfarin Dispo - Admit under observation status
[2018-02-11 05:05] LABS: INR 1.46 (0.83-1.16); PROTIME(PATIENT) 17.9 SEC (12.0-15.0)
[2018-02-11] MEDS ORDERED: ENOXAPARIN 40 MG/0.4 ML SYR SC SCH (09:00)
--- NOTE | 2018-02-11 09:35 | ASMTCMCOM ---
CM Note CM Note Notes: CM reviewed Pt's chart re D/C planning. Pt is a 77 y/o male with a hx of colon cancer. He presented at the ED with fatigue and a recent fever. He was afbrile since his arrival at the ED. He has been admitted for observation. Pt lives independently with his , Tiki #[phone]. Prior to hospitalization Pt lived independently and it is anticipated that he will return to this. CM will follow. D/C Plan: Anticipating independent. Date Signed: 02/11/2018 09:34 AM Electronically Signed By:Maryse Conroy
[2018-02-11] MEDS: ENOXAPARIN 100 MG/ML SYR SC SCH ×2 (12:35→21:52)
--- NOTE | 2018-02-11 13:56 | GCON ---
[f rep st] CONSULTATION ONCOLOGY INITIAL VISIT. DATE OF CONSULTATION: 02/11/2018 PRIMARY ONCOLOGIST: Dr. Bhavana Oliver. REASON FOR VISIT: Evaluation and management for metastatic colon cancer. HISTORY OF PRESENT ILLNESS: The patient is a 77-year-old gentleman who was initially diagnosed with a stage IIIC (T4b N0) colon cancer. This was diagnosed in January 2017, and at the time he had some sma ll subcentimeter noncalcified pulmonary nodules, but no other sites of metastatic disease. They did not change much up until I think after the of the year when nodules began to grow. A PET-CT scan in September showed the nodules as well as a PET-avid lower quadrant peritoneal metastatic disease. He was started on FOLFOX without bevacizumab in September. He completed his 8th cycle of chemotherapy on February 04. In general, he has been tolerating it well with some chronic diarrhea. A CT scan in early December showed that all the lesions had responded to the treatment. He had a couple episodes with sepsis, so has been very cautious to watch for signs of infection. Las t night, he reports his temperature had gone up to 100.5, but he did not have any shaking chills. He was feeling quite fatigued yesterday and had a little scratchy throat. He has chronic loose stools, but they have not changed at all. He was admitted to the hospital, cultures were drawn and he has b wendy observed. He has not had any further fever since admission. ALLERGIES: He is allergic to sulfa. HOME MEDICATIONS: Include pravastatin, loperamide, escitalopram and warfarin. CHRONIC ILLNESSES: Include colon cancer as described above, atrial fibrillation, diastolic CHF, jennifer racts, elevated lipids, sleep apnea, peritonitis and respiratory failure after the 1st colon cancer r esection. SURGICAL HISTORY: Includes hemicolectomy, appendectomy, tonsillectomy. SOCIAL HISTORY: Denies tobacco or alcohol use, although in the records reports that he had about a 1 0 pack-year history of smoking but quit years ago. He is also . FAMILY HISTORY: His mother had breast cancer but of an [place]. Father of CHF. One daughter. REVIEW OF SYSTEMS: 10-point review of systems performed, pertinent positives as per HPI, otherwise n egative. PHYSICAL EXAM: VITAL SIGNS: Temperature is 36.7, pulse 86, blood pressure is 151/78. GENERAL: He is a comfortable appearing gentleman in no distress. HEENT: Unremarkable. LUNGS: Clear. CARDIAC: Regular. ABDOMEN: Soft, nontender. Port-A-Cath is clean without signs of infection. EXTREMITIES : No edema or erythema. LABS: White count is 4600, with an ANC of 1900. Chemistries are unremarkable. INR is 1.4. Lactic acid was normal. IMAGING: Chest x-ray showed a little atelectasis, but no sign of pneumonia. Cultures thus far are p ending and the respiratory panel was negative. IMPRESSION: 1. Fever while on chemotherapy. 2. Chronic loose stools. 3. History of sepsis after colon cancer resection. 4. Metastatic colon cancer on chemotherapy. PLAN: He seems to be doing well and there are no obvious signs of infection at this time. I think i f he continues to do well, he should be able to go home soon and follow up with Dr. Oliver. His count s are also adequate and I would not expect them to significantly worsen over the next week. I believ e he is actually scheduled for a formal CT scan staging next week and to follow up with Dr. Oliver on the for his next round of chemotherapy. /[id number]/MODL
[2018-02-11] MEDS ORDERED: LOPERAMIDE HCL 2 MG CAP PO PRN (16:42)
--- NOTE | 2018-02-11 17:06 | HOSPPROG ---
Hospitalist Progress Note Assessment/Plan: # fever, unclear cause - no clear localizing s/sx; R toe slightly erythematous but does not look infected - follow blood cultures - consider non-infectious causes - hold on further abx at this time # colon cancer on chemotherapy - follows with Dr Oliver # hx PE/DVT - INR 1.46 - cont coumadin - lovenox bridge Subjective: c/o mild BANKS and R great toe pain Objective: Vital Signs Temp Pulse Resp BP Pulse Ox 36.7 C 86 16 151/78 H 90 L 02/11/18 13:14 02/11/18 13:14 02/11/18 13:14 02/11/18 13:14 02/11/18 13:14 Microbiology 02/11/18 05:45 Respiratory Panel (PCR) - Final Nasal, Sinus - Swab No Organism Detected 02/10/18 02/11/18 02/12/18 05:59 05:59 05:59 Intake Total 100 Output Total 100 Balance 0 PT 17.9 SEC (12.0-15.0) H 02/11/18 04:45 INR 1.46 (0.83-1.16) H 02/11/18 04:45 30 minutes of direct face to face patient care time from 4:31-5:01 - Physical Exam Constitutional: no apparent distress, appears nourished Cardiovascular: regular rate and rhythym, no murmur, rub, or gallop Respiratory: no respiratory distress, no rales or rhonchi, clear to auscultation Gastrointestinal: soft, non-tender abdomen, no palpable masses, other (midline surgery scar) Skin: warm, other (no rash, lesions) Musculoskeletal: other (R great toe with mild erythema; not TTP, no pain with joint ROM) ICD10 Worksheet Patient Problems: Problems Problem Status Onset Fever Acute Bronchitis Acute Cellulitis of left lower extremity Acute Dehydration Acute Pneumonia Acute Tachycardia Acute
[2018-02-11] MEDS ORDERED: PRAVASTATIN SODIUM 40 MG TAB PO SCH (21:00)
[2018-02-11] MEDS ORDERED: WARFARIN SODIUM 5 MG TAB PO SCH (21:00)
[2018-02-11] MEDS ORDERED: WARFARIN SODIUM 2.5 MG TAB PO ONE (21:00)
[2018-02-12 06:32] LABS: INR 1.36 (0.83-1.16); PROTIME(PATIENT) 16.9 SEC (12.0-15.0)
[2018-02-12 06:39] LABS: PLATELET COUNT 117 10^3/uL (150-400)
[2018-02-12 08:22] VITALS: BP 132/80
[2018-02-12] MEDS ORDERED: ESCITALOPRAM OXALATE 10 MG TAB PO SCH (09:00)
--- NOTE | 2018-02-12 09:29 | SOAPPROG ---
SOAP Progress Note Assessment/Plan: E&M Colon cancer * Metastatic Colon Cancer: on FOLFOX and responding; restaging scheduled for next week and f/u with Dr. Oliver in about 2 weeks. * Fever: no further fever, cultures negative; wbc ok * Disposition: okay to go home per onc when cleared by imed. Subjective: No problems overnight. Diarrhea is same. Objective: Vital Signs Temp Pulse Resp BP Pulse Ox 36.6 C 65 16 132/80 H 95 02/12/18 08:21 02/12/18 08:21 02/12/18 08:21 02/12/18 08:21 02/12/18 08:21 Microbiology 02/11/18 05:45 Respiratory Panel (PCR) - Final Nasal, Sinus - Swab No Organism Detected Laboratory Results 02/12/18 06:00 02/11/18 02/12/18 02/13/18 05:59 05:59 05:59 Intake Total 100 500 Output Total 100 Balance 0 500 PT 16.9 SEC (12.0-15.0) H 02/12/18 06:00 INR 1.36 (0.83-1.16) H 02/12/18 06:00 Physical Exam - Physical Exam General Appearance: no apparent distress Respiratory: lungs clear Cardiac/Chest: regular rate, rhythm Abdomen: non-tender, soft ICD10 Worksheet Patient Problems: Problems Problem Status Onset Fever Acute Bronchitis Acute Cellulitis of left lower extremity Acute Dehydration Acute Pneumonia Acute Tachycardia Acute
[2018-02-12] MEDS ORDERED: ENOXAPARIN 120 MG/0.8 ML SYR SC SCH (09:45)
--- NOTE | 2018-02-12 10:01 | GDS ---
[f rep st] DISCHARGE SUMMARY ALL DIAGNOSES: 1. Fever with no clear etiology. 2. Colon cancer on chemotherapy. 3. History of a pulmonary embolus and deep vein thrombosis with subtherapeutic INR. HOSPITAL COURSE: This is a 77-year-old man with a history of metastatic colon cancer as well as seps is, who presents with a low-grade fever at home. He did not have any recurrent fevers in the hospita l. Blood cultures have been negative, chest x-ray with no pneumonia, urinalysis negative. He had a small area of erythema on his right great toe which was not warm or tender to palpation. No pain wit h movement of his joint. He did receive 1 dose of Levaquin in the emergency department. He has not been continued on antibiotics. He is feeling well and ready for discharge. He will follow up with Ana Peng later this week. He will keep an eye on his great toe to make sure that the erythema martinez s not recur. He will also re-presented to the emergency department if he has an additional fever. His INR was subtherapeutic on discharge at 1.36. I gave him a bridge with once daily Lovenox dosing. He will follow up with the [facility] later this week or early next week. FOLLOWUP: 1. Dr. Oliver for restaging CT as well as followup appointment on February 25. 2. [facility] within [address] Peng within 1 week. BILLING: I spent more than 30 minutes on the day of discharge coordinating care. /[id number]/MODL
[2018-02-12] MEDS: ENOXAPARIN 100 MG/ML SYR SC SCH (11:11)
[2018-02-13] MEDS ORDERED: WARFARIN SODIUM 5 MG TAB PO SCH (21:00)
== END 2018-02-12 11:57 | disposition home or self-care (01) ==
LOC: F1N 03:48
PROVIDERS: ADMIT Student in an Organized Health Care Education/Training Program; ATTEND Student in an Organized Health Care Education/Training Program
DX: R50.9 Fever, unspecified (principal); E86.9 Volume depletion, unspecified; C18.9 Malignant neoplasm of colon, unspecified; Z86.711 Personal history of pulmonary embolism; Z87.891 Personal history of nicotine dependence
CPT/HCPCS: 71045; 96361; 96374; 99285; G0378; J1642; J1650; J1956

== ENCOUNTER 2018-12-07 18:44 | Emergency (ER) | payer OTHER, MEDICARE ==
[2018-12-07 18:56] VITALS: BP 151/91
--- NOTE | 2018-12-07 19:03 | EDPHY ---
HPI/HX/ROS/PE/MDM Narrative: CHIEF COMPLAINT: Tooth pain HPI: The patient is a 78-year-old male with a somewhat complex past medical history significant for recent admission for cellulitis, history of colon cancer , chemotherapy and anticoagulation. He states that he has had discomfort in his right lower posterior molar for some time and had plans approximately a year ago to get it pulled, but his recent cancer treatment made this not feasible. Over the last 3 days he has noted increasing pain in that to use as well as swelling in his right lower jaw. He denies fevers. He denies any trouble swallowing or new trismus. He has not contacted his dentist. REVIEW OF SYSTEMS: Aside from elements discussed in the HPI, a comprehensive 10-point review of systems was reviewed and is negative. PMH: History of colon cancer, history of cellulitis, history of anticoagulation. SOCIAL HISTORY: Denies drug or alcohol abuse. PHYSICAL EXAM: General:Patient is alert, in no acute distress. He is comfortable and well- appearing. ENT: Oral exam is normal except for noted severe dental caries to the right lower posterior molar. There is no active discharge. There is no tongue swelling or other soft tissue swelling within the mouth. Patient has a normal voice. Tenderness to palpation and mild swelling is noted to the corresponding lower jaw in this region. Neck: Normal inspection. Full range of motion. Neuro: Oriented x3. Normal motor function. Normal sensory function. MDM: This patient presents with what appears to be a dental abscess surrounding very obviously significantly decayed tooth. Given his past medical history, I think it is certainly why start him on oral amoxicillin immediately. I stressed with him the need to closely follow up with his dentist and we discussed strict return precautions. Review the patient's vital signs at time of discharge indicates tachycardia. I suspect this is likely secondary to pain as the patient is quite well appearing and afebrile. I see no signs of systemic toxicity whatsoever. General Time Seen by Provider: 12/07/18 18:55 Initial Vital Signs: Initial Vital Signs Temperature (C) 36.9 C 12/07/18 18:53 Heart Rate 123 H 12/07/18 18:53 Respiratory Rate 16 12/07/18 18:53 Blood Pressure 151/91 H 12/07/18 18:53 O2 Sat (%) 91 L 12/07/18 18:53 O2 Delivery Mode Room Air Allergies/Adverse Reactions: Sulfa (Sulfonamide Antibiotics) Allergy (Verified 12/07/18 18:53) Pt reports rash Home Medications: Medication Instructions Recorded Amoxicillin Trihydrate 500 mg PO TID 7 Days cap 12/07/18 [Amoxicillin] Escitalopram Oxalate 12/07/18 Hydrocodone/APAP 5/325 [[place] 1 - 2 tab PO Q4H PRN #7 tab 12/07/18 5/325 (RX)] Pravastatin Sodium 12/07/18 Warfarin Sodium 12/07/18 Departure - Departure Disposition: Home, Routine, Self-Care Clinical Impression: Dental abscess Condition: Good Instructions: Dental Abscess (ED) Additional Instructions: Follow-up with your dentist within 48 hr. Return to the emergency department for worsening swelling tomorrow, fever, increasing pain, difficulty swallowing or opening mouth or other concerns. Referrals: Herb Peng MD [Primary Care Provider] - As per Instructions Prescriptions: Amoxicillin Trihydrate [Amoxicillin] 500 mg PO TID 7 Days cap Hydrocodone/APAP 5/325 [[place] 5/325 (RX)] 1 - 2 tab PO Q4H PRN #7 tab PRN Reason: Pain, Moderate
[2018-12-07] MEDS ORDERED: HYDROCODONE/APAP 5/325 TAB ONE (19:13)
[2018-12-07] MEDS ORDERED: HYDROCODONE/APAP 5/325 TAB PO ONE (19:14)
== END 2018-12-07 19:30 | disposition home or self-care (01) ==
LOC: CED 18:44
DX: K04.7 Periapical abscess without sinus (principal); Z79.01 Long term (current) use of anticoagulants; Z85.038 Personal history of other malignant neoplasm of large intestine
CPT/HCPCS: 99284-ER